=== PATIENT | male | born 1960 | race Caucasian/White ===

== ENCOUNTER 2024-06-15 08:58 | Outpatient (OUT) | payer OTHER, SELFPAY ==
[2024-06-15 09:22] LABS: Basophils Percent Auto 0.4 % (0.2-2.0); Eosinophils Absolute Auto 0.4 10^3/uL (0.0-0.7); Eosinophils Percent Auto 4.2 % (0.9-7.0); Hematocrit 45.2 % (42.0-54.0); Hemoglobin 15.3 g/dL (14.0-18.0); Immature Granulocytes Abs Auto 0.04 10^3/uL (0.00-0.03); Immature Granulocytes Pct Auto 0.4 % (0.0-0.5); Lymphocytes Absolute Auto 2.4 10^3/uL (1.2-3.8); Lymphocytes Percent Auto 24.7 % (20.5-60.0); Mean Corpuscular HGB Conc 33.8 g/dL (29.9-35.2); Mean Corpuscular Hemoglobin 30.1 pg (25.9-34.0); Mean Platelet Volume 8.6 fL (9.5-13.5); Monocytes Percent Auto 10.6 % (1.7-12.0); Neutrophils Absolute Auto 5.8 10^3/uL (1.4-6.5); Neutrophils Percent Auto 59.7 % (43.0-75.0); Platelet Count 251 10^3/uL (150-450); Red Blood Count 5.08 10^6/uL (4.70-6.10); White Blood Count 9.8 10^3/uL (4.0-11.0)
[2024-06-15 09:40] LABS: Creatinine Urine Random 113.52 mg/dL (20.00-300.00); Microalbum Creatinine Ratio Ur 22.9 mg/g (0.0-29.9); Microalbumin Urine Random 2.6 mg/dL (<=30.0)
[2024-06-15 09:43] LABS: Estimated Average Glucose 120 mg/dL; Glycohemoglobin A1C 5.8 % (4.5-6.2)
[2024-06-15 09:44] LABS: Alanine Aminotransferase 29 U/L (16-63); Albumin Level 3.8 g/dL (3.4-5.0); Alkaline Phosphatase 51 U/L (46-116); Anion Gap 12.5; Aspartate Amino Transferase 23 U/L (15-37); BUN Creatinine Ratio 18.6; Bilirubin Total 0.5 mg/dL (0.2-1.0); Carbon Dioxide 28.7 mmol/L (21.0-32.0); Chloride 105 mmol/L (98-107); Chol HDL Ratio 2.3; Cholesterol 119 mg/dL (<=200); Estimated GFR (African America >60 (>=60 mL/min/1.73m^2); Estimated GFR (Non-African Ame >60 (>=60 mL/min/1.73m^2); Globulin 3.9 g/dL; Glucose 113 mg/dL (74-106); HDL Cholesterol 52 mg/dL (40-60); LDL Cholesterol Calculated 55.2 mg/dL; Potassium 4.2 mmol/L (3.5-5.1); Sodium 142 mmol/L (136-145); Total Protein 7.7 g/dL (6.4-8.2); Triglycerides 59 mg/dL (<=150); VLDL CHOLESTEROL 11.8 mg/dL
== END 2024-06-15 08:59 | disposition home or self-care (01) ==
PROVIDERS: PCP Family Medicine; Visit Provider Family Medicine
DX: N40.1 Benign prostatic hyperplasia with lower urinary tract symptoms (principal); R73.03 Prediabetes; I48.91 Unspecified atrial fibrillation; N13.8 Other obstructive and reflux uropathy
CPT/HCPCS: 36415; 80053; 80061; 82043; 82570; 83036; 85025

== ENCOUNTER 2024-07-10 09:50 | Outpatient (OUT) | payer OTHER, SELFPAY ==
[2024-07-10 10:17] LABS: Basophils Absolute Auto 0.1 10^3/uL (0.0-0.1); Basophils Percent Auto 0.6 % (0.2-2.0); Eosinophils Absolute Auto 0.4 10^3/uL (0.0-0.7); Eosinophils Percent Auto 3.7 % (0.9-7.0); Hemoglobin 15.3 g/dL (14.0-18.0); Immature Granulocytes Abs Auto 0.03 10^3/uL (0.00-0.03); Immature Granulocytes Pct Auto 0.3 % (0.0-0.5); Lymphocytes Absolute Auto 2.1 10^3/uL (1.2-3.8); Lymphocytes Percent Auto 21.8 % (20.5-60.0); Mean Corpuscular Hemoglobin 30.5 pg (25.9-34.0); Mean Corpuscular Volume 89.8 fL (80.0-94.0); Mean Platelet Volume 8.6 fL (9.5-13.5); Monocytes Absolute Auto 0.9 10^3/uL (0.3-0.8); Monocytes Percent Auto 9.7 % (1.7-12.0); Neutrophils Absolute Auto 6.1 10^3/uL (1.4-6.5); Neutrophils Percent Auto 63.9 % (43.0-75.0); Platelet Count 266 10^3/uL (150-450); Red Blood Count 5.01 10^6/uL (4.70-6.10); Red Cell Distribution Width 12.8 % (11.0-15.0); White Blood Count 9.6 10^3/uL (4.0-11.0)
[2024-07-10 11:55] LABS: Alanine Aminotransferase 28 U/L (16-63); Albumin Level 3.7 g/dL (3.4-5.0); Alkaline Phosphatase 51 U/L (46-116); Anion Gap 12.8; Aspartate Amino Transferase 17 U/L (15-37); BUN Creatinine Ratio 17.8; Bilirubin Total 0.5 mg/dL (0.2-1.0); Carbon Dioxide 28.2 mmol/L (21.0-32.0); Chloride 104 mmol/L (98-107); Chol HDL Ratio 2.3; Cholesterol 111 mg/dL (<=200); Estimated GFR (African America >60 (>=60 mL/min/1.73m^2); Estimated GFR (Non-African Ame >60 (>=60 mL/min/1.73m^2); Globulin 3.7 g/dL; Glucose 103 mg/dL (74-106); HDL Cholesterol 49 mg/dL (40-60); LDL Cholesterol Calculated 52.2 mg/dL; Sodium 141 mmol/L (136-145); Total Protein 7.4 g/dL (6.4-8.2); Triglycerides 49 mg/dL (<=150); VLDL CHOLESTEROL 9.8 mg/dL
[2024-07-10 16:17] LABS: Estimated Average Glucose 120 mg/dL; Glycohemoglobin A1C 5.8 % (4.5-6.2)
[2024-07-10 16:55] LABS: Creatinine Urine Random 160.24 mg/dL (20.00-300.00); Microalbumin Urine Random <1.3 mg/dL (<=30.0)
== END 2024-07-10 09:51 | disposition home or self-care (01) ==
LOC: LAB 09:51
PROVIDERS: PCP Family Medicine; Visit Provider Family Medicine
DX: N40.1 Benign prostatic hyperplasia with lower urinary tract symptoms (principal); N13.8 Other obstructive and reflux uropathy; R73.03 Prediabetes; E78.2 Mixed hyperlipidemia
CPT/HCPCS: 36415; 80053; 80061; 82043; 82570; 83036; 85025

== ENCOUNTER 2024-11-18 08:36 | Outpatient (OUT) | payer OTHER, SELFPAY ==
--- OUTSIDE RECORDS SUMMARY | 2024-11-18 08:56 | XMS_ITS | CCD ---
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 Admitting Unavailable Lue, Marita M. Admitting Unavailable Lue, Marita M. Referring Unavailable Lue, Marita M. Attending Unavailable OJUKWU, Mbanefo Attending Unavailable OJUKWU, Mbanefo Admitting Unavailable [facility] Cardio, XXXX Consulting Unavailable Lue, Marita M. Referring Unavailable [facility] Cardio, XXXX Consulting Unavailable OJUKWU, Mbanefo Admitting Unavailable OJUKWU, Mbanefo Attending Unavailable MD Estuardo Bunch Consulting Unavailable Betancor, Estuardo Consulting Unavailable Betancor, Estuardo Consulting Unavailable Lue, Marita M. Admitting Unavailable Betancor, Estuardo Consulting Unavailable Sharla Mendosa DO Primary Care Provider Arben Quintanilla Unavailable Marita Klein Attending Unavailable Jose Laurent Attending Unavailable Betancor, Estuardo Admitting Unavailable NONE, XXXX Referring Unavailable Orzech, Janet X Attending Unavailable Orzech, Janet X Attending Unavailable Isacc, Janet X Attending Unavailable Marita Klein Attending Unavailable Marita Klein Referring Unavailable Marita Klein Admitting Unavailable Sharla Mendosa DO Unavailable SHARLA MENDOSA Attending Unavailable KABRANDI, SHARLA R Attending Unavailable SHARLA MENDOSA R Attending Unavailable SHARLA MENDOSA R Attending Unavailable SHARLA MENDOSA R Attending Unavailable Jose Laurent Attending Unavailable NONE, XXXX Referring Unavailable Jose Laurent Admitting Unavailable OJUKWU, Mbanefo Admitting Unavailable OJUKWU, Mbanefo Attending Unavailable OJUKWU, Mbanefo Referring Unavailable Marita Klein Attending Unavailable NONE, XXXX Referring Unavailable Jose Laurent Admitting Unavailable Jose Laurent Attending Unavailable Jose Laurent Attending Unavailable NONE, XXXX Referring Unavailable Jose Laurent Admitting Unavailable Allergies Allergy Classification Reported Allergen(s) Allergy Type Date of Onset Reaction(s) Facility (20 sources) Penicillins; Translations: [penicillins] Drug allergy 07-13-2017 Unknown (qualifier value), Unknown [facility] Mike Medications Current Medications Medication Drug Class(es) Dates Sig (Normalized) Sig (Original) 0.25 MG, 0.5 MG Dose 3 ML semaglutide 0.68 MG/ML Pen Injector [Ozempic] (6 sources) Start: 06-19-2024 Ozempic 2 mg/3 mL (0.25 mg or 0.5 mg dose) subcutaneous solution 3 mL, 0 Refill(s), INJECT 0.25 MG SUBCUTANEOUSLY WEEKLY, Refills(s) 0 Start Date: 06/19/24 Status: Ordered Repeat number: 1 Start: 06-19-2024 Ozempic 2 mg/3 mL (0.25 mg or 0.5 mg dose) subcutaneous solution 3 mL, 0 Refill(s), INJECT 0.25 MG SUBCUTANEOUSLY WEEKLY, Refills(s) 0 Start Date: 06/19/24 Status: Ordered acetaminophen 325 mg / HYDROcodone bitartrate 5 mg oral tablet (1 source) Opioid Agonist Start: 08-12-2022 End: 08-15-2022 Thurmond 325 mg-5 mg oral tablet 1 tab(s), Oral, q6hr for 3 day(s), 10 tab(s), Refill(s) 0, Take 1 tab by mouth every 6 hrs PRN moderate to severe pain. Don't drive or operate machinery while taking., [id number], 172.7, cm, 08/11/22 14:33:00 EST, Height/Length Dosing, 96,... Start Date: 08/12/22 Stop Date: 08/15/22 Status: Ordered amiodarone hydrochloride 200 mg oral tablet (15 sources) Antiarrhythmic Start: 06-07-2024 End: 09-17-2024 take 1 tablet by mouth in the morning amiodarone (Pacerone) 200 MG tablet Take 200 mg by mouth in the morning and 200 mg before bedtime. 06/07/2024 Active Start: 06-07-2024 take 1 tablet by john th twice daily amiodarone 200 mg Tab 200 mg = 1 tab(s), Oral, BID, # 60 tab(s), Refills(s) 0, Pharmacy: [facility]/pharmacy #[id number], 172, cm, 06/06/24 17:31:00 EST, Height/Length Dosing, 92.7, kg, 06/06/24 17:31:00 EST, Weight Dosing Start Date: 06/07/24 Status: Ordered apixaban 5 mg oral tablet (17 sources) Factor Xa Inhibitor Start: 06-07-2024 take 1 tablet by mouth in the morning apixaban (Eliquis) 5 MG tablet Take 5 mg by mouth in the morning and 5 mg before bedtime. 06/07/2024 Active aspirin 81 mg oral capsule (20 sources) Platelet Aggregation Inhibitor, Nonsteroidal Anti-inflammatory Drug Start: 08-06-2021 take 1 capsule by mouth once daily aspirin 81 mg oral capsule 81 mg = 1 cap(s), Oral, Daily, Prophylaxis Start Date: 08/06/21 Status: Ordered Repeat number: 1 Start: 07-13-2017 take 1 tablet by john th once daily Aspirin (Aspir-Low) 81 mg Tablet,Delayed Release (Dr/Ec) Active 81 MG PO Daily July 13, 2017 1:00am End: 10-23-2024 aspirin 81 MG chewable table t 1 (one) time each day at the same time. 10/23/2024 Discontinued (Therapy completed) betamethasone 0.5 mg/ml / clotrimazole 10 mg/ml topical cream (2 sources) Azole Antifungal, Corticosteroid Start: 10-23-2024 clotrimazole-betamethasone (Lotrisone) cream Indications: Ringworm Apply topically 2 (two) times a day 45 g 10/23/2024 Active Start: 10-23-2024 clotrimazole-b etamethasone (Lotrisone) cream Indications: Ringworm Apply topically 2 (two) times a day 45 g 10/23/2024 Active diazePAM 10 mg oral tablet (2 sources) Benzodiazepine Start: 08-12-2022 Valium 10 mg Tab 10 mg = 1 tab(s), Oral, Once, PRN for anxiety, Take 1 hour prior the procedure. Don't drive or operate machinery while taking., # 1 tab(s), Refills(s) 0, Pharmacy: [id number], 172.7, cm, 08/11/22 14:33:00 EST, Height/Length Dosing, 96, kg,... Start Date: 08/12/22 Status: Ordered diclofenac sodium 50 mg delayed release oral tablet (3 sources) Nonsteroidal Anti-inflammatory Drug Start: 08-31-2022 End: 09-14-2022 take 1 tablet by mouth every twelve hours at mealtime diclofenac sodium 50 mg Oral EC Tab 50 mg = 1 tab(s), Oral, q12hr, take with food, X 14 day(s), # 28 tab(s), Refills(s) 0, Pharmacy: [id number], 173, cm, 08/31/22 8:51:00 EST, Height/Length Dosing, 96, kg, 08/31/22 8:51:00 EST, Weight Dosing Start Date: 08/31/22 Stop Date: 09/14/22 Status: Ordered docosahexaenoic acid 120 mg / eicosapentaenoic acid 180 mg oral capsule (10 sources) omega-3 (Fish Oil) 1000 MG capsule 1 capsule 1 (one) time each day at the same time. Active Fish Oils (20 sources) Start: 08-06-2021 take 500 mg by mouth once daily Fish Oil 500 mg, Oral, Daily, Prophylaxis Start Date: 08/06/21 Status: Ordered Repeat number: 1 Start: 08-06-2021 take 500 mg by mouth once sylvia y Fish Oil 500 mg, Oral, Daily, Prophylaxis Start Date: 08/06/21 Status: Ordered Start: 08-06-2021 Fish Oil Oral Start Date: 08/06/21 Status: Ordered levoFLOXacin 500 mg oral tablet (5 sources) Quinolone Antimicrobial Start: 08-31-2022 End: 09-07-2022 take 1 tablet by mouth every twenty-four hours Levaquin 500 mg Tab 500 mg = 1 tab(s), Oral, q24hr, X 7 day(s), # 7 tab(s), Refills(s) 0, Pharmacy: [id number], 173, cm, 08/31/22 8:51:00 EST, Height/Length Dosing, 96, kg, 08/31/22 8:51:00 EST, Weight Dosing Start Date: 08/31/22 Stop Date: 09/07/22 Status: Ordered Start: 08-12-2022 take 1 tablet by john th every twenty-four hours Levaquin 500 mg Tab 500 mg = 1 tab(s), Oral, q24hr, Take 1 tab on the morning of the procedure before the procedure., # 1 tab(s), Refills(s) 0, Pharmacy: [id number], 172.7, cm, 08/11/22 14:33:00 EST, Height/Length Dosing, 96, kg, 07/19/22 8:46:00 EST, Weight Do... Start Date: 08/12/22 Status: Ordered 24 hr metFORMIN hydrochloride 500 mg extended release oral tablet (14 sources) Biguanide Start: 07-01-2024 End: 07-16-2024 take 1 tablet by mouth every twenty-four hours at mealtime metFORMIN XR (Glucophage-XR) 500 MG 24 hr tablet Indications: Prediabetes TAKE 1 TABLET BY MOUTH IN THE EVENING WITH MEALS *DO NOT CRUSH/CHEW/SPLIT* 30 tablet 3 07/01/2024 07/16/2024 Discontinued (Therapy completed) Start: 05-24-2024 take 1 tablet by john th once daily metformin 500 mg Tab 500 mg = 1 tab(s), Oral, Daily, Refills(s) 0, Blood glucose Start Date: 05/24/24 Status: Ordered Repeat number: 1 Start: 03-11-2024 take 1 tablet by john th every twenty-four hours at mealtime metFORMIN XR (Glucophage-XR) 500 MG 24 hr tablet Indications: Prediabetes Take 1 tablet (500 mg) by mouth in the evening. Take with meals Do not crush, chew, or split. 30 tablet 3 03/11/2024 Active Multi Vitamins oral tablet (20 sources) Start: 08-06-2021 take 1 tablet by mouth once daily Multi Vitamins oral tablet 1 tab(s), Oral, Daily, Prophylaxis Start Date: 08/06/21 Status: Ordered Repeat number: 1 Start: 08-06-2021 take 1 tablet by john th once daily Multi Vitamins oral tablet 1 tab(s), Oral, Daily, Prophylaxis Start Date: 08/06/21 Status: Ordered Start: 08-06-2021 Multi Vitamins oral tablet Oral, Daily Start Date: 08/06/21 Status: Ordered Multiple Vitamin (Multi Vitamin) tablet (10 sources) Multiple Vitamin (Multi Vitamin) tablet 1 (one) time each day at the same time. Active Multivitamin preparation (3 sources) Start: 07-13-2017 take 1 tablet by mouth once daily Multivitamin Active 1 TAB PO Daily July 13, 2017 1:00am niacin 500 mg oral tablet (20 sources) Nicotinic Acid Start: 08-06-2021 End: 06-13-2024 take 1 tablet by mouth once daily at bedtime niacin 500 mg ER Tab 500 mg = 1 tab(s), Oral, Once a day (at bedtime), # 30 tab(s), Refills(s) 0 Start Date: 06/06/24 Status: Ordered Quantity: 30.0 Unit: tab(s) Repeat number: 1 Start: 07-13-2017 take 500 mg by mouth once sylvia y Niacin Active 500 MG PO Daily July 13, 2017 1:00am House 9-Erm-Ibu-Fish Oil (Fish Oil) 1,000 mg (120 mg-180 mg) Capsule (3 sources) Start: 07-13-2017 take 1 capsule by mouth once daily House 9-Olu-Dlr-Fish Oil (Fish Oil) 1,000 mg (120 mg-180 mg) Capsule Active 1 CAP PO Daily July 13, 2017 1:00am omeprazole 20 mg delayed release oral capsule (20 sources) Proton Pump Inhibitor Start: 04-13-2023 take 20 mg by mouth once daily omeprazole 20 mg, Oral, Daily Start Date: 04/13/23 Status: Ordered Start: 07-01-2022 take 1 capsule by mo [facility] once daily omeprazole 20 mg Cap-DR 20 mg = 1 cap(s), Oral, Daily, Refills(s) 0, Indigestion Start Date: 05/24/24 Status: Ordered Repeat number: 1 24 hr oxybutynin chloride 10 mg extended release oral tablet (4 sources) Cholinergic Muscarinic Antagonist Start: 05-03-2022 take 1 tablet by mouth once daily oxybutynin 10 mg ER Tab 10 mg = 1 tab(s), Oral, Daily, # 30 tab(s), Refills(s) 1, Pharmacy: [id number], 173, cm, 05/03/22 8:52:00 EDT, Height/Length Dosing, 96, kg, 05/03/22 8:52:00 EDT, Weight Dosing Start Date: 05/03/22 Status: Ordered Start: 11-12-2021 take 1 tablet by [facility] once daily oxybutynin 5 mg ER Tab 5 mg = 1 tab(s), Oral, Daily, # 30 tab(s), Refills(s) 6, Pharmacy: [id number], 173, cm, 11/12/21 10:22:00 EDT, Height/Length Dosing, 96.4, kg, 11/12/21 10:22:00 EDT, Weight Dosing Start Date: 11/12/21 Status: Ordered pantoprazole 20 mg delayed release oral tablet (20 sources) Proton Pump Inhibitor Start: 09-03-2024 take 1 tablet by mouth once daily Pantoprazole [address] Tab 20 mg = 1 tab(s), Oral, Daily, Refills(s) 0 Start Date: 09/03/24 Status: Ordered Repeat number: 1 Start: 05-24-2024 End: 06-13-2024 take 1 tablet by mouth before mealtime pantoprazole (ProtoNix) 20 MG EC tablet Take 20 mg by mouth in the morning. Take before meals. 05/24/2024 06/13/2024 Discontinued Start: 08-06-2021 pantoprazole 4 0 mg, Daily Start Date: 08/06/21 Status: Ordered Start: 07-13-2017 take 40 mg by mouth once daily Pantoprazole Active 40 MG PO Daily July 13, 2017 1:00am 24 hr propranolol hydrochloride 60 mg extended release oral capsule (17 sources) beta-Adrenergic Triny Start: 03-07-2024 End: 03-07-2025 take 1 capsule by mouth once daily propranolol LA (Inderal LA) 60 MG 24 hr capsule Indications: Tremor Take 1 capsule (60 mg) by mouth Daily Do not crush, chew, or split. 30 capsule 03/07/2024 03/07/2025 Active rosuvastatin calcium 40 mg oral tablet (17 sources) HMG-CoA Reductase Inhibitor Start: 06-07-2024 take 1 tablet by mouth once daily rosuvastatin (Crestor) 40 MG tablet Take 40 mg by mouth Daily 06/07/2024 Active 0.25 mg, 0.5 mg dose 1.5 ml semaglutide 1.34 mg/ml pen injector (12 sources) Start: 07-10-2024 End: 10-23-2024 inject 0.5 mg by subcutaneous injection every week semaglutide (Ozempic, 0.25 or 0.5 MG/DOSE,) 2 MG/1.5ML solution pen-injector Indications: Prediabetes Inject 0.5 mg under the skin 1 (one) time per week 1 each 3 07/16/2024 10/23/2024 Discontinued (Ineffective) Start: 06-13-2024 inject 0.25 mg by lay bcutaneous injection every week semaglutide (Ozempic, 0.25 or 0.5 MG/DOSE,) 2 MG/1.5ML solution pen-injector Indications: Prediabetes Inject 0.25 mg under the skin 1 (one) time per week 1 each 06/13/2024 Active semaglutide (Ozempic, 1 MG/DOSE,) 4 MG/3ML solution pen-injector (2 sources) Start: 10-23-2024 inject 1 mg by subcutaneous injection every week semaglutide (Ozempic, 1 MG/DOSE,) 4 MG/3ML solution pen-injector Indications: Prediabetes Inject 1 mg under the skin 1 (one) time per week 1 each 11 10/23/2024 Active sulfamethoxazole 800 mg / trimethoprim 160 mg oral tablet (1 source) Dihydrofolate Reductase Inhibitor Antibacterial, Sulfonamide Antimicrobial Start: 09-02-2022 End: 09-09-2022 Bactrim D.S. 800 mg-160 mg Tab 1 tab(s), Oral, BID for 7 day(s), 14 tab(s), Refill(s) 0, [id number], 173, cm, 08/31/22 8:51:00 EST, Height/Length Dosing, 96, kg, 08/31/22 8:51:00 EST, Weight Dosing Start Date: 09/02/22 Stop Date: 09/09/22 Status: Ordered 24 hr trospium chloride 60 mg extended release oral capsule (20 sources) Cholinergic Muscarinic Antagonist Start: 10-10-2024 take 1 capsule by mouth once daily in the morning trospium 60 mg oral capsule, extended release 60 mg = 1 cap(s), Oral, qAM, # 30 cap(s), Refills(s) 11, [id number], 173, cm, 09/03/24 14:22:00 EST, Height/Length Dosing, 87, kg, 09/03/24 14:22:00 EST, Weight Dosing Start Date: 10/10/24 Status: Ordered Quantity: 30.0 Unit: cap(s) Repeat number: 12 Start: 10-12-2022 take 1 capsule by [facility] once daily in the morning trospium 60 mg oral capsule, extended release 60 mg = 1 cap(s), Oral, qAM, # 30 cap(s), Refills(s) 11, Pharmacy: [facility]/pharmacy #[id number], 173, cm, 04/13/23 9:46:00 EDT, Height/Length Dosing, 87.3, kg, 04/13/23 9:46:00 EDT, Weight Dosing Start Date: 11/07/23 Status: Ordered Start: 09-05-2022 take 1 capsule by [facility] once daily in the morning trospium 60 mg oral capsule, extended release 60 mg = 1 cap(s), Oral, qAM, # 30 cap(s), Refills(s) 1, Pharmacy: [id number], 173, cm, 08/31/22 8:51:00 EST, Height/Length Dosing, 96, kg, 08/31/22 8:51:00 EST, Weight Dosing Start Date: 09/05/22 Status: Ordered Start: 07-06-2022 take 1 capsule by mo [facility] once daily in the morning trospium 60 mg oral capsule, extended release 60 mg = 1 cap(s), Oral, qAM, # 30 cap(s), Refills(s) 1, Pharmacy: [facility] #[id number], 173, cm, 07/01/22 10:17:00 EST, Height/Length Dosing, 96, kg, 07/01/22 10:17:00 EST, Weight Dosing Start Date: 07/06/22 Status: Ordered take 1 capsule by [facility] every twenty-four hours in the morning trospium (Sanctura XR) 60 MG 24 hour capsule TAKE 1 CAPSULE BY MOUTH IN THE MORNING Active Completed/Discontinued Medications Medication Drug Class(es) Dates Sig (Normalized) Sig (Original) tadalafil 10 mg oral tablet (10 sources) Phosphodiesterase 5 Inhibitor Start: 11-14-2023 tadalafil 10 mg Tab 10 mg = 1 tab(s), Oral, As Directed, PRN for erectile dysfunction, take 1 tab prior to sexual activity. Do not exceen 2 tabs (20 mg) in 24 hr, # 30 tab(s), Refills(s) 5, Pharmacy: [facility] #[id number], 173, cm, 11/14/23 15:46:00 EDT, Height/Length Dosing, 88.5, kg, 11/14/23 15:46:00 EDT, Weight Dosing Start Date: 11/14/23 Status: Ordered Quantity: 30.0 Unit: tab(s) Repeat number: 6 tamsulosin hydrochloride 0.4 mg oral capsule (20 sources) alpha-Adrenergic Triny Start: 06-07-2024 End: 06-07-2024 tamsulosin 0.4 mg Cap 0.4 mg = 1 cap(s), Cap, Oral, Start date 06/07/24 9:00:00 AM EST, 06/06/24 21:08:00 EST Start Date: 06/07/24 Stop Date: 06/07/24 Status: Completed Start: 02-06-2024 End: 07-04-2025 take 1 capsule by mouth once daily tamsulosin (Flomax) 0.4 MG 24 hr capsule Take 0.4 mg by mouth Daily 05/03/2024 Active Start: 11-14-2023 take 1 capsule by mo uth once daily tamsulosin 0.4 mg Cap 0.4 mg = 1 cap(s), Oral, Daily, # 30 cap(s), Refills(s) 2, [id number], 173, cm, 11/14/23 15:46:00 EDT, Height/Length Dosing, 88.5, kg, 11/14/23 15:46:00 EDT, Weight Dosing Start Date: 11/14/23 Status: Ordered Start: 11-12-2021 take 1 capsule by [facility] once daily tamsulosin 0.4 mg Cap 0.4 mg = 1 cap(s), Oral, Daily, # 90 cap(s), Refills(s) 3, Pharmacy: [facility] #[id number], 173, cm, 05/03/22 8:52:00 EDT, Height/Length Dosing, 96, kg, 05/03/22 8:52:00 EDT, Weight Dosing Start Date: 05/03/22 Status: Ordered Problems Active Problems Problem Classification Problem Date Documented Date Episodic/Chronic Alcohol-related disorders (1 source) Alcohol dependence; Translations: [Alcohol dependence, uncomplicated] Onset: 06-06-2024 Chronic Anxiety disorders (10 sources) Anxiety; Translations: [Anxiety disorder, unspecified] Onset: 01-17-2023 01-17-2023 Chronic Cardiac dysrhythmias (20 sources) Unspecified atrial fibrillation; Translations: [Atrial fibrillation] Onset: 06-06-2024 Chronic Diabetes mellitus without complication (20 sources) Prediabetes; Translations: [Prediabetes] Onset: 02-28-2024 08-04-2021 Episodic Disorders of lipid metabolism (20 sources) Hyperlipidemia; Translations: [Hyperlipidemia, unspecified] Onset: 01-17-2023 08-04-2021 Chronic Esophageal disorders (20 sources) Gastroesophageal reflux disease; Translations: [Gastroesophageal reflux disease without esophagitis] Onset: 01-17-2023 08-04-2021 Chronic Genitourinary symptoms and ill-defined conditions (12 sources) Urge incontinence; Translations: [Urge incontinence of urine] Onset: 10-07-2022 Chronic Genitourinary symptoms and ill-defined conditions (20 sources) Microscopic hematuria; Translations: [Asymptomatic microscopic hematuria] Onset: 11-12-2021 Episodic Hyperplasia of prostate (20 sources) Benign prostatic hypertrophy without outflow obstruction; Translations: [Benign prostatic hyperplasia without lower urinary tract symptoms] Onset: 11-12-2021 Chronic Mycoses (2 sources) Dermatophytosis; Translations: [Dermatophytosis, unspecified] 10-23-2024 Episodic Other diseases of bladder and urethra (9 sources) Detrusor overactivity; Translations: [Overactive bladder] Onset: 11-12-2021 Chronic Other diseases of bladder and urethra (20 sources) Overactive bladder; Translations: [Overactive bladder] Onset: 02-28-2024 08-06-2021 Chronic Other diseases of kidney and ureters (5 sources) Urinary tract obstruction; Translations: [Other obstructive and reflux uropathy] Onset: 08-22-2022 Episodic Other male genital disorders (20 sources) Male erectile dysfunction, unspecified; Translations: [Erectile dysfunction] Onset: 12-24-2021 Chronic Other upper respiratory disease (10 sources) Rhinitis; Translations: [Chronic rhinitis] Onset: 01-17-2023 01-17-2023 Chronic Unclassified (20 sources) Asymptomatic microscopic hematuria 11-12-2021 Unclassified (10 sources) Patient encounter status 11-14-2023 Past or Other Problems Problem Classification Problem Date Documented Da te Episodic/Chronic Other lower respiratory disease (10 sources) Chronic cough; Translations: [Chronic cough] Onset: 01-17-2023 01-17-2023 Episodic Other nervous system disorders (10 sources) Tremor; Translations: [Tremor, unspecified] Onset: 03-07-2024 03-07-2024 Episodic Other screening for suspected conditions (not mental disorders or infectious disease) (20 sources) Patient encounter status; Translations: [Encounter for screening for malignant neoplasm of colon] Onset: 11-14-2023 07-13-2017 Episodic Results Test Name Value Interpretation Reference Range Facility [facility]/Cl inic Noteon 10-21-2024 [facility] and V[facility] Office/Clinic Note [facility]/Clinic Note Chief Complaint 6 week F/U History of Present Illness Patient is a 63-year-old male with history of BPH, hypertension, [id number] diabetes mellitus type 2/prediabetes, elevated PSA with abnormal MRI of the prostate. Patient comes in for 6-week follow-up today. At last visit, I saw patient at which time amiodarone was discontinued and he was continued on Eliquis and propranolol for atrial fibrillation. Patient has been doing well since last visit. He did wear a monitor for 2 weeks and it came back grossly normal. There were no evidence of A-fib during the monitoring period of time patient had very infrequent ectopic beats, but otherwise was grossly normal. Patient reports that he is still been feeling well since last visit and has been compliant with Eliquis 5 mg twice daily, and propranolol 60 mg ER daily. Patient reports that he was initially prescribed propranolol due to a tremor and it has been helpful to reduce or stop this tremor. Patient reports that he does not have any heart palpitations at all since last visit and has been feeling very good from a heart standpoint overall. Patient denies chest pain, shortness of breath, dizziness/lightheaded ness, and swelling in lower legs. REVIEWED PRIOR NOTE FROM 09/03/2024: Patient comes in for a 6 week follow-up today. At last visit, I saw patient at which time he was continued on propranolol, amiodarone and Eliquis. Patient has been doing well since last visit. He did wear a monitor for 2 weeks and it came back Good. There were no evidence of A-fib during the monitoring period of time patient had very infrequent ectopic beats, but otherwise was grossly normal. Patient reports that he is still been feeling well since last visit and has been compliant with Eliquis 5 mg twice daily, amiodarone 200 mg twice daily propranolol 60 mg ER daily. Patient reports that he was initially prescribed propranolol due to a tremor and it has been helpful to reduce or stop this tremor. Patient mentions that he did have 1 episode of heart palpitations, but he reports that he was upset at the time and thinks it was just related to his mood. As soon as he calm down, the palpitations resolved. Patient denies chest pain, shortness of breath, dizziness/lightheaded ness, and swelling in lower legs. Review of Systems PHQ Score Initial Depression Screen Score: 0 SCORE ROS - Provider Constitutional: no fever, no chills, no sweats, no weakness Respiratory: no shortness of breath, no cough Cardiovascular: no chest pain Neuro: no dizziness. no loss of consciousness Physical Exam Vitals & Measurements HR: 93(Peripheral) RR: 18 BP: 122/82 SpO2: 92% HT: 68 in HT: 173 cm WT: 188.715 lb WT: 85.6 kg BMI: 28.6 General: alert, no acute distress Cardiovascular: regular rate and rhythm, no murmur normal peripheral perfusion Respiratory: Lungs CTAB, respirations non labored Extremities: no edema left lower extremity. no edema right lower extremity Neurological: oriented x 4, LOC appropriate for age, speech normal Skin: Warm, dry, intact- no rash or concerning lesions Cardiac Diagnostics Event monitor from 07/13/2024: FINDINGS: Predominant underlying rhythm was sinus. Minimum heart rate was 64 beats per minute, average heart rate 84 beats per minute, maximum heart rate 110 beats per minute. There were 3 patient events with symptoms of not specified and one baseline. There were no secondary arrhythmias. Total burden of premature supraventricular ectopy was 0.01%. Total burden of premature ventricular ectopy was less than 0.01%. CONCLUSIONS: Underlying sinus rhythm, no evidence of atrial fibrillation, other events, as above. [1] (06/07/2024 08:52 EST Echo Transthoracic Complete) Interpretation Summary The left ventricle is normal in size. There is normal left ventricular wall thickness. The left ventricular ejection fraction is normal. Normal diastolic function. [1] Assessment/Plan 1. Atrial fibrillation (I48.91: Unspecified atrial fibrillation) Patient had new onset A-fib with RVR when he was in the hospital in 05/2024. Patient has been compliant with Eliquis 5 mg twice daily and propranolol 60 mg ER daily since being discharged. Patient did discontinue amiodarone since last visit has not noticed any difference symptoms at all. Patient does not believe he has been back in A-fib since last visit. Event monitor did not show any episodes of A-fib and only infrequent ectopic beats. Will have patient continue with Eliquis 5 mg twice daily and propranolol 60 mg ER daily and continue WITHOUT amiodarone at this time. Follow-up with me in 3 months Portions of this record may have been created with voice recognition artificial intelligence software, specifically [employer], [employer] and or [employer]. Substitutions may have occurred due to the inherent limitations of voice recognition and artificial intelligence software. Follow-up No qualifying data (more content not included)... [facility] Comment on above: Result Comment: Elec tronically Signed By: Jose Laurent PA-C\justin\Date and Time Signed: 10/21/24 10:09 EDT Reminderson 09-04-2024 Reminders Reminders From: Vi Soliman To: EU - Administrative; Sent: 03/28/2024 15:12:19 EDT Show up: 08/28/2024 14:11:00 EST Subject: Reminder Message Due Date/Time: 09/27/2024 14:12:00 EST Reminder Message Please Remember to:_schedule pt for 6 month follow up w/PSA F&T around August 2024. PATIENT RELATED REMINDER:_ ( ) Call Patient ( ) Ask Patient to ( ) Call Relative ( ) Schedule Patient ( ) Follow up on Results ( ) Other: PROVIDER RELATED REMINDER:_ ( ) Games Manager ( ) Call Pharmacy ( ) Call Lab ( ) Other: Special Instructions:_ Comments:_ pt has an appt on Monday @10:00am w/ JOHNL @ [facility] Heart and Vascular Office/Cl inic Noteon 09-03-2024 Heart and Vascular Office/Clinic Note Heart and Vascular Office/Clinic Note Chief Complaint 6 wk f/u History of Present Illness Patient is a 63-year-old male with history of BPH, hypertension, eaf-ruktmet-evecosbyl diabetes mellitus type 2/prediabetes, elevated PSA with abnormal MRI of the prostate. Patient comes in for a 6 week follow-up today. At last visit, I saw patient at which time he was continued on propranolol, amiodarone and Eliquis. Patient has been doing well since last visit. He did wear a monitor for 2 weeks and it came back Good. There were no evidence of A-fib during the monitoring period of time patient had very infrequent ectopic beats, but otherwise was grossly normal. Patient reports that he is still been feeling well since last visit and has been compliant with Eliquis 5 mg twice daily, amiodarone 200 mg twice daily propranolol 60 mg ER daily. Patient reports that he was initially prescribed propranolol due to a tremor and it has been helpful to reduce or stop this tremor. Patient mentions that he did have 1 episode of heart palpitations, but he reports that he was upset at the time and thinks it was just related to his mood. As soon as he calm down, the palpitations resolved. Patient denies chest pain, shortness of breath, dizziness/lightheaded ness, and swelling in lower legs. NOTE FROM 07/17/2024: Patient comes in for a 1 month follow-up today. At last visit, I saw patient at which time he was to orange picker machine operator an event monitor shortly after last appointment and was continued on amiodarone and Eliquis. Patient has been doing well since last visit. He did wear a monitor for 2 weeks and it came back Good. There were no evidence of A-fib during the monitoring period of time patient had very infrequent ectopic beats, but otherwise was grossly normal. Patient reports that he is still been feeling well since last visit and has been compliant with Eliquis 5 mg twice daily, amiodarone 200 mg twice daily propranolol 60 mg ER daily. Patient reports that he was initially prescribed propranolol due to a tremor and it has been helpful to reduce or stop this tremor. Patient denies chest pain, shortness of breath, heart palpitations, dizziness/lightheaded ness, and swelling in lower legs. Review of Systems ROS - Provider Constitutional: no fever, no chills, no sweats, no weakness Respiratory: no shortness of breath, no cough Cardiovascular: no chest pain Neuro: no dizziness. no loss of consciousness Physical Exam Vitals & Measurements HR: 80(Peripheral) RR: 16 BP: 134/90 SpO2: 95% HT: 68 in HT: 173 cm WT: 87.0 kg WT: 191.802 lb BMI: 29.07 General: alert, no acute distress Cardiovascular: regular rate and rhythm, no murmur normal peripheral perfusion Respiratory: Lungs CTAB, respirations non labored Extremities: no edema left lower extremity. no edema right lower extremity Neurological: oriented x 4, LOC appropriate for age, speech normal Skin: Warm, dry, intact- no rash or concerning lesions Cardiac Diagnostics Event monitor from 07/13/2024: FINDINGS: Predominant underlying rhythm was sinus. Minimum heart rate was 64 beats per minute, average heart rate 84 beats per minute, maximum heart rate 110 beats per minute. There were 3 patient events with symptoms of not specified and one baseline. There were no secondary arrhythmias. Total burden of premature supraventricular ectopy was 0.01%. Total burden of premature ventricular ectopy was less than 0.01%. CONCLUSIONS: Underlying sinus rhythm, no evidence of atrial fibrillation, other events, as above. [1] (06/07/2024 08:52 EST Echo Transthoracic Complete) Interpretation Summary The left ventricle is normal in size. There is normal left ventricular wall thickness. The left ventricular ejection fraction is normal. Normal diastolic function. [1] Assessment/Plan 1. Atrial fibrillation (I48.91: Unspecified atrial fibrillation) Patient had new onset A-fib with RVR when he was in the hospital in 05/2024. Patient has been compliant with amiodarone 200 mg twice daily, Eliquis 5 mg twice daily and propranolol 60 mg ER daily since being discharged. Patient does not believe he has been back in A-fib since last visit. Event monitor did not show any episodes of A-fib and only infrequent ectopic beats. Will discontinue amiodarone at this time. Will have patient continue with Eliquis 5 mg twice daily and propranolol 60 mg ER daily. Hoping that patient can stay in normal rhythm without the rhythm control medication. Will do close follow-up to check Ordered: rosuvastatin, 40 mg = 1 tab(s), Oral, Daily, # 90 tab(s), Refills(s) 3, Pharmacy: [facility]/pharmacy #[id number], 173, cm, 09/03/24 14:22:00 EST, Height/Length Dosing, 87, kg, 09/03/24 14:22:00 EST, Weight Dosing Follow-up with me in 6 weeks or sooner if needed portions of this record may have been created with voice recognition artificial intelligence software, specifically [employer], [employer] and or [employer]. Substitutions may have occurred due to the inh (more content not included)... Normal [facility] Comment on above: Result Comment: Elec tronically Signed By: Jose Laurent PA-C\.belen\Date and Time Signed: 09/03/24 14:35 EST Event Monitoron 07-19-2024 Event Monitor Event Monitor EVENT MONITOR ENROLLMENT PERIOD: 06/24/2024 through 07/08/2024 INDICATIONS: Atrial fibrillation. FINDINGS: Predominant underlying rhythm was sinus. Minimum heart rate was 64 beats per minute, average heart rate 84 beats per minute, maximum heart rate 110 beats per minute. There were 3 patient events with symptoms of not specified and one baseline. There were no secondary arrhythmias. Total burden of premature supraventricular ectopy was 0.01%. Total burden of premature ventricular ectopy was less than 0.01%. CONCLUSIONS: Underlying sinus rhythm, no evidence of atrial fibrillation, other events, as above. READ BY: Sushil Camejo MD ca Dictated: 07/13/2024 [id number] Transcribed: 07/18/2024 cc:Sharla Mendosa D.O. [facility] Comment on above: Result Comment: Elec tronically Signed By: Bashir RICE, Sushil Johnson\.br\Date and Time Signed: 07/19/24 12:59 EST Heart and Vascular Office/Cl inic Noteon 07-17-2024 Heart and Vascular Office/Clinic Note Heart and Vascular Office/Clinic Note Chief Complaint 1 month F/U History of Present Illness Patient is a 63-year-old male with history of BPH, hypertension, bvm-cyaqfpl-ehoucxdnk diabetes mellitus type 2/prediabetes, elevated PSA with abnormal MRI of the prostate. Patient comes in for a 1 month follow-up today. At last visit, I saw patient at which time he was to orange picker machine operator an event monitor shortly after last appointment and was continued on amiodarone and Eliquis. Patient has been doing well since last visit. He did wear a monitor for 2 weeks and it came back Good. There were no evidence of A-fib during the monitoring period of time patient had very infrequent ectopic beats, but otherwise was grossly normal. Patient reports that he is still been feeling well since last visit and has been compliant with Eliquis 5 mg twice daily, amiodarone 200 mg twice daily propranolol 60 mg ER daily. Patient reports that he was initially prescribed propranolol due to a tremor and it has been helpful to reduce or stop this tremor. Patient denies chest pain, shortness of breath, heart palpitations, dizziness/lightheaded ness, and swelling in lower legs. NOTE FROM 06/19/2024: Patient comes in for inpatient follow-up. Patient was found to be in A-fib with RVR during inpatient stay. Patient was seen by Dr. Bunch and was suggested to continue with propranolol 60 mg ER daily, amiodarone 200 mg twice daily, Eliquis 5 mL Elvin twice daily, rosuvastatin 40 mg daily.. Also suggested that patient get a 2-week event monitor. Patient did not chemically convert back to NSR while he is in the hospital when on IV amiodarone and Cardizem. Patient reports that he has been compliant with all medications since discharge including Eliquis 5 mg twice daily, amiodarone 200 mg twice daily propranolol 60 mg ER daily. Patient reports that he was initially prescribed propranolol due to a tremor and it has been helpful to reduce or stop this tremor. Patient reports that he does not believe that he is gone back into A-fib since last visit. EKG in the office shows normal sinus rhythm today with normal rate. Patient reports that he has his event monitor scheduled to orange picker machine operator on 06/24/2024. Patient has well-controlled blood pressure in the office today. He is not taking anything in addition to propranolol for blood pressure. Patient denies chest pain, shortness of breath, heart palpitations, dizziness/lightheaded ness, and swelling in lower legs. Review of Systems PHQ Score Initial Depression Screen Score: 0 SCORE ROS - Provider Constitutional: no fever, no chills, no sweats, no weakness Respiratory: no shortness of breath, no cough Cardiovascular: no chest pain Neuro: no dizziness. no loss of consciousness Physical Exam Vitals & Measurements HR: 88(Peripheral) RR: 18 BP: 112/78 SpO2: 94% HT: 68 in HT: 173 cm WT: 89.8 kg WT: 197.975 lb BMI: 30 General: alert, no acute distress Cardiovascular: regular rate and rhythm, no murmur normal peripheral perfusion Respiratory: Lungs CTAB, respirations non labored Extremities: no edema left lower extremity. no edema right lower extremity Neurological: oriented x 4, LOC appropriate for age, speech normal Skin: Warm, dry, intact- no rash or concerning lesions Cardiac Diagnostics (06/07/2024 08:52 EST Echo Transthoracic Complete) Interpretation Summary The left ventricle is normal in size. There is normal left ventricular wall thickness. The left ventricular ejection fraction is normal. Normal diastolic function. [1] Assessment/Plan 1. Atrial fibrillation (I48.91: Unspecified atrial fibrillation) Patient had new onset A-fib with RVR when he was in the hospital in 05/2024. Patient has been compliant with amiodarone 200 mg twice daily, Eliquis 5 mg twice daily and propranolol 60 mg ER daily since being discharged. Patient does not believe he has been back in A-fib since last visit. Event monitor did not show any episodes of A-fib and only infrequent ectopic beats. Patient is doing well on current medicine regimen and want to stop amiodarone in the [id number] future. Would like him to be on it for 3 months and then we will try to discontinue to see if patient states that NSR at that time. continue with current medications at this time Follow-up with me in 6-8 weeks Portions of this record may have been created with voice recognition artificial intelligence software, specifically [employer], [employer] and or [employer]. Substitutions may have occurred due to the inherent limitations of voice recognition and artificial intelligence software. Follow-up No qualifying data available Problem List/Past Medical History Ongoing BPH with obstruction/lower urinary tract symptoms BPH without urinary obstruction Dysuria ED (erectile dysfunction) Elevated PSA GERD (gastroesophageal reflux disease) Hematuria Hyperlipidemia Nocturia OAB (overactive bladder) Prediabetes Prostate cancer screenin (more content not included)... Normal [facility] Comment on above: Result Comment: Elec tronically Signed By: Mehran BRIGGS, Jose Welch\.br\Date and Time Signed: 07/17/24 15:06 EST ALL CBC WITH AUTO DIFFon BASOPHILS ABSOLUTE AUTO 0.1 [facility] Basophils/100 WBC (Bld) 0.6 % 0.2 - 2.0 % [facility] Eosinophils/100 WBC (Bld) 3.7 % 0.9 - 7.0 % [facility] Erythrocyte distribution width (RBC) [Ratio] 12.8 % 11.0 - 15.0 % [facility] Hematocrit (Bld) [Volume fraction] 45 % 42.0 - 54.0 % [facility] Hemoglobin (Bld) [Mass/Vol] 15.3 g/dL 14.0 - 18.0 g/dL [facility] IMMATURE GRANULOCYTES ABS AUTO 0.03 [facility] Immature granulocytes/100 WBC (Bld) 0.3 % 0.0 - 0.5 % [facility] Interpretation and review of laboratory results Abnormal [facility] LYMPHOCYTES ABSOLUTE AUTO 2.1 [facility] Lymphocytes/100 WBC (Bld) 21.8 % 20.5 - 60.0 % [facility] MCH (RBC) [Entitic mass] 30.5 pg 25.9 - 34.0 pg [facility] MCHC (RBC) [Mass/Vol] 34 g/dL 29.9 - 35.2 g/dL [facility] MCV (RBC) [Entitic vol] 89.8 fL 80.0 - 94.0 fL [facility] MONOCYTES ABSOLUTE AUTO 0.9 High [facility] Monocytes/100 WBC (Bld) 9.7 % 1.7 - 12.0 % [facility] NEUTROPHILS ABSOLUTE AUTO 6.1 [facility] Neutrophils/100 WBC (Bld) 63.9 % 43.0 - 75.0 % [facility] Platelet mean volume (Bld) [Entitic vol] 8.6 fL Low 9.5 - 13.5 fL [facility] TBH EO # 0.4 [facility] PLT 266 [facility] RBC 5.01 [facility] WBC 9.6 [facility] Heart and Vascular Office/Cl inic Noteon 06-19-2024 Heart and Vascular Office/Clinic Note Heart and Vascular Office/Clinic Note Chief Complaint Inpatient F/U New Onset of A-fib History of Present Illness Patient is a 63-year-old male with history of BPH, hypertension, oxg-ykhkmtx-mgvgumwjk diabetes mellitus type 2/prediabetes, elevated PSA with abnormal MRI of the prostate. Patient comes in for inpatient follow-up. Patient was found to be in A-fib with RVR during inpatient stay. Patient was seen by Dr. Bunch and was suggested to continue with propranolol 60 mg ER daily, amiodarone 200 mg twice daily, Eliquis 5 mL Elvin twice daily, rosuvastatin 40 mg daily.. Also suggested that patient get a 2-week event monitor. Patient did not chemically convert back to NSR while he is in the hospital when on IV amiodarone and Cardizem. Patient reports that he has been compliant with all medications since discharge including Eliquis 5 mg twice daily, amiodarone 200 mg twice daily propranolol 60 mg ER daily. Patient reports that he was initially prescribed propranolol due to a tremor and it has been helpful to reduce or stop this tremor. Patient reports that he does not believe that he is gone back into A-fib since last visit. EKG in the office shows normal sinus rhythm today with normal rate. Patient reports that he has his event monitor scheduled to orange picker machine operator on 06/24/2024. Patient has well-controlled blood pressure in the office today. He is not taking anything in addition to propranolol for blood pressure. Patient denies chest pain, shortness of breath, heart palpitations, dizziness/lightheaded ness, and swelling in lower legs. Review of Systems PHQ Score Initial Depression Screen Score: 0 SCORE ROS - Provider Constitutional: no fever, no chills, no sweats, no weakness Respiratory: no shortness of breath, no cough Cardiovascular: no chest pain Neuro: no dizziness. no loss of consciousness Physical Exam Vitals & Measurements HR: 82(Peripheral) RR: 18 BP: 112/80 SpO2: 94% HT: 68 in HT: 173 cm WT: 91.8 kg WT: 202.384 lb BMI: 30.67 General: alert, no acute distress Cardiovascular: regular rate and rhythm, no murmur normal peripheral perfusion Respiratory: Lungs CTAB, respirations non labored Extremities: no edema left lower extremity. no edema right lower extremity Neurological: oriented x 4, LOC appropriate for age, speech normal Skin: Warm, dry, intact- no rash or concerning lesions Cardiac Diagnostics (06/07/2024 08:52 EST Echo Transthoracic Complete) Interpretation Summary The left ventricle is normal in size. There is normal left ventricular wall thickness. The left ventricular ejection fraction is normal. Normal diastolic function. [1] Assessment/Plan 1. Atrial fibrillation (I48.91: Unspecified atrial fibrillation) Patient had new onset A-fib with RVR when he was in the hospital in 05/2024. Patient has been compliant with amiodarone 200 mg twice daily, Eliquis 5 mg twice daily and propranolol 60 mg ER daily since being discharged. EKG in the office shows normal sinus rhythm with a controlled heart rate of 78 bpm. Patient does not believe he has been back in A-fib since last visit. He has a 2-week event monitor scheduled to orange picker machine operator on 06/24/2024 and we will have him follow-up to go over those results. Continue with current medicines until that time, although we will decrease amiodarone to 200 mg daily from twice daily. Ordered: amiodarone, 200 mg = 1 tab(s), Oral, Daily, X 30 day(s), # 30 tab(s), Refills(s) 2, Pharmacy: [facility]/pharmacy #[id number], 173, cm, 06/19/24 14:33:00 EST, Height/Length Dosing, 91.8, kg, 06/19/24 14:33:00 EST, Weight Dosing apixaban, 5 mg = 1 tab(s), Oral, BID, # 60 tab(s), Refills(s) 2, [id number], 173, cm, 06/19/24 14:33:00 EST, Height/Length Dosing, 91.8, kg, 06/19/24 14:33:00 EST, Weight Dosing Orders: ECG 12 Lead Adult Follow-up with me in 1 month Portions of this record may have been created with voice recognition artificial intelligence software, specifically [employer], [employer] and or [employer]. Substitutions may have occurred due to the inherent limitations of voice recognition and artificial intelligence software. Follow-up No qualifying data available Problem List/Past Medical History Ongoing BPH with obstruction/lower urinary tract symptoms BPH without urinary obstruction Dysuria ED (erectile dysfunction) Elevated PSA GERD (gastroesophageal reflux disease) Hematuria Hyperlipidemia Nocturia OAB (overactive bladder) Prediabetes Prostate cancer screening Urinary retention 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 Historical No qualifying data Procedure/Surgical History Transurethral water vapor ablation of prostate (08/22/2022), Cystoscopy (07/19/2022), Colonoscopy, Tonsillectomy, Ultrasonography by transrectal approach. Medications amiodarone 200 mg Tab, 200 mg= 1 tab(s), Oral, Daily, 2 refills aspirin 81 mg oral capsule, 81 mg= 1 cap(s), Oral, Daily Crestor 40 mg Tab, 40 mg= 1 tab(s), Oral, Daily Eliquis 5 mg or (more content not included)... Normal [facility] Comment on above: Result Comment: Elec tronically Signed By: Mehran BRIGGS, Jose Welch\.belen\Date and Time Signed: 06/19/24 16:14 EST Urology Office/Clinic Noteon 06-19-2024 Urology Office/Clinic Note Urology Office/Clinic Note Chief Complaint Patient in office for PATH review HPI Staff 63yr old male pt here for 2wk f/u to TP prostate biopsy done on 06/06/24 and to review path. MRI prostate 05/08/24 showed PI-RADS 5 lesion, prostate volume 47. S/p Rezum 08/22/22 Previous Dx: elevated PSA, BPH with obstruction/lower urinary tract symptoms, OAB, ED *tamsulosin 0.4mg, Trospium 60mg, Cialis 20mg. Patient states he has been doing well since the biopsy. Denies seeing any blood/blood clots. UA today shows moderate blood present. Denies any urinary issues/concerns. History of Present Illness Tests reviewed: reviewed UA and Path Report. I have reviewed the previous health record information and history for this patient from . I have reviewed and verified the staff HPI to be accurate for this encounter. There have been no associated fever, chills, flank pain, or blood in the urine. Denies any urinary infections since last encounter. Review of Systems ROS - Provider Constitutional: denies weight loss, denies hot flashes. Eyes: denies eye problems. Gastrointestinal: denies nausea, denies vomiting. Cardiovascular: denies chest pain or angina. Integumentary: no dryness Musculoskeletal: denies musculoskeletal symptoms. ENMT: denies otolaryngeal symptoms. Respiratory: no shortness of breath. Heme/Lymph: denies easy bleeding tendency, denies easy bruising tendency. Psychiatric: no confusion, no anxiety. Genitourinary: See HPI. Physical Exam Vitals & Measurements HT: 68 in HT: 173 cm WT: 91 kg WT: 200.62 lb BMI: 30.41 General Appearance: alert, no distress, well nourished, well developed male. Assessment/Plan 63 yo male with hx of BPH with LUTS s/p Rezum 08/22/22 and rising PSA s/p MRI fusion TP bx here for path review. Here with 1. Elevated PSA (R97.20: Elevated prostate specific antigen [PSA]) No known family history of prostate CA PSA: 11/2017 - 2 03/31/21 - 2.55 01/17/23 - 1.7 & 29% 02/29/24 - 2.8 & 21%, PSAD 0.06 MRI prostate 05/08/24 showed a PI-RADS 5 lesion, prostate volume 47 MRI Fusion TP prostate biopsy 06/06/24 - Path showed benign tissue with focal chronic inflammation at IRVIN Patient states he has been doing well since the biopsy. Denies seeing any blood/blood clots. UA today shows moderate blood present, expected Discussed path results with pt, advised that we will continue to monitor the PSA q1-2 years. Discussed potential etiologies for lesion on MRI, inflammation/BPH per path. Follow up in 1 yr w/PSA. All questions/concerns were discussed. Pt to call the office if he encounters any issues prior. Pt acknowledges understanding. -Will order PSA at [facility]. 2. BPH with obstruction/lower urinary tract symptoms (N40.1: Benign prostatic hyperplasia with lower urinary tract symptoms) S/p Rezum 08/22/22. Prostate volume 49.8 ml IPSS 12(19), moderate symptoms of BPH. Currently taking tamsulosin 0.4 mg daily. Tolerating well without side effects. Declines changes at this time UA today shows moderate blood and no signs of infection. -Continue tamsulosin, call for refills. 3. OAB (overactive bladder) (N32.81: Overactive bladder) Was previously denied Myrbetriq 12/12/2022 Trospium 60 mg daily. He tolerates this well without side effects. He voids every 2 hours during the day, depending on his bladder irritant intake. We did discuss bladder irritants further, he enjoys coffee and alcohol in the evenings. We discussed how this may contribute to his urinary symptoms. [1] Declines issues at this time 4. ED (erectile dysfunction) (N52.9: Male erectile dysfunction, unspecified) FERNANDO 0 (4) Started Cialis 10 mg as needed at prior office visit. Patient states that this got him to about 50% erection. He does note that he had a mild headache for a few hours after use. He did try to increase dose to 20 mg, states tat it did not improve his erection, had engorgement. We did briefly discuss ICI, pellet therapy, penile implant. Discussed checking his Testosterone levels to see if this was low to possibly cause his erectile dysfunction, pt declined. Pt asked if he could take 3 tabs of the Cialis or try a different med. Advised pt that he has tried the highest dose of the Cialis, could try the Viagra however similar drug. Pt states that he doesn't want to try any new meds or have his T level checked. Patient states he cont with 20 mg prn, call if he needs refills, will call if he decides he wants to try ICI. -Call office if the pt changes mind regarding tx. Follow-up With When Contact Information Ernie RICE, Marita Albarran, URL, URO In 1 year Additional Instructions: w/PSA @ [facility] Patient Education Benign Prostatic Hyperplasia I, Kelly Quiroz, personally scribed for Dr. Klein on 06/19/2024 12:02:38. . Documentation recorded by the scribe, Kelly Quiroz, accurately reflects the services(s) I performed and decisions made by me. (more content not included)... Normal [facility] Comment on above: Result Comment: Elec tronically Signed By: Marita Klein MD\.br\Date and Time Signed: 06/19/24 12:43 EST\.br\Electronically Co-Signed By: Kelly Quiroz\.br\Date and Time Co-Signed: 06/19/24 12:02 EST HbA1c (Bld) [Mass fraction]O rdered By: Karissa Jacques on 06-17-2024 [facility] ALL CBC WITH AUTO DIFFon BASOPHILS ABSOLUTE AUTO 0 [facility] Basophils/100 WBC (Bld) 0.4 % 0.2 - 2.0 % [facility] Eosinophils/100 WBC (Bld) 4.2 % 0.9 - 7.0 % [facility] Erythrocyte distribution width (RBC) [Ratio] 13 % 11.0 - 15.0 % [facility] Hematocrit (Bld) [Volume fraction] 45.2 % 42.0 - 54.0 % [facility] Hemoglobin (Bld) [Mass/Vol] 15.3 g/dL 14.0 - 18.0 g/dL [facility] IMMATURE GRANULOCYTES ABS AUTO 0.04 High [facility] Immature granulocytes/100 WBC (Bld) 0.4 % 0.0 - 0.5 % [facility] Interpretation and review of laboratory results Abnormal [facility] LYMPHOCYTES ABSOLUTE AUTO 2.4 [facility] Lymphocytes/100 WBC (Bld) 24.7 % 20.5 - 60.0 % [facility] MCH (RBC) [Entitic mass] 30.1 pg 25.9 - 34.0 pg [facility] MCHC (RBC) [Mass/Vol] 33.8 g/dL 29.9 - 35.2 g/dL [facility] MCV (RBC) [Entitic vol] 89 fL 80.0 - 94.0 fL [facility] MONOCYTES ABSOLUTE AUTO 1 High [facility] Monocytes/100 WBC (Bld) 10.6 % 1.7 - 12.0 % [facility] NEUTROPHILS ABSOLUTE AUTO 5.8 [facility] Neutrophils/100 WBC (Bld) 59.7 % 43.0 - 75.0 % [facility] Platelet mean volume (Bld) [Entitic vol] 8.6 fL Low 9.5 - 13.5 fL [facility] TBH EO # 0.4 [facility] TB PLT 251 [facility] RBC 5.08 [facility] WBC 9.8 [facility] ALL LIPID PROFILE (FASTING)o n 06-15-2024 CHOL HDL RATIO 2.3 [facility] Comment on above: 3.3 - 4.4 LOW RISK 4.4 - 7.1 AVERAGE RISK 7.1 - 11.0 MODERATE RISK >11.0 HIGH RISK Cholesterol [Mass/Vol] 119 mg/dL NINF - 200 mg/dL [facility] Cholesterol in HDL [Mass/Vol] 52 mg/dL 40 - 60 mg/dL [facility] Comment on above: > or =60 mg/dl - LOW CARDIOVASCULAR RISK <40 mg/dl - HIGH CARDIOVASCULAR RISK Magnesium [Mass/Vol] 55.2 mg/dL [facility] Comment on above: <100 mg/dl OPTIMAL 100-129 mg/dl NEAR OR ABOVE OPTIMAL 130-159 mg/dl BORDERLINE HIGH 160-189 mg/dl HIGH >190 mg/dl VERY HIGH Magnesium [Mass/Vol] 11.8 mg/dL [facility] Triglyceride [Mass/Vol] 59 mg/dL NINF - 150 mg/dL [facility]CF CMP (CMP) (FOR REMOTE FH C USE)on 06-15-2024 Albumin [Mass/Vol] 3.8 g/dL 3.4 - 5.0 g/dL [facility] ALBUMIN GLOBULIN RATIO 1 NO [facility] ALP [Catalytic activity/Vol] 51 U/L 46 - 116 U/L [facility] ALT [Catalytic activity/Vol] 29 U/L 16 - 63 U/L [facility] Anion gap [Moles/Vol] 12.5 mmol/L [facility] AST [Catalytic activity/Vol] 23 U/L 15 - 37 U/L [facility] Bilirubin [Mass/Vol] 0.5 mg/dL 0.2 - 1 .0 mg/dL [facility] Calcium [Mass/Vol] 9 mg/dL 8.5 - 10. 1 mg/dL [facility] Chloride [Moles/Vol] 105 mmol/L 98 - 10 7 mmol/L [facility] CO2 [Moles/Vol] 28.7 mmol/L 21.0 - 32.0 mmol/L [facility] Creatinine [Mass/Vol] 0.97 mg/dL 0.70 - 1.30 mg/dL [facility] GFR/1.73 sq M.predicted CKD-EPI (S/P/Bld) [Vol rate/Area] >60 >=60 mL/min/1.73m 2 [facility] Globulin (S) [Mass/Vol] 3.9 g/dL [facility] Glucose [Mass/Vol] 113 mg/dL High 74 - 106 mg/dL [facility] Interpretation and review of laboratory results Abnormal [facility] Potassium [Moles/Vol] 4.2 mmol/L 3.5 - 5.1 mmol/L [facility] Protein [Mass/Vol] 7.7 g/dL 6.4 - 8.2 g/dL [facility] Sodium [Moles/Vol] 142 mmol/L 136 - 145 mmol/L [facility] TBH EGFR-NON AF SALVADOREAN >60 >=60 mL/min/1.73m 2 [facility] Urea nitrogen [Mass/Vol] 18 mg/dL 7.0 - 18.0 mg/dL [facility] Urea nitrogen/Creatinine [Mass ratio] 18.6 mg/mg [facility] MLR HEMOGLOBIN A1Con 024 Glucose [Mass/Vol] 120 mg/dL [facility] HbA1c (Bld) [Mass fraction] 5.8 % 4.5 - 6.2 % [facility] Comment on above: ADA RECOMMENDED LIMI T 4.0 - 6.0 ADA THERAPEUTIC TARGET < 7.0 ACTION SUGGESTED > 7.0 No Panel Informationon 06-15 [facility] MICROALB CREAT RATIO RAN Yelena 06-15-2024 CREATININE URINE RANDOM 113.52 mg/dL 20.00 - 300.00 mg/dL [facility] MICROALBUM CREATININE RATIO UR 22.9 mg/g 0.0 - 29.9 mg/g [facility] Comment on above: NO MICROALBUMINURIA 0-29 MG/G CLINICAL MICROALBUMINURIA 30-300 MG/G MACROALBUMINURIA >300 MG/G MICROALBUMIN URINE RANDOM 2.6 mg/dL NINF - 30.0 mg/dL [facility] Surgical Pathology Reporton 06-13-2024 Surgical Pathology Report [address] [place] [address]- Surgical Pathology Report Collected Date/Time: 06/06/2024 12:34 EST Pathologist: Ace RICE PhD, Sally Jett Date/Time: 06/06/2024 13:55 EST Ernie RICE, Marita Klein MD, Marita Viramontes Surgical Pathology Report - 06/13/2024 11:40 EST - Auth (Verified) Final Diagnosis A: ??PROSTATE, RIGHT POSTERIOR MEDIAL, NEEDLE BIOPSY: - BENIGN PROSTATIC TISSUE. B: ??PROSTATE, RIGHT POSTERIOR LATERAL, NEEDLE BIOPSY: - BENIGN PROSTATIC TISSUE. C: ??PROSTATE, RIGHT BASE, NEEDLE BIOPSY: - BENIGN PROSTATIC TISSUE. D: ?PROSTATE, RIGHT ANTERIOR MEDIAL, NEEDLE BIOPSY: - BENIGN PROSTATIC TISSUE. E: ?PROSTATE, RIGHT ANTERIOR LATERAL, NEEDLE BIOPSY: - BENIGN PROSTATIC TISSUE. F: ?PROSTATE, LEFT POSTERIOR MEDIAL, NEEDLE BIOPSY: - BENIGN PROSTATIC TISSUE. G: ?PROSTATE, LEFT POSTERIOR LATERAL, NEEDLE BIOPSY: - BENIGN PROSTATIC TISSUE. H: ?PROSTATE, LEFT BASE, NEEDLE BIOPSY: - BENIGN PROSTATIC TISSUE. I: ?PROSTATE, LEFT ANTERIOR MEDIAL, NEEDLE BIOPSY: - BENIGN PROSTATIC TISSUE (SEE COMMENT). J: ?PROSTATE, LEFT ANTERIOR LATERAL, NEEDLE BIOPSY: - BENIGN PROSTATIC TISSUE. K: ?PROSTATE, RIGHT PERIPHERAL ZONE, REGION OF INTEREST, BIOPSY: - BENIGN PROSTATIC TISSUE WITH FOCAL CHRONIC INFLAMMATION. (Electronic Signature) Sally Bello MD PhD 06/13/2024 11:40 Diagnosis Comment I : Immunostain HMW cytokeratins /p63/ P504S (PIN4 immunostain) reviewed, supporting the rendered diagnosis. Clinical Information Elevated PSA Pre-Op Diagnosis: Elevated PSA Procedure: Transperineal ultrasound prostate biopsy Post-Op Diagnosis: 1. Elevated PSA 2. Abnormal MRI Specimen(s) Received 1.#1 and #2 of right posterior medial prostate 2.#1 and #2 of right posterior lateral prostate Surgical Pathology Report Collected Date/Time: 06/06/2024 12:34 EST Pathologist: Ace RICE PhD, Sally Turner Received Date/Time: 06/06/2024 13:55 EST Ernie RICE, Marita Klein MD, Marita Albarran Specimen(s) Received 3.#1 and #2 of right base prostate 4.#1 and #2 of right anterior medial prostate 5.#1 and #2 of right anterior lateral prostate 6.#1 and #2 of left posterior medial prostate 7.#1 and #2 of left posterior lateral prostate 8.#1 and #2 of left base prostate 9.#1 and #2 of left anterior medial prostate 10.#1 and #2 of left anterior lateral prostate 11.#1 Region of interest right peripheral zone Gross Description A: The specimen is received in formalin, labeled with patient name, number and #1 and #2 of right posterior medial prostate and consists of two cylindrical segments of dupree soft tissue which measure 0.5 and 1.0 cm in length. The specimen is entirely submitted. B: ??The specimen is received in formalin, labeled with patient name, number, and #1 and #2 of right posterior lateral prostate and consists of two cylindrical segments of dupree soft tissue which measure 1.4 and 1.5 cm in length. The specimen is entirely submitted. C: ?The specimen is received in formalin, labeled with patient name, number, and #1 and #2 of right base prostate and consists of one fragmented core of dupree soft tissue which measures 0.8 cm in length. The specimen is entirely submitted. D: ?The specimen is received in formalin, labeled with patient name, number, and #1 and #2 of right anterior medial prostate x1 and consists of one cylindrical segment of dupree soft tissue which measures 0.8 cm in length. The specimen is entirely submitted. E: ?The specimen is received in formalin, labeled with patient name, number, and #1 and #2 of right anterior lateral prostate x1 and consists of one cylindrical segment of dupree soft tissue which measures 0.5 cm in length. The specimen is entirely submitted. F: ?? The specimen is received in formalin, labeled with patient name, number, and #1 and #2 of left posterior medial prostate and consists of two cylindrical segments of dupree soft tissue which measure 1.3 and 1.4 cm in length. The specimen is entirely submitted. G: ??The specimen is received in formalin, labeled with patient name, number, and #1 and #2 of left posterior lateral prostate and consists of two cylindrical segments of dupree soft tissue which measure 0.8 and 1.0 cm in length. The specimen is entirely submitted. H: ?The specimen is received in formalin, labeled with patient name, number, and #1 and #2 of left base prostate and consists of two cylindrical segments of dupree soft tissue which measure 0.8 and 0.9 cm in length. The specimen is entirely submitted. I: The specimen is received in formalin, labeled with patient name, number, and #1 and #2 of left anterior medial prostate x1 and consists of one cylindrical segment of dupree soft tissue which measures 0.8 cm in length. The specimen is entirely submitted. J: The specimen is received in formalin, labeled with patient name, number, and #1 and #2 of (more content not included)... Normal [facility] Comment on above: Performed By: #### [id number] #### [facility] [address] [place] [address] Main OR Intraoperative Recor don 06-10-2024 Main OR Intraoperative Record Main OR Intraoperative Record IntraOp Document Type FT Summary Primary Physician: Marita Klein MD Finalized Date/Time: 06/10/24 08:20:17 Pt. Name: THOMAS GONCALVES/Sex: 1960 Male Med Rec #: [id number] Physician: Facundo PEACE MD Financial #: [id number] Pt. Type: O Room/Bed: [place] [address] Admit/Disch: 06/06/24 09:30:30 - 06/07/24 13:20:00 Institution: Case Times FT Entry 1 Patient Times In Room 06/06/24 12:41:00 Out Room 06/06/24 13:14:00 Procedure Times Start 06/06/24 12:51:00 Stop 06/06/24 13:06:00 Anesthesia Times Start 06/06/24 12:41:00 Stop 06/06/24 13:14:00 Last Modified By: Curt Vargas RN 06/06/24 13:15:14 General Comments: 06/10/24 Chart opened to review and send charges LRoth CSFA Case Attendance FT Entry 1 Entry 2 Entry 3 Case Attendee Adelaida GREEN, Julio C Klein MD, Marita Vargas RN, Curt Turner Role Performed Anesthesiologist Surgeon - Primary Motors And Controls Tester - Primary Master Certified Rv Technician Time In 06/06/24 12:41:00 06/06/24 12:48:00 06/06/24 12:41:00 Time Out 06/06/24 13:14:00 06/06/24 13:08:00 06/06/24 13:14:00 Procedure PROSTATE TRANSPERINEAL PROSTATE TRANSPERINEAL PROSTATE TRANSPERINEAL BIOPSY WITH ULTRA(.) BIOPSY WITH ULTRA(.) BIOPSY WITH ULTRA(.) Comments , ANESTHESIA COMPLEX DIRECTOR Last Modified By: Alicia DELGADO, Curt Vargas RN, Curt Rojo RN 06/06/24 13:15:16 06/06/24 13:15:16 06/06/24 13:15:16 Entry 4 Entry 5 Case Attendee Ricardo HAN, Liz Gonzales Role Performed Staff - Other Scrub - Primary Time In 06/06/24 12:41:00 06/06/24 12:41:00 Time Out 06/06/24 12:51:00 06/06/24 13:14:00 Procedure PROSTATE TRANSPERINEAL PROSTATE TRANSPERINEAL BIOPSY WITH ULTRA(.) BIOPSY WITH ULTRA(.) Comments positioning help Last Modified By: Alicia DELGADO, Curt Rojo RN 06/06/24 13:15:16 06/06/24 13:15:16 General Comments: VALERIA KASPER-OBSERVING SURGICAL CASE. AZUL CLEMENT, [employer]., PRESENT IN OR FOR SURGICAL CASE. Perioperative Protocols FT Pre-Care Text: Implements protective measures prior to operative or invasive procedure, confirms identity before the operative or invasive procedure, verifies operative procedure, surgical site, and laterality Entry 1 Procedure(s) PROSTATE TRANSPERINEAL Patient Identity Birthday, ID Band BIOPSY WITH ULTRA(.) Verified (select at Check, Patient least 2): Participation Consents / H and P Anesthesia Consent, Operative Site N/A Verified H&P, Surgery/Procedure Marking Verified Consent Surgical Site Yes Laterality Verified n/a Verified Procedure Verified Yes Correct Patient Yes Position Verified Availability Equipment, Medication Prep Dry n/a Verified (If Applicable) PreOp Antibiotic Yes Time Out Adelaida GREEN, Julio C Given Participants Ernie Holland MD, Marita Albarran, Alicia DELGADO, Ricardo Kc CST, Noemi Mccrary Sydney A Time Out Complete 06/06/24 12:49:00 Outcomes Met? Yes Last Modified By: Curt Vargas RN 06/06/24 12:54:40 Post-Care Text: The patient is free from signs and symptoms of injury caused by extraneous objects Allergy Information FT Pre-Care Text: Verifies allergies Entry 1 Allergies Reviewed? Yes Allergies Reviewed Self/Patient With Outcomes Met? Yes Last Modified By: Curt Vargas RN 06/06/24 13:43:50 Post-Care Text: The patient received appropriate medication(s) safely administered during the perioperative period Surgical Procedures FT Entry 1 Procedure Description Procedure PROSTATE TRANSPERINEAL Modifiers . BIOPSY WITH ULTRASOUND Surgeon Description MRI FUSION TRANSPERINEAL PROSTATE BIOPSY Primary Procedure Yes Primary Surgeon Marita Klein MD Start 06/06/24 12:51:00 Stop 06/06/24 13:06:00 Anesthesia Type General Surgical Service Urology Wound Class 2 - Clean-Contaminated Last Modified By: Licha Briceño CST 06/10/24 08:18:26 General Case Data FT Pre-Care Text: Classifies surgical wound, implements aseptic technique, initiates traffic control Entry 1 Case Information OR OR 5 FT Case Level Level 2 Wound Class 2 - Clean-Contaminated Specialty Urology ASA Class 2 Preop Diagnosis ELEVATED PSA, BPH WITH Postop Same As Preop Yes OBSTRUCTION/LUTS Postop Diagnosis ELEVATED PSA, BPH WITH Outcomes Met? Yes OBSTRUCTION/LUTS Last Modified By: Curt Vargas RN 06/06/24 12:57:57 Post-Care Text: The patient is free from signs and symptoms of infection Skin Assessment (Pre Procedure) FT Pre-Care Text: Implements protective measures to prevent skin/ tissue injury due to thermal or mechanical sources Evaluates for signs and symptoms of physical injury to skin and tissue Entry 1 Skin Integrity Intact, [place], Warm, & Skin Abnormality No Dry Outcomes Met? Yes Last Modified By: Curt Vargas RN 06/06/24 12:57:48 Post-Care Text: The patient is free from signs and symptoms of injury caused by extraneous objects Patient Positioning FT Pre-Car (more content not included)... Normal [facility] CHEMISTRYOrdered By: Lab ROP User on 06-07-2024 Glucose [Mass/Vol] 114 mg/dL High 55 - 99 mg/dL [facility] POC Subsection Comment on above: Result Comment: Wilber COLEMAN POC Device SN [id number] 1 Invalid Interpretation Code [facility] POC Subsection POC User ID [id number] 1 Invalid Interpretation Code FT POC Subsection POC Username KERWIN HAYES Invalid Interpretation Code FT POC Subsection Glucose [Mass/Vol] 106 mg/dL High 55 - 99 mg/dL [facility] POC Subsection Comment on above: Result Comment: Wilber COLEMAN POC Device SN [id number] 1 Invalid Interpretation Code FT POC Subsection POC User ID [id number] 1 Invalid Interpretation Code FT POC Subsection POC Username KERWIN HAYES Invalid Interpretation Code [facility] POC Subsection Capillary Glucose POCon Glucose [Mass/Vol] 114 mg/dL High 55-[address] [facility] Comment on above: Result Comment: Wilber COLEMAN Performed By: #### 2 [id number] #### [facility] [address] [place] [address] Glucose [Mass/Vol] 106 mg/dL High 55-[address] [facility] Comment on above: Result Comment: Wilber COLEMAN Performed By: #### 2 [id number] #### [facility] [address] [place] [address] Inpatient Clinical Summaryon 06-07-2024 Inpatient Clinical Summary Inpatient Clinical Summary [address] [address] Clinical Summary Person Information: Name: THOMAS GONCALVES Age: 63 Years : 1960 Sex: Male PCP: Jose Elias MENDOSA DO Marital Status: Race: White Ethnicity: Non- or Language: Djiboutian Visit Id: Visit Reason: ELEVATED PSA, BPH WITH OBSTRUCTION/ LUTS Speciality: Acuity: Enc Type: Observation Med Service: Medical Arrival: 06/06/2024 09:30:30 Discharge: Dispo Type: Address: [address] [place] [address] [id number] Provider Notes: Diagnosis: 2:Prediabetes; 3:BPH with obstruction/lower urinary tract symptoms; 6:Alcohol dependence, continuous; Other obstructive and reflux uropathy Problems Active Elevated PSA Prostate cancer screening 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 Urinary retention BPH with obstruction/lower urinary tract symptoms Nocturia ED (erectile dysfunction) Hematuria BPH without urinary obstruction OAB (overactive bladder) GERD (gastroesophageal reflux disease) Hyperlipidemia Prediabetes Dysuria Smoking Status: Never Smoker Functional Status: Sensory Deficits: History of Falls: Mobility Assistance Prior to Admission: Independent ADLs: Independent Current Level of Assistance for Self-Care/Mobility: Cognitive Status: Allergies penicillins (Unknown) Measurements: Height: 172 cm Weight: 90.5 kg Blood Pressure: 117 mmHg / 80 mmHg BMI: 31.33 kg/m2 Procedures Ultrasonography by transrectal approach Immunizations No Immunizations Documented This Visit Final Med List: amiodarone (amiodarone 200 mg Tab) 1 Tablets By Mouth 2 times a day. Refills: 0. apixaban (Eliquis 5 mg oral tablet) 1 Tablets By Mouth 2 times a day. Refills: 0. aspirin (aspirin 81 mg oral capsule) 1 Capsules By Mouth every day. metformin (metformin 500 mg Tab) 1 Tablets By Mouth every day. multivitamin (Multi Vitamins oral tablet) 1 Tablets By Mouth every day. niacin 500 Milligram By Mouth. niacin (niacin 500 mg ER Tab) 1 Tablets By Mouth once a day (at bedtime). omega-3 polyunsaturated fatty acids (Fish Oil) 500 Milligram By Mouth every day. omeprazole (omeprazole 20 mg Cap-DR) 1 Capsules By Mouth every day. propranolol (propranolol 60 mg Cap-ER) 1 Capsules By Mouth every day. rosuvastatin (Crestor 40 mg Tab) 1 Tablets By Mouth every day. Refills: 0. tadalafil (tadalafil 10 mg Tab) 1 Tablets By Mouth As Directed as needed for erectile dysfunction. take 1 tab prior to sexual activity. Do not exceen 2 tabs (20 mg) in 24 hr. Refills: 5. tamsulosin (tamsulosin 0.4 mg Cap) 1 Capsules By Mouth every day for 90 Days. Refills: 3. trospium (trospium 60 mg oral capsule, extended release) 1 Capsules By Mouth once a day (in the morning). Refills: 11. Care Team Members: Attending Physician: LYNETTE RICE, Glo Consulting Physician: [facility] Cardio, XXXX; Estuardo Bunch MD Referring Physician: Ernie RICE, Marita Albarran Follow up: With: Address: When: Jose Elias MENDOSA [address] [place], [place] [id number] [employer] (1) 06/13/2024 2:20 PM With: Address: When: Ernie RICE, Marita Albarran, URL, URO [address] [place] [id number] 06/19/2024 11:00 AM With: Address: When: Sushil Camejo [address] [place], [place] [id number] [phone] [employer] (1) 06/18/2024 11:30 AM Comments: Call for followup appointment Type Location Start [facility] Cardiology Follow Up (FT) FT.Cardiology Clinic 06/18/2024 11:30 AM 06/18/2024 11:45 AM Confirmed URO Office Visit [facility] [place] 06/19/2024 11:00 AM 06/19/2024 11:15 AM Confirmed Patient Education Information: Post Op Patient Instructions - FT (CUSTOM); [place]- Post-Op Instructions for Prostate Biopsy(CUSTOM) Normal [facility] Inpatient Patient Summaryon 06-07-2024 Inpatient Patient Summary Inpatient Patient Summary [address] [address] Patient Discharge Instructions PERSON INFORMATION Name: THOMAS GONCALVES Date of : 1960 Current Date: 06/07/2024 11:37:59 PHYSICIANS Admitting Physician: Glo PEACE MD Primary Care Physician: Jose Elias MENDOSA DO PCP Comment: Discharge Diagnosis: 2:Prediabetes; 3:BPH with obstruction/lower urinary tract symptoms; 6:Alcohol dependence, continuous; Other obstructive and reflux uropathy Condition at Discharge: Improved THOMAS GONCALVES has been given the following list of follow-up instructions, prescriptions, and patient education materials: PATIENT FOLLOW-UP INFORMATION Diet: Calorie Controlled- 1800 Calorie Diet Discharge Activity: Ambulate as tolerated, Activity as tolerated Discharge Restrictions: Wound Care Instructions: Remove Your Dressing In Days Call Your Doctor For: IF UNABLE TO CONTACT YOUR PHYSICIAN AND YOU FEEL IT IS AN EMERGENCY, GO TO THE NEAREST EMERGENCY ROOM OR CALL 911 Home Treatment: Devices/Equipment: None Special Services: Additional Instructions: Primary Care Physician to provide the following pending test results: None Follow up: With: Address: When: Ernie RICE, KANDIS Maldonado, URO [address] [place] [phone] 06/19/2024 11:00 AM With: Address: When: Sushil Camejo [address] [place], [place] [id number] [phone] [facility] (1) 06/18/2024 11:30 AM Comments: Call for followup appointment With: Address: When: Jose Elias MENDOSA [address] [place], [place] [id number] [facility] (1) Within 5 to 7 days In the event that this physician does not participate in your insurance network, please consult with your insurance company to find a nearby participating provider. Type Location Start [facility]18[facility]24 11:30 AM 06/18/2024 11:45 AM Confirmed URO Office Visit [facility] 06/19/2024 11:00 AM 06/19/2024 11:15 AM Confirmed Comment: IVANNA Raymond RON L, have received the attached patient education materials/instruction s and have verbalized understanding: Patient Signature Date Clinican/Nurse Signature Date HERE ARE THE MEDICATION CHANGES THAT OCCURRED DURING YOUR HOSPITAL STAY New Medications [facility]/pharmacy #[id number], [address], [place] [id number], [phone] amiodarone (amiodarone 200 mg Tab) 1 Tablets By Mouth 2 times a day. Refills: 0. Last Dose: ____Next Dose: ____ apixaban (Eliquis 5 mg oral tablet) 1 Tablets By Mouth 2 times a day. Refills: 0. Last Dose: ____Next Dose: ____ rosuvastatin (Crestor 40 mg Tab) 1 Tablets By Mouth every day. Refills: 0. Last Dose: ____Next Dose: ____ Medications to Continue with No Changes Other Medications aspirin (aspirin 81 mg oral capsule) 1 Capsules By Mouth every day. Last Dose: ____Next Dose: ____ metformin (metformin 500 mg Tab) 1 Tablets By Mouth every day. Last Dose: ____Next Dose: ____ multivitamin (Multi Vitamins oral tablet) 1 Tablets By Mouth every day. Last Dose: ____Next Dose: ____ niacin 500 Milligram By Mouth. Last Dose: ____Next Dose: ____ niacin (niacin 500 mg ER Tab) 1 Tablets By Mouth once a day (at bedtime). Last Dose: ____Next Dose: ____ omega-3 polyunsaturated fatty acids (Fish Oil) 500 Milligram By Mouth every day. Last Dose: ____Next Dose: ____ omeprazole (omeprazole 20 mg Cap-DR) 1 Capsules By Mouth every day. Last Dose: ____Next Dose: ____ propranolol (propranolol 60 mg Cap-ER) 1 Capsules By Mouth every day. Last Dose: ____Next Dose: ____ tadalafil (tadalafil 10 mg Tab) 1 Tablets By Mouth As Directed as needed for erectile dysfunction. take 1 tab prior to sexual activity. Do not exceen 2 tabs (20 mg) in 24 hr. Refills: 5. Last Dose: ____Next Dose: ____ tamsulosin (tamsulosin 0.4 mg Cap) 1 Capsules By Mouth every day for 90 Days. Refills: 3. Last Dose: ____Next Dose: ____ trospium (trospium 60 mg oral capsule, extended release) 1 Capsules By Mouth once a day (in the morning). Refills: 11. Last Dose: ____Next Dose: ____ No Longer Take the Following Medications pantoprazole (Pantoprazole [address] Tab) 1 Tablets By Mouth every day. Comment: MEDICATION LIST PROVIDED FOR YOU IS A LIST OF YOUR CURRENT MEDICATIONS. PLEASE CARRY THIS WITH YOU AT ALL TIMES. amiodarone (amioda (more content not included)... Normal [facility] Inpatient Patient Summary Inpatient Patient Summary THOMAS GONCALVES :1960 Visit Date:06/06/2024 Inpatient Discharge Instructions Your Care Team Admitting Physician - LYNETTE RICE, Facundofo Consulting Physician - Estuardo Bunch MD [facility] Cardio, XXXX Referring Physician - Ernie RICE, Marita Albarran Reason for Your Visit a-fib Your Diagnosis Atrial fibrillation with RVR Prediabetes BPH with obstruction/lower urinary tract symptoms Abnormal MRI Elevated PSA Alcohol dependence, continuous Other obstructive and reflux uropathy Tests Performed Echo Transthoracic Complete This Is Your Medications List amiodarone (amiodarone 200 mg Tab) apixaban (Eliquis 5 mg oral tablet) aspirin (aspirin 81 mg oral capsule) metformin (metformin 500 mg Tab) multivitamin (Multi Vitamins oral tablet) niacin niacin (niacin 500 mg ER Tab) omega-3 polyunsaturated fatty acids (Fish Oil) omeprazole (omeprazole 20 mg Cap-DR) propranolol (propranolol 60 mg Cap-ER) rosuvastatin (Crestor 40 mg Tab) tadalafil (tadalafil 10 mg Tab) tamsulosin (tamsulosin 0.4 mg Cap) trospium (trospium 60 mg oral capsule, extended release) [Image Removed: STOP]Stop taking these medications pantoprazole (Pantoprazole [address] Tab) Procedure History Transurethral water vapor ablation of prostate (08/22/2022), Cystoscopy (07/19/2022), Colonoscopy, Tonsillectomy, Ultrasonography by transrectal approach. Discharge Vitals Temperature (Oral) 36.8 ???C Heart Rate (Monitored) 83 Respiratory Rate 16 Blood Pressure 109/69 Height 172 cm Weight 90.5 kg BMI 31.33 What to do next Instructions From Your Doctor Event Name Event Result Discharge Activity Ambulate as tolerated, Activity as tolerated Discharge Diet(s) Calorie Controlled- 1800 Calorie Diet Pending Diagnostic Test Results None New Follow Up Appointments after Discharge Follow Up with Sushil Camejo When: Within 1 to 2 weeks Comments: Call for followup appointment Where: [address] [place] [phone] Business (1) Follow Up with Jose Elias MENDOSA When: Within 5 to 7 days Where: [address] [facility], [address] [address]- Business (1) Follow Up with Ernie RICE, KANDIS Maldonado, URO When: Within 1 week Where: Medications What How Much When Why Instructions Next Dose New amiodarone (amiodarone 200 mg Tab) 1 Tablets By Mouth 2 times a day Atrial fibrillation with RVR Pickup at [facility]/pharmacy #[id number] 06/07 900pm New apixaban (Eliquis 5 mg oral tablet) 1 Tablets By Mouth 2 times a day Atrial fibrillation with RVR Pickup at [facility]/pharmacy #[id number] 06/07 900pm New rosuvastatin (Crestor 40 mg Tab) 1 Tablets By Mouth Every day Pickup at [facility]/pharmacy #[id number] 06/08 900am Unchanged aspirin (aspirin 81 mg oral capsule) 1 Capsules By Mouth Every day 06/08 900am Unchanged metformin (metformin 500 mg Tab) 1 Tablets By Mouth Every day 06/08 900am Unchanged multivitamin (Multi Vitamins oral tablet) 1 Tablets By Mouth Every day 06/08 900am Unchanged niacin 500 Milligram By Mouth Unchanged niacin (niacin 500 mg ER Tab) 1 Tablets By Mouth Once a day (at bedtime) 06/07 0900pm Unchanged omega-3 polyunsaturated fatty acids (Fish Oil) 500 Milligram By Mouth Every day 06/08 900am Unchanged omeprazole (omeprazole 20 mg Cap-DR) 1 Capsules By Mouth Every day 06/08 900am Unchanged propranolol (propranolol 60 mg Cap-ER) 1 Capsules By Mouth Every day 06/08 Unchanged tadalafil (tadalafil 10 mg Tab) 1 Tablets By Mouth As Directed as needed for for erectile dysfunction take 1 tab prior to sexual activity. Do not exceen 2 tabs (20 mg) in 24 hr As Directed as needed for erectile dysfunction Unchanged tamsulosin (tamsulosin 0.4 mg Cap) 1 Capsules By Mouth Every day Duration: 90 Days 06/08 Unchanged trospium (trospium 60 mg oral capsule, extended release) 1 Capsules By Mouth Once a day (in the morning) 06/08 Pharmacy Information [facility]/pharmacy #[id number]: [address], [place] [id number] [phone] What How Much When Comments Stop Taking pantoprazole (Pantoprazole [address] Tab) 1 Tablets By Mouth Every day Test Results BMP Glucose Lvl: 116 mg/dL (06/06/24 14:41:00) BUN: 15 mg/dL (06/06/24 14:41:00) Creatinine: 0.7 mg/dL (06/06/24 14:41:00) BUN/Creat Ratio: 21 High (06/06/24 14:41:00) Sodium Lvl: 136 mmol/L (06/06/24 14:41:00) Potassium Lvl: 4 mmol/L (06/06/24 14:41:00) Chloride: 106 mmol/L (06/06/24 14:41:00) CO2: 24 mmol/L (06/06/24 14:41:00) AGAP: 10 mEq/L (06/06/24 14:41:00) Calcium Lvl: 8.5 mg/dL Low (06/06/24 14:41:00) Allergies penicillins (Unknown) Problems Ongoing - Any problem that you are currently receiving treatment for. BPH with obstruction/lower urinary tract symptoms BPH without urinary obstruction Dysuria ED (erectile dysfunction) Elevated PSA GERD (gastroesophageal reflux disease) Hematuria Hyperlipidemia Nocturia OAB (overactive b (more content not included)... Normal [facility] Interdisciplinary Note - Mitchell e Manageron 06-07-2024 Interdisciplinary Note - Slotter Operator Helper Interdisciplinary Note - Slotter Operator Helper CRM spoke with patient in room. Patient is alert and oriented and participates in discharge planning. No family in room. Patient white board updated, and CRM contact information provided. Discussed CRM spoke with Dr Peace who saw patient earlier today and patient is discharging home today. Patient verified PCP, insurance and DME. patient is form home with his spouse Sue and he will transport at dc. Patient denies any needs any dc and denies need for any H/H services. [facility] Comment on above: Result Comment: Elec tronically Signed By: Collin RN, Joy\.br\Date and Time Signed: 06/07/24 12:17 EST BMPon 06-06-2024 Anion gap [Moles/Vol] 10 mmol/L Normal 6-16 [facility] Comment on above: Performed By: #### 2 [id number] #### [facility] [address] [place] [address] Calcium [Mass/Vol] 8.5 mg/dL Low 8.9-11.[address] [facility] Comment on above: Performed By: #### 2 [id number] #### [facility] [address] [place] [address] Chloride [Moles/Vol] 106 mmol/L Normal 101-111 [facility] Comment on above: Performed By: #### 2 [id number] #### [facility] [address] [place] [address] CO2 [Moles/Vol] 24 mmol/L Normal 21-31 [facility] Comment on above: Performed By: #### 2 [id number] #### [facility] [address] [address] Creatinine [Mass/Vol] 0.7 mg/dL Normal 0.5-1.3 [facility] Comment on above: Performed By: #### 2 [id number] #### [facility] [address] [place] [address] Glucose [Mass/Vol] 116 mg/dL Normal 55-[address] [facility] Comment on above: Performed By: #### 2 [id number] #### [facility] [address] [place] [address] Potassium [Moles/Vol] 4.0 mmol/L Normal 3.5-5.3 [facility] Comment on above: Performed By: #### 2 [id number] #### [facility] [address] [place] [address] Sodium [Moles/Vol] 136 mmol/L Normal 135-[address] [facility] Comment on above: Performed By: #### 2 [id number] #### [facility] [address] [place] [address] Urea nitrogen [Mass/Vol] 15 mg/dL Normal 5-[address] [facility] Comment on above: Performed By: #### 2 [id number] #### [facility] [address] [place] [address] Urea nitrogen/Creatinine [Mass ratio] 21 No Units High 10-[address] [facility] Comment on above: Performed By: #### 2 [id number] #### [facility] [address] [place] [address] CHEMISTRYOrdered By: Lab ROP User on 06-06-2024 Glucose [Mass/Vol] 158 mg/dL High 55 - 99 mg/dL [facility] POC Subsection Comment on above: Result Comment: Wilber lira RN/ POC Device SN [id number] 1 Invalid Interpretation Code [facility] POC Subsection POC User ID [id number] 1 Invalid Interpretation Code [facility] POC Subsection POC Username MAXIMILIANO HOWARD Invalid Interpretation Code [facility] POC Subsection CHEMISTRYOrdered By: SYSTEM SYSTEM on 06-06-2024 Anion gap [Moles/Vol] 10 mmol/L Normal 6 - 16 mEq/L R emisol Chem Calcium [Mass/Vol] 8.5 mg/dL Low 8.9 - 11. 1 mg/dL [facility] Chloride [Moles/Vol] 106 mmol/L Normal 101 - 1 11 mmol/L [facility] CO2 [Moles/Vol] 24 mmol/L Normal 21 - 31 mmol/L [facility] Creatinine [Mass/Vol] 0.7 mg/dL Normal 0.5 - 1.3 mg/dL [facility] eGFR 103 mL/min/1.73 m2 Normal >=59mL/mi n/1 .73 m2 [facility] Glucose [Mass/Vol] 116 mg/dL Normal 55 - 199 mg/dL [facility] Magnesium [Mass/Vol] 1.9 mg/dL Normal 1.3 - 2 .4 mg/dL [facility] Potassium [Moles/Vol] 4.0 mmol/L Normal 3.5 - 5.3 mmol/L [facility] Sodium [Moles/Vol] 136 mmol/L Normal 135 - 145 mmol/L [facility] Troponin HS 2.50 pg/mL Low 15.90 - 38.40 pg/mL [facility] Comment on above: Interpretive Data: T he 95% CI (Confidence Interval) PPV (Positive Predictive Value) for myocardial infarction in females is 38 pg/mL, in males 51 pg/mL. The results should be used in conjunction with clinical conditions of myocardial infarction. (Access High Sensitivity Troponin I Instructions For Use, Ghanshyam Mango, February 2018) TSH Qn 2.61 m[IU]/L Normal 0.34 - 5.60 mcIU/mL [facility] Urea nitrogen [Mass/Vol] 15 mg/dL Normal 5 - 21 mg/dL [facility] Urea nitrogen/Creatinine [Mass ratio] 21 mg/mg High 10 - 20 [facility] Capillary Glucose POCon - Glucose [Mass/Vol] 158 mg/dL High 55-[address] [facility] Comment on above: Result Comment: Wilber COLEMAN Performed By: #### 2 [id number] #### [facility] [address] [place] [address] Glucose [Mass/Vol] 136 mg/dL High 55-[address] [facility] Comment on above: Result Comment: Wilber COLEMAN Performed By: #### 2 [id number] #### [facility] [address] [place] [address] Glucose [Mass/Vol] 111 mg/dL High 55-[address] [facility] Comment on above: Result Comment: Wilber COLEMAN Performed By: #### 2 [id number] #### [facility] [address] [place] [address] Magnesiumon 06-06-2024 Magnesium [Mass/Vol] 1.9 mg/dL Normal 1.3-2.4 [facility] Comment on above: Performed By: #### 2 [id number] #### [facility] [address] [place] [address] Main OR Intraoperative Recor don 06-06-2024 Main OR Intraoperative Record Main OR Intraoperative Record IntraOp Document Type FT Summary Primary Physician: Marita Klein MD Finalized Date/Time: 06/06/24 13:52:01 Pt. Name: THOMAS GONCALVES Yue /Sex: 1960 Male Med Rec #: [id number] Physician: Marita Klein MD Financial #: [id number] Pt. Type: A Room/Bed: [place] [address] Admit/Disch: 06/06/24 09:30:30 - Institution: Case Times FT Entry 1 Patient Times In Room 06/06/24 12:41:00 Out Room 06/06/24 13:14:00 Procedure Times Start 06/06/24 12:51:00 Stop 06/06/24 13:06:00 Anesthesia Times Start 06/06/24 12:41:00 Stop 06/06/24 13:14:00 Last Modified By: Alicia DELGADO, Curt Turner 06/06/24 13:15:14 Case Attendance FT Entry 1 Entry 2 Entry 3 Case Attendee Julio C Craven MD, Marita Vargas RN, Curt Turner Role Performed Anesthesiologist Surgeon - Primary Motors And Controls Tester - Primary Master Certified Rv Technician Time In 06/06/24 12:41:00 06/06/24 12:48:00 06/06/24 12:41:00 Time Out 06/06/24 13:14:00 06/06/24 13:08:00 06/06/24 13:14:00 Procedure PROSTATE TRANSPERINEAL PROSTATE TRANSPERINEAL PROSTATE TRANSPERINEAL BIOPSY WITH ULTRA(.) BIOPSY WITH ULTRA(.) BIOPSY WITH ULTRA(.) Comments , ANESTHESIA COMPLEX DIRECTOR Last Modified By: Alicia DELGADO, Curt Vargas RN, Curt Vargas RN, Curt Turner 06/06/24 13:15:16 06/06/24 13:15:16 06/06/24 13:15:16 Entry 4 Entry 5 Case Attendee Ricardo HAN, Liz Gonzales Role Performed Staff - Other Scrub - Primary Time In 06/06/24 12:41:00 06/06/24 12:41:00 Time Out 06/06/24 12:51:00 06/06/24 13:14:00 Procedure PROSTATE TRANSPERINEAL PROSTATE TRANSPERINEAL BIOPSY WITH ULTRA(.) BIOPSY WITH ULTRA(.) Comments positioning help Last Modified By: Curt Vargas RN, RN, Andrea L 06/06/24 13:15:16 06/06/24 13:15:16 General Comments: VALERIA KASPER-OBSERVING SURGICAL CASE. AZUL CLEMENT, [facility] REP., PRESENT IN OR FOR SURGICAL CASE. Perioperative Protocols FT Pre-Care Text: Implements protective measures prior to operative or invasive procedure, confirms identity before the operative or invasive procedure, verifies operative procedure, surgical site, and laterality Entry 1 Procedure(s) PROSTATE TRANSPERINEAL Patient Identity Birthday, ID Band BIOPSY WITH ULTRA(.) Verified (select at Check, Patient least 2): Participation Consents / H and P Anesthesia Consent, Operative Site N/A Verified H&P, Surgery/Procedure Marking Verified Consent Surgical Site Yes Laterality Verified n/a Verified Procedure Verified Yes Correct Patient Yes Position Verified Availability Equipment, Medication Prep Dry n/a Verified (If Applicable) PreOp Antibiotic Yes Time Out Julio C Craven Given Participants Ernie Holland MD, Aliica Maldonado RN, Andrea L, McClain CST, Kimberly A, Dellinger, Sydney A Time Out Complete 06/06/24 12:49:00 Outcomes Met? Yes Last Modified By: Curt Vargas RN 06/06/24 12:54:40 Post-Care Text: The patient is free from signs and symptoms of injury caused by extraneous objects Allergy Information FT Pre-Care Text: Verifies allergies Entry 1 Allergies Reviewed? Yes Allergies Reviewed Self/Patient With Outcomes Met? Yes Last Modified By: Curt Vargas RN 06/06/24 13:43:50 Post-Care Text: The patient received appropriate medication(s) safely administered during the perioperative period Surgical Procedures FT Entry 1 Procedure Description Procedure PROSTATE TRANSPERINEAL Modifiers . BIOPSY WITH ULTRASOUND Surgeon Description MRI FUSION TRANSPERINEAL PROSTATE BIOPSY Primary Procedure Yes Primary Surgeon Marita Klein MD Start 06/06/24 12:51:00 Stop 06/06/24 13:06:00 Anesthesia Type MAC Surgical Service Urology Wound Class 2 - Clean-Contaminated Last Modified By: Curt Vargas RN 06/06/24 13:43:43 General Case Data FT Pre-Care Text: Classifies surgical wound, implements aseptic technique, initiates traffic control Entry 1 Case Information OR OR 5 FT Case Level Level 2 Wound Class 2 - Clean-Contaminated Specialty Urology ASA Class 2 Preop Diagnosis ELEVATED PSA, BPH WITH Postop Same As Preop Yes OBSTRUCTION/LUTS Postop Diagnosis ELEVATED PSA, BPH WITH Outcomes Met? Yes OBSTRUCTION/LUTS Last Modified By: Curt Vargas RN 06/06/24 12:57:57 Post-Care Text: The patient is free from signs and symptoms of infection Skin Assessment (Pre Procedure) FT Pre-Care Text: Implements protective measures to prevent skin/ tissue injury due to thermal or mechanical sources Evaluates for signs and symptoms of physical injury to skin and tissue Entry 1 Skin Integrity Intact, [place], Warm, & Skin Abnormality No Dry Outcomes Met? Yes Last Modified By: Curt Vargas RN 06/06/24 12:57:48 Post-Care Text: The patient is free from signs and symptoms of injury caused by extraneous objects Patient Positioning FT Pre-Care Text: Identifies physical alterations that require additional precautions for procedure-specific positi (more content not included)... [facility] Main OR PACU I Recordon Main OR PACU I Record Main OR PACU I Rec ord PACU Phase I Document Type FT Summary Primary Physician: Marita Klein MD Finalized Date/Time: 06/06/24 16:32:42 Pt. Name: THOMAS GONCALVES D.O.B./Sex: 1960 Male Med Rec #: [id number] Physician: Glo PEACE MD Financial #: [id number] Pt. Type: O Room/Bed: N317 Admit/Disch: 06/06/24 09:30:30 - Institution: Case Times PACU I FT Pre-Care Text: Identifies barriers to communication and implements measures to provide psychological support Develops individualized plan of care, and ensures continuity of care Maintains patient's dignity and privacy, and maintains patient confidentiality Identifies and reports philosophical, cultural, and spiritual beliefs and values Identifies individual values and wishes concerning care Implements aseptic technique, and administers prescribed antibiotic therapy and immunizing agents as ordered Evaluates postoperative tissue perfusion Implements thermoregulation measures, and monitors body temperature Evaluates postoperative respiratory status Evaluates postoperative cardiac status Evaluates postoperative neurological status Assesses pain control, collaborated in initiating patient-controlled analgesia and implements alternative methods of pain control Verifies allergies, administers prescribed medications and solutions, evaluates response to medications Entry 1 In PACU I 06/06/24 13:17:00 Discharge from PACU 06/06/24 16:17:00 I Outcomes Met? Yes Last Modified By: Julita Self RN 06/06/24 16:32:08 Post-Care Text: The patient demonstrates knowledge of the expected response to the operative or invasive procedure The patient's care is consistent with the individualized perioperative plan of care The patient's right to privacy is maintained The patient's value system, lifestyle, ethnicity, and culture are considered, respected, and incorporated into the perioperative plan of care The patient participates in decisions affecting his or her perioperative plan of care The patient is free from signs and symptoms of infection The patient has wound/tissue perfusion consistent with or improved from baseline levels established preoperatively The patient is at or returning to normothermia at the conclusion of the immediate postoperative period The patient's respiratory function is consistent with or improved from baseline levels established preoperatively The patient's cardiovascular status is consistent with or improved from baseline levels established preoperatively The patient's cardiovascular status is consistent with or improved from baseline levels established preoperatively The patient demonstrates and/or reports adequate pain control throughout the perioperative period The patient received appropriate medication(s), safely administered during the perioperative period Acuity Level PACU I FT Entry 1 Start Time 06/06/24 13:17:00 Stop Time 06/06/24 16:17:00 Acuity Level Acuity Level I Last Modified By: Julita Self RN 06/06/24 16:32:31 Finalized By: Julita Self RN Document Signatures Signed By: Julita Self RN 06/06/24 16:32 Julita Self RN 06/06/24 16:32 [facility] Main OR Preoperative Recordo n 06-06-2024 Main OR Preoperative Record Main OR Preoperative Record PreOp Document Type FT Summary Primary Physician: Marita Klein MD Finalized Date/Time: 06/06/24 12:41:49 Pt. Name: THOMAS GONCALVES /Sex: 1960 Male Med Rec #: [id number] Physician: Marita Klein MD Financial #: [id number] Pt. Type: A Room/Bed: [place] [address] Admit/Disch: 06/06/24 09:30:30 - Institution: Case Times PreOp FT Pre-Care Text: Verifies consent for planned procedure, identifies individual values and wishes concerning care, includes family members in perioperative teaching Entry 1 Patient Times. In Pre Surgery 06/06/24 09:40:00 Out Pre Surgery 06/06/24 12:39:00 Outcomes Met? Yes Last Modified By: Curt Vargas RN 06/06/24 12:41:48 Post-Care Text: The patient participates in decisions affecting his or her perioperative plan of care Finalized By: Curt Vargas RN Document Signatures Signed By: Curt Vargas RN 06/06/24 12:[address] [facility] Operative Reporton Operative Report Operative Report Patient: THOMAS GONCALVES Age: 63 years Sex: Male : 1960 Associated Diagnoses: None Author: Marita Klein MD Procedure Procedure Date: 06/06/2024. Confirmed: patient, procedure, site, safety procedures followed. Performed by: Marita Klein MD, anesthesiologist (Julio C Son [facility]). Type of procedure: Procedure: 1. Transrectal ultrasound of the prostate and seminal vesicles 2. Ultrasound for needle biopsy 3. Nerve Block of Prostate for intraop/postop pain 4. UroNav MRI fusion prostate biopsy, transperineal approach . Anesthesia: MAC, periprostatic nerve block 1% lidocaine without epinephrine Findings: Calcifications: none Cysts: right peripheral zone base/mid Hypoechogenic areas: none The seminal vesicles were visualized bilaterally and normal in size, shape and echotexture. SHANAE: benign, mild-mod enlarged, symmetric, no firm nodules Complications: None DESCRIPTION OF PROCEDURE: After informed consent was obtained, the patient was taken to the operating room. After successful induction of MAC anesthesia, a preoperative dose of IV antibiotics was given (2g ancef). The patient was placed in the dorsal lithotomy position on the operating table, taking care to pad all possible pressure points. An operative timeout was performed. A SHANAE was performed noting findings as above. The scrotum was elevated and held out of the way using tape/towel to expose the perineum. Excessive hair was shaved off the perineum. The perineum is prepped with Betadine solution. The [email or web address] UroNav fusion biopsy system was set up over the patient's pelvis for transperineal approach of prostate biopsy. Lidocaine gel was inserted per rectum. A well-lubricated ultrasound probe was inserted into the rectum and the prostate was aligned. The gland was visualized fully in axial and sagittal views to allow for the identification of anatomy and location of the urethra, as noted in findings. A sweep was done to render ultrasound images with preoperative MRI images. The Precision Point device was secured on the ultrasound probe. The local anesthetic was delivered to the skin followed by periprostatic region and levators for intra and postop pain control. After rendering of real-time images with the preoperative MRI prostate, the UroNav fusion biopsy system was used to target the region of interest. 3 core needle biopsies were obtained from the region of interest via transperineal approach.Thereafter, 1-2 biopsies were obtained from the posterior medial, posterior lateral, base, anterior lateral, and anterior medial of the left and right sides. The ultrasound probe was removed. The perineum was dressed with antibiotic ointment, fluffs and scrotal support. The patient was awaken from anesthesia and tolerated the procedure well without complications. SPECIMENS SUBMITTED: (2 cores, unless specified) 1. Right posterior medial 2. Right posterior lateral 3. Right base 4. Right anterior medial (1 core) 5. Right anterior lateral (1 core) 6. Left posterior medial 7. Left posterior lateral 8. Left base 9. Left anterior medial (1 core) 10. Left anterior lateral (1 core) 11. IRVIN right peripheral zone, mid CULTURES TAKEN: None. PATIENT CONDITION: Stable. PLAN: Void prior to dc home. The patient knows to call or go immediately to the emergency room should he develop fevers, chills, inability to urinate, bleeding or any other concerns. Follow-up in 1-2 weeks for pathology review. . Impression and Plan Diagnosis Elevated PSA ([id number] R97.20, Working, Medical). Abnormal MRI ([id number] R93.89, Working, Medical). Diagnosis Elevated PSA ([id number] R97.20, Working, Medical). Abnormal MRI ([id number] R93.89, Working, Medical). Normal [facility] Comment on above: Result Comment: Elec tronically Signed By: Ernie RICE, Marita Jimenez\Date and Time Signed: 06/06/24 13:26 EST TSH With T4fr Reflexon 06-06 TSH Qn 2.61 m[IU]/L Normal 0.34-5.[address] [facility] Comment on above: Performed By: #### 1 [id number] #### [facility] [address] [place] [address] Troponinon 06-06-2024 Troponin HS 2.50 pg/mL Low 15.90-38.[address] [facility] Comment on above: Result Comment: The 95% CI (Confidence Interval) PPV (Positive Predictive Value) for myocardial infarction in females is 38 pg/mL, in males 51 pg/mL. The results should be used in conjunction with clinical conditions of myocardial infarction. (Access High Sensitivity Troponin I Instructions For Use, [employer], February 2018) Performed By: #### 2 [id number] #### [facility] [address] [place] [address] eGFRon 06-06-2024 eGFR 103 mL/min/1.73 m2 Normal >=[address] [facility] Comment on above: Performed By: #### 1 [id number] #### [facility] [address] [place] [address] XR Chest 2 Viewson XR Chest 2 Views Exam Date/Time: 05/24/2024 13:47 EDT Reason for Exam: P.A.T. Report IMPRESSION: NO RADIOGRAPHIC EVIDENCE OF ACUTE INTRATHORACIC PROCESS. EXAMINATION: XR Chest 2 Views HISTORY: Preoperative evaluation TECHNIQUE: Frontal and lateral views of the chest. COMPARISON: None available FINDINGS: Cardiomediastinal silhouette is within normal limits. No pneumothorax, pleural effusion, or consolidation. No acute osseous abnormality. Ordering Provider: Weber Ahmad FINAL REPORT Dictated: 05/25/2024 3:00 pm Julio C Maher DO Signed (Electronic Signature): 05/25/2024 3:00 pm Signed by: Julio C Maher DO Transcribed by: GEETA Technologist: SUKHJINDER Technical Comments Radiation Dose: Ka,r in mGy = na DAP = na Normal [facility] BMPon 05-24-2024 Anion gap [Moles/Vol] 10 mmol/L Normal 6-16 [facility] Comment on above: Performed By: #### 2 [id number] #### [facility] [address] [place] [address] Calcium [Mass/Vol] 9.4 mg/dL Normal 8.9-11.[address] [facility] Comment on above: Performed By: #### 2 [id number] #### [facility] [address] [place] [address] Chloride [Moles/Vol] 104 mmol/L Normal 101-111 [facility] Comment on above: Performed By: #### 2 [id number] #### [facility] [address] [address] CO2 [Moles/Vol] 27 mmol/L Normal 21-31 [facility] Comment on above: Performed By: #### 2 [id number] #### [facility] [address] [address] Creatinine [Mass/Vol] 0.7 mg/dL Normal 0.5-1.3 [facility] Comment on above: Performed By: #### 2 [id number] #### [facility] [address] [place] [address] Glucose [Mass/Vol] 97 mg/dL Normal 55-[address] [facility] Comment on above: Performed By: #### 2 [id number] #### [facility] [address] [place] [address] Potassium [Moles/Vol] 4.0 mmol/L Normal 3.5-5.3 [facility] Comment on above: Performed By: #### 2 [id number] #### [facility] [address] [place] [address] Sodium [Moles/Vol] 137 mmol/L Normal 135-[address] [facility] Comment on above: Performed By: #### 2 [id number] #### [facility] [address] [place] [address] Urea nitrogen [Mass/Vol] 17 mg/dL Normal 5-[address] [facility] Comment on above: Performed By: #### 2 [id number] #### [facility] [address] [place] [address] Urea nitrogen/Creatinine [Mass ratio] 24 No Units High 10-[address] [facility] Comment on above: Performed By: #### 2 [id number] #### [facility] [address] [place] [address] CBC w/ Auto Diffon 05-24- 4 Basophils/100 WBC (Bld) 0.3 % Normal 0.0-2.[address] [facility] Comment on above: Performed By: #### 2 [id number] #### [facility] [address] [place] [address] Basophils/Leukocytes Auto (Bld) [Pure # fraction] 0.0 E9/L Normal 0.0-0.[address] [facility] Comment on above: Performed By: #### 2 [id number] #### [facility] [address] [place] [address] Eosinophils (Bld) [#/Vol] 0.2 E9/L Normal 0.0-0.[address] [facility] Comment on above: Performed By: #### 2 [id number] #### [facility] [address] [place] [address] Eosinophils/100 WBC (Bld) 3.1 % Normal 0.0-8.[address] [facility] Comment on above: Performed By: #### 2 [id number] #### [facility] [address] [place] [address] Erythrocyte distribution width (RBC) [Ratio] 13.7 % Normal 10.9-14.[address] [facility] Comment on above: Performed By: #### 2 [id number] #### [facility] [address] [place] [address] Hematocrit (Bld) [Volume fraction] 43.2 % Normal 37.7-49.[address] [facility] Comment on above: Performed By: #### 2 [id number] #### [facility] [address] [place] [address] Hemoglobin (Bld) [Mass/Vol] 14.8 g/dL Normal 13.5-17.[address] [facility] Comment on above: Performed By: #### 2 [id number] #### [facility] [address] [place] [address] Lymphocytes (Bld) [#/Vol] 1.8 E9/L Normal 1.0-4.[address] [facility] Comment on above: Performed By: #### 2 [id number] #### [facility] [address] [place] [address] Lymphocytes/100 WBC (Bld) 25.4 % Normal 14.0-50.[address] [facility] Comment on above: Performed By: #### 2 [id number] #### [facility] [address] [place] [address] MCH (RBC) [Entitic mass] 30.9 pg Normal 27.0-34.[address] [facility] Comment on above: Performed By: #### 2 [id number] #### [facility] [address] [place] [address] MCHC (RBC) [Mass/Vol] 34.3 g/dL Normal 31.4-36.0 [facility] Comment on above: Performed By: #### 2 [id number] #### [facility] [address] [place] [address] MCV (RBC) [Entitic vol] 90.1 fL Normal 80.0-100.[address] [facility] Comment on above: Performed By: #### 2 [id number] #### [facility] [address] [place] [address] Monocytes (Bld) [#/Vol] 0.6 E9/L Normal 0.2-1.[address] [facility] Comment on above: Performed By: #### 2 [id number] #### [facility] [address] [place] [address] Neutrophils (Bld) [#/Vol] 4.5 E9/L Normal 2.0-7.[address] [facility] Comment on above: Performed By: #### 2 [id number] #### [facility] [address] [place] [address] Neutrophils/100 WBC (Bld) 62.7 % Normal 36.0-75.[address] [facility] Comment on above: Performed By: #### 2 [id number] #### [facility] [address] [place] [address] Platelet mean volume (Bld) [Entitic vol] 7.0 fL Normal 6.4-10.[address] [facility] Comment on above: Performed By: #### 2 [id number] #### [facility] [address] [place] [address] Platelets (Bld) [#/Vol] 265.0 E9/L Normal 150.0-500.[address] [facility] Comment on above: Performed By: #### 2 [id number] #### [facility] [address] [place] [address] RBC (Bld) [#/Vol] 4.8 E12/L Normal 4.3-5.[address] [facility] Comment on above: Performed By: #### 2 [id number] #### [facility] [address] [place] [address] WBC corrected for nucl RBC Auto (Bld) [#/Vol] 7.1 E9/L Normal 4.0-11.0 [facility] Comment on above: Performed By: #### 2 [id number] #### [facility] [address] [place] [address] PT & PTTon 05-24-2024 aPTT Coag (PPP) [Time] 29.8 second(s) Normal 25.1-36.[address] [facility] Comment on above: Result Comment: Para meter 15 days - 4 weeks 1 - 5 months 6 - 11 months 1 - 5 years 6 - 10 years 11 - 17 years PTT Mean: 35.4 (27.6-45.6) Mean: 33.5 (24.8-40.7) Mean: 32.4 (25.1-40.7) Mean: 31.6 (24.0-39.2) Mean: 31.6 (26.9-38.7) Mean: 31.0 (24.6-38.4) Pediatric Reference ranges were obtained from a study by Mitch Mcclellan et al. prepared from 1437 samples obtained at 7 different centers using the same coagulation reagent and instrumentation as [facility]. Currently there are no coagulation studies available worldwide for children to 14 days, and no normal ranges. Heparin therapeutic range (represented by Anti-Factor Xa activity of 0.2 - 0.4 U/mL) corresponds to PTT of 56.6 - 109.0 sec. Performed By: #### 1 [id number] #### [facility] [address] [place] [address] INR Coag (PPP) [Relative time] 0.96 {INR} Invalid Interpretation Code [facility] Comment on above: Result Comment: INR results are specifically intended to assess patients stabilized on long-term Anticoagulation therapy suggested INR???s ???Less Intensive Anticoagulation??? 2.0 ??? 3.0 Conventional Range 3.0 ??? 4.5 Performed By: #### 1 [id number] #### [facility] [address] [place] [address] PT Coag (PPP) [Time] 10.7 second(s) Normal 9.4-12.[address] [facility] Comment on above: Result Comment: 15 d ays - 4 weeks 1 - 5 months 6 -11 months 1 ??? 5 years 6 ??? 10 years 11 -17 years Mean: 11.2 (9.5 ??? 12.6) Mean: 11.0 (9.7 ??? 12.8) Mean: 11.0 (9.8 ??? 13.0) Mean: 11.3 (9.9 ??? 13.4) Mean: 11.7 (10.0 ??? 14.6) Mean: 11.8 (10.0 - 14.1) Pediatric Reference ranges were obtained from a study by Mitch Mcclellan et al. prepared from 1437 samples obtained at 7 different centers using the same coagulation reagent and instrumentation as [facility]. Currently there are no coagulation studies available worldwide for children to 14 days, and no normal ranges. Performed By: #### 1 [id number] #### [facility] [address] [place] [address] UA with Cult Rflxon 05-24-20 24 Bilirubin Ql (U) Negative Normal Negative [facility] Comment on above: Performed By: #### 4 [id number] #### [facility] [address] [place] [address] Clarity (U) Clear Normal Clear [facility] Comment on above: Performed By: #### 4 [id number] #### [facility] [address] [place] [address] Color (U) Yellow Normal Yellow [facility] Comment on above: Result Comment: Micr oscopic readings are only performed on those samples that meet specific criteria set forth by [facility]. Performed By: #### 4 [id number] #### [facility] [address] [place] [address] Glucose Ql (U) Negative Normal Negative [facility] Comment on above: Performed By: #### 4 [id number] #### [facility] [address] [place] [address] Hemoglobin Auto test strip (U) [Mass/Vol] Negative Normal Negative [facility] Comment on above: Performed By: #### 4 [id number] #### [facility] [address] [place] [address] Ketones Auto test strip Ql (U) Negative Normal Negative [facility] Comment on above: Performed By: #### 4 [id number] #### [facility] [address] [place] [address] Leukocyte esterase Auto test strip Ql (U) Negative Normal Negative [facility] Comment on above: Performed By: #### 4 [id number] #### [facility] [address] [place] [address] Nitrite Auto test strip Ql (U) Negative Normal Negative [facility] Comment on above: Performed By: #### 4 [id number] #### [facility] [address] [place] [address] pH (U) 5.5 [pH] Invalid Interpretation Code 5.0-9.[address] [facility] Comment on above: Performed By: #### 4 [id number] #### [facility] [address] [place] [address] Protein Ql (U) Negative Normal Negative [facility] Comment on above: Performed By: #### 4 [id number] #### [facility] [address] [place] [address] Specific gravity (U) [Rel density] 1.021 Invalid Interpretation Code 1.005-1.[address] [facility] Comment on above: Performed By: #### 4 [id number] #### [facility] [address] [place] [address] Urobilinogen (U) [Mass/Vol] Negative Normal Negative [facility] Comment on above: Performed By: #### 4 [id number] #### [facility] [address] [place] [address] Type of Urine collection method Clean Catch Normal [facility] Comment on above: Performed By: #### 4 [id number] #### [facility] [address] [place] [address] eGFRon 05-24-2024 eGFR 103 mL/min/1.73 m2 Normal >=[address] [facility] Comment on above: Performed By: #### 1 [id number] #### [facility] [address] [place] [address] Ambulatory Visit Summaryon Ambulatory Visit Summary Ambulatory Visit Summary THOMAS GONCALVES :1960 Visit Date:05/14/2024 Ambulatory Visit Instructions Your Diagnosis Elevated PSA BPH with obstruction/lower urinary tract symptoms OAB (overactive bladder) ED (erectile dysfunction) Other obstructive and reflux uropathy Your Care Team Attending Physician - ORLY Dexter APRN, [place] [facility] Primary Care Physician - Jose Elias MENDOSA DO This Is Your Medications List aspirin (aspirin 81 mg oral capsule) multivitamin (Multi Vitamins oral tablet) niacin omega-3 polyunsaturated fatty acids (Fish Oil) pantoprazole tadalafil (tadalafil 10 mg Tab) tamsulosin (tamsulosin 0.4 mg Cap) trospium (trospium 60 mg oral capsule, extended release) Procedures Performed Transurethral water vapor ablation of prostate (08/22/2022), Cystoscopy (07/19/2022), Colonoscopy, Tonsillectomy. Discharge Vitals Heart Rate (Peripheral) 88 Blood Pressure 122/84 Height 173 cm Height 68 in Weight 91 kg Weight 200.2 lb BMI 30.41 What to do next You Need to Schedule the Following Appointments Follow Up with Ernie RICE, Marita Albarran, KANDIS, URO When: Comments: fusion biopsy Where: Medications What How Much When Instructions Unchanged aspirin (aspirin 81 mg oral capsule) 1 Capsules By Mouth Unchanged multivitamin (Multi Vitamins oral tablet) By Mouth Every day Unchanged niacin 500 Milligram By Mouth Unchanged omega-3 polyunsaturated fatty acids (Fish Oil) By Mouth Unchanged pantoprazole 40 Milligram Every day Unchanged tadalafil (tadalafil 10 mg Tab) 1 Tablets By Mouth As Directed as needed for for erectile dysfunction take 1 tab prior to sexual activity. Do not exceen 2 tabs (20 mg) in 24 hr Unchanged tamsulosin (tamsulosin 0.4 mg Cap) 1 Capsules By Mouth Every day Duration: 90 Days Unchanged trospium (trospium 60 mg oral capsule, extended release) 1 Capsules By Mouth Once a day (in the morning) Allergies penicillins (Unknown) Problems Ongoing - Any problem that you are currently receiving treatment for. BPH with obstruction/lower urinary tract symptoms BPH without urinary obstruction Dysuria ED (erectile dysfunction) Elevated PSA GERD (gastroesophageal reflux disease) Hematuria Hyperlipidemia Nocturia OAB (overactive bladder) Prediabetes Prostate cancer screening Urinary retention 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 Patient Survey You may receive a survey via text or e-mail asking about your office visit. Please share your experience with us by completing your survey. We appreciate your feedback and thank you for choosing us for your care. Education Materials Prostate Cancer Screening Prostate cancer screening is testing that is done to check for the presence of prostate cancer in men. The prostate gland is a walnut-sized gland that is located below the bladder and in front of the rectum in males. The function of the prostate is to add fluid to semen during ejaculation. Prostate cancer is one of the most common types of cancer in men. Who should have prostate cancer screening? Screening recommendations vary based on age and other risk factors, as well as between the professional organizations who make the recommendations. In general, screening is recommended if: ? You are age 50 to 70 and have an average risk for prostate cancer. You should talk with your health care provider about your need for screening and how often screening should be done. Because most prostate cancers are slow growing and will not cause , screening in this age group is generally reserved for men who have a 10- to 15-year life expectancy. ? You are younger than age 50, and you have these risk factors: ? Having a father, brother, or uncle who has been diagnosed with prostate cancer. The risk is higher if your family member's cancer occurred at an early age or if you have multiple family members with prostate cancer at an early age. ? Being a male who is Black or is of [place] or sub-Saharan descent. In general, screening is not recommended if: ? You are younger than age 40. ? You are between the ages of 40 and 49 and you have no risk factors. ? You are 70 years of age or older. At this age, the risks that screening can cause are greater than the benefits that it may provide. If you are at high risk for prostate cancer, your health care provider may recommend that you have screenings more often or that you start screening at a younger age. How is screening for prostate cancer done? The recommended prostate cancer screening test is a blood test called the prostate-specific antigen (PSA) test. PSA is a protein that is made in the prostate. As you age, your prostate naturally produces more PSA. Abnormally high PSA levels may be caused by: ? Prostate cancer. ? An enlarged prostate that is not caused by cancer (benign prostatic hyperplasia, or BPH). This condition is very common in older (more content not included)... Normal [facility] Urology Office/Clinic Noteon 05-14-2024 Urology Office/Clinic Note Urology Office/Clinic Note Chief Complaint f/u MRI HPI Staff 63 yr old here today to discuss MRI results Dysuria: no Incomplete bladder emptying: not every time Hematuria: no Frequency: q1hr in am, by lunch time it is q2-3 hrs. Urgency: at times Nocturia: 2x Stream: weak at times Leaking: no Post void dripping: no Wearing pads/ Depends: no Urge incontinence: no Stress incontinence: no Incontinence without Sensory Awareness: no Abdominal pain: no Flank pain: mid, both sides Sexual complaints: History of Present Illness I have reviewed and verified the staff HPI to be accurate for this encounter. Portions of this record may have been created with voice recognition artificial intelligence software, specifically [employer], [employer] and or [employer]. Substitutions may have occurred due to the inherent limitations of voice recognition and artificial intelligence software. Review of Systems PHQ Score Initial Depression Screen Score: 0 SCORE Physical Exam Vitals & Measurements HR: 88(Peripheral) BP: 122/84 HT: 68 in HT: 173 cm WT: 91 kg WT: 200.2 lb BMI: 30.41 General: Well developed, well nourished, in no acute distress. Here w/ his significant other today. Assessment/Plan KML pt 1. Elevated PSA (R97.20: Elevated prostate specific antigen [PSA]) No known family history of prostate CA PSA: 11/2017 ? 2 03/31/21 ? 2.55 01/17/23 - 1.7 & 29% 02/29/24 - 2.8 & 21%, PSAD 0.06 Unclear PSA trend. Most recent level up over an entire point from previous level just over 1 year ago. However, patient was 2.53 years ago. He does have a relatively high percent free. At the time of the PSA result, discussed with patient continuing to monitor PSA versus MRI to rule out suspicious lesion. Patient had chose to move forward with MRI. MRI prostate 05/08/2024 showed a PI-RADS 5 lesion, prostate volume 47 Discussed PSA trend and MRI results with patient and his significant other in office today. We discussed process of biopsy. We discussed risks of MRI fusion prostate biopsy approaches including transrectal and transperineal. Risks of the procedure were discussed to include but not be limited to bleeding, pain, infection (higher, including sepsis with transrectal approach), difficulties with urination, injury to the urethra, prostate or bladder or surrounding tissues, injury from positioning on the table, swelling and bruising of the skin, and need for further procedures. Pt does wish to continue. He prefers TP approach under MAC. -Schedule TP fusion biopsy under MAC. 2. BPH with obstruction/lower urinary tract symptoms (N40.1: Benign prostatic hyperplasia with lower urinary tract symptoms) S/p Rezum 08/22/22. Prostate volume 49.8 ml IPSS 19, moderate symptoms of BPH. Currently taking tamsulosin 0.4 mg daily. Tolerating well without side effects. UA today without signs of blood or infection. -Continue tamsulosin 3. OAB (overactive bladder) (N32.81: Overactive bladder) Was previously denied Myrbetriq 12/12/2022 Trospium 60 mg daily. He tolerates this well without side effects. He voids every 2 hours during the day, depending on his bladder irritant intake. We did discuss bladder irritants further, he enjoys coffee and alcohol in the evenings. We discussed how this may contribute to his urinary symptoms. [1] Not addressed at today's visit 4. ED (erectile dysfunction) (N52.9: Male erectile dysfunction, unspecified) FERNANDO 4 (2) Started Cialis 10 mg as needed at prior office visit. Patient states that this got him to about 50% erection. He does note that he had a mild headache for a few hours after use. He did not try to increase dose to 20 mg. We did discuss trial of increasing dose to 20 mg in 48-hour period. I did advise patient that he may have worsening headache or other side effects with increased dose. He would like to trial, knows to stop medication if side effects become more severe. We did also discuss use of LEONILA and erection ring with or without use of Cialis. We did briefly discuss ICI, pellet therapy, penile implant. Patient states he will try increased dose, call if he needs refills, will call if he decides he wants to try ICI. [2] Not addressed at today's visit Other obstructive and reflux uropathy (N13.8: Other obstructive and reflux uropathy) Follow-up With When Contact Information Ernie RICE, Marita Albarran, URL, URO Additional Instructions: fusion biopsy Patient Education Prostate Cancer Screening Prostate Cancer Problem List/Past Medical History Ongoing BPH with obstruction/lower urinary tract symptoms BPH without urinary obstruction Dysuria ED (erectile dysfunction) Elevated PSA GERD (gastroesophageal reflux disease) Hematuria Hyperlipidemia Nocturia OAB (overactive bladder) Prediabetes Prostate cancer screening Urinary retention 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 Historical No qualifying data Procedure/Surgical History Transurethral water (more content not included)... Normal [facility] Comment on above: Result Comment: Elec tronically Signed By: ORLY Dexter APRN, Janet Elizondo\.br\Date and Time Signed: 05/14/24 13:22 EDT MR prostate wo/w conon 05-09 MR prostate wo/w con [facility] [place] [address] MRI Report Signed Patient: Mralo Goncalves MR#: [id number] : 1960 Acct:[id number] Age/Sex: 63 / M ADM Date: 05/08/24 Loc: MR Room: Type: [facility] Attending Dr: Janet KELLY Copies to: ROBIN Lainez Ordering Provider: ROBIN Lainez Date of Service: 05/08/24 MR/MR prostate wo/w con: R97.20 EXAMINATION: MR prostate wo/w con HISTORY: Elevated PSA COMPARISON: NONE TECHNIQUE: Multiparametric imaging of the prostate gland was performed with IV contrast. FINDINGS: Prostate Dimensions: 5.2 x 3.6 x 4.8 cm Prostate Volume: 47 mL Peripheral Zone: Heterogenous inT2 signal suggestive of prior prostatitis. Focal area of T2 hypointensity is seen involving the posterior aspect of the right peripheral zone near the mid gland measuring 17 x 8 mm. There is associated restricted diffusion and low ADC value. No gross a capsular extension is seen. Please see series 4 image 20, series 650 image 18 and series 600 image 18. Central/Transitional Zone: BPH changes. Seminal Vesicles: Unremarkable Neurovascular bundles: Unremarkable. Lymphadenopathy: No evidence of lymphadenopathy. Bladder: No focal lesion. Bowel: The visualized bowel is without acute abnormality. Peritoneal Cavity: No free fluid. Bones: No suspicious bony lesion. MR/MR prostate wo/w con IMPRESSION: Focal area of T2 hypointensity is seen involving the posterior aspect of the right peripheral zone near the mid gland measuring 17 x 8 mm. There is associated restricted diffusion and low ADC value. No gross a capsular extension is seen. Please see series 4 image 20, series 650 image 18 and series 600 image 18. PI-RADS 5. Targeting of surgery on biopsy is recommended. Impression dictated by: Bentley Dias Jr., D.O.05/09/2024 9:10 AM Dictation Location: [place] [address] Transcribed By: [facility] 05/09/24909 Dictated By: Bentley Dias Jr, DO 05/09/24900 Signed By: 05/09/24909 Normal [facility] ISTAT XRay CREon 05-08-2024 ISTAT GFR > 60.0 Normal [facility] Comment on above: Result Comment: PERF ORMED BY: [place] [address] PATHOLOGIST TOBACCO SIZER TITI ZEPEDA M.D. Performed By: #### I SCRE #### [address] No Panel InformationOrdered By: Janet Dexter on 05-08-2024 Bedside Estimated GFR (eGFR) > 60.0 [facility] Whole blood creatinine measu rementOrdered By: Janet Dexter on 05-08-2024 Creatinine [Mass/Vol] 0.8 mg/dL Normal 0.6-1.3 [facility] Comment on above: ER/ESD physician is notified/shown all ISTAT results.Critical values may be confirmed by laboratory testing ifdeemed necessary by ER attending doctor. Result Comment: ER/E [place] physician is notified/shown all ISTAT results. Critical values may be confirmed by laboratory testing if deemed necessary by ER attending doctor. Performed By: #### I SCRE #### [facility] [address] [place] [address] Reminderson 02-06-2024 Reminders Reminders From: Effie Tamayo To: EU - Administrative; Sent: 02/06/2024 09:23:02 EDT Show up: 11/06/2024 09:22:00 EDT Subject: Appointment Call Back Due Date/Time: 02/05/2025 09:22:00 EDT Reminder/Recall 1 year follow up with PSA. Patient would prefer morning appointment. Normal [facility] Urology Office/Clinic Noteon 02-06-2024 Urology Office/Clinic Note Urology Office/Clinic Note Chief Complaint 2m to starting Flomax HPI Staff KML pt 8wks to re-starting Tamsulosin 0.4mg qd therapy. DX: BPH, OAB, Spraying stream & ED *Also started on Cialis 10mg PRN (can go up to 20mg) at time of last encounter. Also has been taking Trospium 60mg qd therapy. Last PSA 03/31/21 2.55 *Nothing more recent on Clinisync Was getting up 5x/night. Now getting up 2-3x/night. Attributes to alcohol intake prior to bed. Denies straining. Steady stream most of the time. Feels empty. Denies leaking.e to ejaculate. Voids q2hrs during day. Depending on coffee intake. Did try Cialis. Did not think it worked. States only half erection. Unable to ejaculate. History of Present Illness I have reviewed and verified the staff HPI to be accurate for this encounter. Portions of this record may have been created with voice recognition artificial intelligence software, specifically [employer], [employer] and or [employer]. Substitutions may have occurred due to the inherent limitations of voice recognition and artificial intelligence software. Review of Systems PHQ Score Initial Depression Screen Score: 0 SCORE Physical Exam Vitals & Measurements HR: 90(Peripheral) RR: 16 BP: 132/88 HT: 68 in HT: 173 cm WT: 91 kg WT: 200.2 lb BMI: 30.41 General: Well developed, well nourished, in no acute distress. Genitourinary: Flank Pain: none. Bladder: nonpalpable. Assessment/Plan KML pt 1. BPH with obstruction/lower urinary tract symptoms (N40.1: Benign prostatic hyperplasia with lower urinary tract symptoms) S/p Rezum 08/22/22. Prostate volume 49.8 ml [1] IPSS 7-8 (22), mild symptoms of BPH. Patient is mostly satisfied with his urination at this time. Restarted on tamsulosin 0.4 mg daily at prior office visit, as patient felt that he urinated better on this. Patient is tolerating this well without side effects. States that this is overall improved his urinary pattern. Continue current dose, 90-day refill sent to pharmacy. UA today with trace intact blood, no signs of infection. Patient denies any recent urinary infection or episode of gross hematuria. -Continue tamsulosin -Follow-up 1 year, sooner if needed Ordered: Urnls Dip Stick Auto w/o Microscopy POC 61546 2. Prostate cancer screening (Z12.5: Encounter for screening for malignant neoplasm of prostate) PSA (followed by PCP): 03/31/21 ? 2.55 11/2017 ? 2 [2] He denies any family history of prostate cancer. Patient has not yet had his annual physical with his PCP. While it does not look like his PSA has been monitored in recent years, I have sent patient with order for PSA today. -PSA today, call with results. -Follow-up 1 year with PSA Ordered: PSA Screen, Total 3. ED (erectile dysfunction) (N52.9: Male erectile dysfunction, unspecified) FERNANDO 4 (2) Started Cialis 10 mg as needed at prior office visit. Patient states that this got him to about 50% erection. He does note that he had a mild headache for a few hours after use. He did not try to increase dose to 20 mg. We did discuss trial of increasing dose to 20 mg in 48-hour period. I did advise patient that he may have worsening headache or other side effects with increased dose. He would like to trial, knows to stop medication if side effects become more severe. We did also discuss use of LEONILA and erection ring with or without use of Cialis. We did briefly discuss ICI, pellet therapy, penile implant. Patient states he will try increased dose, call if he needs refills, will call if he decides he wants to try ICI. 4. OAB (overactive bladder) (N32.81: Overactive bladder) Was previously denied Myrbetriq 12/12/2022 Trospium 60 mg daily. He tolerates this well without side effects. He voids every 2 hours during the day, depending on his bladder irritant intake. We did discuss bladder irritants further, he enjoys coffee and alcohol in the evenings. We discussed how this may contribute to his urinary symptoms. 5. 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 (R39.198: Other difficulties with micturition) Rarely happening at this point for the patient, he canceled his appointment for cystoscopy/urethral dilation April 2023. Does not feel that this is bothersome to him at this time. Orders: tamsulosin, 0.4 mg = 1 cap(s), Oral, Daily, # 30 cap(s), Refills(s) 2, Pharmacy: [facility]/pharmacy #[id number], 173, cm, 11/14/23 15:46:00 EDT, Height/Length Dosing, 88.5, kg, 11/14/23 15:46:00 EDT, Weight Dosing tamsulosin, 0.4 mg = 1 cap(s), Oral, Daily, X 90 day(s), # 90 cap(s), Refills(s) 3, Pharmacy: [facility]/pharmacy #[id number], 173, cm, 02/06/24 9:01:00 EDT, Height/Length Dosing, 91, kg, 02/06/24 9:01:00 EDT, Weight Dosing Follow-up With When Contact Information ORLY Dexter APRN, [facility], FAM, URL Additional Instructions: 1 year with PSA Patient Education Overactive Bladder, Adult Erectile Dysfunction Cancer Screening for Men Benign Prostatic Hyperplasia Problem List/Past Medical History (more content not included)... Normal [facility] Comment on above: Result Comment: Elec tronically Signed By: ORLY Dexter APRN, [facility]\.br\Date and Time Signed: 02/06/24 09:35 EDT [place] 11-20-2023 Screens [id number]# 1.00TIFF [facility] Screens [id number] .00TIFF [facility] Patient Educationon 11-14-19 Patient Education Obstetrics and Gynecology Overactive Bladder, Adult Overactive bladder is a condition in which a person has a sudden and frequent need to urinate. A person might also leak urine if he or she cannot get to the bathroom fast enough (urinary incontinence). Sometimes, symptoms can interfere with work or social activities. What are the causes? Overactive bladder is associated with poor nerve signals between your bladder and your brain. Your bladder may get the signal to empty before it is full. You may also have very sensitive muscles that make your bladder squeeze too soon. This condition may also be caused by other factors, such as: ? Medical conditions: ? Urinary tract infection. ? Infection of nearby tissues. ? Prostate enlargement. ? Bladder stones, inflammation, or tumors. ? Diabetes. ? Muscle or nerve weakness, especially from these conditions: ? A spinal cord injury. ? Stroke. ? Multiple sclerosis. ? Parkinson's disease. ? Other causes: ? Surgery on the uterus or urethra. ? Drinking too much caffeine or alcohol. ? Certain medicines, especially those that eliminate extra fluid in the body (diuretics). ? Constipation. What increases the risk? You may be at greater risk for overactive bladder if you: ? Are an older adult. ? Smoke. ? Are going through menopause. ? Have prostate problems. ? Have a neurological disease, such as stroke, dementia, Parkinson's disease, or multiple sclerosis (MS). ? Eat or drink alcohol, spicy food, caffeine, and other things that irritate the bladder. ? Are overweight or obese. What are the signs or symptoms? Symptoms of this condition include a sudden, strong urge to urinate. Other symptoms include: ? Leaking urine. ? Urinating 8 or more times a day. ? Waking up to urinate 2 or more times overnight. How is this diagnosed? This condition may be diagnosed based on: ? Your symptoms and medical history. ? A physical exam. ? Blood or urine tests to check for possible causes, such as infection. You may also need to see a health care provider who specializes in urinary tract problems. This is called a urologist. How is this treated? Treatment for overactive bladder depends on the cause of your condition and whether it is mild or severe. Treatment may include: ? Bladder training, such as: ? Learning to control the urge to urinate by following a schedule to urinate at regular intervals. ? Doing Kegel exercises to strengthen the pelvic floor muscles that support your bladder. ? Special devices, such as: ? Biofeedback. This uses sensors to help you become aware of your body's signals. ? Electrical stimulation. This uses electrodes placed inside the body (implanted) or outside the body. These electrodes send gentle pulses of electricity to strengthen the nerves or muscles that control the bladder. ? Women may use a plastic device, called a pessary, that fits into the vagina and supports the bladder. ? Medicines, such as: ? Antibiotics to treat bladder infection. ? Antispasmodics to stop the bladder from releasing urine at the wrong time. ? Tricyclic antidepressants to relax bladder muscles. ? Injections of botulinum toxin type A directly into the bladder tissue to relax bladder muscles. ? Surgery, such as: ? A device may be implanted to help manage the nerve signals that control urination. ? An electrode may be implanted to stimulate electrical signals in the bladder. ? A procedure may be done to change the shape of the bladder. This is done only in very severe cases. Follow these instructions at home: Eating and drinking ? Make diet or lifestyle changes recommended by your health care provider. These may include: ? Drinking fluids throughout the day and not only with meals. ? Cutting down on caffeine or alcohol. ? Eating a healthy and balanced diet to prevent constipation. This may include: ? Choosing foods that are high in fiber, such as beans, whole grains, and fresh fruits and vegetables. ? Limiting foods that are high in fat and processed sugars, such as fried and sweet foods. Lifestyle ? Lose weight if needed. ? Do not use any products that contain nicotine or tobacco. These include cigarettes, chewing tobacco, and vaping devices, such as e-cigarettes. If you need help quitting, ask your health care provider. General instructions ? Take [id number] and prescription medicines only as told by your health care provider. ? If you were prescribed an antibiotic medicine, take it as told by your health care provider. Do not stop taking the antibiotic even if you start to feel better. ? Use any implants or pessary as told by your health care provider. ? If needed, wear pads to absorb urine leakage. ? Keep a log to track how much and when you drink, and when you need to urinate. This will help your health care provider monitor yo (more content not included)... Normal [facility] Urology Office/Clinic Noteon 11-14-2023 Urology Office/Clinic Note Chief Complaint 7 mo f/u HPI Staff KML patient 7 mo f/u patient was scheduled to have Cysto/possible UD done on 05/01 w/ KML, patient cancelled procedure, did not reschedule Dx: BPH w/ obstructive/lower urinary tract sx's, urinary stream spraying, OAB Tamsulosin 0.4mg QD Dysuria: denies Incomplete bladder emptying: sometimes at night Hematuria: denies Frequency: yes Urgency: yes Nocturia: 3x a night Stream: steady Leaking: denies Post void dripping: denies Wearing pads/ Depends: denies Urge incontinence: denies Stress incontinence: denies Incontinence without Sensory Awareness: denies Abdominal pain: denies Flank pain: denies Sexual complaints: _ History of Present Illness I have reviewed and verified the staff HPI to be accurate for this encounter. Portions of this record may have been created with voice recognition artificial intelligence software, specifically [employer], [employer] and or [employer]. Substitutions may have occurred due to the inherent limitations of voice recognition and artificial intelligence software. Review of Systems PHQ Score Initial Depression Screen Score: 0 SCORE Physical Exam Vitals & Measurements T: 36.6 ?C(Temporal Artery) HR: 89(Peripheral) RR: 16 BP: 128/83 HT: 68 in HT: 173 cm WT: 88.5 kg WT: 194.7 lb BMI: 29.57 Assessment/Plan 1. BPH with obstruction/lower urinary tract symptoms (N40.1: Benign prostatic hyperplasia with lower urinary tract symptoms) S/p Rezum 08/22/22. Prostate volume 49.8 ml [1] UA today without signs of infection or blood. PVR today 0 IPSS 22, severe symptoms of BPH. Patient was previously on tamsulosin, but was stopped after Rezum procedure. Patient notes that he does feel that he emptied better on tamsulosin and would like to restart therapy. Discussed with patient that it is difficult to tell if his symptoms are overactivity in nature or prostate in nature. I do not think it is unreasonable to trial him back on tamsulosin 0.4 mg daily again. We discussed possible side effects, report anything intolerable to office. Rx sent to [facility], per patient preference. - Follow-up in 8 weeks for reevaluation. Ordered: Urnls Dip Stick Auto w/o Microscopy POC 00572 2. OAB (overactive bladder) (N32.81: Overactive bladder) Patient complains of frequency, urgency more than half the time. Prescribed Myrbetriq previously, but was denied 03/14/2023. He is currently taking trospium 60 mg daily. He has never tried to wean off of medication. He is tolerating it well without side effects. At this time, he wishes to continue current dose. Again, discussed that it is difficult to tell if his urinary symptoms are primarily overactivity in nature or if the prostate is contributing. If patient fails to have less bothersome urinary symptoms with trial of tamsulosin, may consider adjusting OAB treatment. Did briefly discuss Botox in the future. However, patient states that he is uninterested in this. Ordered: Urnls Dip Stick Auto w/o Microscopy POC 25348 3. 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 (R39.198: Other difficulties with micturition) Patient notes that this is only rarely happening for him. He was scheduled for cystoscopy/as directed in April 2023, but canceled appointment. He states that he decided not to move forward with procedure, as this is something that happens infrequently to him. Ordered: Urnls Dip Stick Auto w/o Microscopy POC 80990 4. Prostate cancer screening (Z12.5: Encounter for screening for malignant neoplasm of prostate) Patient believes that his PSA beats being monitored by his PCP. Unable to find results on clinic thanks today, but unable to get into [facility] where he gets his labs. He states that he does have appointment coming up in January, typically has lab work around the same time. States he will ask his PCP about PSA. If patient does not have PSA and follow-up, will order. PSA (followed by PCP): 03/31/21 ? 2.55 11/2017 ? 2 5. Erectile dysfunction (N52.9: Male erectile dysfunction, unspecified) FERNANDO 2 Patient has symptoms of severe ED, difficulty getting erection. Patient states he has never taken anything in the past for erectile dysfunction, as he was under the impression that medications would be very expensive to him due to insurance not covering these. Advised patient use of good Rx card to make medication more affordable, he is interested in trial of medication. Discussed most common side effects, report anything intolerable and stop medication. Advised to let all medical providers know that he is on this medication, especially in the event of chest pain. Start Cialis 10 mg as needed, Rx sent to [facility]. May titrate dose to 20 mg if needed. Do not exceed 20 mg in 24 hours. Orders: tadalafil, 10 mg = 1 tab(s), Oral, As Directed, PRN for erectile dysfunction, take 1 tab prior to sexual activity. Do not exceen 2 tabs (20 mg) in 24 hr, # 30 tab(s), Refills(s (more content not included)... Normal [facility] Comment on above: Result Comment: Elec tronically Signed By: ORLY Dexter APRN, Janet Elizondo\.br\Date and Time Signed: 11/14/23 16:42 EDT Complete Blood Count with Au to Diffon 08-06-2021 Basophils (Bld) [#/Vol] 0.04 10*3/uL Normal 0.00-0.20 [facility] Specialist Comment on above: Performed By: #### C BCAD, CMP #### [facility] [address] [place], [place] [id number] Basophils/100 WBC (Bld) 0.3 % Normal [facility] Comment on above: Performed By: #### C BCAAlex, CMP #### [facility] [address] [place], [place] [id number] Eosinophils (Bld) [#/Vol] 0.22 10*3/uL Normal 0.02-0.50 [facility] Comment on above: Performed By: #### C BCAD, CMP #### [facility] [address] [place], [place] [id number] Eosinophils/100 WBC (Bld) 1.9 % Normal [facility] Comment on above: Performed By: #### C BCAD, CMP #### [facility] [address] [place], [place] [id number] Erythrocyte distribution width (RBC) [Ratio] 13.5 % Normal 11.0-15.0 [facility] Comment on above: Performed By: #### C BCAD, CMP #### [facility] [address] [place], [place] [id number] Hematocrit (Bld) [Volume fraction] 47.6 % Normal 38.5-50.0 [facility] Comment on above: Performed By: #### C BCAD, CMP #### [facility] [address] [place], [place] [id number] Hemoglobin (Bld) [Mass/Vol] 15.6 g/dL Normal 13.0-17.1 [facility] Comment on above: Performed By: #### C JAXSON, CMP #### [facility] [address] [place], [place] [id number] Lymphocytes (Bld) [#/Vol] 3.0 10*3/uL Normal 0.9-3.9 [facility] Comment on above: Performed By: #### C BCAAlex, CMP #### [facility] [address] [place], [place] [id number] Lymphocytes/100 WBC (Bld) 25.3 % Normal [facility] Comment on above: Performed By: #### C JAXSON, CMP #### [facility] [address] [place], [place] [id number] MCH (RBC) [Entitic mass] 29.7 pg Normal 27.0-33.0 [facility] Comment on above: Performed By: #### C JAXSON, CMP #### [facility] [address] [place], [place] [id number] MCHC (RBC) [Mass/Vol] 32.8 g/dL Normal 32.0-36.0 [facility] Comment on above: Performed By: #### C BCAD, CMP #### [facility] [address] [place], [place] [id number] MCV (RBC) [Entitic vol] 91 fL Normal 80-100 [facility] Comment on above: Performed By: #### C BCAD, CMP #### [facility] [address] [place], [place] [id number] Monocytes (Bld) [#/Vol] 1.1 10*3/uL High 0.2-0.9 [facility] Comment on above: Performed By: #### C BCAD, CMP #### [facility] [address] [place], [place] [id number] Monocytes/100 WBC (Bld) 9.6 % Normal [facility] Comment on above: Performed By: #### Tere PURI, CMP #### [facility] [address] [place], [place] [id number] Neutrophils (Bld) [#/Vol] 7.4 10*3/uL Normal 1.5-7.8 [facility] Comment on above: Performed By: #### Tere PURI, CMP #### [facility] [address] [place], [place] [id number] Neutrophils/100 WBC (Bld) 62.6 % Normal [facility] Comment on above: Performed By: #### Tere PURI, CMP #### [facility] [address] [place], [place] [id number] Platelet mean volume (Bld) [Entitic vol] 9.40 fL Normal 7.50-12.50 [facility] Comment on above: Performed By: #### Tere PURI, CMP #### [facility] [address] [place], [place] [id number] Platelets (Bld) [#/Vol] 271 10*3/uL Normal 140-400 [facility] Comment on above: Performed By: #### Tere PURI, CMP #### [facility] [address] [place], [place] [id number] RBC (Bld) [#/Vol] 5.26 10*6/uL Normal 4.20-5.80 [facility] Comment on above: Performed By: #### Tere PURI, CMP #### [facility] [address] [place], [place] [id number] RDW-SD 45.4 fL Normal 37.0-50.0 [facility] Comment on above: Performed By: #### C JAXSON, CMP #### [facility] [address] [place], [place] [id number] WBC (Bld) [#/Vol] 11.8 10*3/uL High 3.8-11.0 [facility] Comment on above: Performed By: #### Tere PURI, CMP #### [facility] [address] [place], [place] [id number] Comprehensive Metabolic Pane kushal 08-06-2021 Albumin [Mass/Vol] 4.6 g/dL Normal 3.6-5.1 [facility] Comment on above: Performed By: #### C BCAD, CMP #### [facility] [address] [place], [place] [id number] Albumin/Globulin [Mass ratio] 1.8 {ratio} Normal 1.0-2.5 [facility] Comment on above: Performed By: #### C BCAD, CMP #### [facility] [address] [place], [place] [id number] ALP [Catalytic activity/Vol] 61 U/L Normal 40-129 [facility] Comment on above: Performed By: #### C BCAD, CMP #### [facility] [address] [place], [place] [id number] ALT [Catalytic activity/Vol] 25 U/L Normal 9-46 [facility] Comment on above: Result Comment: 06/30 Female reference range changed. Performed By: #### C BCAD, CMP #### [facility] [address] [place], [place] [id number] Anion gap [Moles/Vol] 20 mmol/L Normal 12-20 [facility] Comment on above: Result Comment: Effe ctive 08/05/2019 reference range changed. Performed By: #### C BCAD, CMP #### [facility] [address] [place], [place] [id number] AST [Catalytic activity/Vol] 24 U/L Normal 10-40 [facility] Comment on above: Performed By: #### C BCAD, CMP #### [facility] [address] [place], [place] [id number] Bilirubin [Mass/Vol] 0.45 mg/dL Normal 0.30-1.20 [facility] Comment on above: Performed By: #### C BCAD, CMP #### [facility] [address] [place], [place] [id number] BUN/CREA 30 Ratio High 6-22 [facility] Comment on above: Performed By: #### C BCAD, CMP #### [facility] [address] [place], [place] [id number] Calcium [Mass/Vol] 9.2 mg/dL Normal 8.6-10.2 [facility] [employer] [facility] Comment on above: Performed By: #### C BCAD, CMP #### [facility] [address] [place], [place] [id number] Chloride [Moles/Vol] 104 mmol/L Normal 98-107 [facility] Comment on above: Performed By: #### C BCAD, CMP #### [facility] [address] [place], [place] [id number] CO2 [Moles/Vol] 22 mmol/L Normal 20-31 [facility] Comment on above: Performed By: #### C JAXSON, CMP #### [facility] [address] [place], [place] [id number] Creatinine [Mass/Vol] 0.7 mg/dL Normal 0.7-1.4 [facility] Comment on above: Performed By: #### C BCAD, CMP #### [facility] [address], [place] [id number] eGFRAA 149 mL/min/1.73m2 Normal >60 [facility] Specialist Comment on above: Performed By: #### C BCAAlex, CMP #### [facility] [address] [place], [place] [id number] eGFRNAA 123 mL/min/1.73m2 Normal >60 [facility] Comment on above: Performed By: #### C BCAAlex, CMP #### [facility] [address] [place], [place] [id number] Globulin (S) [Mass/Vol] 2.5 g/dL Normal 1.9-3.7 [facility] Comment on above: Performed By: #### C BCAD, CMP #### [facility] [address] [place], [place] [id number] Glucose [Mass/Vol] 96 mg/dL Normal 65-99 [facility] [employer] Trol[employer] Dispatcher Comment on above: Result Comment: For FASTING Glucose --- ADA reference ranges: Normal 65-99 mg/dl Prediabetes 100-125 Diabetes >/= 126 Performed By: #### C BCAAlex, CMP #### [facility] [address], [place] [id number] Potassium [Moles/Vol] 3.8 mmol/L Normal 3.5-5.5 [facility] Comment on above: Result Comment: Spec imen is hemolyzed. Results may be affected. Performed By: #### C BCAD, CMP #### [facility] [address] [facility] [place] [place] [id number] Protein [Mass/Vol] 7.1 g/dL Normal 6.1-8.1 [facility] [employer] Dispatcher Comment on above: Performed By: #### C BCAD, CMP #### [facility] [address] [facility] [place], [place] [id number] Sodium [Moles/Vol] 142 mmol/L Normal 135-146 [facility] [employer] Dispatcher Comment on above: Performed By: #### C BCAD, CMP #### [facility] [address], [place] [id number] Urea nitrogen [Mass/Vol] 20 mg/dL Normal 7-25 [facility] Specialist Comment on above: Performed By: #### C BCAD, CMP #### [facility] [address], [place] [id number] Hemoglobin A1Con 08-06-2021 EAG 128.37 Normal [facility] Comment on above: Performed By: #### A 1C #### [facility] [address], [place] [id number] HbA1c (Bld) [Mass fraction] 6.1 % High 4.0-6.0 [facility] Specialist Comment on above: Performed By: #### A 1C #### [facility] [address], [place] [id number] Vital Signs Date Time Vital Sign Value Performing Clinician Facility 10-23-2024 11:[id number] Body height 172.7 cm Sharla Mendosa DO Work Phone: [facility] 10-23-2024 11:06-0400 Body mass index (BMI) [Ratio] 28.68 kg/m2 Sharla Mendosa DO Work Phone: [facility] 10-23-2024 11:06-0400 Body temperature 97.11 [degF] Sharla Mendosa DO Work Phone: [facility] 10-23-2024 11:06-0400 Body weight 85.55 kg Sharla Mendosa DO Work Phone: [facility] 10-23-2024 11:06-0400 Diastolic blood pressure 80 mm[Hg] Sharla Mendosa DO Work Phone: [facility] 10-23-2024 11:06-0400 Heart rate 76 /min Sharla Mendosa DO Work Phone: [facility] 10-23-2024 11:06-0400 SaO2% (BldA) [Mass fraction] 96 % Sharla Mendosa DO Work Phone: [facility] 10-23-2024 11:06-0400 Systolic blood pressure 124 mm[Hg] Sharla Mendosa DO Work Phone: [facility] 10-21-2024 09:00-0400 Blood Pressure Location Jose Laurent [facility] 10-21-2024 09:00-0400 Diastolic blood pressure 82 mm[Hg] Jose Laurent [facility] 10-21-2024 09:00-0400 Heart rate 93 /min Jose Laurent [facility] 10-21-2024 09:00-0400 Respiratory rate 18 /min Jose Laurent [facility] 10-21-2024 09:00-0400 SaO2% (BldA) [Mass fraction] 92 % Jose Laurent [facility] 10-21-2024 09:00-0400 Systolic blood pressure 122 mm[Hg] Jose Laurent [facility] 09-03-2024 14:17-0500 Blood Pressure Location Joes Laurent [facility] 09-03-2024 14:17-0500 Diastolic blood pressure 90 mm[Hg] Jose Laurent [facility] 09-03-2024 14:17-0500 Heart rate 80 /min Jose Laurent [facility] 09-03-2024 14:17-0500 Respiratory rate 16 /min Jose Laurent [facility] 09-03-2024 14:17-0500 SaO2% (BldA) [Mass fraction] 95 % Jose Laurent [facility] 09-03-2024 14:17-0500 Systolic blood pressure 134 mm[Hg] Jose Laurent [facility] 07-17-2024 14:32-0500 Blood Pressure Location Jose Laurent [facility] 07-17-2024 14:32-0500 Diastolic blood pressure 78 mm[Hg] Joes Laurent [facility] 07-17-2024 14:32-0500 Heart rate 88 /min Jose Laurent [facility] 07-17-2024 14:32-0500 Respiratory rate 18 /min Jose Laurent [facility] 07-17-2024 14:32-0500 SaO2% (BldA) [Mass fraction] 94 % Jose Laurent [facility] 07-17-2024 14:32-0500 Systolic blood pressure 112 mm[Hg] Jose Laurent [facility] 07-16-2024 12:44-0500 Body height 172.7 cm Sharla Mendosa DO Work Phone: [facility] [employer] 07-16-2024 12:44-0500 Body mass index (BMI) [Ratio] 29.86 kg/m2 Sharla Mendosa DO Work Phone: [facility] 07-16-2024 12:44-0500 Body temperature 97.3 [degF] Sharla Navya HENRY Work Phone: [facility] 07-16-2024 12:44-0500 Body weight 89.09 kg Sharla Mendosa DO Work Phone: [facility] 07-16-2024 12:44-0500 Diastolic blood pressure 78 mm[Hg] Sharla Mendosa DO Work Phone: [facility] 07-16-2024 12:44-0500 Heart rate 90 /min Sharla Mendosa DO Work Phone: [facility] 07-16-2024 12:44-0500 SaO2% (BldA) [Mass fraction] 96 % Sharla Mendosa DO Work Phone: [facility] 07-16-2024 12:44-0500 Systolic blood pressure 122 mm[Hg] Sharla Mendosa DO Work Phone: [facility] 06-19-2024 14:29-0500 Blood Pressure Location Estuardo Betancor [facility] 06-19-2024 14:29-0500 Diastolic blood pressure 80 mm[Hg] Estuardo Betancor [facility] 06-19-2024 14:29-0500 Heart rate 82 /min Estuardo Betancor [facility] 06-19-2024 14:29-0500 Respiratory rate 18 /min Estuardo Betancor [facility] 06-19-2024 14:29-0500 SaO2% (BldA) [Mass fraction] 94 % Estuadro Betancor [facility] 06-19-2024 14:29-0500 Systolic blood pressure 112 mm[Hg] Estuardo Betancor [facility] 06-13-2024 13:59-0500 Body height 172.7 cm Sharla Mendosa DO Work Phone: [facility] 06-13-2024 13:59-0500 Body mass index (BMI) [Ratio] 30.26 kg/m2 Sharla Mendosa DO Work Phone: [facility] 06-13-2024 13:59-0500 Body temperature 97.3 [degF] Sharla Mendosa DO Work Phone: [facility] 06-13-2024 13:59-0500 Body weight 90.27 kg Sharla Mendosa DO Work Phone: [facility] 06-13-2024 13:59-0500 Diastolic blood pressure 80 mm[Hg] Sharla Mendosa DO Work Phone: [facility] 06-13-2024 13:59-0500 Heart rate 113 /min Sharla Mendosa DO Work Phone: [facility] 06-13-2024 13:59-0500 SaO2% (BldA) [Mass fraction] 97 % Sharla Mendosa DO Work Phone: [facility] 06-13-2024 13:59-0500 Systolic blood pressure 122 mm[Hg] Sharla Mendosa DO Work Phone: [facility] 06-07-2024 12:05-0500 Hourly Rounding Mbanefo OJUKWU [facility] 06-07-2024 12:05-0500 Promise to Return Mbanefo OJUKWU [facility] 06-07-2024 11:17-0500 Blood Pressure Location Mbanefo OJUKWU [facility] 06-07-2024 11:17-0500 Body temperature 98.06 [degF] Mbanefo OJUKWU [facility] 06-07-2024 11:17-0500 Diastolic blood pressure 80 mm[Hg] Mbanefo OJUKWU [facility] 06-07-2024 11:17-0500 Heart rate 83 /min Mbanefo OJUKWU [facility] 06-07-2024 11:17-0500 Hourly Rounding Mbanefo OJUKWU [facility] 06-07-2024 11:17-0500 Mean blood pressure 92 mm[Hg] Mbanefo OJUKWU [facility] 06-07-2024 11:17-0500 Respiratory rate 17 /min Mbanefo OJUKWU [facility] 06-07-2024 11:17-0500 SaO2% (BldA) [Mass fraction] 99 % Mbanefo OJUKWU [facility] 06-07-2024 11:17-0500 Systolic blood pressure 117 mm[Hg] Mbanefo OJUKWU [facility] 06-07-2024 11:00-0500 Promise to Return Mbanefo OJUKWU [facility] 06-07-2024 10:00-0500 Hourly Rounding Mbanefo OJUKWU [facility] 06-07-2024 10:00-0500 Promise to Return Mbanefo OJUKWU [facility] 06-07-2024 09:00-0500 Body temperature 98.24 [degF] Mbanefo OJUKWU [facility] 06-07-2024 09:00-0500 Diastolic blood pressure 69 mm[Hg] Mbanefo OJUKWU [facility] 06-07-2024 09:00-0500 Respiratory rate 16 /min Mbanefo OJUKWU [facility] 06-07-2024 09:00-0500 SaO2% (BldA) [Mass fraction] 94 % Mbanefo OJUKWU [facility] 06-07-2024 09:00-0500 Systolic blood pressure 109 mm[Hg] Mbanefo OJUKWU [facility] 06-07-2024 08:02-0500 Diastolic blood pressure 78 mm[Hg] Mbanefo OJUKWU [facility] 06-07-2024 08:02-0500 Systolic blood pressure 113 mm[Hg] Mbanefo OJUKWU [facility] 06-07-2024 07:40-0500 SaO2% (BldA) [Mass fraction] 97 % Mbanefo OJUKWU [facility] 06-07-2024 07:31-0500 Heart rate 89 /min Mbanefo OJUKWU [facility] 06-07-2024 07:27-0500 Body temperature 97.7 [degF] Mbanefo OJUKWU [facility] 06-07-2024 07:27-0500 Blood Pressure Location Mbanefo OJUKWU [facility] 06-07-2024 07:27-0500 Mean blood pressure 90 mm[Hg] Mbanefo OJUKWU [facility] 06-07-2024 06:00-0500 Body temperature 98.42 [degF] Mbanefo OJUKWU [facility] 06-07-2024 06:00-0500 Mean blood pressure 78 mm[Hg] Mbanefo OJUKWU [facility] 06-07-2024 04:00-0500 Mean blood pressure 79 mm[Hg] Mbanefo OJUKWU [facility] 06-07-2024 00:00-0500 Body temperature 98.42 [degF] Mbanefo OJUKWU [facility] 06-06-2024 20:35-0500 Respiratory rate 16 /min Mbanefo OJUKWU [facility] 06-06-2024 20:34-0500 Mean blood pressure 79 mm[Hg] Mbanefo OJUKWU [facility] 06-06-2024 20:34-0500 Body temperature 97.7 [degF] Mbanefo OJUKWU [facility] 06-06-2024 17:27-0500 Body temperature 97.52 [degF] Mbanefo OJUKWU [facility] 06-06-2024 17:27-0500 Heart rate 103 /min Mbanefo OJUKWU [facility] 06-06-2024 17:27-0500 Respiratory rate 18 /min Mbanefo OJUKWU [facility] 06-06-2024 16:20-0500 Mean blood pressure 86 mm[Hg] Mbanefo OJUKWU [facility] 06-06-2024 13:10-0500 Respiratory rate 12 /min Mbanefo OJUKWU [facility] 05-14-2024 12:18-0400 Blood Pressure Location Janet Orzech [facility] 05-14-2024 12:18-0400 Diastolic blood pressure 84 mm[Hg] Janet Orzech [facility] 05-14-2024 12:18-0400 Heart rate 88 /min Janet Orzech [facility] 05-14-2024 12:18-0400 Systolic blood pressure 122 mm[Hg] Janet Orzech [facility] 02-06-2024 08:58-0400 Blood Pressure Location Janet Orzech [facility] 02-06-2024 08:58-0400 Diastolic blood pressure 88 mm[Hg] Janet Orzech [facility] 02-06-2024 08:58-0400 Heart rate 90 /min Janet Orzech [facility] 02-06-2024 08:58-0400 Respiratory rate 16 /min Janet Orzech [facility] 02-06-2024 08:58-0400 Systolic blood pressure 132 mm[Hg] Janet Orzech [facility] 11-14-2023 15:42-0400 Blood Pressure Location Janet Orzech [facility] 11-14-2023 15:42-0400 Body temperature 97.88 [degF] Janet Orzech [facility] 11-14-2023 15:42-0400 Diastolic blood pressure 83 mm[Hg] Janet Orzech [facility] 11-14-2023 15:42-0400 Heart rate 89 /min Janet Orzech [facility] 11-14-2023 15:42-0400 Respiratory rate 16 /min Janet Orzech [facility] 11-14-2023 15:42-0400 Systolic blood pressure 128 mm[Hg] Janet Orzech [facility] 04-13-2023 09:42-0400 Blood Pressure Location Marita Lue [facility] 04-13-2023 09:42-0400 Body temperature 98.42 [degF] Marita Lue [facility] 04-13-2023 09:42-0400 Diastolic blood pressure 78 mm[Hg] Marita Lue [facility] 04-13-2023 09:42-0400 Heart rate 88 /min Marita Lue [facility] 04-13-2023 09:42-0400 Systolic blood pressure 116 mm[Hg] Marita Lue [facility] 10-12-2022 10:23-0400 Diastolic blood pressure 62 mm[Hg] DO Luiza Mendosa Work Phone: [facility] 10-12-2022 10:23-0400 Heart rate 92 /min DO Luiza Mendosa Work Phone: [facility] 10-12-2022 10:23-0400 Respiratory rate 16 /min DO Luiza Mendosa Work Phone: [facility] 10-12-2022 10:23-0400 SaO2% (BldA) [Mass fraction] 96 % DO Luiza Mendosa Work Phone: [facility] 10-12-2022 10:23-0400 Systolic blood pressure 127 mm[Hg] DO Luiza Mendosa Work Phone: [facility] 10-12-2022 08:47-0400 Body height 172.72 cm DO Luiza Mendosa Work Phone: [facility] 10-12-2022 08:47-0400 Body temperature 98.1 [degF] DO Luiza Mendosa Work Phone: [facility] 10-12-2022 08:47-0400 Body weight 90.71 kg DO Luiza Mendosa Work Phone: [facility] 07-19-2022 08:43-0500 Blood Pressure Location Marita Lue [facility] 07-19-2022 08:43-0500 Diastolic blood pressure 101 mm[Hg] Marita Lue [facility] 07-19-2022 08:43-0500 Heart rate 99 /min Marita Lue [facility] 07-19-2022 08:43-0500 Systolic blood pressure 143 mm[Hg] Marita Lue [facility] 05-03-2022 08:49-0400 Blood Pressure Location HADLEY OXANA [facility] 05-03-2022 08:49-0400 Diastolic blood pressure 90 mm[Hg] HADLEY OXANA [facility] 05-03-2022 08:49-0400 Heart rate 95 /min HADLEY OXANA [facility] 10-04-2022 08:49-0400 Systolic blood pressure 127 mm[Hg] HADLEY DAIGLE [facility] 12-24-2021 10:05-0400 Blood Pressure Location Marita Lue [facility] 12-24-2021 10:05-0400 Diastolic blood pressure 91 mm[Hg] Marita Lue [facility] 12-24-2021 10:05-0400 Heart rate 86 /min Marita Lue [facility] 12-24-2021 10:05-0400 Systolic blood pressure 132 mm[Hg] Marita Lue [facility] Encounters Encounter Date Encounter Type Care Provider Facility Start: 10-23-2024 End: 10-23-2024 Bamboo flowsheet Sharla Mendosa DO Work Phone: [facility] [address] Start: 10-23-2024 End: 10-23-2024 Bamboo flowsheet Sharla Mendosa DO Work Phone: [facility] Start: 10-23-2024 End: 10-23-2024 Office outpatient visit 15 minutes Sharla Mendosa DO Work Phone: [facility] Comment on above: Prediabetes (Primary Dx); Unspecified atrial fibrillation (CMS/HCC); Ringworm Start: 10-23-2024 End: 10-23-2024 ambulatory SHARLA MENDOSA Not Available Start: 10-21-2024 End: 10-22-2024 ambulatory XXXX NONE Facility:[facility] Start: 10-21-2024 End: 10-22-2024 Patient encounter procedure Jose Laurent [facility] Start: 09-03-2024 End: 09-03-2024 ambulatory Jose Laurent Facility:[facility] Start: 09-03-2024 End: 09-03-2024 Patient encounter procedure Jose Laurent [facility] Start: 07-17-2024 End: 07-17-2024 ambulatory Jose Laurent Facility:[facility] Start: 07-17-2024 End: 07-17-2024 Patient encounter procedure Jose Laurent [facility] Start: 07-16-2024 End: 07-16-2024 Bamboo flowsheet Sharla Mendosa DO Work Phone: [facility] Start: 07-16-2024 End: 07-16-2024 Bamboo flowsheet Sharla Mendosa DO Work Phone: [facility] Start: 07-16-2024 End: 07-16-2024 Office outpatient visit 15 minutes Sharla Mendosa DO Work Phone: [facility] Comment on above: Prediabetes (Primary Dx); BPH with obstruction/lower urinary tract symptoms; Mixed hyperlipidemia ([facility]/HCC) Start: 07-16-2024 End: 07-16-2024 ambulatory SHARLA MENDOSA Not Available Start: 07-10-2024 End: 07-10-2024 Clinisync Result Encounter Sharla Mendosa DO Work Phone: [facility] External Department Unsolicited Start: 07-10-2024 End: 07-10-2024 Clinisync Result Encounter Sharla Mendosa DO Work Phone: [facility] External Department Unsolicited Start: 06-24-2024 End: 06-24-2024 ambulatory Glo MAUROWU Facility:[facility] Start: 06-24-2024 End: 06-24-2024 Patient encounter procedure Glo PEACE [facility] Start: 06-19-2024 End: 06-19-2024 ambulatory Jose Laurent Facility:[facility] Start: 06-19-2024 End: 06-19-2024 Patient encounter procedure Marita Klein [facility] Start: 06-15-2024 End: 06-15-2024 Clinisync Result Encounter Sharla Mendosa DO Work Phone: [facility] External Department Unsolicited Start: 06-15-2024 End: 06-15-2024 Clinisync Result Encounter Sharla Mendosa DO Work Phone: [facility] External Department Unsolicited Start: 06-13-2024 End: 06-13-2024 Transitional care manage srvc 7 day discharge Sharla Mendosa DO Work Phone: [facility] Comment on above: Atrial fibrillation, unspecified type (CMS/HCC) (Primary Dx); Prediabetes; BPH with obstruction/lower urinary tract symptoms Start: 06-13-2024 End: 06-13-2024 ambulatory SHARLA MENDOSA Not Available Start: 06-06-2024 End: 06-07-2024 ambulatory Marita Klein Facility:[facility] Start: 06-06-2024 End: 06-07-2024 Observation Glo ROBERTKWU [facility] Start: 05-24-2024 End: 05-24-2024 ambulatory Marita Klein Facility:[facility] Start: 05-14-2024 End: 05-14-2024 ambulatory Janet X Orzech Facility:[facility] Start: 05-14-2024 End: 05-14-2024 Patient encounter procedure Janet X Orzech [facility] Start: 05-08-2024 End: 05-08-2024 Patient encounter procedure DO Luiza Mendosa Work Phone: [facility] [place] Work Phone: Start: 05-08-2024 End: 05-08-2024 ambulatory DO Luiza Mendosa Work Phone: [facility] Work Phone: Start: 03-07-2024 End: 03-07-2024 ambulatory SHARLA MENDOSA Not Available Start: 02-29-2024 End: 02-29-2024 ambulatory SHARLA BRITTONAN Not Available Start: 02-06-2024 End: 02-06-2024 ambulatory Janet X Orzech Facility:[facility] Start: 02-06-2024 End: 02-06-2024 Patient encounter procedure [facility] X Orzech [facility] Start: 11-14-2023 End: 11-14-2023 ambulatory Janet X Orzech Facility:[facility] [place] Start: 11-14-2023 End: 11-14-2023 Patient encounter procedure Janet X Orzech [facility] Start: 04-13-2023 End: 05-02-2023 Pre-admission assessment Marita Klein [facility] Start: 04-13-2023 End: 04-13-2023 Patient encounter procedure Marita Klein [facility] Start: 10-12-2022 End: 10-12-2022 Admission to same day surgery center DO Luiza Mendosa Work Phone: [facility] Work Phone: Start: 10-12-2022 End: 10-12-2022 ambulatory DO Luiza Mendosa Work Phone: [facility] Work Phone: Start: 10-07-2022 End: 10-07-2022 Patient encounter procedure Marita RupinderCammie Klein [facility] Start: 09-05-2022 End: 09-05-2022 Patient encounter procedure Marita Klein [facility] Start: 08-31-2022 End: 08-31-2022 Lab Drop off Marita Klein [facility] Start: 08-31-2022 End: 08-31-2022 Patient encounter procedure Marita Klein [facility] Start: 08-22-2022 End: 08-22-2022 Patient encounter procedure Marita RupinderCammie Klein [facility] Start: 08-12-2022 End: 08-12-2022 Patient encounter procedure [facility]ita Klein [facility] Start: 07-19-2022 End: 07-19-2022 Patient encounter procedure Marita RupinderCammie Klein [facility] Start: 05-26-2022 End: 05-26-2022 Lab Drop off Skyler Rosenberg [facility] Start: 05-13-2022 End: 05-13-2022 ambulatory DO Luiza Mendosa Work Phone: [facility] Work Phone: Start: 05-13-2022 End: 05-13-2022 Patient encounter procedure DO Luiza Mendosa Work Phone: [facility] [address] Start: 05-03-2022 End: 05-03-2022 Patient encounter procedure HADLEY DAIGLE [facility] Start: 12-24-2021 End: 12-24-2021 Patient encounter procedure Marita Klein [facility] Start: 11-12-2021 End: 11-12-2021 Patient encounter procedure Marita Klein [facility] Procedures Date Procedure Procedure Detail Performing Clinician Start: 07-10-2024 ALL CBC WITH AUTO DIFF Sharla Wan Markbrandi DO Work Phone: Start: 06-17-2024 Hemoglobin glycosylated a1c Sharla Wan Markbrandi DO Work Phone: Start: 06-15-2024 ALL CBC WITH AUTO DIFF Sharla Wan Markbrandi DO Work Phone: Start: 06-15-2024 ALL LIPID PROFILE (FASTING) Sharla Wan Markbrandi DO Work Phone: Start: 06-15-2024 [facility] CMP (CMP) (FOR R [facility] USE) Sharla Wan Markbrandi DO Work Phone: Start: 06-15-2024 MLR HEMOGLOBIN A1C Kory Wan Mrakbrandi DO Work Phone: Start: 06-15-2024 [facility] MICROALB CREAT R ATIO RANDOM Sharla Mendosa DO Work Phone: Start: 10-12-2022 End: 10-12-2022 Colonoscopy DO Luiza Mendosa Work Phone: Start: 08-22-2022 Transurethral water vapor ablation of prostate Marita Lukwame Start: 07-19-2022 Cystoscopy Marita Lue Start: 05-13-2022 Plain chest X-ray DO Luiza Mendosa Work Phone: Colonoscopy Marita Lue Tonsillectomy Marita Lue Ultrasonography by transrectal approach Carlosvanitaeliecer SchwartzCASSI Plan of Treatment Date Care Activity Detail Author Start: 10-12-2032 Screening for malign ant neoplasm of colon [facility] Start: 06-25-2025 ambulatory Ambulatory Facility:[facility] Start: 03-04-2025 End: 03-04-2025 Patient encounter procedure 03/04/2025 11:20 AM EDT Office Visit [facility] [address] [place] [address] Sharla Mendosa DO [address] [place] [address] [facility] Start: 11-14-2024 End: 07-16-2025 CBC W Auto Differential panel - Blood CBC and differential Lab Routine Prediabetes BPH with obstruction/lower urinary tract symptoms Mixed hyperlipidemia (CMS/HCC) Expected: 11/14/2024 (Approximate), Expires: 07/16/2025 [facility] Comment on above: Expected: 11/14/2024 (Approximate), Expires: 07/16/2025 Start: 11-14-2024 End: 07-16-2025 Comprehensive metabolic 2000 panel - Serum or Plasma Comprehensive metabolic panel Lab Routine Prediabetes BPH with obstruction/lower urinary tract symptoms Mixed hyperlipidemia (CMS/HCC) Expected: 11/14/2024 (Approximate), Expires: 07/16/2025 [facility] Work Phone: Comment on above: Expected: 11/14/2024 (Approximate), Expires: 07/16/2025 Start: 11-14-2024 End: 07-16-2025 Hemoglobin A1c/Hemoglobin.total in Blood Hemoglobin A1c Lab Routine Prediabetes Expected: 11/14/2024 (Approximate), Expires: 07/16/2025 [facility] Comment on above: Expected: 11/14/2024 (Approximate), Expires: 07/16/2025 Start: 10-23-2024 End: 10-23-2024 Patient encounter procedure 10/23/2024 11:20 AM EDT Office Visit [facility] [address] [place] [id number] Sharla Mendosa DO [address] [place] [address] Unspecified atrial fibrillation (CMS/HCC) [facility] Comment on above: Unspecified atrial f ibrillation (CMS/HCC) Start: 07-16-2024 End: 07-16-2024 Patient [facility] 230 Comment on above: Arrived Start: 06-13-2024 End: 06-13-2025 CBC W Auto Differential panel - Blood CBC and differential Lab Routine Prediabetes Atrial fibrillation, unspecified type (CMS/HCC) BPH with obstruction/lower urinary tract symptoms Expected: 06/13/2024 (Approximate), Expires: 06/13/2025 [facility] Comment on above: Expected: 06/13/2024 (Approximate), Expires: 06/13/2025 Start: 06-13-2024 End: 06-13-2025 Comprehensive metabolic 2000 panel - Serum or Plasma Comprehensive metabolic panel Lab Routine Prediabetes Atrial fibrillation, unspecified type (CMS/HCC) BPH with obstruction/lower urinary tract symptoms Expected: 06/13/2024 (Approximate), Expires: 06/13/2025 [facility] Comment on above: Expected: 06/13/2024 (Approximate), Expires: 06/13/2025 Start: 06-13-2024 End: 06-13-2025 Lipid 1996 panel - Serum or Plasma Lipid panel Lab Routine Prediabetes Atrial fibrillation, unspecified type (CMS/HCC) BPH with obstruction/lower urinary tract symptoms Expected: 06/13/2024 (Approximate), Expires: 06/13/2025 [facility] Comment on above: Expected: 06/13/2024 (Approximate), Expires: 06/13/2025 Start: 06-13-2024 End: 06-13-2025 Microalbumin/Creatinine panel in random Urine Microalbumin / creatinine urine ratio Lab Routine Prediabetes Expected: 06/13/2024 (Approximate), Expires: 06/13/2025 [facility] Work Phone: Comment on above: Expected: 06/13/2024 (Approximate), Expires: 06/13/2025 Start: 05-08-2024 MR Prostate WO and W contrast IV [facility] Start: 05-08-2024 MR prostate wo/w con MR prostate wo/ w con [facility] Start: 10-12-2022 [facility] Start: 1960 Screening for malign ant neoplasm of colon [facility] Patient Education Colon Polypectomy (DC) [facility] Work Phone: Immunizations Immunization Date Immunization Notes Care Provider Sanna mendez 05-13-2024 influenza virus vaccine, unspecified formulation Estuardo Bunch [facility] 05-26-2023 influenza virus vaccine, unspecified formulation Janet Dexter [facility] 05-17-2022 influenza virus vaccine, unspecified formulation Marita Klein [facility] 05-17-2022 Influenza, injectabl e, Madin [place] Canine Kidney, quadrivalent with preservative Sharla Mendosa DO Work Phone: [facility] 05-06-2022 SARS-CoV-2 (COVID-19 ) [id number] Marita Klein [facility] 11-16-2021 SARS-CoV-2 (COVID-19 ) mRNA-1273 vaccine HADLEY OXANA [facility] 05-26-2021 influenza virus vaccine, unspecified formulation HADLEY OXANA [facility] 05-26-2021 influenza, injectabl e, quadrivalent, preservative free Sharla Kaftan DO Work Phone: [facility] 04-21-2021 influenza virus vaccine, unspecified formulation Martia Lue [facility] 03-16-2021 SARS-CoV-2 (COVID-19 ) mRNA BNT-162b2 vax HADLEY DAIGLE [facility] Comment on above: Result Comment: 2021: [id number] 09-02-2020 SARS-CoV-2 (COVID-19 ) mRNA-1273 vaccine Marita Lue [facility] 08-05-2020 SARS-CoV-2 (COVID-19 ) mRNA-1273 vaccine Marita Lue [facility] 07-13-2019 zoster vaccine recombinant HADLEY OXANA [facility] 04-26-2019 Influenza, injectabl e, Madin [place] Canine Kidney, quadrivalent with preservative Sharla Kaftan DO Work Phone: [facility] 04-26-2019 zoster vaccine recombinant HADLEY OXANA [facility] 05-11-2018 influenza virus vaccine, unspecified formulation HADLEY OXANA [facility] 05-11-2018 Influenza, injectabl e, Madin [place]ryst[place] Canine Kidney, preservative free, quadrivalent Sharla Mendosa DO Work Phone: [facility] 07-16-2009 novel [id number], preservative-free, injectable Sharla Mendosa DO Work Phone: [facility] Payers Date Payer Category Payer Unknown [id number] 2024 Self-pay [id number] 2023 Private Health Insurance [employer] [id number] 2022 Unknown [id number] 1960 Unknown [id number] .1.280959.3.579.2 1960 Unknown [id number] .1.502218.3.579.2 1960 Unknown [id number] ..1.454346.3.579.2 1960 Unknown [id number] ..1.485091.3.579.2 1960 Unknown [id number] 2.16.840.1.599236.3.579.2. 1960 Unknown [id number] 2.16.840.1.417958.3.579.2. 1960 Unknown [id number] 2.16.840.1.243402.3.579.2. 1960 Unknown [id number] 2.16.840.1.195832.3.579.2. 1960 Unknown [id number] 2.16.840.1.538936.3.579.2. 1960 Unknown [id number] 2.16.840.1.101414.3.579.2. 1960 Unknown [id number] 2.16.840.1.047204.3.579.2. 1960 Unknown [id number] 2.16.840.1.585244.3.579.2. 1960 Unknown [id number] 2.16.840.1.068198.3.579.2. 1960 Unknown [id number] 2.16.840.1.637758.3.579.2. 1258 1960 Unknown [id number] 2.16.840.1.977430.3.579.2. 1258 1960 Unknown [id number] 2.16.840.1.276626.3.579.2. 1258 1960 Unknown [id number] 2.16.840.1.054372.3.579.2. 1258 1960 Unknown [id number] 2.16.840.1.334426.3.579.2. 1258 1960 Unknown [id number] 2.16.840.1.667734.3.579.2. 1960 Unknown [id number] 2.16.840.1.109489.3.579.2. 727 1960 Unknown [id number] 2.16.840.1.541809.3.579.2. 727 1960 Unknown [id number] 2.16.840.1.574249.3.579.2. 727 1960 Unknown [id number] 2.16.840.1.054960.3.579.2. 727 Unknown [id number] 2.16.840.1.185037.3.579.2. 531 Social History Date Type Detail Facility Start: 08-06-2021 End: 01-14-2023 Tobacco smoking status Never smoked tobacco (finding) [facility] [employer] Start: 01-12-2023 End: 03-02-2024 Sex Assigned At Male [facility] Start: 07-19-2022 Tobacco smoking status Never [facility] Start: 1960 Sex Assigned At Male [facility] Start: 01-14-2023 Tobacco use and exposure Smokeless tobacco non-user [facility] Start: 06-13-2024 End: 10-23-2024 Alcoholic beverage intake Current drinker of alcohol (finding) [facility] Start: 03-02-2024 End: 06-13-2024 Alcoholic beverage intake [facility] Within the last year , have you been afraid of your partner or ex-partner? No [facility] Do you belong to any clubs or organizations such as samaritan groups, unions, fraternal or athletic groups, or school groups? Yes [facility] Are you now , , , , never or living with a partner? [facility] How often to you hav e a drink containing alcohol? 2-3 time sa week [facility] How many standard dr inks containing alcohol do you have on a typical day? 1 or 2 [facility] How often do you hav e 6 or more drinks on 1 occasion? Never [facility] Do you feel stress - tense, restless, nervous, or anxious, or unable to sleep at night because your mind is troubled all the time - these days [OSQ] Only a little [facility] (I/We) worried wheth er (my/our) food would run out before (I/we) got money to buy more. Never true [facility] Start: 01-14-2023 Alcohol Comment caffeine intake : 1-2 cups per day ; coffee [facility] Start: 01-12-2023 Gender identity Identifies as male gender (finding) [facility] Start: 01-12-2023 Sexual orientation Homosexual (finding) [facility] Sexual Orientation [facility] Start: 11-11-2009 Sex Male (finding) [facility] Medical Equipment Procedure Code Equipment Code Equipment Origin al Text Equipment Identifier Dates 1 Units by In Vi tro route in the morning and 1 Units before bedtime. [id number] Start: 06-13-2024 1 Units in the morning and 1 Units before bedtime. [id number] Start: 06-13-2024 Goals Date Patient Goal Desired Activity /State Functional Status Date Assessment Result Facility 10-21-2024 Functional Status N/A [facility] 09-03-2024 Functional Status N/A [facility] 07-17-2024 Functional Status N/A [facility] 06-19-2024 Functional Status N/A [facility] 06-19-2024 Functional Status N/A [facility] 06-06-2024 Functional Status N/A [facility] 05-14-2024 Functional Status N/A [facility] 02-06-2024 Functional Status N/A [facility] 11-14-2023 Functional Status N/A [facility] 04-13-2023 Functional Status N/A [facility] 10-07-2022 Functional Status N/A [facility] 08-11-2022 Functional Status N/A [facility] 07-19-2022 Functional Status N/A [facility] 05-03-2022 Functional Status N/A [facility] Clinical Notes 11-12-2021 to 10-23-2024 Sharla Mendosa, DO - 10/23/2024 11:20 AM Marcella Mendosa, DO - 07/16/2024 1:00 PM Horacio Soco Mendosa, DO - 06/13/2024 2:20 PM EST Note Date & Type Note Facility 10-23-2024 History of Present illness Narrative Images from the original note were not included. SUBJECTIVE: Thomas Goncalves is a 63 y.o. male presents with chief complaint of Rash. Subjective Thomas Goncalves is a 63 y.o. male who presents for evaluation of a sores on feet involving the right foot. Rash started 1 month ago. Lesions are red, ring like and raised in texture. Rash has not changed over time. Rash causes itchiness. No current tx used. Denies any use of new products. Here to discuss. Prediabetes: Currently on Ozempic 0.5 mg weekly for prediabetes and weight loss. Blood sugars have been averagin-108. Pt states his sugars are well controlled but has not been able to lose any additional weight. Would like to discuss increasing Ozempic. Review of Systems: Review of Systems Problem List: Patient Active Problem List Diagnosis Anxiety Chronic cough Gastro-esophageal reflux disease without esophagitis Hyperlipidemia (CMS/HCC) Laryngopharyngeal reflux Rhinitis BPH with obstruction/lower urinary tract symptoms ED (erectile dysfunction) OAB (overactive bladder) Prediabetes Urge incontinence Tremor Elevated PSA A-fib ([facility]/HCC) Past Medical History: Past Medical History: Diagnosis Date A-fib ([facility]/HCC) Allergies GERD (gastroesophageal reflux disease) Family History: Family History Problem Relation Name Age of Onset Colon cancer Mother Diabetes Mother Hyperlipidemia Mother Diabetes Father Stroke Maternal Grandmother Heart disease Maternal Grandfather Cancer Mother's Sister Allergies: Allergies Allergen Reactions Penicillins Unknown Surgical History: Past Surgical History: Procedure Laterality Date COLONOSCOPY 1999 OTHER SURGICAL HISTORY 05/26/2022 E/O RIF STM + DAP TONSILLECTOMY Social History: Social Drivers of Health Tobacco Use: Low Risk (07/16/2024) Patient History Smoking Tobacco Use: Never Smokeless Tobacco Use: Never Passive Exposure: Not on file Alcohol Use: Not At Risk (03/02/2024) AUDIT-C Frequency of Alcohol Consumption: 2-3 times a week Average Number of Drinks: 1 or 2 Frequency of Binge Drinking: Never Financial Resource Strain: Low Risk (03/02/2024) Overall Financial Resource Strain (CARDIA) Difficulty of Paying Living Expenses: Not hard at all Food Insecurity: No Food Insecurity (03/02/2024) Hunger Vital Sign Worried About Running Out of Food in the Last Year: Never true Ran Out of Food in the Last Year: Never true Transportation Needs: No Transportation Needs (03/02/2024) PRAPARE - Transportation Lack of Transportation (Medical): No Lack of Transportation (Non-Medical): No Physical Activity: Inactive (03/02/2024) Exercise Vital Sign Days of Exercise per Week: 0 days Minutes of Exercise per Session: 0 min Stress: No Stress Concern Present (03/02/2024) [place] [employer] - Occupational Stress Questionnaire Feeling of Stress : Only a little Social Connections: Moderately Integrated (03/02/2024) Social Connection and Isolation Panel [NHANES] Frequency of Communication with Friends and Family: More than three times a week Frequency of Social Gatherings with Friends and Family: More than three times a week Attends Congregation Services: Never Active Member of Clubs or Organizations: Yes Attends Club or Organization Meetings: Never Marital Status: Intimate Partner Violence: Not At Risk (01/12/2023) Humiliation, Afraid, Rape, and Kick questionnaire Fear of Current or Ex-Partner: No Emotionally Abused: No Physically Abused: No Sexually Abused: No Depression: Not at risk (07/16/2024) PHQ-2 PHQ-2 Score: 0 Housing Stability: Low Risk (03/02/2024) Housing Stability Vital Sign Unable to Pay for Housing in the Last Year: No Number of Times Moved in the Last Year: 0 Homeless in the Last Year: No Health Literacy: Inadequate Health Literacy (03/02/2024) B1300 Health Literacy Frequency of need for help with medical instructions: Sometimes OBJECTIVE: Visit Vitals Smoking Status Never Physical Exam Constitutional: Appearance: Normal appearance. HENT: Head: Normocephalic and atraumatic. Eyes: Extraocular Movements: Extraocular movements intact. Pupils: Pupils are equal, round, and reactive to light. Cardiovascular: Rate and Rhythm: Normal rate and regular rhythm. Heart sounds: No murmur heard. Pulmonary: Effort: Pulmonary effort is normal. Breath sounds: Normal breath sounds. No wheezing, rhonchi or rales. Abdominal: General: Bowel sounds are normal. Palpations: Abdomen is soft. Tenderness: There is no abdominal tenderness. Musculoskeletal: General: Normal range of motion. Skin: General: Skin is warm. Comments: Right foot and ankle raised bordered scaly erythematous round patches Neurological: General: No focal deficit present. Mental Status: He is alert and oriented to person, place, and time. Psychiatric: Mood and Affect: Mood normal. Behavior: Behavior normal. No results found for this or any previous visit (from the past 4 weeks). ASSESSMENT AND PLAN: Assessment/Plan Diagnoses and all orders for this visit: Prediabetes Labs ordered today, will follow up when results available - semaglutide (Ozempic, 1 MG/DOSE,) 4 MG/3ML solution pen-injector; Inject 1 mg under the skin 1 (one) time per week Unspecified atrial fibrillation (CMS/HCC) Problem is stable, will continue with current treatment plan. Call or return to clinic if any changes occur Ringworm Patient advised to return if symptoms worsen and/or persist despite treatment. - clotrimazole-betamethasone (Lotrisone) cream; Apply topically 2 (two) times a day Updated Medications: I have reviewed and reconciled the history and medication list with the patient today. Current Outpatient Medications: amiodarone (Pacerone) 200 MG tablet, Take 200 mg by mouth in the morning and 200 mg before bedtime., Disp: , Rfl: apixaban (Eliquis) 5 MG tablet, Take 5 mg by mouth in the morning and 5 mg before bedtime., Disp: , Rfl: aspirin 81 MG chewable tablet, 1 (one) time each day at the same time., Disp: , Rfl: Glucose Blood (Blood Glucose Test Strips 333) strip, 1 Units by In Vitro route in the morning and 1 Units before bedtime., Disp: 100 strip, Rfl: 11 Lancets misc, 1 Units in the morning and 1 Units before bedtime., Disp: 100 each, Rfl: 11 Multiple Vitamin (Multi Vitamin) tablet, 1 (one) time each day at the same time., Disp: , Rfl: niacin 500 MG tablet, Take 500 mg by mouth in the morning. Take with meals., Disp: , Rfl: omega-3 (Fish Oil) 1000 MG capsule, 1 capsule 1 (one) time each day at the same time., Disp: , Rfl: omeprazole (PriLOSEC) [address] capsule, Take 20 mg by mouth in the morning. Take before meals. Do not crush or chew.., Disp: , Rfl: propranolol LA (Inderal LA) 60 MG 24 hr capsule, Take 1 capsule (60 mg) by mouth Daily Do not crush, chew, or split., Disp: 30 capsule, Rfl: 11 rosuvastatin (Crestor) 40 MG tablet, Take 40 mg by mouth Daily, Disp: , Rfl: semaglutide (Ozempic, 0.25 or 0.5 MG/DOSE,) 2 MG/1.5ML solution pen-injector, Inject 0.5 mg under the skin 1 (one) time per week, Disp: 1 each, Rfl: 3 tamsulosin (Flomax) 0.4 MG 24 hr capsule, Take 0.4 mg by mouth Daily, Disp: , Rfl: trospium (Sanctura XR) 60 MG 24 hour capsule, TAKE 1 CAPSULE BY MOUTH IN THE MORNING, Disp: , Rfl: documented in this encounter [facility] 07-16-2024 History of Present illness Narrative Images from the original note were not included. SUBJECTIVE: Thomas Goncalves is a 63 y.o. male presents with chief complaint of Prediabetes, Weight Check, Results. Pt presents to the office for follow up on starting Ozempic and review blood work results. Pt has lost 3 lbs since last OV. Pt states he has noticed some constipation since starting rx. Pt states portions are smaller since starting rx. Denies any exercise. Pt has been taking miralax with relief. Does check blood sugars daily. Blood sugars has been in 90-100's. Review of Systems: Review of Systems Problem List: Patient Active Problem List Diagnosis Anxiety Chronic cough Gastro-esophageal reflux disease without esophagitis Hyperlipidemia (CMS/HCC) Laryngopharyngeal reflux Rhinitis BPH with obstruction/lower urinary tract symptoms ED (erectile dysfunction) OAB (overactive bladder) Prediabetes Urge incontinence Tremor Elevated PSA A-fib (CMS/HCC) Past Medical History: Past Medical History: Diagnosis Date A-fib (CMS/HCC) Allergies GERD (gastroesophageal reflux disease) Family History: Family History Problem Relation Name Age of Onset Colon cancer Mother Diabetes Mother Hyperlipidemia Mother Diabetes Father Stroke Maternal Grandmother Heart disease Maternal Grandfather Cancer Mother's Sister Allergies: Allergies Allergen Reactions Penicillins Unknown Surgical History: Past Surgical History: Procedure Laterality Date COLONOSCOPY 1999 OTHER SURGICAL HISTORY 05/26/2022 E/O RIF STM + DAP TONSILLECTOMY Social History: Social Drivers of Health Tobacco Use: Low Risk (06/13/2024) Patient History Smoking Tobacco Use: Never Smokeless Tobacco Use: Never Passive Exposure: Not on file Alcohol Use: Not At Risk (03/02/2024) AUDIT-C Frequency of Alcohol Consumption: 2-3 times a week Average Number of Drinks: 1 or 2 Frequency of Binge Drinking: Never Financial Resource Strain: Low Risk (03/02/2024) Overall Financial Resource Strain (CARDIA) Difficulty of Paying Living Expenses: Not hard at all Food Insecurity: No Food Insecurity (03/02/2024) Hunger Vital Sign Worried About Running Out of Food in the Last Year: Never true Ran Out of Food in the Last Year: Never true Transportation Needs: No Transportation Needs (03/02/2024) PRAPARE - Transportation Lack of Transportation (Medical): No Lack of Transportation (Non-Medical): No Physical Activity: Inactive (03/02/2024) Exercise Vital Sign Days of Exercise per Week: 0 days Minutes of Exercise per Session: 0 min Stress: No Stress Concern Present (03/02/2024) [place] [employer] - Occupational Stress Questionnaire Feeling of Stress : Only a little Social Connections: Moderately Integrated (03/02/2024) Social Connection and Isolation Panel [NHANES] Frequency of Communication with Friends and Family: More than three times a week Frequency of Social Gatherings with Friends and Family: More than three times a week Attends Congregation Services: Never Active Member of Clubs or Organizations: Yes Attends Club or Organization Meetings: Never Marital Status: Intimate Partner Violence: Not At Risk (01/12/2023) Humiliation, Afraid, Rape, and Kick questionnaire Fear of Current or Ex-Partner: No Emotionally Abused: No Physically Abused: No Sexually Abused: No Depression: Not at risk (02/29/2024) PHQ-2 PHQ-2 Score: 0 Housing Stability: Low Risk (03/02/2024) Housing Stability Vital Sign Unable to Pay for Housing in the Last Year: No Number of Times Moved in the Last Year: 0 Homeless in the Last Year: No Health Literacy: Inadequate Health Literacy (03/02/2024) B1300 Health Literacy Frequency of need for help with medical instructions: Sometimes OBJECTIVE: Visit Vitals Smoking Status Never Physical Exam Constitutional: Appearance: Normal appearance. HENT: Head: Normocephalic and atraumatic. Eyes: Extraocular Movements: Extraocular movements intact. Pupils: Pupils are equal, round, and reactive to light. Cardiovascular: Rate and Rhythm: Normal rate and regular rhythm. Heart sounds: No murmur heard. Pulmonary: Effort: Pulmonary effort is normal. Breath sounds: Normal breath sounds. No wheezing, rhonchi or rales. Abdominal: General: Bowel sounds are normal. Palpations: Abdomen is soft. Tenderness: There is no abdominal tenderness. Musculoskeletal: General: Normal range of motion. Skin: General: Skin is warm. Neurological: General: No focal deficit present. Mental Status: He is alert and oriented to person, place, and time. Psychiatric: Mood and Affect: Mood normal. Behavior: Behavior normal. Recent Results (from the past 4 weeks) [facility] MICROALB CREAT RATIO RANDOM Collection Time: 07/10/24 9:53 AM Result Value Ref Range MICROALBUMIN URINE RANDOM <1.3 <=30.0 mg/dL CREATININE URINE RANDOM 160.24 20.00 - 300.00 mg/dL ALL CBC WITH AUTO DIFF Collection Time: 07/10/24 9:58 AM Result Value Ref Range TBH WBC 9.6 4.0 - 11.0 10 3/uL TB[facility] RBC 5.01 4.70 - 6.10 10 6/uL [facility] HGB 15.3 14.0 - 18.0 g/dL TBH HCT 45.0 42.0 - 54.0 % TBH MCV 89.8 80.0 - 94.0 fL TBH MCH 30.5 25.9 - 34.0 pg TBH MCHC 34.0 29.9 - 35.2 g/dL TBH RDW 12.8 11.0 - 15.0 % TBH PLT 266 150 - 450 10 3/uL TBH MPV 8.6 (L) 9.5 - 13.5 fL NEUTROPHILS PERCENT AUTO 63.9 43.0 - 75.0 % LYMPHOCYTES PERCENT AUTO 21.8 20.5 - 60.0 % MONOCYTES PERCENT AUTO 9.7 1.7 - 12.0 % TBH EO % 3.7 0.9 - 7.0 % BASOPHILS PERCENT AUTO 0.6 0.2 - 2.0 % IMMATURE GRANULOCYTES PCT AUTO 0.3 0.0 - 0.5 % NEUTROPHILS ABSOLUTE AUTO 6.1 1.4 - 6.5 10 3/uL LYMPHOCYTES ABSOLUTE AUTO 2.1 1.2 - 3.8 10 3/uL MONOCYTES ABSOLUTE AUTO 0.9 (H) 0.3 - 0.8 10 3/uL TBH EO # 0.4 0.0 - 0.7 10 3/uL BASOPHILS ABSOLUTE AUTO 0.1 0.0 - 0.1 10 3/uL IMMATURE GRANULOCYTES ABS AUTO 0.03 0.00 - 0.03 10 3/uL [facility] CMP (CMP) (FOR REMOTE FORMERLY [facility] USE) Collection Time: 07/10/24 9:58 AM Result Value Ref Range SODIUM 141 136 - 145 mmol/L POTASSIUM 4.0 3.5 - 5.1 mmol/L CHLORIDE 104 98 - 107 mmol/L CARBON DIOXIDE 28.2 21.0 - 32.0 mmol/L ANION GAP 12.8 GLUCOSE 103 74 - 106 mg/dL BLOOD UREA NITROGEN 16.0 7.0 - 18.0 mg/dL CREATININE 0.90 0.70 - 1.30 mg/dL TB EGFR-AF [place] >60 >=60 mL/min/1.73m 2 TBH EGFR-NON AF [place] >60 >=60 mL/min/1.73m 2 BUN CREATININE RATIO 17.8 CALCIUM 9.0 8.5 - 10.1 mg/dL BILIRUBIN TOTAL 0.5 0.2 - 1.0 mg/dL ASPARTATE AMINO TRANSFERASE 17 15 - 37 U/L ALANINE AMINOTRANSFERASE 28 16 - 63 U/L ALKALINE PHOSPHATASE 51 46 - 116 U/L TOTAL PROTEIN 7.4 6.4 - 8.2 g/dL ALBUMIN LEVEL 3.7 3.4 - 5.0 g/dL GLOBULIN 3.7 g/dL ALBUMIN GLOBULIN RATIO 1.0 ALL LIPID PROFILE (FASTING) Collection Time: 07/10/24 9:58 AM Result Value Ref Range TRIGLYCERIDES 49 <=150 mg/dL CHOLESTEROL 111 <=200 mg/dL HDL CHOLESTEROL 49 40 - 60 mg/dL LDL CHOLESTEROL CALCULATED 52.2 mg/dL VLDL CHOLESTEROL 9.8 mg/dL CHOL HDL RATIO 2.3 MLR HEMOGLOBIN A1C Collection Time: 07/10/24 9:58 AM Result Value Ref Range GLYCOHEMOGLOBIN A1C 5.8 4.5 - 6.2 % ESTIMATED AVERAGE GLUCOSE 120 mg/dL ASSESSMENT AND PLAN: Assessment/Plan Diagnoses and all orders for this visit: Prediabetes Reviewed labs and/or imaging at today. Will continue current treatment regimen and follow up at next scheduled visit unless problems arise. improved significantly, continue current treatment - semaglutide (Ozempic, 0.25 or 0.5 MG/DOSE,) 2 MG/1.5ML solution pen-injector; Inject 0.5 mg under the skin 1 (one) time per week - Comprehensive metabolic panel; Future - CBC and differential; Future - Hemoglobin A1c; Future BPH with obstruction/lower urinary tract symptoms - Comprehensive metabolic panel; Future - CBC and differential; Future Mixed hyperlipidemia (CMS/HCC) - Comprehensive metabolic panel; Future - CBC and differential; Future Updated Medications: I have reviewed and reconciled the history and medication list with the patient today. Current Outpatient Medications: amiodarone (Pacerone) 200 MG tablet, Take 200 mg by mouth in the morning and 200 mg before bedtime., Disp: , Rfl: apixaban (Eliquis) 5 MG tablet, Take 5 mg by mouth in the morning and 5 mg before bedtime., Disp: , Rfl: aspirin 81 MG chewable tablet, 1 (one) time each day at the same time., Disp: , Rfl: Glucose Blood (Blood Glucose Test Strips 333) strip, 1 Units by In Vitro route in the morning and 1 Units before bedtime., Disp: 100 strip, Rfl: 11 Lancets misc, 1 Units in the morning and 1 Units before bedtime., Disp: 100 each, Rfl: 11 metFORMIN XR (Glucophage-XR) 500 MG 24 hr tablet, TAKE 1 TABLET BY MOUTH IN THE EVENING WITH MEALS *DO NOT CRUSH/CHEW/SPLIT*, Disp: 30 tablet, Rfl: 3 Multiple Vitamin (Multi Vitamin) tablet, 1 (one) time each day at the same time., Disp: , Rfl: niacin 500 MG tablet, Take 500 mg by mouth in the morning. Take with meals., Disp: , Rfl: omega-3 (Fish Oil) 1000 MG capsule, 1 capsule 1 (one) time each day at the same time., Disp: , Rfl: omeprazole (PriLOSEC) [address] capsule, Take 20 mg by mouth in the morning. Take before meals. Do not crush or chew.., Disp: , Rfl: propranolol LA (Inderal LA) 60 MG 24 hr capsule, Take 1 capsule (60 mg) by mouth Daily Do not crush, chew, or split., Disp: 30 capsule, Rfl: 11 rosuvastatin (Crestor) 40 MG tablet, Take 40 mg by mouth Daily, Disp: , Rfl: semaglutide (Ozempic, 0.25 or 0.5 MG/DOSE,) 2 MG/1.5ML solution pen-injector, Inject 0.5 mg under the skin 1 (one) time per week, Disp: 1 each, Rfl: 1 tamsulosin (Flomax) 0.4 MG 24 hr capsule, Take 0.4 mg by mouth Daily, Disp: , Rfl: trospium (Sanctura XR) 60 MG 24 hour capsule, TAKE 1 CAPSULE BY MOUTH IN THE MORNING, Disp: , Rfl: documented in this encounter [facility] 07-05-2024 Note History and Physical History of Present Illness 63-year-old male with history of BPH, hypertension, tcp-hfflags-paibksrpf diabetes mellitus type 2, elevated PSA with abnormal MRI of the prostate who underwent transrectal prostate biopsy today and went into atrial fibrillation. According to the patient he was in his usual state of health until today when he had transrectal prostate biopsy. He was found to be in atrial fibrillation. He denies any chest pain, palpitations, dizziness, shortness of breath. He was treated with IV Lopressor and continued to have rapid ventricular response and was started on IV Cardizem and he was referred for admission. He denies previous history of coronary artery disease, atrial fibrillation, congestive heart failure. He denies cigarette smoking but drinks alcohol daily. He denies any withdrawals from alcohol. He is being admitted with atrial fibrillation with rapid ventricular response. Review of Systems Constitutional: no fever, no chills, no sweats, no weakness Skin: no Jaundice, no rash, no lesions, nopetechiae ENMT: no ear pain, no sore throat, no congestion, no hoarseness Respiratory: no shortness of breath, no cough, no orthopnea, no wheezing Cardiovascular: no chest pain, no palpitations, no edema Gastrointestinal: no nausea, no vomiting, no diarrhea, no GI bleeding Genitourinary: no dysuria, no hematuria, no discharge, no pain Musculoskeletal: no back pain, no trauma Neurologic: no headache, no dizziness, no numbness, no weakness Psychiatric: no sleeping problems, no irritability, no mood swings/depression. Heme/Lymph: no bleeding tendency, no bruising tendency, no petechiae, no swollen nodes Allergy/Immunologic: no seasonal allergies, no food allergies, no recurrent infections, no impaired immunity Additional ROS info: Except as noted in the above Review of Systems and in the History of Present Illness all other systems have been reviewed and are negative or noncontributory. Scoring Physical Exam Vitals & Measurements T: 36.6 ???C(Oral) HR: 96(Monitored) RR: 10 BP: 104/77 SpO2: 96% General: alert, no acute distress Skin: warm, dry Head: no trauma, normocephalic Neck: Trachea midline, no adenopathy, no tenderness Eye: normal conjunctiva, sclera clear ENMT: TM's clear, oral mucosa moist, no pharyngeal erythema or exudate Cardiovascular: irregularly-irregular rate and rhythm, normal peripheral perfusion Respiratory: Lungs CTA, respirations non labored Chest wall: no deformity. Gastrointestinal: soft, non distended, no tenderness, no guarding. Back: No tenderness, Normal ROM, Normal alignment. Extremities: no deformity, no trauma Neurological: oriented x 4, LOC appropriate for age, CN II-XII intact, motor strength equal & normal bilaterally, sensation equal & normal bilaterally, speech normal Psychiatric: cooperative, affect appropriate for age, normal judgement, normal psychiatric thoughts. Lab Results Glucose Lvl: 116 mg/dL (06/06/24 14:41:00) BUN: 15 mg/dL (06/06/24 14:41:00) Creatinine: 0.7 mg/dL (06/06/24 14:41:00) eGFR: 103 mL/min/1.73 m2 (06/06/24 14:41:00) BUN/Creat Ratio: 21 High (06/06/24 14:41:00) Sodium Lvl: 136 mmol/L (06/06/24 14:41:00) Potassium Lvl: 4 mmol/L (06/06/24 14:41:00) Chloride: 106 mmol/L (06/06/24 14:41:00) CO2: 24 mmol/L (06/06/24 14:41:00) AGAP: 10 mEq/L (06/06/24 14:41:00) Calcium Lvl: 8.5 mg/dL Low (06/06/24 14:41:00) Magnesium: 1.9 mg/dL (06/06/24 14:41:00) Glucose Cap: 111 mg/dL High (06/06/24 09:58:00) POC Device SN: [id number] (06/06/24 09:58:00) POC User ID: [id number] (06/06/24 09:58:00) POC Username: [email or web address] GRISSOM (06/06/24 09:58:00) Diagnostic Results (05/24/2024 13:47 EDT XR Chest 2 Views) * Final Report * Reason For Exam P.A.T. POWERSCRIBE REPORT IMPRESSION: NO RADIOGRAPHIC EVIDENCE OF ACUTE INTRATHORACIC PROCESS. EXAMINATION: XR Chest 2 Views [1] EKG analyzed by me: Atrial fibrillation with rapid ventricular response. Rate of 112 bpm. Assessment/Plan 63-year-old male with history of BPH, hypertension, fiy-rrzvgod-vpesmyraj diabetes mellitus type 2, elevated PSA with abnormal MRI of the prostate who underwent transrectal prostate biopsy today and went into atrial fibrillation and is being admitted with atrial fibrillation with rapid ventricular response. 1. Atrial fibrillation with RVR (I48.91: Unspecified atrial fibrillation) Acute paroxysmal atrial fibrillation with rapid ventricular response???present on admission. Admit to regular medical floor. Check electrolytes, TSH, magnesium. Echocardiogram. Cardiology consulted. Check cardiac enzymes. Continue patient on IV Cardizem drip. No anticoagulation for now and especially with current prostate biopsy. Ordered: Consult to Cardiology Echo Transthoracic Complete Initial Hospital Care/Day Moderate 55 Minutes [id number] 2. Prediabetes (R73.03: Prediabetes) Continue on metformin. Ordered: Initial Hospital Care/Day M (more content not included)... [facility] Comment on above: Result Comment: Elec tronically Signed By: LYNETTE RICE, Mbanefo\.br\Date and Time Signed: 07/05/24 10:43 EST 06-19-2024 Hospital Discharge instructions Patient Education 06/19/2024 12:02:12 Benign Prostatic Hyperplasia Benign Prostatic Hyperplasia Benign prostatic hyperplasia (BPH) is an enlarged prostate gland that is caused by the normal aging process. The prostate may get bigger as a man gets older. The condition is not caused by cancer. The prostate is a walnut-sized gland that is involved in the production of semen. It is located in front of the rectum and below the bladder. The bladder stores urine. The urethra carries stored urine out of the body. An enlarged prostate can press on the urethra. This can make it harder to pass urine. The buildup of urine in the bladder can cause infection. Back pressure and infection may progress to bladder damage and kidney (renal) failure. What are the causes? This condition is part of the normal aging process. However, not all men develop problems from this condition. If the prostate enlarges away from the urethra, urine flow will not be blocked. If it enlarges toward the urethra and compresses it, there will be problems passing urine. What increases the risk? This condition is more likely to develop in men older than 50 years. What are the signs or symptoms? Symptoms of this condition include: Getting up often during the night to urinate. Needing to urinate frequently during the day. Difficulty starting urine flow. Decrease in size and strength of your urine stream. Leaking (dribbling) after urinating. Inability to pass urine. This needs immediate treatment. Inability to completely empty your bladder. Pain when you pass urine. This is more common if there is also an infection. Urinary tract infection (UTI). How is this diagnosed? This condition is diagnosed based on your medical history, a physical exam, and your symptoms. Tests will also be done, such as: A post-void bladder scan. This measures any amount of urine that may remain in your bladder after you finish urinating. A digital rectal exam. In a rectal exam, your health care provider checks your prostate by putting a lubricated, gloved finger into your rectum to feel the back of your prostate gland. This exam detects the size of your gland and any abnormal lumps or growths. An exam of your urine (urinalysis). A prostate specific antigen (PSA) screening. This is a blood test used to screen for prostate cancer. An ultrasound. This test uses sound waves to electronically produce a picture of your prostate gland. Your health care provider may refer you to a specialist in kidney and prostate diseases (urologist). How is this treated? Once symptoms begin, your health care provider will monitor your condition (active surveillance or watchful waiting). Treatment for this condition will depend on the severity of your condition. Treatment may include: Observation and yearly exams. This may be the only treatment needed if your condition and symptoms are mild. Medicines to relieve your symptoms, including: ?Medicines to shrink the prostate. ?Medicines to relax the muscle of the prostate. Surgery in severe cases. Surgery may include: ?Prostatectomy. In this procedure, the prostate tissue is removed completely through an open incision or with a laparoscope or robotics. ?Transurethral resection of the prostate (TURP). In this procedure, a tool is inserted through the opening at the tip of the penis (urethra). It is used to cut away tissue of the inner core of the prostate. The pieces are removed through the same opening of the penis. This removes the blockage. ?Transurethral incision (TUIP). In this procedure, small cuts are made in the prostate. This lessens the prostate's pressure on the urethra. ?Transurethral microwave thermotherapy (TUMT). This procedure uses microwaves to create heat. The heat destroys and removes a small amount of prostate tissue. ?Transurethral needle ablation (TUNA). This procedure uses radio frequencies to destroy and remove a small amount of prostate tissue. ?Interstitial laser coagulation (ILC). This procedure uses a laser to destroy and remove a small amount of prostate tissue. ?Transurethral electrovaporization (TUVP). This procedure uses electrodes to destroy and remove a small amount of prostate tissue. ?Prostatic urethral lift. This procedure inserts an implant to push the lobes of the prostate away from the urethra. Follow these instructions at home: Take ltes-bok-wwnkvgs and prescription medicines only as told by your health care provider. Monitor your symptoms for any changes. Contact your health care provider with any changes. Avoid drinking large amounts of liquid before going to bed or out in public. Avoid or reduce how much caffeine or alcohol you drink. Give yourself time when you urinate. Keep all follow-up visits. This is important. Contact a health care provider if: You have unexplained back pain. Your symptoms do not get better with treatment. You develop side effects from the medicine you are taking. Your urine becomes very dark or has a bad smell. Your lower abdomen becomes distended and you have trouble passing urine. Get help right away if: You have a fever or chills. You suddenly cannot urinate. You feel light-headed or very dizzy, or you faint. There are large amounts of blood or clots in your urine. Your urinary problems become hard to manage. You develop moderate to severe low back or flank pain. The flank is the side of your body between the ribs and the hip. These symptoms may be an emergency. Get help right away. Call 911. Do not wait to see if the symptoms will go away. Do not drive yourself to the hospital. Summary Benign prostatic hyperplasia (BPH) is an enlarged prostate that is caused by the normal aging process. It is not caused by cancer. An enlarged prostate can press on the urethra. This can make it hard to pass urine. This condition is more likely to develop in men older than 50 years. Get help right away if you suddenly cannot urinate. This information is not intended to replace advice given to you by your health care provider. Make sure you discuss any questions you have with your health care provider. Document Revised: 02/02/2022 Document Reviewed: 02/02/2022 [employer] Patient Education 2023 [employer]. Follow Up Care 06/07/2024 11:36:05 With:Ernie RICE, Marita Albarran, KANDIS, URO Address: When:Within 1 Year(s) Comments:w/PSA @ [facility] 06-19-2024 Note Patient Education Urology Benign Prostatic Hyperplasia Benign prostatic hyperplasia (BPH) is an enlarged prostate gland that is caused by the normal aging process. The prostate may get bigger as a man gets older. The condition is not caused by cancer. The prostate is a walnut-sized gland that is involved in the production of semen. It is located in front of the rectum and below the bladder. The bladder stores urine. The urethra carries stored urine out of the body. An enlarged prostate can press on the urethra. This can make it harder to pass urine. The buildup of urine in the bladder can cause infection. Back pressure and infection may progress to bladder damage and kidney (renal) failure. What are the causes? This condition is part of the normal aging process. However, not all men develop problems from this condition. If the prostate enlarges away from the urethra, urine flow will not be blocked. If it enlarges toward the urethra and compresses it, there will be problems passing urine. What increases the risk? This condition is more likely to develop in men older than 50 years. What are the signs or symptoms? Symptoms of this condition include: ??? Getting up often during the night to urinate. ??? Needing to urinate frequently during the day. ??? Difficulty starting urine flow. ??? Decrease in size and strength of your urine stream. ??? Leaking (dribbling) after urinating. ??? Inability to pass urine. This needs immediate treatment. ??? Inability to completely empty your bladder. ??? Pain when you pass urine. This is more common if there is also an infection. ??? Urinary tract infection (UTI). How is this diagnosed? This condition is diagnosed based on your medical history, a physical exam, and your symptoms. Tests will also be done, such as: ??? A post-void bladder scan. This measures any amount of urine that may remain in your bladder after you finish urinating. ??? A digital rectal exam. In a rectal exam, your health care provider checks your prostate by putting a lubricated, gloved finger into your rectum to feel the back of your prostate gland. This exam detects the size of your gland and any abnormal lumps or growths. ??? An exam of your urine (urinalysis). ??? A prostate specific antigen (PSA) screening. This is a blood test used to screen for prostate cancer. ??? An ultrasound. This test uses sound waves to electronically produce a picture of your prostate gland. Your health care provider may refer you to a specialist in kidney and prostate diseases (urologist). How is this treated? Once symptoms begin, your health care provider will monitor your condition (active surveillance or watchful waiting). Treatment for this condition will depend on the severity of your condition. Treatment may include: ??? Observation and yearly exams. This may be the only treatment needed if your condition and symptoms are mild. ??? Medicines to relieve your symptoms, including: ? Medicines to shrink the prostate. ? Medicines to relax the muscle of the prostate. ??? Surgery in severe cases. Surgery may include: ? Prostatectomy. In this procedure, the prostate tissue is removed completely through an open incision or with a laparoscope or robotics. ? Transurethral resection of the prostate (TURP). In this procedure, a tool is inserted through the opening at the tip of the penis (urethra). It is used to cut away tissue of the inner core of the prostate. The pieces are removed through the same opening of the penis. This removes the blockage. ? Transurethral incision (TUIP). In this procedure, small cuts are made in the prostate. This lessens the prostate's pressure on the urethra. ? Transurethral microwave thermotherapy (TUMT). This procedure uses microwaves to create heat. The heat destroys and removes a small amount of prostate tissue. ? Transurethral needle ablation (TUNA). This procedure uses radio frequencies to destroy and remove a small amount of prostate tissue. ? Interstitial laser coagulation (ILC). This procedure uses a laser to destroy and remove a small amount of prostate tissue. ? Transurethral electrovaporization (TUVP). This procedure uses electrodes to destroy and remove a small amount of prostate tissue. ? Prostatic urethral lift. This procedure inserts an implant to push the lobes of the prostate away from the urethra. Follow these instructions at home: ??? Take eyyc-ofy-fudpxje and prescription medicines only as told by your health care provider. ??? Monitor your symptoms for any changes. Contact your health care provider with any changes. ??? Avoid drinking large amounts of liquid before going to bed or out in public. ??? Avoid or reduce how much caffeine or alcohol you drink. ??? Give yourself time when you urinate. ??? Keep all follow-up visits. This is important. Contact a health care provider if: ??? You have unexplained back pain. ??? Your symptoms do not get (more content not included)... [facility] 06-13-2024 History of Present illness Narrative Images from the original note were not included. SUBJECTIVE: Thomas Goncalves is a 63 y.o. male presents with chief complaint of UTI and Hospital Follow-up Pt presents to the office for HFU. Hospitalized from 06/06/24- 06/07/24. Pt underwent procedure bx and went into afib. Discharge dx: Other obstructive and reflux uropathy, Prediabetes,BPH with obstruction/lower urinary tract symptoms, transrectal prostate biopsy today and went into atrial fibrillation and is being admitted with atrial fibrillation with rapid ventricular response. Appt on Cardiology on 06/24. Will have holter monitor placed for 2 weeks. Pt states overall feels well. Denies any concerns. Diabetes: Would like a Glucometer and supplies to [facility] Would like to start Ozempic. Has been checking sugars 104-124. In the hospital was in 158. Flowsheet Row Office Visit from 06/13/2024 in [id number] with Sharla Mendosa, DO Hospital Information ED, Hospital or [facility] Facility Discharge? Hospital Patient has been contacted within two business days of discharge Yes Diagnosis obstructive and reflux uropathy, Prediabetes,BPH with obstruction/lower urinary tract symptoms, transrectal prostate biopsy Discharge Date 06/07/24 Discharged To: Home Setting Discharge Hospital [facility] Engagement Call Start Time 1400 Admission Date 06/06/24 Medications Discharge medications reviewed and reconciled from hospital? Yes Is the patient having any side effects they believe may be caused by any medication additions or changes? No Does the patient have all medications ordered at discharge? Yes Is the patient taking all medications as directed (includes completed medication regime)? Yes Appointments Does the patient have a primary care provider? Yes Nursing Interventions Verified appointment date/time/provider Has the patient kept scheduled appointments due by today? Yes Self Management Patient Teaching Does the patient have access to their discharge instructions? Yes What is the patient's perception of their health status since discharge? Improving Wrap Up Call End Time 1412 Review of Systems: Review of Systems All other systems reviewed and are negative. Problem List: Patient Active Problem List Diagnosis Anxiety Chronic cough Gastro-esophageal reflux disease without esophagitis Hyperlipidemia ([facility]/HCC) Laryngopharyngeal reflux Rhinitis BPH with obstruction/lower urinary tract symptoms ED (erectile dysfunction) OAB (overactive bladder) Prediabetes Urge incontinence Tremor Elevated PSA Past Medical History: Past Medical History: Diagnosis Date A-fib (CMS/HCC) Allergies GERD (gastroesophageal reflux disease) Family History: Family History Problem Relation Name Age of Onset Colon cancer Mother Diabetes Mother Hyperlipidemia Mother Diabetes Father Stroke Maternal Grandmother Heart disease Maternal Grandfather Cancer Mother's Sister Allergies: Allergies Allergen Reactions Penicillins Unknown Surgical History: Past Surgical History: Procedure Laterality Date COLONOSCOPY 1999 OTHER SURGICAL HISTORY 05/26/2022 E/O RIF STM + DAP TONSILLECTOMY Social History: Social Drivers of Health Tobacco Use: Low Risk (06/13/2024) Patient History Smoking Tobacco Use: Never Smokeless Tobacco Use: Never Passive Exposure: Not on file Alcohol Use: Not At Risk (03/02/2024) AUDIT-C Frequency of Alcohol Consumption: 2-3 times a week Average Number of Drinks: 1 or 2 Frequency of Binge Drinking: Never Financial Resource Strain: Low Risk (03/02/2024) Overall Financial Resource Strain (CARDIA) Difficulty of Paying Living Expenses: Not hard at all Food Insecurity: No Food Insecurity (03/02/2024) Hunger Vital Sign Worried About Running Out of Food in the Last Year: Never true Ran Out of Food in the Last Year: Never true Transportation Needs: No Transportation Needs (03/02/2024) PRAPARE - Transportation Lack of Transportation (Medical): No Lack of Transportation (Non-Medical): No Physical Activity: Inactive (03/02/2024) Exercise Vital Sign Days of Exercise per Week: 0 days Minutes of Exercise per Session: 0 min Stress: No Stress Concern Present (03/02/2024) [place] [employer] - Occupational Stress Questionnaire Feeling of Stress : Only a little Social Connections: Moderately Integrated (03/02/2024) Social Connection and Isolation Panel [NHANES] Frequency of Communication with Friends and Family: More than three times a week Frequency of Social Gatherings with Friends and Family: More than three times a week Attends Congregation Services: Never Active Member of Clubs or Organizations: Yes Attends Club or Organization Meetings: Never Marital Status: Intimate Partner Violence: Not At Risk (01/12/2023) Humiliation, Afraid, Rape, and Kick questionnaire Fear of Current or Ex-Partner: No Emotionally Abused: No Physically Abused: No Sexually Abused: No Depression: Not at risk (02/29/2024) PHQ-2 PHQ-2 Score: 0 Housing Stability: Low Risk (03/02/2024) Housing Stability Vital Sign Unable to Pay for Housing in the Last Year: No Number of Times Moved in the Last Year: 0 Homeless in the Last Year: No Health Literacy: Inadequate Health Literacy (03/02/2024) B1300 Health Literacy Frequency of need for help with medical instructions: Sometimes OBJECTIVE: Visit Vitals BP 122/80 Pulse (!) 113 Temp 97.3 F Ht 5' 8 Wt 199 lb SpO2 97% BMI 30.26 kg/m Smoking Status Never BSA 2.08 m Physical Exam Constitutional: Appearance: Normal appearance. HENT: Head: Normocephalic and atraumatic. Eyes: Extraocular Movements: Extraocular movements intact. Pupils: Pupils are equal, round, and reactive to light. Cardiovascular: Rate and Rhythm: Normal rate and regular rhythm. Heart sounds: No murmur heard. Pulmonary: Effort: Pulmonary effort is normal. Breath sounds: Normal breath sounds. No wheezing, rhonchi or rales. Abdominal: General: Bowel sounds are normal. Palpations: Abdomen is soft. Tenderness: There is no abdominal tenderness. Musculoskeletal: General: Normal range of motion. Skin: General: Skin is warm. Neurological: General: No focal deficit present. Mental Status: He is alert and oriented to person, place, and time. Psychiatric: Mood and Affect: Mood normal. Behavior: Behavior normal. No results found for this or any previous visit (from the past 4 weeks). ASSESSMENT AND PLAN: Assessment/Plan Diagnoses and all orders for this visit: Prediabetes Labs ordered today, will follow up when results available - Home blood glucose meter - Glucose Blood (Blood Glucose Test Strips 333) strip; 1 Units by In Vitro route in the morning and 1 Units before bedtime. - Lancets misc; 1 Units in the morning and 1 Units before bedtime. - Microalbumin / creatinine urine ratio; Future - Lipid panel; Future - Comprehensive metabolic panel; Future - CBC and differential; Future - Hemoglobin A1c; Future - semaglutide (Ozempic, 0.25 or 0.5 MG/DOSE,) 2 MG/1.5ML solution pen-injector; Inject 0.25 mg under the skin 1 (one) time per week Atrial fibrillation, unspecified type ([facility]) Reviewed hospital records including labs, imaging, procedure and consult notes. Overall pt is feeling better and is encouraged to keep f/u appointments with specialists as scheduled - Lipid panel; Future - Comprehensive metabolic panel; Future - CBC and differential; Future BPH with obstruction/lower urinary tract symptoms - Lipid panel; Future - Comprehensive metabolic panel; Future - CBC and differential; Future Updated Medications: I have reviewed and reconciled the history and medication list with the patient today. Current Outpatient Medications: amiodarone (Pacerone) 200 MG tablet, Take 200 mg by mouth in the morning and 200 mg before bedtime., Disp: , Rfl: apixaban (Eliquis) 5 MG tablet, Take 5 mg by mouth in the morning and 5 mg before bedtime., Disp: , Rfl: aspirin 81 MG chewable tablet, 1 (one) time each day at the same time., Disp: , Rfl: metFORMIN XR (Glucophage-XR) 500 MG 24 hr tablet, Take 1 tablet (500 mg) by mouth in the evening. Take with meals Do not crush, chew, or split., Disp: 30 tablet, Rfl: 3 Multiple Vitamin (Multi Vitamin) tablet, 1 (one) time each day at the same time., Disp: , Rfl: niacin 500 MG tablet, Take 500 mg by mouth in the morning. Take with meals., Disp: , Rfl: omega-3 (Fish Oil) 1000 MG capsule, 1 capsule 1 (one) time each day at the same time., Disp: , Rfl: omeprazole (PriLOSEC) [address] capsule, Take 20 mg by mouth in the morning. Take before meals. Do not crush or chew.., Disp: , Rfl: propranolol LA (Inderal LA) 60 MG 24 hr capsule, Take 1 capsule (60 mg) by mouth Daily Do not crush, chew, or split., Disp: 30 capsule, Rfl: 11 rosuvastatin (Crestor) 40 MG tablet, Take 40 mg by mouth Daily, Disp: , Rfl: tamsulosin (Flomax) 0.4 MG 24 hr capsule, Take 0.4 mg by mouth Daily, Disp: , Rfl: trospium (Sanctura XR) 60 MG 24 hour capsule, TAKE 1 CAPSULE BY MOUTH IN THE MORNING, Disp: , Rfl: documented in this encounter [facility] 06-07-2024 Evaluation + Plan note Extrac chris from: Title:Discharge Note Author:LYNETTE RICE, Mbanefo D ate:06/07/24 Stable Discharged to - Home with family group home Discharge Diet(s): Calorie Controlled- 1800 Calorie Diet (06/07/24 10:55:00) Prescriptions amiodarone 200 mg Tab, 200 mg= 1 tab(s), Oral, BID Crestor 40 mg Tab, 40 mg= 1 tab(s), Oral, Daily Eliquis 5 mg oral tablet, 5 mg= 1 tab(s), Oral, BID tadalafil 10 mg Tab, 10 mg= 1 tab(s), Oral, As Directed, PRN, 5 refills, Not taking tamsulosin 0.4 mg Cap, 0.4 mg= 1 cap(s), Oral, Daily, 3 refills trospium 60 mg oral capsule, extended release, 60 mg= 1 cap(s), Oral, qAM, 11 refills Home aspirin 81 mg oral capsule, 81 mg= 1 cap(s), Oral, Daily Fish Oil, 500 mg, Oral, Daily metformin 500 mg Tab, 500 mg= 1 tab(s), Oral, Daily Multi Vitamins oral tablet, 1 tab(s), Oral, Daily niacin, 500 mg, Oral niacin 500 mg ER Tab, 500 mg= 1 tab(s), Oral, Once a day (at bedtime) omeprazole 20 mg Cap-DR, 20 mg= 1 cap(s), Oral, Daily propranolol 60 mg Cap-ER, 60 mg= 1 cap(s), Oral, Daily With When Contact Information Sushil Camejo Within 1 to [address] [place] [phone] Business (1) Additional Instructions: Call for followup appointment Jose Elias MENDOSA Within 5 to [address] [place] [address], [address] [phone]- Business (1) Additional Instructions: Ernie RICE, Marita Albarran, URL, URO Within 1 week Additional Instructions: Post Op Patient Instructions - FT (CUSTOM) Cook- Post-Op Instructions for Prostate Biopsy(CUSTOM) Extracted from: Title:Consult Note Author:Estuardo Bunch MD Moises e:06/07/24 63-year-old man admitted with persistent atrial fibrillation status post conversion to normal sinus rhythm with amiodarone drip Paroxysmal atrial fibrillation status post conversion to normal sinus rhythm with amiodarone drip Normal biventricular size and systolic function No significant valvular abnormalities Remains hemodynamically stable No acute heart failure symptoms No ischemic symptoms Chronic antiplatelet therapy with aspirin 81 mg daily Diabetes, treated with metformin Hyperlipidemia but not on chronic statin therapy Hypertriglyceridemia normal renal function Plan: Stable for discharge home from cardiac standpoint Continue systemic anticoagulation and follow-up as outpatient within 1 to 2 weeks of discharge Will need event monitor for 2 weeks Continue home dose of propranolol Continue amiodarone 200 mg twice daily Continue aspirin 81 mg daily Start high intensity statin therapy with atorvastatin 80 mg daily or Crestor 40 mg daily Optimize hypertension control and other CAD risk factors 1. Atrial fibrillation with RVR (I48.91: Unspecified atrial fibrillation) 2. Prediabetes (R73.03: Prediabetes) 3. BPH with obstruction/lower urinary tract symptoms (N40.1: Benign prostatic hyperplasia with lower urinary tract symptoms) 4. Abnormal MRI (R93.89: Abnormal findings on diagnostic imaging of other specified body structures) 5. Elevated PSA (R97.20: Elevated prostate specific antigen [PSA]) 6. Alcohol dependence, continuous (F10.20: Alcohol dependence, uncomplicated) Other obstructive and reflux uropathy (N13.8: Other obstructive and reflux uropathy) Extracted from: Title:Admission H & P Author:LYNETTE RICE, Mbanefo Date:06/06/24 63-year-old male with histor y of BPH, hypertension, uww-xsszfqy-ybcgjwbbb diabetes mellitus type 2, elevated PSA with abnormal MRI of the prostate who underwent transrectal prostate biopsy today and went into atrial fibrillation and is being admitted with atrial fibrillation with rapid ventricular response. 1. Atrial fibrillation with RVR (I48.91: Unspecified atrial fibrillation) Acute paroxysmal atrial fibrillation with rapid ventricular response present on admission. Admit to regular medical floor. Check electrolytes, TSH, magnesium. Echocardiogram. Cardiology consulted. Check cardiac enzymes. Continue patient on IV Cardizem drip. No anticoagulation for now and especially with current prostate biopsy. Ordered: Consult to Cardiology Echo Transthoracic Complete Initial Hospital Care/Day Moderate 55 Minutes 18004 2. Prediabetes (R73.03: Prediabetes) Continue on metformin. Ordered: Initial Hospital Care/Day Moderate 55 Minutes [id number] 3. BPH with obstruction/lower urinary tract symptoms (N40.1: Benign prostatic hyperplasia with lower urinary tract symptoms) Continue on tamsulosin. Ordered: Initial Hospital Care/Day Moderate 55 Minutes [id number] 4. Abnormal MRI (R93.89: Abnormal findings on diagnostic imaging of other specified body structures) Enlarged prostate status post transrectal prostate biopsy. 5. Elevated PSA (R97.20: Elevated prostate specific antigen [PSA]) Status post transrectal prostate biopsy. 6. Alcohol dependence, continuous (F10.20: Alcohol dependence, uncomplicated) Started patient on multivitamin, thiamine, folic acid. Started patient on Ativan as needed for CIWA protocol. Disposition: The patient will be admitted under observation status with anticipation of staying less than 2 midnights in the hospital for the treatment of above atrial fibrillation with rapid ventricular response. I discussed the diagnosis and plan of care with the patient at the bedside. Moderate level of MDM based on addressing above issues. This documentation was transcribed using voice recognition software. Several attempts were made to ensure accuracy. However inadvertent computerized dance therapist errors may be present. Glo Peace. Hospitalist. Orders: acetaminophen, 650 mg = 2 tab(s), Tab, Oral, q6hr PRN Pain, Routine, Start date 06/06/24 15:08:00 EST, 06/06/24 15:08:00 EST Al hydroxide/Mg hydroxide/simethicone, 30 mL, Susp-Oral, Oral, q6hr PRN Indigestion, Routine, Start date 06/06/24 15:08:00 EST diltiazem 100 mg [10 mg/hr] + Sodium Chloride 0.9% intravenous solution 100 mL, 100 mL, IV, 10 mL/hr, Routine, Start date 06/06/24 15:09:00 EST, 10 hour(s), Total volume (mL): 100, 5-15 mg/hr, Titrate per protocol, 91.6 kg, 2.1, m2 diphenhydrAMINE, 25 mg = 1 cap(s), Cap, Oral, q6hr PRN Itching, Routine, Start date 06/06/24 15:08:00 EST, 06/06/24 15:08:00 EST hydrALAZINE, 10 mg = 0.5 mL, Injection, IV Push, q6hr PRN Other (see comment), Routine, Start date 06/06/24 15:08:00 EST, 06/06/24 15:08:00 EST magnesium hydroxide, 30 mL, Susp-Oral, Oral, q6hr PRN Constipation, Routine, Start date 06/06/24 15:08:00 EST morphine, 2 mg = 1 mL, Injection, IV Push, q4hr PRN Pain for 5 day(s), Stop date 06/11/24 15:07:00 EST, Routine, Start date 06/06/24 15:08:00 EST, 06/06/24 15:08:00 EST ondansetron, 4 mg = 2 mL, Injection, IV Push, q6hr PRN Nausea, Routine, Start date 06/06/24 15:08:00 EST, 06/06/24 15:08:00 EST zolpidem, 5 mg = 1 tab(s), Tab, Oral, Bedtime PRN Sleep, Routine, Start date 06/06/24 15:08:00 EST, 06/06/24 15:08:00 EST Activity As Tolerated Add on Test Add on Test Basic Metabolic Panel Below the Knee Intermittent Pneumatic Compression Device Cardiac Monitoring Diabetic/Calorie Control Diet eGFR Magnesium Level Oxygen Protocol Pulse Oximetry Resuscitation Status - Full Vital Signs Weight Addendum by LYNETTE RICE, Mbane on June 06, 2024 16:18:32 EST I spoke with leather fitter advised to start patient on IV amiodarone drip with the hopes of converting in AM. If patient does not convert chemically then patient will undergo DC conversion in a.m. and be started on oral anticoagulation. Extracted from: Title:ANES Post-operative Note---General Author: Christian Watts MD Date:06/06/24 Plan Transfer/Discharge: Transfer/Discharge Discharge when meets criteria ( From PACU to floor ). Extracted from: Title:EU - MRI fusion TP prostate bx Author:Marita Klein MD Date:06/06/24 Impression and Plan Diagnosis Elevated PSA (DQP98-DP R97.20, Working, Medical). Abnormal MRI (SAB59-HU R93.89, Working, Medical). Diagnosis Elevated PSA (SCS58-NQ R97.20, Working, Medical). Abnormal MRI (UPU85-YK R93.89, Working, Medical). Extracted from: Title:ANES Pre-operative Note 2022 Author:Christian Zheng Date:06/06/24 Plan [employer] Anesthesiologists (ASA) physical status classification: Class II. Anesthetic Preoperative Plan: Anesthesia General. Future Appointments Appointment Date:06/18/2024 11:30:00 AM Scheduled Provider:Estuardo Bunch MD [facility] Type:Cardiology Follow Up (FT) Appointment Date:06/19/2024 11:00:00 AM Scheduled Provider:Marita Klein MD Location:[facility] Appointment Type:URO Office Visit [facility] [id number] NoteGetWell Learning Participants Patient GetWell Understands Education Yes GetWell Education Video What Is Atrial Fibrillation?[facility]11-08-2024 NoteGetWell Learning Participants Patient GetWell Understands Education Yes GetWell Education Video Atrial Fibrillation: Managing [facility]oms[facility]2024 NoteGetWell Education Video Atrial Fibrillation: Feeling More in Control GetWell Learning Participants Patient GetWell Understands Education [facility]11-08-2024 NoteGetWell Learning Participants Patient GetWell Understands Education Yes GetWell Education Video [facility] Note Discharge Summary Admission and Discharge Information Admitting Physician - LYNETTE RICE, Glo Consulting Physician - Estuardo Bunch MD [facility] Cardio, XXXX Referring Physician - Marita Klein MD Admitting Diagnoses: 1. Atrial fibrillation with RVR, 06/06/2024 Discharge Order Date Discharge Patient - Ordered -- 06/07/24 10:57:00 EST, Home Discharge Diagnoses 1. Atrial fibrillation with RVR, 06/06/2024 2. Prediabetes, 06/06/2024 3. BPH with obstruction/lower urinary tract symptoms, 06/06/2024 4. Abnormal MRI, 06/06/2024 5. Elevated PSA, 06/06/2024 6. Alcohol dependence, continuous, 06/06/2024 Procedure History Transurethral water vapor ablation of prostate (08/22/2022), Cystoscopy (07/19/2022), Colonoscopy, Tonsillectomy, Ultrasonography by transrectal approach. Hospital Course 63-year-old male with history of BPH, hypertension, [id number]-ltzdfcdcj diabetes mellitus type 2/prediabetes, elevated PSA with abnormal MRI of the prostate who underwent transrectal prostate biopsy the day of admission was found to be in atrial fibrillation after the procedure. He was subsequently admitted to [facility] with atrial fibrillation with rapid ventricular response???new onset. He was treated with IV Lopressor, IV Cardizem drip, IV amiodarone drip. He was seen in consultation by the leather fitter who recommended IV amiodarone drip and echocardiogram. Patient chemically cardioverted overnight. Echocardiogram was performed and was essentially normal with normal EF. Commercial Marketing Specialist recommended that patient could be discharged home with plans to follow-up with him as outpatient, outpatient event monitor for 2 weeks. Patient was subsequently discharged to home on amiodarone 200 mg twice daily, Eliquis 5 mg twice daily, Crestor 40 mg daily, 14-day event monitor. Valeria more is to continue on his home dose of propranolol and aspirin. Discharge time: 32 minutes. I spent 32 minutes in seeing, evaluating, educating patient on his conditions, coordinating care plan, medication reconciliation, speaking with consultants, nursing staff and case management. New medications: Amiodarone 200 mg twice daily Eliquis 5 mg twice daily, Crestor 40 mg daily Procedures and Treatment Provided (06/07/2024 08:52 EST Echo Transthoracic Complete) * Final Report * Reason For Exam Atrial fibrillation with RVR;Other (please specify) Report [facility] [address] [place] [address] Adult Echocardiogram Report Name: THOMAS GONCALVES Study Date: 06/07/2024 08:19 AM BP: 100/69 mmHg Patient [facility]: [facility]17 01 [facility] Bed(s) [facility] HR: 85 : 1960 Gender: Male Height: 67.5 in Age: 63 yrs Ethnicity: [facility] Weight: 203 lb Reason For Study: Atrial fibrillation BSA: 2.0 m2 History: High Cholesterol,HTN,Diabetes,Alcohol abuse Ordering Physician: LYNETTE^Mbanefo Referring Physician: Marita Klein Performed By: Delaney Clinton, [facility] Interpretation Summary The left ventricle is normal in size. There is normal left ventricular wall thickness. The left ventricular ejection fraction is normal. Normal diastolic function. [1] Services Consulted Consult to Cardiology - Ordered -- 06/06/24 14:55:00 EST, Atrial fibrillation with RVR, Consult and Co-manage, FT Heart and Vascular Physical Exam Vitals & Measurements T: 36.8 ???C(Oral) TMIN: 36.4 ???C(Oral) TMAX: 36.9 ???C(Temporal Artery) HR: 83(Monitored) RR: 16 BP: 109/69 SpO2: 94% HT: 172 cm WT: 90.5 kg General: alert, no acute distress Skin: warm, dry Head: no trauma, normocephalic Neck: Trachea midline, no adenopathy, no tenderness Eye: normal conjunctiva, sclera clear ENMT: TM's clear, oral mucosa moist, no pharyngeal erythema or exudate Cardiovascular: regular rate and rhythm, normal peripheral perfusion Respiratory: Lungs CTA, respirations non labored Chest wall: no deformity. Gastrointestinal: soft, non distended, no tenderness, no guarding. Bowel sounds intact. Back: No tenderness, Normal ROM, Normal alignment. Extremities: no deformity, no trauma Neurological: oriented x 4, LOC appropriate for age, CN II-XII intact, motor strength equal & normal bilaterally, sensation equal & normal bilaterally, speech normal Psychiatric: cooperative, affect appropriate for age, normal judgement, normal psychiatric thoughts. Tests Performed Echo Transthoracic Complete Discharge Plan Patient Discharge Condition Stable Discharge Disposition Discharged to - Home with family group home Discharge Diet Discharge Diet(s): Calorie Controlled- 1800 Calorie Diet (06/07/24 10:55:00) Discharge Medication List Prescriptions amiodarone 200 mg Tab, 200 mg= 1 tab(s), Oral, BID Crestor 40 mg Tab, 40 mg= 1 tab(s), Oral, Daily Eliquis 5 mg oral tablet, 5 mg= 1 tab(s), Oral, BID tadalafil 10 mg Tab, 10 mg= 1 tab(s), Oral, As Directed, PRN, 5 refills, Not taking tamsulosin 0.4 mg Cap, 0.4 mg= 1 cap(s), Oral, Daily, 3 refills trospi (more content not included)...[facility]:Result Comment: Electronically Signed By: LYNETTE RICE, Glo\.br\Date and Time Signed: 06/07/24 11:11 [id number] NotePatient Education - [facility] [place], [place] Post-Operative Instructions for Prostate Biopsy *Even though there are no visible incisions, multiple prostate biopsies have been taken through therectum and you need to follow some instructions to minimize the risks of bleeding *You may see some blood in your urine and stool for up to 1 week (and blood in the semen for several months) DIET *You may resume your normal diet, but you may want to avoid alcohol, carbonated drinks, caffeine, and spicy foods, which may increase the irritation from the surgery and the catheter. *Drink plenty of water to keep the urine clear. ACTIVITY *You should limit any physical activity for about 48 hours *No heavy lifting or straining (10 pound limit) *No driving a car and limit long car rides for 2 days *No strenuous exercise *No sexual intercourse until this is discussed with your doctor BOWELS Try to keep your bowel movements soft to minimize straining to have a bowel movement. You may use astool softener or over the counter laxative if needed. Difficult bowel movements may lead to straining and bleeding from the prostate. MEDICATIONS *You may resume your home medications unless instructed otherwise *Hold aspirin, ibuprofen, Coumadin (warfarin) and other blood thinners for about two days or until there is no active bleeding unless otherwise instructed *Finish the antibiotic which you have already started Things to watch for which would require an Emergency Room visit or call 911: (this is not a complete list) *Persistent or heavy bleeding or blood clots from the rectum or in the urine *Inability to urinate *Fever over 101.5 degrees Fahrenheit, with or without chills *Severe drug reactions with itching, hives, or rash *Tenderness or swelling of the calves, chest pain, or shortness of breath Please call the office to arrange for your post-operative appointment in 1-2 weeks ([phone] or [phone])[facility]11-08-2024 Note Consultation Note Chief Complaint a-fib Reason for Consultation AF RVR History of Present Illness 63-year-old man admitted with persistent atrial fibrillation status post conversion to normal sinusrhythm with amiodarone drip. Normal biventricular size and systolic function. No significant valvular abnormalities. Remains hemodynamically stable. No acute heart failure symptoms. No ischemic symptoms. Chronic antiplatelet therapy with aspirin 81 mg daily. Diabetes, treated with metformin. Hyperlipidemia but not on chronic statin therapy. Hypertriglyceridemia normal renal function Review of Systems Constitutional: no fever, no chills, no sweats, no weakness Respiratory: no shortness of breath, no cough, no orthopnea, no wheezing Cardiovascular: no chest pain, no palpitations, no edema Additional ROS info: Except as noted in the above Review of Systems and in the History of Present Illness all other systems have been reviewed and are negative or noncontributory. Physical Exam Vitals & Measurements T: 36.8 ???C(Oral) TMIN: 36.4 ???C(Oral) TMAX: 36.9 ???C(Temporal Artery) HR: 83(Monitored) RR: 16 BP: 109/69 SpO2: 94% HT: 172 cm WT: 90.5 kg General: alert, no acute distress ENMT: TM's clear, oral mucosa moist, no pharyngeal erythema or exudate Cardiovascular: regular rate and rhythm, normal peripheral perfusion Respiratory: Lungs CTA, respirations non labored Extremities: no deformity, no trauma Neurological: oriented x 4, LOC appropriate for age, CN II-XII intact, motor strength equal & normal bilaterally, sensation equal & normal bilaterally, speech normal Assessment/Plan 63-year-old man admitted with persistent atrial fibrillation status post conversion to normal sinusrhythm with amiodarone drip Paroxysmal atrial fibrillation status post conversion to normal sinus rhythm with amiodarone drip Normal biventricular size and systolic function No significant valvular abnormalities Remains hemodynamically stable No acute heart failure symptoms No ischemic symptoms Chronic antiplatelet therapy with aspirin 81 mg daily Diabetes, treated with metformin Hyperlipidemia but not on chronic statin therapy Hypertriglyceridemia normal renal function Plan: Stable for discharge home from cardiac standpoint Continue systemic anticoagulation and follow-up as outpatient within 1 to 2 weeks of discharge Will need event monitor for 2 weeks Continue home dose of propranolol Continue amiodarone 200 mg twice daily Continue aspirin 81 mg daily Start high intensity statin therapy with atorvastatin 80 mg daily or Crestor 40 mg daily Optimize hypertension control and other CAD risk factors 1. Atrial fibrillation with RVR (I48.91: Unspecified atrial fibrillation) 2. Prediabetes (R73.03: Prediabetes) 3. BPH with obstruction/lower urinary tract symptoms (N40.1: Benign prostatic hyperplasia with lower urinary tract symptoms) 4. Abnormal MRI (R93.89: Abnormal findings on diagnostic imaging of other specified body structures) 5. Elevated PSA (R97.20: Elevated prostate specific antigen [PSA]) 6. Alcohol dependence, continuous (F10.20: Alcohol dependence, uncomplicated) Other obstructive and reflux uropathy (N13.8: Other obstructive and reflux uropathy) Problem List/Past Medical History Ongoing BPH with obstruction/lower urinary tract symptoms BPH without urinary obstruction Dysuria ED (erectile dysfunction) Elevated PSA GERD (gastroesophageal reflux disease) Hematuria Hyperlipidemia Nocturia OAB (overactive bladder) Prediabetes Prostate cancer screening Urinary retention 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 Historical No qualifying data Procedure/Surgical History Transurethral water vapor ablation of prostate (08/22/2022), Cystoscopy (07/19/2022), Colonoscopy, Tonsillectomy, Ultrasonography by transrectal approach. Medications Inpatient acetaminophen 325 mg Tab, 650 mg= 2 tab(s), Oral, q6hr, PRN Al hydroxide/Mg hydroxide/simethicone 200 mg-200 mg-20 mg/5 mL oral suspension, 30 mL, Oral, q6hr, PRN Ambien 5 mg Tab, 5 mg= 1 tab(s), Oral, Bedtime, PRN amiodarone IV additive 360 mg [0.5 mg/min] + Premix Dextrose 5% Diluent 200 mL Benadryl 25 mg Cap, 25 mg= 1 cap(s), Oral, q6hr, PRN Dextrose 50% Soln-IV, 50 mL, IV Push, Once, PRN diltiazem additive 100 mg [10 mg/hr] + Sodium Chloride 0.9% intravenous solution 100 mL hydrALAZINE 20 mg/mL Inj, 10 mg= 0.5 mL, IV Push, q6hr, PRN Insulin Lispro Sliding Scale, 0-10 Unit(s), SubCutaneous, QIDACHS metformin, 500 mg= 1 tab(s), Oral, Daily Milk of Magnesia 8% Susp-Oral, 30 mL, Oral, q6hr, PRN morphine 2 mg/mL Inj, 2 mg= 1 mL, IV Push, q4hr, PRN Multi Vitamins oral tablet, 1 tab(s), Oral, Daily niacin 250 mg oral tablet, extended release, 500 mg= 2 tab(s), Oral, Once a day (at bedtime) Pantoprazole [address] Tab, 40 mg= 1 tab(s), Oral, Daily tamsulosin 0.4 mg Cap, 0.4 mg= 1 cap(s), Oral, Daily Zofran 4 mg/2 mL Injection, 4 mg= 2 mL, IV Push, q6hr, PRN Home (more content not included)...[facility]: Result Comment: Electronically Signed By: Alivia RICE, Estuardo\.br\Date and Time Signed: 06/07/24 10:01 [id number] NoteEchocardiology Procedure Exam Date/Time Accession # Ordering Echo Transthoracic 06/07/2024 08:52 EST [id number] Glo PEACE MD Complete CPT code 52995 Reason for Exam (Echo Transthoracic Complete) Atrial fibrillation with RVR;Other (please specify) Report [facility] [address] [place] [address] Adult Echocardiogram Report Name: THOMAS GONCALVES Study Date: 06/07/2024 08:19 AM BP: 100/69 mmHg Patient Location: [address] [place] [address] Bed(s) [facility] HR: 85 : 1960 Gender: Male Height: 67.5 in Age: 63 yrs Ethnicity: [facility] Weight: 203 lb Reason For Study: Atrial fibrillation BSA: 2.0 m2 History: High Cholesterol,HTN,Diabetes,Alcohol abuse Ordering Physician: Ketty Referring Physician: Marita Klein Performed By: Delaney Clinton, [facility] Interpretation Summary The left ventricle is normal in size. There is normal left ventricular wall thickness. The left ventricular ejection fraction is normal. Normal diastolic function. Procedure A complete two-dimensional transthoracic echocardiogram was performed (2D, M- mode, spectral and color flow Doppler). Study quality is good. Left Ventricle The left ventricle is normal in size. There is normal left ventricular wall thickness. The left ventricular ejection fraction is normal. Ejection Fraction = 60-65%. Normal diastolic function. Left Atrium The left atrium is grossly normal. Right Atrium The right atrium is grossly normal. Echocardiology Report Right Ventricle The right ventricular systolic function is normal. Aortic Valve The trileaflet aortic valve opening is normal. Mitral Valve Mitral valve structure is normal. There is Trace mitral regurgitation. Tricuspid Valve Structurally normal tricuspid valve. There is trace tricuspid regurgitation. Pulmonic Valve The pulmonic valve is normal. Arteries The aortic root is normal in size. Venous The inferior vena cava is normal in size, and collapses normally with respiration. Effusion There is no pericardial effusion. There is no pleural effusion noted on this exam. MMode/2D Measurements & Calculations RVDd: 2.8 cm LVIDd: 4.4 cm FS: 27.5 % Ao root diam: 3.5 cm IVSd: 0.93 cm LVIDs: 3.2 cm EDV(Teich): 88.6 ml Ao root area: 9.7 cm2 LVPWd: 0.69 cm ESV(Teich): 41.0 ml LA dimension: 3.9 cm EF(Teich): 53.7 % asc Aorta Diam: 3.7 cm LVOT diam: 2.0 cm LVLd ap4: 9.2 cm EDV(MOD-sp2): 104.0 ml LVOT area: 3.2 cm2 EDV(MOD-sp4): 84.4 ml ESV(MOD-sp2): 37.9 ml LVLs ap4: 7.3 cm EF(MOD-sp2): 63.6 % ESV(MOD-sp4): 29.9 ml EF(MOD-sp4): 64.6 % SV(MOD-sp4): 54.5 ml TAPSE: 2.6 cm RVIDd/LVIDd: 0.63 EF (MOD-bp): 63.4 % LA Vol Index: 18.9 ml/m2 Doppler Measurements & Calculations MV E max arlene: 79.3 cm/sec MV dec time: 0.23 sec Ao V2 max: 133.7 cm/sec LV V1 max P.6 mmHg MV A max arlene: 75.0 cm/sec Ao max P.2 mmHg LV V1 max: 138.2 cm/sec MV E/A: 1.1 Lat Peak E' Arlene: 11.7 cm/sec CECILIA(V,D): 3.3 cm2 E/E' Lat: 6.7 Med Peak E' Arlene: 7.9 cm/sec E/E' Med: 10.0 Echocardiology Report TR max arlene: 237.7 cm/sec RAP systole: 3.0 mmHg AV VR: 1.0 TR max P.6 mmHg RVSP(TR): 25.6 mmHg Measurements from QLAB ED Mass (HM): 146.0 grams LAEF (HM): 58.0 % BSA (HM): 2.0 m2 CI (HM): 2.9 l/min/m2 KEILY (HM): 36.0 ml/m2 LAVmax (HM): 73.0 ml LAVmin (HM): 30.0 ml Pat Height (HM): 172.0 cm Pat Weight (HM): 92.0 kg FINAL REPORT Dictated: 06/07/2024 8:19 am Kvng Chappell MD Signed (Electronic Signature): 06/07/2024 9:44 am Signed by: Kvng Chappell MD Transcribed by: MN Technologist: [facility]11-07-2024 Note Progress Note-Nurse 1317 Pt received via cart from [facility]. Pt arrived with oral airway in and simple mask at 10L. Dr. Watts here in PACU. Orders received. 1321 Cardizem Gtt started on pump at 10mg/HR. Pt alert. Skin pink warm and dry. 1325 E[facility] completed at [facility] per Merlyn RN Dr. Watts aware of preliminary copy. Hospitalist notified per Dr. Watts. 1422 Hospitalist here at [facility]. Pt alert and coherent. Denies needs at this time. VSS. 1511 Blood draw completed. Pt alert and coherent. VSS. Waiting for Observation room assignment. [employer]ten [employer] Pourer aware of need. Pt attempted to void no results. Pt slightly restless and c/o perineal discomfort. Order received for Toradol 30mg IV and medication received. 1535 Pt requested crackers because he states feeling nauseated. Patient encouraged to smell alcohol pad a few time. Nausea resolved. No emesis at this time. 1545 Patient states feeling better. No emesis. Dr. Watts here. VSS. 1550 Aware of room assignment. Patient and S.O. in formed. 1552 Report called to floor. 1620 Pt placed in room 317, Experienced nausea and vomit soon after arriving to room. Emesis 250ml light watery vomit. Pt stated felt better after. Nurse Maggy not available for update. Charge Nurse received update of patient N/V 250ml. Telemetry placement. andvital signs in progress [facility]. [facility] NoteHistory and Physical History of Present Illness 63-year-old male with history of BPH, hypertension, [id number] diabetes mellitus type 2,elevated PSA with abnormal MRI of the prostate who underwent transrectal prostate biopsy today and went into atrial fibrillation. According to the patient he was in his usual state of health until today when he had transrectal prostate biopsy. He was found to be in atrial fibrillation. He denies any chest pain, palpitations, dizziness, shortness of breath. He was treated with IV Lopressor and continued to have rapid ventricular response and was started on IV Cardizem and he was referred for admission. He denies previous history of coronary artery disease, atrial fibrillation, congestive heart failure. He denies cigarette smoking but drinks alcohol daily. He denies any withdrawals from alcohol. He is being admitted with atrial fibrillation with rapid ventricular response. Review of Systems Constitutional: no fever, no chills, no sweats, no weakness Skin: no Jaundice, no rash, no lesions, nopetechiae ENMT: no ear pain, no sore throat, no congestion, no hoarseness Respiratory: no shortness of breath, no cough, no orthopnea, no wheezing Cardiovascular: no chest pain, no palpitations, no edema Gastrointestinal: no nausea, no vomiting, no diarrhea, no GI bleeding Genitourinary: no dysuria, no hematuria, no discharge, no pain Musculoskeletal: no back pain, no trauma Neurologic: no headache, no dizziness, no numbness, no weakness Psychiatric: no sleeping problems, no irritability, no mood swings/depression. Heme/Lymph: no bleeding tendency, no bruising tendency, no petechiae, no swollen nodes Allergy/Immunologic: no seasonal allergies, no food allergies, no recurrent infections, no impairedimmunity Additional ROS info: Except as noted in the above Review of Systems and in the History of Present Illness all other systems have been reviewed and are negative or noncontributory. Scoring Physical Exam Vitals & Measurements T: 36.6 ???C(Oral) HR: 96(Monitored) RR: 10 BP: 104/77 SpO2: 96% General: alert, no acute distress Skin: warm, dry Head: no trauma, normocephalic Neck: Trachea midline, no adenopathy, no tenderness Eye: normal conjunctiva, sclera clear ENMT: TM's clear, oral mucosa moist, no pharyngeal erythema or exudate Cardiovascular: irregularly-irregular rate and rhythm, normal peripheral perfusion Respiratory: Lungs CTA, respirations non labored Chest wall: no deformity. Gastrointestinal: soft, non distended, no tenderness, no guarding. Back: No tenderness, Normal ROM, Normal alignment. Extremities: no deformity, no trauma Neurological: oriented x 4, LOC appropriate for age, CN II-XII intact, motor strength equal & normal bilaterally, sensation equal & normal bilaterally, speech normal Psychiatric: cooperative, affect appropriate for age, normal judgement, normal psychiatric thoughts. Lab Results Glucose Lvl: 116 mg/dL (06/06/24 14:41:00) BUN: 15 mg/dL (06/06/24 14:41:00) Creatinine: 0.7 mg/dL (06/06/24 14:41:00) eGFR: 103 mL/min/1.73 m2 (06/06/24 14:41:00) BUN/Creat Ratio: 21 High (06/06/24 14:41:00) Sodium Lvl: 136 mmol/L (06/06/24 14:41:00) Potassium Lvl: 4 mmol/L (06/06/24 14:41:00) Chloride: 106 mmol/L (06/06/24 14:41:00) CO2: 24 mmol/L (06/06/24 14:41:00) AGAP: 10 mEq/L (06/06/24 14:41:00) Calcium Lvl: 8.5 mg/dL Low (06/06/24 14:41:00) Magnesium: 1.9 mg/dL (06/06/24 14:41:00) Glucose Cap: 111 mg/dL High (06/06/24 09:58:00) POC Device SN: [id number] (06/06/24 09:58:00) POC User ID: [id number] (06/06/24 09:58:00) POC Username: CHIQUITA GRISSOM (06/06/24 09:58:00) Diagnostic Results (05/24/2024 13:47 EDT XR Chest 2 Views) * Final Report * Reason For Exam P.A.T. POWERSCRIBE REPORT IMPRESSION: NO RADIOGRAPHIC EVIDENCE OF ACUTE INTRATHORACIC PROCESS. EXAMINATION: XR Chest 2 Views [1] EKG analyzed by me: Atrial fibrillation with rapid ventricular response. Rate of 112 bpm. Assessment/Plan 63-year-old male with history of BPH, hypertension, [id number] diabetes mellitus type 2,elevated PSA with abnormal MRI of the prostate who underwent transrectal prostate biopsy today and went into atrial fibrillation and is being admitted with atrial fibrillation with rapid ventricular response. 1. Atrial fibrillation with RVR (I48.91: Unspecified atrial fibrillation) Acute paroxysmal atrial fibrillation with rapid ventricular response???present on admission. Admit to regular medical floor. Check electrolytes, TSH, magnesium. Echocardiogram. Cardiology consulted. Check cardiac enzymes. Continue patient on IV Cardizem drip. No anticoagulation for now and especially with current prostate biopsy. Ordered: Consult to Cardiology Echo Transthoracic Complete Initial Hospital Care/Day Moderate 55 Minutes [id number] 2. Prediabetes (R73.03: Prediabetes) Continue on metformin. Ordered: Initial Hospital Care/Day M (more content not included)...[facility]:Result Comment: Electronically Signed By: LYNETTE RIEC, Glo\.br\Date and Time Signed: 06/06/24 16:19 [id number] Hospital Discharge instructions Patient Education 06/06/2024 13:46:18 Post Op Patient Instructions - FT (CUSTOM) 06/06/2024 13:46:14 Cook- Post-Op Instructions for Prostate Biopsy(CUSTOM) [facility] [place], [place] Post-Operative Instructions for Prostate Biopsy *Even though there are no visible incisions, multiple prostate biopsies have been taken through therectum and you need to follow some instructions to minimize the risks of bleeding *You may see some blood in your urine and stool for up to 1 week (and blood in the semen for several months) DIET *You may resume your normal diet, but you may want to avoid alcohol, carbonated drinks, caffeine, and spicy foods, which may increase the irritation from the surgery and the catheter. *Drink plenty of water to keep the urine clear. ACTIVITY *You should limit any physical activity for about 48 hours *No heavy lifting or straining (10 pound limit) *No driving a car and limit long car rides for 2 days *No strenuous exercise *No sexual intercourse until this is discussed with your doctor BOWELS Try to keep your bowel movements soft to minimize straining to have a bowel movement. You may use astool softener or over the counter laxative if needed. Difficult bowel movements may lead to straining and bleeding from the prostate. MEDICATIONS *You may resume your home medications unless instructed otherwise *Hold aspirin, ibuprofen, Coumadin (warfarin) and other blood thinners for about two days or until there is no active bleeding unless otherwise instructed *Finish the antibiotic which you have already started Things to watch for which would require an Emergency Room visit or call 911: (this is not a complete list) *Persistent or heavy bleeding or blood clots from the rectum or in the urine *Inability to urinate *Fever over 101.5 degrees Fahrenheit, with or without chills *Severe drug reactions with itching, hives, or rash *Tenderness or swelling of the calves, chest pain, or shortness of breath Please call the office to arrange for your post-operative appointment in 1-2 weeks ([phone] or [phone]) Follow Up Care 05/14/2024 14:40:58 With:Jose Elias MENDOSA Address: [address] [facility], [address] [address]- Business (1) When:06/13/2024 14:20:00 With:Ernie RICE, KANDIS Maldonado, URO Address: [address] [place] [address]- When:06/19/2024 11:00:00 With:Sushil Camejo Address: [address] [place] [phone] Business (1) When:06/18/2024 11:30:00 Comments:Call for followup appointment [facility] 11-07-2024 NoteHistory and Physical History of Present Illness 63-year-old male with history of BPH, hypertension, [id number]-lfhjatkuy diabetes mellitus type 2,elevated PSA with abnormal MRI of the prostate who underwent transrectal prostate biopsy today and went into atrial fibrillation. According to the patient he was in his usual state of health until today when he had transrectal prostate biopsy. He was found to be in atrial fibrillation. He denies any chest pain, palpitations, dizziness, shortness of breath. He was treated with IV Lopressor and continued to have rapid ventricular response and was started on IV Cardizem and he was referred for admission. He denies previous history of coronary artery disease, atrial fibrillation, congestive heart failure. He denies cigarette smoking but drinks alcohol daily. He denies any withdrawals from alcohol. He is being admitted with atrial fibrillation with rapid ventricular response. Review of Systems Constitutional: no fever, no chills, no sweats, no weakness Skin: no Jaundice, no rash, no lesions, nopetechiae ENMT: no ear pain, no sore throat, no congestion, no hoarseness Respiratory: no shortness of breath, no cough, no orthopnea, no wheezing Cardiovascular: no chest pain, no palpitations, no edema Gastrointestinal: no nausea, no vomiting, no diarrhea, no GI bleeding Genitourinary: no dysuria, no hematuria, no discharge, no pain Musculoskeletal: no back pain, no trauma Neurologic: no headache, no dizziness, no numbness, no weakness Psychiatric: no sleeping problems, no irritability, no mood swings/depression. Heme/Lymph: no bleeding tendency, no bruising tendency, no petechiae, no swollen nodes Allergy/Immunologic: no seasonal allergies, no food allergies, no recurrent infections, no impairedimmunity Additional ROS info: Except as noted in the above Review of Systems and in the History of Present Illness all other systems have been reviewed and are negative or noncontributory. Scoring Physical Exam Vitals & Measurements T: 36.6 ???C(Oral) HR: 96(Monitored) RR: 10 BP: 104/77 SpO2: 96% General: alert, no acute distress Skin: warm, dry Head: no trauma, normocephalic Neck: Trachea midline, no adenopathy, no tenderness Eye: normal conjunctiva, sclera clear ENMT: TM's clear, oral mucosa moist, no pharyngeal erythema or exudate Cardiovascular: irregularly-irregular rate and rhythm, normal peripheral perfusion Respiratory: Lungs CTA, respirations non labored Chest wall: no deformity. Gastrointestinal: soft, non distended, no tenderness, no guarding. Back: No tenderness, Normal ROM, Normal alignment. Extremities: no deformity, no trauma Neurological: oriented x 4, LOC appropriate for age, CN II-XII intact, motor strength equal & normal bilaterally, sensation equal & normal bilaterally, speech normal Psychiatric: cooperative, affect appropriate for age, normal judgement, normal psychiatric thoughts. Lab Results Glucose Lvl: 116 mg/dL (06/06/24 14:41:00) BUN: 15 mg/dL (06/06/24 14:41:00) Creatinine: 0.7 mg/dL (06/06/24 14:41:00) eGFR: 103 mL/min/1.73 m2 (06/06/24 14:41:00) BUN/Creat Ratio: 21 High (06/06/24 14:41:00) Sodium Lvl: 136 mmol/L (06/06/24 14:41:00) Potassium Lvl: 4 mmol/L (06/06/24 14:41:00) Chloride: 106 mmol/L (06/06/24 14:41:00) CO2: 24 mmol/L (06/06/24 14:41:00) AGAP: 10 mEq/L (06/06/24 14:41:00) Calcium Lvl: 8.5 mg/dL Low (06/06/24 14:41:00) Magnesium: 1.9 mg/dL (06/06/24 14:41:00) Glucose Cap: 111 mg/dL High (06/06/24 09:58:00) POC Device SN: [id number] (06/06/24 09:58:00) POC User ID: [id number] (06/06/24 09:58:00) POC Username: [email or web address] [email or web address] (06/06/24 09:58:00) Diagnostic Results (05/24/2024 13:47 EDT XR Chest 2 Views) * Final Report * Reason For Exam P.A.T. POWERSCRIBE REPORT IMPRESSION: NO RADIOGRAPHIC EVIDENCE OF ACUTE INTRATHORACIC PROCESS. EXAMINATION: XR Chest 2 Views [1] EKG analyzed by me: Atrial fibrillation with rapid ventricular response. Rate of 112 bpm. Assessment/Plan 63-year-old male with history of BPH, hypertension, [id number]-[id number] diabetes mellitus type 2,elevated PSA with abnormal MRI of the prostate who underwent transrectal prostate biopsy today and went into atrial fibrillation and is being admitted with atrial fibrillation with rapid ventricular response. 1. Atrial fibrillation with RVR (I48.91: Unspecified atrial fibrillation) Acute paroxysmal atrial fibrillation with rapid ventricular response???present on admission. Admit to regular medical floor. Check electrolytes, TSH, magnesium. Echocardiogram. Cardiology consulted. Check cardiac enzymes. Continue patient on IV Cardizem drip. No anticoagulation for now and especially with current prostate biopsy. Ordered: Consult to Cardiology Echo Transthoracic Complete Initial Hospital Care/Day Moderate 55 Minutes [id number] 2. Prediabetes (R73.03: Prediabetes) Continue on metformin. Ordered: Initial Hospital Care/Day M (more content not included)...[facility]:Result Comment: Electronically Signed By: LYNETTE RICE, Glo\.br\Date and Time Signed: 06/06/24 15:12 [id number] NoteProgress Note-Physician Patient: THOMAS GONCALVES Age: 63 years Sex: Male : 1960 Associated Diagnoses: None Author: Christian Watts MD Postoperative Information Postoperative disposition: Postoperative disposition: To PACU. Optimetrix number: Optimetrix number [id number]. Anesthetic utilized: Monitored anesthesia care. Health Status Allergies: Allergic Reactions (Selected) Severity Not Documented Penicillins- Unknown. Physical Examination Vital Signs 06/06/2024 14:25 EST Heart Rate Monitored 100 bpm Respiratory Rate Monitored 16 br/min Systolic Blood Pressure 97 mmHg Diastolic Blood Pressure 79 mmHg Mean Arterial Pressure, Cuff 85 mmHg SpO2 97 % Pain Assessment: Controlled. General: Awake, Appropriate. Respiratory: Adequate air exchange. Cardiovascular: Stable, HR controlled on cardizem drip. Neurological Assessment Anesthetic outcome Adequate pain relief. Afib RVR during case managed with lopressor and cardizem. stable, asymptomatic, plan admit to telemetry for observation, rate control, and cardiology consult. discussed with hospitalist.. Review / Management Condition: Stable. Plan Transfer/Discharge: Transfer/Discharge Discharge when meets criteria ( From PACU to floor ).[facility] on [facility]:Result Comment: Electronically Signed By: Christian Watts MD\.br\Date and Time Signed: 06/06/24 14:37 [id number] NotePatient Education - Text [facility] [place], [place] Post-Operative Instructions for Prostate Biopsy *Even though there are no visible incisions, multiple prostate biopsies have been taken through therectum and you need to follow some instructions to minimize the risks of bleeding *You may see some blood in your urine and stool for up to 1 week (and blood in the semen for several months) DIET *You may resume your normal diet, but you may want to avoid alcohol, carbonated drinks, caffeine, and spicy foods, which may increase the irritation from the surgery and the catheter. *Drink plenty of water to keep the urine clear. ACTIVITY *You should limit any physical activity for about 48 hours *No heavy lifting or straining (10 pound limit) *No driving a car and limit long car rides for 2 days *No strenuous exercise *No sexual intercourse until this is discussed with your doctor BOWELS Try to keep your bowel movements soft to minimize straining to have a bowel movement. You may use astool softener or over the counter laxative if needed. Difficult bowel movements may lead to straining and bleeding from the prostate. MEDICATIONS *You may resume your home medications unless instructed otherwise *Hold aspirin, ibuprofen, Coumadin (warfarin) and other blood thinners for about two days or until there is no active bleeding unless otherwise instructed *Finish the antibiotic which you have already started Things to watch for which would require an Emergency Room visit or call 911: (this is not a complete list) *Persistent or heavy bleeding or blood clots from the rectum or in the urine *Inability to urinate *Fever over 101.5 degrees Fahrenheit, with or without chills *Severe drug reactions with itching, hives, or rash *Tenderness or swelling of the calves, chest pain, or shortness of breath Please call the office to arrange for your post-operative appointment in 1-2 weeks ([phone] or [phone])[facility]11-07-2024 NoteProgress Note-Physician Patient: THOMAS GONCALVES Age: 63 years Sex: Male : 1960 Associated Diagnoses: None Author: Mac RICE, Christian Wing Preoperative Information Anesthesia Preop Info: Time patient last ate or drank 06/06/2024 00:00:00. Anesthesia history: Patient history: None. Family history+: None. Informed consent: Signed by patient. Re-evaluation prior to induction: Initial evaluation reviewed: No significant change. Review of Systems Eye Ear/Nose/Mouth/Throat Respiratory: No shortness of breath, No cough. Cardiovascular: Negative, No chest pain. Gastrointestinal: No heartburn. Musculoskeletal Neurologic Health Status Allergies: Allergic Reactions (Selected) Severity Not Documented Penicillins- Unknown., Allergies (1) Active Severity Reaction penicillins Unknown Current medications: (Selected) Inpatient Medications Ordered HYDROmorphone 1 mg/mL injectable solution: 0.2 mg = 0.2 mL, Injection, IV Push, q2min PRN Pain for 10 dose(s), Stop date Limited # of times, Routine, Start date 06/06/24 11:34:00 EST, 06/06/24 11:34:00 EST Lactated Ringers IV Sandhya 1000 mL 1,000 mL: 1,000 mL, IV, 100 mL/hr, Routine, Start date 06/06/24 11:34:00 EST, 10 hour(s), Total volume (mL): 1,000, 91.6 kg, 2.1, m2 Sodium Chloride 0.9% IV Sandhya 1000 mL 1,000 mL: 1,000 mL, IV, 150 mL/hr, Routine, Start date 06/06/2410:00:00 EST, 6.7 hour(s), Total volume (mL): 1,000, 91.6 kg, 2.1, m2 cefazolin additive + Sodium Chloride 0.9% intravenous solution 50 mL: 2 gram = 1 EA, Powder-Inj, IVPiggyback, Once, Stop date 06/06/24 10:00:00 EST, Routine, Start date 06/06/24 10:00:00 EST, 100 mL/hr, Infuse over 30 minute(s), HOLD if patient has history of anaphylactic allergic reaction to Penicillin promethazine additive 12.5 mg + Sodium Chloride 0.9% IV Sandhya 50 mL (INT) 50 mL: IV Piggyback, Once PRN Nausea/Vomiting, Routine, Start date 06/06/24 11:34:00 EST, 151.5 mL/hr, Infuse over 20 minute(s), 06/06/24 11:34:00 EST Prescriptions Prescribed tadalafil 10 mg Tab: 10 mg = 1 tab(s), Oral, As Directed, PRN for erectile dysfunction, take 1 tab prior to sexual activity. Do not exceen 2 tabs (20 mg) in 24 hr, # 30 tab(s), Refills(s) 5, Pharmacy: [facility] #[id number], 173, cm, 11/14/23 15:46:00 EDT, Height/Chelsea... tamsulosin 0.4 mg Cap: 0.4 mg = 1 cap(s), Oral, Daily, X 90 day(s), # 90 cap(s), Refills(s) 3, Pharmacy: [facility]/pharmacy #[id number], 173, cm, 02/06/24 9:01:00 EDT, Height/Length Dosing, 91, kg, 02/06/24 9:01:00 EDT, Weight Dosing trospium 60 mg oral capsule, extended release: 60 mg = 1 cap(s), Oral, qAM, # 30 cap(s), Refills(s)11, Pharmacy: [facility]/pharmacy #[id number], 173, cm, 04/13/23 9:46:00 EDT, Height/Length Dosing, 87.3, kg, 04/13/23 9:46:00 EDT, Weight Dosing Documented Medications Documented Fish Oil: 500 mg, Oral, Daily, Prophylaxis Multi Vitamins oral tablet: 1 tab(s), Oral, Daily, Prophylaxis aspirin 81 mg oral capsule: 81 mg = 1 cap(s), Oral, Daily, Prophylaxis metformin 500 mg Tab: 500 mg = 1 tab(s), Oral, Daily, Refills(s) 0, Blood glucose niacin: 500 mg, Oral, Prophylaxis omeprazole 20 mg Cap-DR: 20 mg = 1 cap(s), Oral, Daily, Refills(s) 0, Indigestion propranolol 60 mg Cap-ER: 60 mg = 1 cap(s), Oral, Daily, Refills(s) 0, Unable to State, Home Medications (10) Active aspirin 81 mg oral capsule 81 mg = 1 cap(s), Oral, Daily Fish Oil 500 mg, Oral, Daily metformin 500 mg Tab 500 mg = 1 tab(s), Oral, Daily Multi Vitamins oral tablet 1 tab(s), Oral, Daily niacin 500 mg, Oral omeprazole 20 mg Cap-DR 20 mg = 1 cap(s), Oral, Daily propranolol 60 mg Cap-ER 60 mg = 1 cap(s), Oral, Daily tadalafil 10 mg Tab 10 mg = 1 tab(s), PRN, Oral, As Directed tamsulosin 0.4 mg Cap 0.4 mg = 1 cap(s), Oral, Daily trospium 60 mg oral capsule, extended release 60 mg = 1 cap(s), Oral, qAM , Medications (5) Active Scheduled: (1) ceFAZolin + Sodium Chloride 0.9% Minibag 50 mL 2 gram 1 EA, IV Piggyback, Once Continuous: (2) Lactated Ringers 1,000 mL 1,000 mL, IV, 100 mL/hr Sodium Chloride 0.9% 1,000 mL 1,000 mL, IV, 150 mL/hr PRN: (2) HYDROmorphone 1 mg/mL SOLN [F] 0.2 mg 0.2 mL, IV Push, q2min promethazine 12.5 mg + Sodium Chloride 0.9% 50 mL 12.5 mg 0.5 mL, IV Piggyback, Once Problem list: All Problems BPH with obstruction/lower urinary tract symptoms / SNOMED CT 8050314231 / Confirmed BPH without urinary obstruction / SNOMED CT 7629410152 / Confirmed Dysuria / SNOMED CT 63140921 / Confirmed ED (erectile dysfunction) / SNOMED CT 7003098634 / Confirmed Elevated PSA / SNOMED CT 0615391612 / Confirmed GERD (gastroesophageal reflux disease) / SNOMED CT 057396320 / Confirmed Hematuria / SNOMED CT 5144091943 / Confirmed Hyperlipidemia / SNOMED CT 65409349 / Confirmed Nocturia / SNOMED CT 720825523 / Confirmed OAB (overactive bladder) / SNOMED CT 9760194602 / Confirmed Prediabetes / SNOMED CT 3865394750 / Confirmed Prostate cancer screening / SNOMED CT 247191557 / Confirme (more content not included)...[facility]:Result Comment: Electronically Signed By: Mac RICE, Christian Wing\.br\Date and Time Signed: 06/06/24 11:37 [id number] Hospital Discharge instructions Patient Education 05/14/2024 13:21:45 Prostate Cancer Screening Prostate Cancer Screening Prostate cancer screening is testing that is done to check for the presence of prostate cancer in men. The prostate gland is a walnut-sized gland that is located below the bladder and in front of therectum in males. The function of the prostate is to add fluid to semen during ejaculation. Prostatecancer is one of the most common types of cancer in men. Who should have prostate cancer screening? Screening recommendations vary based on age and other risk factors, as well as between the professional organizations who make the recommendations. In general, screening is recommended if: You are age 50 to 70 and have an average risk for prostate cancer. You should talk with your healthcare provider about your need for screening and how often screening should be done. Because most prostate cancers are slow growing and will not cause , screening in this age group is generally reserved for men who have a 10- to 15-year life expectancy. You are younger than age 50, and you have these risk factors: ?Having a father, brother, or uncle who has been diagnosed with prostate cancer. The risk is higherif your family member's cancer occurred at an early age or if you have multiple family members withprostate cancer at an early age. ?Being a male who is Black or is of [place] or sub-Saharan descent. In general, screening is not recommended if: You are younger than age 40. You are between the ages of 40 and 49 and you have no risk factors. You are 70 years of age or older. At this age, the risks that screening can cause are greater than the benefits that it may provide. If you are at high risk for prostate cancer, your health care provider may recommend that you have screenings more often or that you start screening at a younger age. How is screening for prostate cancer done? The recommended prostate cancer screening test is a blood test called the prostate-specific antigen(PSA) test. PSA is a protein that is made in the prostate. As you age, your prostate naturally produces more PSA. Abnormally high PSA levels may be caused by: Prostate cancer. An enlarged prostate that is not caused by cancer (benign prostatic hyperplasia, or BPH). This condition is very common in older men. A prostate gland infection (prostatitis) or urinary tract infection. Certain medicines such as male hormones (like testosterone) or other medicines that raise testosterone levels. A rectal exam may be done as part of prostate cancer screening to help provide information about the size of your prostate gland. When a rectal exam is performed, it should be done after the PSA level is drawn to avoid any effect on the results. Depending on the PSA results, you may need more tests, such as: A physical exam to check the size of your prostate gland, if not done as part of screening. Blood and imaging tests. A procedure to remove tissue samples from your prostate gland for testing (biopsy). This is the only way to know for certain if you have prostate cancer. What are the benefits of prostate cancer screening? Screening can help to identify cancer at an early stage, before symptoms start and when the cancer can be treated more easily. There is a small chance that screening may lower your risk of dying from prostate cancer. The chance is small because prostate cancer is a slow-growing cancer, and most men with prostate cancer from a different cause. What are the risks of prostate cancer screening? The main risk of prostate cancer screening is diagnosing and treating prostate cancer that would never have caused any symptoms or problems. This is called overdiagnosisand overtreatment. PSA screening cannot tell you if your PSA is high due to cancer or a different cause. A prostate biopsy is the only procedure to diagnose prostate cancer. Even the results of a biopsy may not tell you if your cancer needs to be treated. Slow-growing prostate cancer may not need any treatment other than monitoring, so diagnosing and treating it may cause unnecessary stress or other side effects. Questions to ask your health care provider When should I start prostate cancer screening? What is my risk for prostate cancer? How often do I need screening? What type of screening tests do I need? How do I get my test results? What do my results mean? Do I need treatment? Where to find more information The [employer]: www.cancer.org [employer]: www.auanet.org Contact a health care provider if: You have difficulty urinating. You have pain when you urinate or ejaculate. You have blood in your urine or semen. You have pain in your back or in the area of your prostate. Summary Prostate cancer is a common type of cancer in men. The prostate gland is located below the bladder and in front of the rectum. This gland adds fluid to semen during ejaculation. Prostate cancer screening may identify cancer at an early stage, when the cancer can be treated more easily and is less likely to have spread to other areas of the body. The prostate-specific antigen (PSA) test is the recommended screening test for prostate cancer, butit has associated risks. Discuss the risks and benefits of prostate cancer screening with your health care provider. If you are age 70 or older, the risks that screening can cause are greater than the benefits that it may provide. This information is not intended to replace advice given to you by your health care provider. Make sure you discuss any questions you have with your health care provider. Document Revised: 01/10/2022 Document Reviewed: 01/10/2022 [employer] Patient Education 2023 [employer] 05/14/2024 13:21:43 Prostate Cancer Prostate Cancer The prostate is a small gland that produces fluid that makes up semen (seminal fluid). It is located below the bladder in men, in front of the rectum. Prostate cancer is the abnormal growth of cells in the prostate gland. What are the causes? The exact cause of this condition is not known. What increases the risk? You are more likely to develop this condition if: You are 65 years of age or older. You have a family history of prostate cancer. You have a family history of breast and ovarian cancer. You have genes that are passed from parent to child (inherited), such as BRCA1 and BRCA2. You have Tate syndrome. men and men of descent are diagnosed with prostate cancer at higher rates than other men. The reasons for this are not well understood and are likely due to a combination of genetic and environmental factors. What are the signs or symptoms? Symptoms of this condition include: Problems with urination. This may include: ?A weak or interrupted flow of urine. ?Trouble starting or stopping urination. ?Trouble emptying the bladder all the way. ?The need to urinate more often, especially at night. Blood in urine or semen. Persistent pain or discomfort in the lower back, lower abdomen, or hips. Trouble getting an erection. Weakness or numbness in the legs or feet. How is this diagnosed? This condition can be diagnosed with: A digital rectal exam. For this exam, a health care provider inserts a gloved finger into the rectum to feel the prostate gland. A blood test called a prostate-specific antigen (PSA) test. A procedure in which a sample of tissue is taken from the prostate and checked under a microscope (prostate biopsy). An imaging test called transrectal ultrasonography. Once the condition is diagnosed, tests will be done to determine how far the cancer has spread. This is called staging the cancer. Staging may involve imaging tests, such as a bone scan, CT scan, PETscan, or MRI. Stages of prostate cancer The stages of prostate cancer are as follows: Stage 1 (I). At this stage, the cancer is found in the prostate only. The cancer is not visible on imaging tests, and it is usually found by accident, such as during prostate surgery. Stage 2 (II). At this stage, the cancer is more advanced than it is in stage 1, but the cancer has not spread outside the prostate. Stage 3 (III). At this stage, the cancer has spread beyond the outer layer of the prostate to nearby tissues. The cancer may be found in the seminal vesicles, which are near the bladder and the prostate. Stage 4 (IV). At this stage, the cancer has spread to other parts of the body, such as the lymph nodes, bones, bladder, rectum, liver, or lungs. Prostate cancer grading Prostate cancer is also graded according to how the cancer cells look under a microscope. This is called the Charlotte score and the total score can range from 6 10, indicating how likely it is that the cancer will spread (metastasize) to other parts of the body. The higher the score, the greater thelikelihood that the cancer will spread. Renée 6 or lower: This indicates that the cancer cells look similar to normal prostate cells (well differentiated). Renée 7: This indicates that the cancer cells look somewhat similar to normal prostate cells (moderately differentiated). Charlotte 8, 9, or 10: This indicates that the cancer cells look very different than normal prostate cells (poorly differentiated). How is this treated? Treatment for this condition depends on several factors, including the stage of the cancer, your age, personal preferences, and your overall health. Talk with your health care provider about treatment options that are recommended for you. Common treatments include: Observation for early stage prostate cancer (active surveillance). This involves having exams, blood tests, and in some cases, more biopsies. For some men, this is the only treatment needed. Surgery. Types of surgeries include: ?Open surgery (radical prostatectomy). In this surgery, a larger incision is made to remove the prostate. ?A laparoscopic radical prostatectomy. This is a surgery to remove the prostate and lymph nodes through several small incisions. It is often referred to as a minimally invasive surgery. ?A robotic radical prostatectomy. This is laparoscopic surgery to remove the prostate and lymph nodes with the help of robotic arms that are controlled by the surgeon. ?Cryoablation. This is surgery to freeze and destroy cancer cells. Radiation treatment. Types of radiation treatment include: ?External beam radiation. This type aims beams of radiation from outside the body at the prostate to destroy cancerous cells. ?Brachytherapy. This type uses radioactive needles, seeds, wires, or tubes that are implanted into the prostate gland. Like external beam radiation, brachytherapy destroys cancerous cells. An advantage is that this type of radiation limits the damage to surrounding tissue and has fewer side effects. Chemotherapy. This treatment kills cancer cells or stops them from multiplying. It kills both cancer cells and normal cells. Targeted therapy. This treatment uses medicines to kill cancer cells without damaging normal cells. Hormone treatment. This treatment involves taking medicines that act on testosterone, one of the male hormones, by: ?Stopping your body from producing testosterone. ?Blocking testosterone from reaching cancer cells. Follow these instructions at home: Lifestyle Do not use any products that contain nicotine or tobacco. These products include cigarettes, chewing tobacco, and vaping devices, such as e-cigarettes. If you need help quitting, ask your health careprovider. Eat a healthy diet. To do this: ?Eat foods that are high in fiber. These include beans, whole grains, and fresh fruits and vegetables. ?Limit foods that are high in fat and sugar. These include fried or sweet foods. Treatment for prostate cancer may affect sexual function. If you have a partner, continue to have intimate moments. This may include touching, holding, hugging, and caressing your partner. Get plenty of sleep. Consider joining a support group for men who have prostate cancer. Meeting with a support group mayhelp you learn to manage the stress of having cancer. General instructions Take hpls-kmx-diplyps and prescription medicines only as told by your health care provider. If you have to go to the hospital, notify your cancer specialist (oncologist). Keep all follow-up visits. This is important. Where to find more information [employer] Society: www.cancer.org [employer] Society of Clinical Oncology: www.cancer.net National Cancer [place]: www.cancer.gov Contact a health care provider if: You have new or increasing trouble urinating. You have new or increasing blood in your urine. You have new or increasing pain in your hips, back, or chest. Get help right away if: You have weakness or numbness in your legs. You cannot control urination or your bowel movements (incontinence). You have chills or a fever. Summary The prostate is a small gland that is involved in the production of semen. It is located below a man's bladder, in front of the rectum. Prostate cancer is the abnormal growth of cells in the prostate gland. Treatment for this condition depends on the stage of the cancer, your age, personal preferences, and your overall health. Talk with your health care provider about treatment options that are recommended for you. Consider joining a support group for men who have prostate cancer. Meeting with a support group mayhelp you learn to manage the stress of having cancer. This information is not intended to replace advice given to you by your health care provider. Make sure you discuss any questions you have with your health care provider. Document Revised: 10/13/2021 Document Reviewed: 10/13/2021 [employer] Patient Education 2023 [employer]. Follow Up Care 05/10/2024 10:44:38 With:Ernie RICE, KANDIS Maldonado, URO Address: When: Unknown Comments:fusion biopsy [facility] 10-15-2024 NotePatient Education Oncology Prostate Cancer The prostate is a small gland that produces fluid that makes up semen (seminal fluid). It is located below the bladder in men, in front of the rectum. Prostate cancer is the abnormal growth of cells in the prostate gland. What are the causes? The exact cause of this condition is not known. What increases the risk? You are more likely to develop this condition if: ? You are 65 years of age or older. ? You have a family history of prostate cancer. ? You have a family history of breast and ovarian cancer. ? You have genes that are passed from parent to child (inherited), such as BRCA1 and BRCA2. ? You have Tate syndrome. men and men of descent are diagnosed with prostate cancer at higher rates than other men. The reasons for this are not well understood and are likely due to a combination of genetic and environmental factors. What are the signs or symptoms? Symptoms of this condition include: ? Problems with urination. This may include: ? A weak or interrupted flow of urine. ? Trouble starting or stopping urination. ? Trouble emptying the bladder all the way. ? The need to urinate more often, especially at night. ? Blood in urine or semen. ? Persistent pain or discomfort in the lower back, lower abdomen, or hips. ? Trouble getting an erection. ? Weakness or numbness in the legs or feet. How is this diagnosed? This condition can be diagnosed with: ? A digital rectal exam. For this exam, a health care provider inserts a gloved finger into the rectum to feel the prostate gland. ? A blood test called a prostate-specific antigen (PSA) test. ? A procedure in which a sample of tissue is taken from the prostate and checked under a microscope(prostate biopsy). ? An imaging test called transrectal ultrasonography. Once the condition is diagnosed, tests will be done to determine how far the cancer has spread. This is called staging the cancer. Staging may involve imaging tests, such as a bone scan, CT scan, PETscan, or MRI. Stages of prostate cancer The stages of prostate cancer are as follows: ? Stage 1 (I). At this stage, the cancer is found in the prostate only. The cancer is not visible on imaging tests, and it is usually found by accident, such as during prostate surgery. ? Stage 2 (II). At this stage, the cancer is more advanced than it is in stage 1, but the cancer has not spread outside the prostate. ? Stage 3 (III). At this stage, the cancer has spread beyond the outer layer of the prostate to nearby tissues. The cancer may be found in the seminal vesicles, which are near the bladder and the prostate. ? Stage 4 (IV). At this stage, the cancer has spread to other parts of the body, such as the lymph nodes, bones, bladder, rectum, liver, or lungs. Prostate cancer grading Prostate cancer is also graded according to how the cancer cells look under a microscope. This is called the Charlotte score and the total score can range from 6?10, indicating how likely it is that the cancer will spread (metastasize) to other parts of the body. The higher the score, the greater thelikelihood that the cancer will spread. ? Charlotte 6 or lower: This indicates that the cancer cells look similar to normal prostate cells (well differentiated). ? Charlotte 7: This indicates that the cancer cells look somewhat similar to normal prostate cells (moderately differentiated). ? Charlotte 8, 9, or 10: This indicates that the cancer cells look very different than normal prostate cells (poorly differentiated). How is this treated? Treatment for this condition depends on several factors, including the stage of the cancer, your age, personal preferences, and your overall health. Talk with your health care provider about treatment options that are recommended for you. Common treatments include: ? Observation for early stage prostate cancer (active surveillance). This involves having exams, blood tests, and in some cases, more biopsies. For some men, this is the only treatment needed. ? Surgery. Types of surgeries include: ? Open surgery (radical prostatectomy). In this surgery, a larger incision is made to remove the prostate. ? A laparoscopic radical prostatectomy. This is a surgery to remove the prostate and lymph nodes through several small incisions. It is often referred to as a minimally invasive surgery. ? A robotic radical prostatectomy. This is laparoscopic surgery to remove the prostate and lymph nodes with the help of robotic arms that are controlled by the surgeon. ? Cryoablation. This is surgery to freeze and destroy cancer cells. ? Radiation treatment. Types of radiation treatment include: ? External beam radiation. This type aims beams of radiation from outside the body at the prostate to destroy cancerous cells. ? Brachytherapy. This type uses radioactive needles, seeds, wires, or tubes that are implanted intothe prostate gla (more content not included)...[facility] Evaluation + Plan note Diagnostic Tests Pending * PSA Screen, Total 02/06/24 [facility] 07-09-2024 Hospital Discharge instructions Patient Education 02/06/2024 09:33:25 Overactive Bladder, Adult Overactive Bladder, Adult Overactive bladder is a condition in which a person has a sudden and frequent need to urinate. A person might also leak urine if he or she cannot get to the bathroom fast enough (urinary incontinence). Sometimes, symptoms can interfere with work or social activities. What are the causes? Overactive bladder is associated with poor nerve signals between your bladder and your brain. Your bladder may get the signal to empty before it is full. You may also have very sensitive muscles thatmake your bladder squeeze too soon. This condition may also be caused by other factors, such as: Medical conditions: ?Urinary tract infection. ?Infection of nearby tissues. ?Prostate enlargement. ?Bladder stones, inflammation, or tumors. ?Diabetes. ?Muscle or nerve weakness, especially from these conditions: ?A spinal cord injury. ?Stroke. ?Multiple sclerosis. ?Parkinson's disease. Other causes: ?Surgery on the uterus or urethra. ?Drinking too much caffeine or alcohol. ?Certain medicines, especially those that eliminate extra fluid in the body (diuretics). ?Constipation. What increases the risk? You may be at greater risk for overactive bladder if you: Are an older adult. Smoke. Are going through menopause. Have prostate problems. Have a neurological disease, such as stroke, dementia, Parkinson's disease, or multiple sclerosis (MS). Eat or drink alcohol, spicy food, caffeine, and other things that irritate the bladder. Are overweight or obese. What are the signs or symptoms? Symptoms of this condition include a sudden, strong urge to urinate. Other symptoms include: Leaking urine. Urinating 8 or more times a day. Waking up to urinate 2 or more times overnight. How is this diagnosed? This condition may be diagnosed based on: Your symptoms and medical history. A physical exam. Blood or urine tests to check for possible causes, such as infection. You may also need to see a health care provider who specializes in urinary tract problems. This is called a urologist. How is this treated? Treatment for overactive bladder depends on the cause of your condition and whether it is mild or severe. Treatment may include: Bladder training, such as: ?Learning to control the urge to urinate by following a schedule to urinate at regular intervals. ?Doing Kegel exercises to strengthen the pelvic floor muscles that support your bladder. Special devices, such as: ?Biofeedback. This uses sensors to help you become aware of your body's signals. ?Electrical stimulation. This uses electrodes placed inside the body (implanted) or outside the body. These electrodes send gentle pulses of electricity to strengthen the nerves or muscles that control the bladder. ?Women may use a plastic device, called a pessary, that fits into the vagina and supports the bladder. Medicines, such as: ?Antibiotics to treat bladder infection. ?Antispasmodics to stop the bladder from releasing urine at the wrong time. ?Tricyclic antidepressants to relax bladder muscles. ?Injections of botulinum toxin type A directly into the bladder tissue to relax bladder muscles. Surgery, such as: ?A device may be implanted to help manage the nerve signals that control urination. ?An electrode may be implanted to stimulate electrical signals in the bladder. ?A procedure may be done to change the shape of the bladder. This is done only in very severe cases. Follow these instructions at home: Eating and drinking Make diet or lifestyle changes recommended by your health care provider. These may include: ?Drinking fluids throughout the day and not only with meals. ?Cutting down on caffeine or alcohol. ?Eating a healthy and balanced diet to prevent constipation. This may include: ?Choosing foods that are high in fiber, such as beans, whole grains, and fresh fruits and vegetables. ?Limiting foods that are high in fat and processed sugars, such as fried and sweet foods. Lifestyle Lose weight if needed. Do not use any products that contain nicotine or tobacco. These include cigarettes, chewing tobacco, and vaping devices, such as e-cigarettes. If you need help quitting, ask your health care provider. General instructions Take allz-htv-emqxhwa and prescription medicines only as told by your health care provider. If you were prescribed an antibiotic medicine, take it as told by your health care provider. Do notstop taking the antibiotic even if you start to feel better. Use any implants or pessary as told by your health care provider. If needed, wear pads to absorb urine leakage. Keep a log to track how much and when you drink, and when you need to urinate. This will help your health care provider monitor your condition. Keep all follow-up visits. This is important. Contact a health care provider if: You have a fever or chills. Your symptoms do not get better with treatment. Your pain and discomfort get worse. You have more frequent urges to urinate. Get help right away if: You are not able to control your bladder. Summary Overactive bladder refers to a condition in which a person has a sudden and frequent need to urinate. Several conditions may lead to an overactive bladder. Treatment for overactive bladder depends on the cause and severity of your condition. Making lifestyle changes, doing Kegel exercises, keeping a log, and taking medicines can help with this condition. This information is not intended to replace advice given to you by your health care provider. Make sure you discuss any questions you have with your health care provider. Document Revised: 04/05/2021 Document Reviewed: 04/05/2021 [employer] Patient Education 2022 [employer]. 02/06/2024 09:33:22 Erectile Dysfunction Erectile Dysfunction Erectile dysfunction (ED) is the inability to get or keep an erection in order to have sexual intercourse. ED is considered a symptom of an underlying disorder and is not considered a disease. ED mayinclude: Inability to get an erection. Lack of enough hardness of the erection to allow penetration. Loss of erection before sex is finished. What are the causes? This condition may be caused by: Physical causes, such as: ?Artery problems. This may include heart disease, high blood pressure, atherosclerosis, and diabetes. ?Hormonal problems, such as low testosterone. ?Obesity. ?Nerve problems. This may include back or pelvic injuries, multiple sclerosis, Parkinson's disease,spinal cord injury, and stroke. Certain medicines, such as: ?Pain relievers. ?Antidepressants. ?Blood pressure medicines and water pills (diuretics). ?Cancer medicines. ?Antihistamines. ?Muscle relaxants. Lifestyle factors, such as: ?Use of drugs such as marijuana, cocaine, or opioids. ?Excessive use of alcohol. ?Smoking. ?Lack of physical activity or exercise. Psychological causes, such as: ?Anxiety or stress. ?Sadness or depression. ?Exhaustion. ?Fear about sexual performance. ?Guilt. What are the signs or symptoms? Symptoms of this condition include: Inability to get an erection. Lack of enough hardness of the erection to allow penetration. Loss of the erection before sex is finished. Sometimes having normal erections, but with frequent unsatisfactory episodes. Low sexual satisfaction in either partner due to erection problems. A curved penis occurring with erection. The curve may cause pain, or the penis may be too curved toallow for intercourse. Never having nighttime or morning erections. How is this diagnosed? This condition is often diagnosed by: Performing a physical exam to find other diseases or specific problems with the penis. Asking you detailed questions about the problem. Doing tests, such as: ?Blood tests to check for diabetes mellitus or high cholesterol, or to measure hormone levels. ?Other tests to check for underlying health conditions. ?An ultrasound exam to check for scarring. ?A test to check blood flow to the penis. Doing a sleep study at home to measure nighttime erections. How is this treated? This condition may be treated by: Medicines, such as: ?Medicine taken by mouth to help you achieve an erection (oral medicine). ?Hormone replacement therapy to replace low testosterone levels. ?Medicine that is injected into the penis. Your health care provider may instruct you how to give yourself these injections at home. ?Medicine that is delivered with a short applicator tube. The tube is inserted into the opening at the tip of the penis, which is the opening of the urethra. A tiny pellet of medicine is put in the urethra. The pellet dissolves and enhances erectile function. This is also called MUSE (medicated urethral system for erections) therapy. Vacuum pump. This is a pump with a ring on it. The pump and ring are placed on the penis and used to create pressure that helps the penis become erect. Penile implant surgery. In this procedure, you may receive: ?An inflatable implant. This consists of cylinders, a pump, and a reservoir. The cylinders can be inflated with a fluid that helps to create an erection, and they can be deflated after intercourse. ?A semi-rigid implant. This consists of two silicone rubber rods. The rods provide some rigidity. They are also flexible, so the penis can both curve downward in its normal position and become straight for sexual intercourse. Blood vessel surgery to improve blood flow to the penis. During this procedure, a blood vessel froma different part of the body is placed into the penis to allow blood to flow around (bypass) damaged or blocked blood vessels. Lifestyle changes, such as exercising more, losing weight, and quitting smoking. Follow these instructions at home: Medicines Take gmzn-htc-wzepuzx and prescription medicines only as told by your health care provider. Do not increase the dosage without first discussing it with your health care provider. If you are using self-injections, do injections as directed by your health care provider. Make sureyou avoid any veins that are on the surface of the penis. After giving an injection, apply pressureto the injection site for 5 minutes. Talk to your health care provider about how to prevent headaches while taking ED medicines. These medicines may cause a sudden headache due to the increase in blood flow in your body. General instructions Exercise regularly, as directed by your health care provider. Work with your health care provider to lose weight, if needed. Do not use any products that contain nicotine or tobacco. These products include cigarettes, chewing tobacco, and vaping devices, such as e-cigarettes. If you need help quitting, ask your health careprovider. Before using a vacuum pump, read the instructions that come with the pump and discuss any questionswith your health care provider. Keep all follow-up visits. This is important. Contact a health care provider if: You feel nauseous. You are vomiting. You get sudden headaches while taking ED medicines. You have any concerns about your sexual health. Get help right away if: You are taking oral or injectable medicines and you have an erection that lasts longer than 4 hours. If your health care provider is unavailable, go to the nearest emergency room for evaluation. An erection that lasts much longer than 4 hours can result in permanent damage to your penis. You have severe pain in your groin or abdomen. You develop redness or severe swelling of your penis. You have redness spreading at your groin or lower abdomen. You are unable to urinate. You experience chest pain or a rapid heartbeat (palpitations) after taking oral medicines. These symptoms may represent a serious problem that is an emergency. Do not wait to see if the symptoms will go away. Get medical help right away. Call your local emergency services (911 in the [place] Do not drive yourself to the hospital. Summary Erectile dysfunction (ED) is the inability to get or keep an erection during sexual intercourse. This condition is diagnosed based on a physical exam, your symptoms, and tests to determine the cause. Treatment varies depending on the cause and may include medicines, hormone therapy, surgery, or a vacuum pump. You may need follow-up visits to make sure that you are using your medicines or devices correctly. Get help right away if you are taking or injecting medicines and you have an erection that lasts longer than 4 hours. This information is not intended to replace advice given to you by your health care provider. Make sure you discuss any questions you have with your health care provider. Document Revised: 10/13/2021 Document Reviewed: 10/13/2021 [employer] Patient Education 2022 [employer]. 02/06/2024 09:33:20 Cancer Screening for Men Cancer Screening for Men A cancer screening is a test or exam that checks for cancer. Your health care provider will recommend specific cancer screenings based on your age, medical history (including risk factors), and family history of cancer. Work with your health care provider to create a cancer screening schedule that protects your health. Who should have screening? All men should be considered for screening of certain cancers, including colorectal cancer, prostate cancer, lung cancer, and skin cancer. Your health care provider may recommend screenings for othertypes of cancer if: You had cancer before. You have a family member with cancer. You have abnormal genes that could increase the risk of cancer. You have risk factors for certain cancers, such as current or past use of tobacco products, or being overweight. When you should be screened for cancer depends on: Your age. Your medical history and your family's medical history. Certain lifestyle factors, such as smoking or other use of tobacco products. Environmental exposure, such as to asbestos. How is screening done? Colorectal cancer All adults should have screenings starting at age 45 and continuing until age 75. Your health care provider may recommend screening before age 45. You will have tests every 1 10 years, depending on your results and the type of screening test. People at increased risk should start screening at an earlier age. Talk with your health care provider about which screening test is right for you and how often you should be screened. Colorectal cancer screening looks for cancer or for growths called polyps that often form before cancer starts. Tests to look for cancer or polyps include: Colonoscopy or flexible sigmoidoscopy. For these procedures, a flexible tube with a small camera isinserted into the rectum. CT colonography. This test uses X-rays and a contrast dye to check the colon for polyps. If a polypis found, you may need to have a colonoscopy so the polyp can be located and removed. Tests to look for cancer in the stool (feces) include: Guaiac-based fecal occult blood test (FOBT). This test can find blood in stool. It can be done at home with a kit. Fecal immunochemical test (FIT). This test can find blood in stool. For this test, you will need tocollect stool samples at home. Stool DNA test. This test looks for blood in stool and any changes in DNA that can lead to colon cancer. For this test, you will need to collect a stool sample at home and send it to a lab. Prostate cancer Prostate cancer screening for men with average risk may start at age 50. Men with risk factors may need to be screened earlier, at ages 40 45. Talk with your health care provider about whether screening is right for you and, if so, how often you should be screened. Prostate cancer screening is done with blood tests and a digital rectal exam. During this exam, a health care provider uses a gloved finger to check prostate size. You may need to be screened for prostate cancer if: You have risk factors for prostate cancer, such as being or having a close family member with prostate cancer. You have had gene changes or a genetic condition that was passed on to you from a parent (inherited). These gene changes or genetic conditions include BRCA1 or BRCA2 gene mutations or Tate syndrome. You have symptoms of prostate cancer, such as problems urinating or problems getting or keeping an erection (erectile dysfunction). When you have been screened for prostate cancer, future screening may be recommended based on the results of your blood tests. Lung cancer Lung cancer screening is done with a CT scan that looks for abnormal changes in the lungs. Discuss lung cancer screening with your health care provider if you are 50 80 years old and if any of the following apply to you: You currently smoke. You used to smoke heavily. You have a smoking history of 1 pack of cigarettes a day for 20 years or 2 packs a day for 10 years. You have quit smoking within the past 15 years. You may need to be screened every year if you smoke heavily or if you used to smoke. Skin cancer Skin cancer screening is done by checking the skin for unusual moles or spots and any changes in existing moles. Your health care provider should check your skin for signs of skin cancer at every physical exam. You should check your skin every month and tell your health care provider right away if anything looks unusual. Men with a ubrifc-hdnq-cevvam risk for skin cancer may want to see a skin peeling machine operator (snipper) for an annual body check. What are the benefits of screening? Cancer screening is done to look for cancer in the very early stages, before it spreads and becomesharder to treat and before you would start to notice symptoms. Finding cancer early improves the chances of successful treatment. It may save your life. Where to find more information [employer]: www.cancer.org Centers for Disease Control and Prevention: www.cdc.gov National Cancer [place]: www.cancer.gov Contact a health care provider if: You have concerns about any signs or symptoms of cancer. These may include: Skin problems. You may have: ?Moles of an unusual shape or color. ?Changes in existing moles. ?A sore on your skin that does not heal. Tiredness (fatigue) that does not go away. Losing weight without trying. Blood in your urine or stool. Problems with urination. You may have: ?Changes in urination habits. ?Painful urination. Painful ejaculation. Problems with coughing or breathing. These may include: ?Coughing or trouble breathing that does not go away. ?Coughing up blood. Frequent pain or cramping in your abdomen. Summary Your health care provider will recommend specific cancer screenings based on your age, medical history, and family history of cancer. Work with your health care provider to create a cancer screening schedule that protects your health. Finding cancer early improves the chances of successful treatment. It may save your life. Contact a health care provider if you have concerns about any signs or symptoms of cancer. This information is not intended to replace advice given to you by your health care provider. Make sure you discuss any questions you have with your health care provider. Document Revised: 12/13/2021 Document Reviewed: 06/12/2020 [employer] Patient Education 2022 [employer]. 02/06/2024 09:33:19 Benign Prostatic Hyperplasia Benign Prostatic Hyperplasia Benign prostatic hyperplasia (BPH) is an enlarged prostate gland that is caused by the normal agingprocess. The prostate may get bigger as a man gets older. The condition is not caused by cancer. The prostate is a walnut-sized gland that is involved in the production of semen. It is located in front of the rectum and below the bladder. The bladder stores urine. The urethra carries stored urine ou t of the body. An enlarged prostate can press on the urethra. This can make it harder to pass urine. The buildup of urine in the bladder can cause infection. Back pressure and infection may progress to bladder damage and kidney (renal) failure. What are the causes? This condition is part of the normal aging process. However, not all men develop problems from thiscondition. If the prostate enlarges away from the urethra, urine flow will not be blocked. If it enlarges toward the urethra and compresses it, there will be problems passing urine. What increases the risk? This condition is more likely to develop in men older than 50 years. What are the signs or symptoms? Symptoms of this condition include: Getting up often during the night to urinate. Needing to urinate frequently during the day. Difficulty starting urine flow. Decrease in size and strength of your urine stream. Leaking (dribbling) after urinating. Inability to pass urine. This needs immediate treatment. Inability to completely empty your bladder. Pain when you pass urine. This is more common if there is also an infection. Urinary tract infection (UTI). How is this diagnosed? This condition is diagnosed based on your medical history, a physical exam, and your symptoms. Tests will also be done, such as: A post-void bladder scan. This measures any amount of urine that may remain in your bladder after you finish urinating. A digital rectal exam. In a rectal exam, your health care provider checks your prostate by putting a lubricated, gloved finger into your rectum to feel the back of your prostate gland. This exam detects the size of your gland and any abnormal lumps or growths. An exam of your urine (urinalysis). A prostate specific antigen (PSA) screening. This is a blood test used to screen for prostate cancer. An ultrasound. This test uses sound waves to electronically produce a picture of your prostate gland. Your health care provider may refer you to a specialist in kidney and prostate diseases (urologist). How is this treated? Once symptoms begin, your health care provider will monitor your condition (active surveillance or watchful waiting). Treatment for this condition will depend on the severity of your condition. Treatment may include: Observation and yearly exams. This may be the only treatment needed if your condition and symptoms are mild. Medicines to relieve your symptoms, including: ?Medicines to shrink the prostate. ?Medicines to relax the muscle of the prostate. Surgery in severe cases. Surgery may include: ?Prostatectomy. In this procedure, the prostate tissue is removed completely through an open incision or with a laparoscope or robotics. ?Transurethral resection of the prostate (TURP). In this procedure, a tool is inserted through the opening at the tip of the penis (urethra). It is used to cut away tissue of the inner core of the prostate. The pieces are removed through the same opening of the penis. This removes the blockage. ?Transurethral incision (TUIP). In this procedure, small cuts are made in the prostate. This lessens the prostate's pressure on the urethra. ?Transurethral microwave thermotherapy (TUMT). This procedure uses microwaves to create heat. The heat destroys and removes a small amount of prostate tissue. ?Transurethral needle ablation (TUNA). This procedure uses radio frequencies to destroy and remove a small amount of prostate tissue. ?Interstitial laser coagulation (ILC). This procedure uses a laser to destroy and remove a small amount of prostate tissue. ?Transurethral electrovaporization (TUVP). This procedure uses electrodes to destroy and remove a small amount of prostate tissue. ?Prostatic urethral lift. This procedure inserts an implant to push the lobes of the prostate away from the urethra. Follow these instructions at home: Take dyfx-xih-qwheqjw and prescription medicines only as told by your health care provider. Monitor your symptoms for any changes. Contact your health care provider with any changes. Avoid drinking large amounts of liquid before going to bed or out in public. Avoid or reduce how much caffeine or alcohol you drink. Give yourself time when you urinate. Keep all follow-up visits. This is important. Contact a health care provider if: You have unexplained back pain. Your symptoms do not get better with treatment. You develop side effects from the medicine you are taking. Your urine becomes very dark or has a bad smell. Your lower abdomen becomes distended and you have trouble passing urine. Get help right away if: You have a fever or chills. You suddenly cannot urinate. You feel light-headed or very dizzy, or you faint. There are large amounts of blood or clots in your urine. Your urinary problems become hard to manage. You develop moderate to severe low back or flank pain. The flank is the side of your body between the ribs and the hip. These symptoms may be an emergency. Get help right away. Call 911. Do not wait to see if the symptoms will go away. Do not drive yourself to the hospital. Summary Benign prostatic hyperplasia (BPH) is an enlarged prostate that is caused by the normal aging process. It is not caused by cancer. An enlarged prostate can press on the urethra. This can make it hard to pass urine. This condition is more likely to develop in men older than 50 years. Get help right away if you suddenly cannot urinate. This information is not intended to replace advice given to you by your health care provider. Make sure you discuss any questions you have with your health care provider. Document Revised: 02/02/2022 Document Reviewed: 02/02/2022 [employer] Patient Education 2022 [employer]. Follow Up Care 11/21/2023 09:38:16 With:ORLY Dexter APRN, Janet Elizondo, HERBERTH, URL Address: When: Unknown Comments:1 year with PSA [facility] 07-09-2024 NotePatient Education Obstetrics and Gynecology Overactive Bladder, Adult Overactive bladder is a condition in which a person has a sudden and frequent need to urinate. A person might also leak urine if he or she cannot get to the bathroom fast enough (urinary incontinence). Sometimes, symptoms can interfere with work or social activities. What are the causes? Overactive bladder is associated with poor nerve signals between your bladder and your brain. Your bladder may get the signal to empty before it is full. You may also have very sensitive muscles thatmake your bladder squeeze too soon. This condition may also be caused by other factors, such as: ? Medical conditions: ? Urinary tract infection. ? Infection of nearby tissues. ? Prostate enlargement. ? Bladder stones, inflammation, or tumors. ? Diabetes. ? Muscle or nerve weakness, especially from these conditions: ? A spinal cord injury. ? Stroke. ? Multiple sclerosis. ? Parkinson's disease. ? Other causes: ? Surgery on the uterus or urethra. ? Drinking too much caffeine or alcohol. ? Certain medicines, especially those that eliminate extra fluid in the body (diuretics). ? Constipation. What increases the risk? You may be at greater risk for overactive bladder if you: ? Are an older adult. ? Smoke. ? Are going through menopause. ? Have prostate problems. ? Have a neurological disease, such as stroke, dementia, Parkinson's disease, or multiple sclerosis(MS). ? Eat or drink alcohol, spicy food, caffeine, and other things that irritate the bladder. ? Are overweight or obese. What are the signs or symptoms? Symptoms of this condition include a sudden, strong urge to urinate. Other symptoms include: ? Leaking urine. ? Urinating 8 or more times a day. ? Waking up to urinate 2 or more times overnight. How is this diagnosed? This condition may be diagnosed based on: ? Your symptoms and medical history. ? A physical exam. ? Blood or urine tests to check for possible causes, such as infection. You may also need to see a health care provider who specializes in urinary tract problems. This is called a urologist. How is this treated? Treatment for overactive bladder depends on the cause of your condition and whether it is mild or severe. Treatment may include: ? Bladder training, such as: ? Learning to control the urge to urinate by following a schedule to urinate at regular intervals. ? Doing Kegel exercises to strengthen the pelvic floor muscles that support your bladder. ? Special devices, such as: ? Biofeedback. This uses sensors to help you become aware of your body's signals. ? Electrical stimulation. This uses electrodes placed inside the body (implanted) or outside the body. These electrodes send gentle pulses of electricity to strengthen the nerves or muscles that control the bladder. ? Women may use a plastic device, called a pessary, that fits into the vagina and supports the bladder. ? Medicines, such as: ? Antibiotics to treat bladder infection. ? Antispasmodics to stop the bladder from releasing urine at the wrong time. ? Tricyclic antidepressants to relax bladder muscles. ? Injections of botulinum toxin type A directly into the bladder tissue to relax bladder muscles. ? Surgery, such as: ? A device may be implanted to help manage the nerve signals that control urination. ? An electrode may be implanted to stimulate electrical signals in the bladder. ? A procedure may be done to change the shape of the bladder. This is done only in very severe cases. Follow these instructions at home: Eating and drinking ? Make diet or lifestyle changes recommended by your health care provider. These may include: ? Drinking fluids throughout the day and not only with meals. ? Cutting down on caffeine or alcohol. ? Eating a healthy and balanced diet to prevent constipation. This may include: ? Choosing foods that are high in fiber, such as beans, whole grains, and fresh fruits and vegetables. ? Limiting foods that are high in fat and processed sugars, such as fried and sweet foods. Lifestyle ? Lose weight if needed. ? Do not use any products that contain nicotine or tobacco. These include cigarettes, chewing tobacco, and vaping devices, such as e-cigarettes. If you need help quitting, ask your health care provider. General instructions ? Take pzdo-cnb-xujsrem and prescription medicines only as told by your health care provider. ? If you were prescribed an antibiotic medicine, take it as told by your health care provider. Do not stop taking the antibiotic even if you start to feel better. ? Use any implants or pessary as told by your health care provider. ? If needed, wear pads to absorb urine leakage. ? Keep a log to track how much and when you drink, and when you need to urinate. This will help your health care (more content not included)...[facility]04-16-2024 Hospital Discharge instructions Patient Education 11/14/2023 16:42:30 Benign Prostatic Hyperplasia Benign Prostatic Hyperplasia Benign prostatic hyperplasia (BPH) is an enlarged prostate gland that is caused by the normal agingprocess. The prostate may get bigger as a man gets older. The condition is not caused by cancer. The prostate is a walnut-sized gland that is involved in the production of semen. It is located in front of the rectum and below the bladder. The bladder stores urine. The urethra carries stored urine ou t of the body. An enlarged prostate can press on the urethra. This can make it harder to pass urine. The buildup of urine in the bladder can cause infection. Back pressure and infection may progress to bladder damage and kidney (renal) failure. What are the causes? This condition is part of the normal aging process. However, not all men develop problems from thiscondition. If the prostate enlarges away from the urethra, urine flow will not be blocked. If it enlarges toward the urethra and compresses it, there will be problems passing urine. What increases the risk? This condition is more likely to develop in men older than 50 years. What are the signs or symptoms? Symptoms of this condition include: Getting up often during the night to urinate. Needing to urinate frequently during the day. Difficulty starting urine flow. Decrease in size and strength of your urine stream. Leaking (dribbling) after urinating. Inability to pass urine. This needs immediate treatment. Inability to completely empty your bladder. Pain when you pass urine. This is more common if there is also an infection. Urinary tract infection (UTI). How is this diagnosed? This condition is diagnosed based on your medical history, a physical exam, and your symptoms. Tests will also be done, such as: A post-void bladder scan. This measures any amount of urine that may remain in your bladder after you finish urinating. A digital rectal exam. In a rectal exam, your health care provider checks your prostate by putting a lubricated, gloved finger into your rectum to feel the back of your prostate gland. This exam detects the size of your gland and any abnormal lumps or growths. An exam of your urine (urinalysis). A prostate specific antigen (PSA) screening. This is a blood test used to screen for prostate cancer. An ultrasound. This test uses sound waves to electronically produce a picture of your prostate gland. Your health care provider may refer you to a specialist in kidney and prostate diseases (urologist). How is this treated? Once symptoms begin, your health care provider will monitor your condition (active surveillance or watchful waiting). Treatment for this condition will depend on the severity of your condition. Treatment may include: Observation and yearly exams. This may be the only treatment needed if your condition and symptoms are mild. Medicines to relieve your symptoms, including: ?Medicines to shrink the prostate. ?Medicines to relax the muscle of the prostate. Surgery in severe cases. Surgery may include: ?Prostatectomy. In this procedure, the prostate tissue is removed completely through an open incision or with a laparoscope or robotics. ?Transurethral resection of the prostate (TURP). In this procedure, a tool is inserted through the opening at the tip of the penis (urethra). It is used to cut away tissue of the inner core of the prostate. The pieces are removed through the same opening of the penis. This removes the blockage. ?Transurethral incision (TUIP). In this procedure, small cuts are made in the prostate. This lessens the prostate's pressure on the urethra. ?Transurethral microwave thermotherapy (TUMT). This procedure uses microwaves to create heat. The heat destroys and removes a small amount of prostate tissue. ?Transurethral needle ablation (TUNA). This procedure uses radio frequencies to destroy and remove a small amount of prostate tissue. ?Interstitial laser coagulation (ILC). This procedure uses a laser to destroy and remove a small amount of prostate tissue. ?Transurethral electrovaporization (TUVP). This procedure uses electrodes to destroy and remove a small amount of prostate tissue. ?Prostatic urethral lift. This procedure inserts an implant to push the lobes of the prostate away from the urethra. Follow these instructions at home: Take yyoa-toh-aingdxu and prescription medicines only as told by your health care provider. Monitor your symptoms for any changes. Contact your health care provider with any changes. Avoid drinking large amounts of liquid before going to bed or out in public. Avoid or reduce how much caffeine or alcohol you drink. Give yourself time when you urinate. Keep all follow-up visits. This is important. Contact a health care provider if: You have unexplained back pain. Your symptoms do not get better with treatment. You develop side effects from the medicine you are taking. Your urine becomes very dark or has a bad smell. Your lower abdomen becomes distended and you have trouble passing urine. Get help right away if: You have a fever or chills. You suddenly cannot urinate. You feel light-headed or very dizzy, or you faint. There are large amounts of blood or clots in your urine. Your urinary problems become hard to manage. You develop moderate to severe low back or flank pain. The flank is the side of your body between the ribs and the hip. These symptoms may be an emergency. Get help right away. Call 911. Do not wait to see if the symptoms will go away. Do not drive yourself to the hospital. Summary Benign prostatic hyperplasia (BPH) is an enlarged prostate that is caused by the normal aging process. It is not caused by cancer. An enlarged prostate can press on the urethra. This can make it hard to pass urine. This condition is more likely to develop in men older than 50 years. Get help right away if you suddenly cannot urinate. This information is not intended to replace advice given to you by your health care provider. Make sure you discuss any questions you have with your health care provider. Document Revised: 02/02/2022 Document Reviewed: 02/02/2022 [employer] Patient Education 2022 [employer]. 11/14/2023 16:42:28 Overactive Bladder, Adult Overactive Bladder, Adult Overactive bladder is a condition in which a person has a sudden and frequent need to urinate. A person might also leak urine if he or she cannot get to the bathroom fast enough (urinary incontinence). Sometimes, symptoms can interfere with work or social activities. What are the causes? Overactive bladder is associated with poor nerve signals between your bladder and your brain. Your bladder may get the signal to empty before it is full. You may also have very sensitive muscles thatmake your bladder squeeze too soon. This condition may also be caused by other factors, such as: Medical conditions: ?Urinary tract infection. ?Infection of nearby tissues. ?Prostate enlargement. ?Bladder stones, inflammation, or tumors. ?Diabetes. ?Muscle or nerve weakness, especially from these conditions: ?A spinal cord injury. ?Stroke. ?Multiple sclerosis. ?Parkinson's disease. Other causes: ?Surgery on the uterus or urethra. ?Drinking too much caffeine or alcohol. ?Certain medicines, especially those that eliminate extra fluid in the body (diuretics). ?Constipation. What increases the risk? You may be at greater risk for overactive bladder if you: Are an older adult. Smoke. Are going through menopause. Have prostate problems. Have a neurological disease, such as stroke, dementia, Parkinson's disease, or multiple sclerosis (MS). Eat or drink alcohol, spicy food, caffeine, and other things that irritate the bladder. Are overweight or obese. What are the signs or symptoms? Symptoms of this condition include a sudden, strong urge to urinate. Other symptoms include: Leaking urine. Urinating 8 or more times a day. Waking up to urinate 2 or more times overnight. How is this diagnosed? This condition may be diagnosed based on: Your symptoms and medical history. A physical exam. Blood or urine tests to check for possible causes, such as infection. You may also need to see a health care provider who specializes in urinary tract problems. This is called a urologist. How is this treated? Treatment for overactive bladder depends on the cause of your condition and whether it is mild or severe. Treatment may include: Bladder training, such as: ?Learning to control the urge to urinate by following a schedule to urinate at regular intervals. ?Doing Kegel exercises to strengthen the pelvic floor muscles that support your bladder. Special devices, such as: ?Biofeedback. This uses sensors to help you become aware of your body's signals. ?Electrical stimulation. This uses electrodes placed inside the body (implanted) or outside the body. These electrodes send gentle pulses of electricity to strengthen the nerves or muscles that control the bladder. ?Women may use a plastic device, called a pessary, that fits into the vagina and supports the bladder. Medicines, such as: ?Antibiotics to treat bladder infection. ?Antispasmodics to stop the bladder from releasing urine at the wrong time. ?Tricyclic antidepressants to relax bladder muscles. ?Injections of botulinum toxin type A directly into the bladder tissue to relax bladder muscles. Surgery, such as: ?A device may be implanted to help manage the nerve signals that control urination. ?An electrode may be implanted to stimulate electrical signals in the bladder. ?A procedure may be done to change the shape of the bladder. This is done only in very severe cases. Follow these instructions at home: Eating and drinking Make diet or lifestyle changes recommended by your health care provider. These may include: ?Drinking fluids throughout the day and not only with meals. ?Cutting down on caffeine or alcohol. ?Eating a healthy and balanced diet to prevent constipation. This may include: ?Choosing foods that are high in fiber, such as beans, whole grains, and fresh fruits and vegetables. ?Limiting foods that are high in fat and processed sugars, such as fried and sweet foods. Lifestyle Lose weight if needed. Do not use any products that contain nicotine or tobacco. These include cigarettes, chewing tobacco, and vaping devices, such as e-cigarettes. If you need help quitting, ask your health care provider. General instructions Take blzv-nis-votuusg and prescription medicines only as told by your health care provider. If you were prescribed an antibiotic medicine, take it as told by your health care provider. Do notstop taking the antibiotic even if you start to feel better. Use any implants or pessary as told by your health care provider. If needed, wear pads to absorb urine leakage. Keep a log to track how much and when you drink, and when you need to urinate. This will help your health care provider monitor your condition. Keep all follow-up visits. This is important. Contact a health care provider if: You have a fever or chills. Your symptoms do not get better with treatment. Your pain and discomfort get worse. You have more frequent urges to urinate. Get help right away if: You are not able to control your bladder. Summary Overactive bladder refers to a condition in which a person has a sudden and frequent need to urinate. Several conditions may lead to an overactive bladder. Treatment for overactive bladder depends on the cause and severity of your condition. Making lifestyle changes, doing Kegel exercises, keeping a log, and taking medicines can help with this condition. This information is not intended to replace advice given to you by your health care provider. Make sure you discuss any questions you have with your health care provider. Document Revised: 04/05/2021 Document Reviewed: 04/05/2021 [employer] Patient Education 2022 [employer]. 11/14/2023 16:42:27 Erectile Dysfunction Erectile Dysfunction Erectile dysfunction (ED) is the inability to get or keep an erection in order to have sexual intercourse. ED is considered a symptom of an underlying disorder and is not considered a disease. ED mayinclude: Inability to get an erection. Lack of enough hardness of the erection to allow penetration. Loss of erection before sex is finished. What are the causes? This condition may be caused by: Physical causes, such as: ?Artery problems. This may include heart disease, high blood pressure, atherosclerosis, and diabetes. ?Hormonal problems, such as low testosterone. ?Obesity. ?Nerve problems. This may include back or pelvic injuries, multiple sclerosis, Parkinson's disease,spinal cord injury, and stroke. Certain medicines, such as: ?Pain relievers. ?Antidepressants. ?Blood pressure medicines and water pills (diuretics). ?Cancer medicines. ?Antihistamines. ?Muscle relaxants. Lifestyle factors, such as: ?Use of drugs such as marijuana, cocaine, or opioids. ?Excessive use of alcohol. ?Smoking. ?Lack of physical activity or exercise. Psychological causes, such as: ?Anxiety or stress. ?Sadness or depression. ?Exhaustion. ?Fear about sexual performance. ?Guilt. What are the signs or symptoms? Symptoms of this condition include: Inability to get an erection. Lack of enough hardness of the erection to allow penetration. Loss of the erection before sex is finished. Sometimes having normal erections, but with frequent unsatisfactory episodes. Low sexual satisfaction in either partner due to erection problems. A curved penis occurring with erection. The curve may cause pain, or the penis may be too curved toallow for intercourse. Never having nighttime or morning erections. How is this diagnosed? This condition is often diagnosed by: Performing a physical exam to find other diseases or specific problems with the penis. Asking you detailed questions about the problem. Doing tests, such as: ?Blood tests to check for diabetes mellitus or high cholesterol, or to measure hormone levels. ?Other tests to check for underlying health conditions. ?An ultrasound exam to check for scarring. ?A test to check blood flow to the penis. Doing a sleep study at home to measure nighttime erections. How is this treated? This condition may be treated by: Medicines, such as: ?Medicine taken by mouth to help you achieve an erection (oral medicine). ?Hormone replacement therapy to replace low testosterone levels. ?Medicine that is injected into the penis. Your health care provider may instruct you how to give yourself these injections at home. ?Medicine that is delivered with a short applicator tube. The tube is inserted into the opening at the tip of the penis, which is the opening of the urethra. A tiny pellet of medicine is put in the urethra. The pellet dissolves and enhances erectile function. This is also called MUSE (medicated urethral system for erections) therapy. Vacuum pump. This is a pump with a ring on it. The pump and ring are placed on the penis and used to create pressure that helps the penis become erect. Penile implant surgery. In this procedure, you may receive: ?An inflatable implant. This consists of cylinders, a pump, and a reservoir. The cylinders can be inflated with a fluid that helps to create an erection, and they can be deflated after intercourse. ?A semi-rigid implant. This consists of two silicone rubber rods. The rods provide some rigidity. They are also flexible, so the penis can both curve downward in its normal position and become straight for sexual intercourse. Blood vessel surgery to improve blood flow to the penis. During this procedure, a blood vessel froma different part of the body is placed into the penis to allow blood to flow around (bypass) damaged or blocked blood vessels. Lifestyle changes, such as exercising more, losing weight, and quitting smoking. Follow these instructions at home: Medicines Take dmth-flu-jhcbywe and prescription medicines only as told by your health care provider. Do not increase the dosage without first discussing it with your health care provider. If you are using self-injections, do injections as directed by your health care provider. Make sureyou avoid any veins that are on the surface of the penis. After giving an injection, apply pressureto the injection site for 5 minutes. Talk to your health care provider about how to prevent headaches while taking ED medicines. These medicines may cause a sudden headache due to the increase in blood flow in your body. General instructions Exercise regularly, as directed by your health care provider. Work with your health care provider to lose weight, if needed. Do not use any products that contain nicotine or tobacco. These products include cigarettes, chewing tobacco, and vaping devices, such as e-cigarettes. If you need help quitting, ask your health careprovider. Before using a vacuum pump, read the instructions that come with the pump and discuss any questionswith your health care provider. Keep all follow-up visits. This is important. Contact a health care provider if: You feel nauseous. You are vomiting. You get sudden headaches while taking ED medicines. You have any concerns about your sexual health. Get help right away if: You are taking oral or injectable medicines and you have an erection that lasts longer than 4 hours. If your health care provider is unavailable, go to the nearest emergency room for evaluation. An erection that lasts much longer than 4 hours can result in permanent damage to your penis. You have severe pain in your groin or abdomen. You develop redness or severe swelling of your penis. You have redness spreading at your groin or lower abdomen. You are unable to urinate. You experience chest pain or a rapid heartbeat (palpitations) after taking oral medicines. These symptoms may represent a serious problem that is an emergency. Do not wait to see if the symptoms will go away. Get medical help right away. Call your local emergency services (911 in the [place] Do not drive yourself to the hospital. Summary Erectile dysfunction (ED) is the inability to get or keep an erection during sexual intercourse. This condition is diagnosed based on a physical exam, your symptoms, and tests to determine the cause. Treatment varies depending on the cause and may include medicines, hormone therapy, surgery, or a vacuum pump. You may need follow-up visits to make sure that you are using your medicines or devices correctly. Get help right away if you are taking or injecting medicines and you have an erection that lasts longer than 4 hours. This information is not intended to replace advice given to you by your health care provider. Make sure you discuss any questions you have with your health care provider. Document Revised: 10/13/2021 Document Reviewed: 10/13/2021 [employer] Patient Education 2022 [employer]. Follow Up Care 11/07/2023 10:06:32 With:ORLY Dexter APRN, HERBERTH Barbour, URL Address: When: Unknown Comments:8Weeks [facility] 09-14-2023 Hospital Discharge instructions Patient Education 04/13/2023 10:17:31 Botulinum Toxin Bladder Injection Botulinum Toxin Bladder Injection A botulinum toxin bladder injection is a procedure to treat an overactive bladder. During the procedure, a drug called botulinum toxin is injected into the bladder through a long, thin needle. This drug relaxes the bladder muscles and reduces overactivity. You may need this procedure if your medicines are not working or you cannot take them. The procedure may be repeated as needed. The treatment is done once and it usually lasts for 6 months. Your health care provider will monitor you to see how well you respond. Tell a health care provider about: Any allergies you have. All medicines you are taking, including vitamins, herbs, eye drops, creams, and fvgf-eab-xxqcclg medicines. Any problems you or family members have had with anesthetic medicines. Any bleeding problems you have. Any surgeries you have had. Any medical conditions you have. Any previous reactions to a botulinum toxin injection. Any symptoms of urinary tract infection. These include chills, fever, a burning feeling when passing urine, and needing to pass urine often. Whether you are or may be . What are the risks? Generally this is a safe procedure. However, problems may occur, including: Not being able to pass urine. If this happens, you may need to have your bladder emptied with a thin tube (urinary catheter). Bleeding. Urinary tract infection. Allergic reaction to the botulinum toxin. Pain or burning when passing urine. Damage to nearby structures or organs. What happens before the procedure? When to stop eating and drinking Follow instructions from your health care provider about what you may eat and drink before your procedure. These may include: 8 hours before the procedure ?Stop eating most foods. Do not eat meat, fried foods, or fatty foods. ?Eat only light foods, such as toast or crackers. ?All liquids are okay except energy drinks and alcohol. 6 hours before the procedure ?Stop eating. ?Drink only clear liquids, such as water, clear fruit juice, black coffee, plain tea, and sports drinks. ?Do not drink energy drinks or alcohol. 2 hours before the procedure ?Stop drinking all liquids. ?You may be allowed to take medicines with small sips of water. If you do not follow your health care provider's instructions, your procedure may be delayed or canceled. Medicines Ask your health care provider about: Changing or stopping your regular medicines. This is especially important if you are taking diabetes medicines or blood thinners. Taking medicines such as aspirin and ibuprofen. These medicines can thin your blood. Do not take these medicines unless your health care provider tells you to take them. Taking mvzd-qvv-qhqazjc medicines, vitamins, herbs, and supplements. General instructions Ask your health care provider what steps will be taken to help prevent infection. These steps may include: ?Removing hair at the procedure site. ?Washing skin with a germ-killing soap. ?Taking antibiotic medicine. If you will be going home right after the procedure, plan to have a responsible adult: ?Take you home from the hospital or clinic. You will not be allowed to drive. ?Care for you for the time you are told. What happens during the procedure? You will be asked to empty your bladder. An IV will be inserted into one of your veins. You will be given one or more of the following: ?A medicine to help you relax (sedative). ?A medicine to numb the area (local anesthetic). ?A medicine to make you fall asleep (general anesthetic). A long, thin scope called a cystoscope will be passed into your bladder through the part of the body that carries urine from your bladder (urethra). The cystoscope will be used to fill your bladder with water. A long needle will be passed through the cystoscope and into the bladder. The botulinum toxin will be injected into your bladder. It may be injected into multiple areas of your bladder. The cystoscope will be removed and your bladder will be emptied with a urinary catheter. The procedure may vary among health care providers and hospitals. What can I expect after the procedure? After your procedure, it is common to have: Blood-tinged urine. Burning or soreness when you pass urine. Follow these instructions at home: Medicines Take tiwn-pzg-xedjems and prescription medicines only as told by your health care provider. If you were prescribed an antibiotic medicine, take it as told by your health care provider. Do notstop using the antibiotic even if you start to feel better. General instructions If you were given a sedative during the procedure, it can affect you for several hours. Do not drive or operate machinery until your health care provider says that it is safe. Drink enough fluid to keep your urine pale yellow. Return to your normal activities as told by your health care provider. Ask your health care provider what activities are safe for you. Keep all follow-up visits. Contact a health care provider if you have: A fever or chills. Blood-tinged urine for more than one day after your procedure. Worsening pain or burning when you pass urine. Pain or burning when passing urine for more than two days after your procedure. Trouble emptying your bladder. Get help right away if you: Have bright red blood in your urine. Are unable to pass urine. Summary A botulinum toxin bladder injection is a procedure to treat an overactive bladder. This is generally a safe procedure. However, problems may occur, including not being able to pass urine, bleeding, infection, pain, and an allergic reaction to the botulinum toxin. You will be told when to stop eating and drinking, and what medicines to change or stop. Follow instructions carefully. After the procedure, it is common to have blood in your urine and to have soreness or burning when passing urine. Contact a health care provider if you have a fever, blood in your urine for more than a few days, or trouble passing urine. Get help right away if you have bright red blood in your urine, or if you are unable to pass urine. This information is not intended to replace advice given to you by your health care provider. Make sure you discuss any questions you have with your health care provider. Document Revised: 01/21/2022 Document Reviewed: 01/21/2022 [employer] Patient Education 2022 [employer]. Follow Up Care 10/07/2022 08:46:15 With:Ernie RICE, KANDIS Maldonado, URO Address:Unknown When: Unknown [facility] Discharge instructions Patient Education 10/07/2022 08:44:37 Benign Prostatic Hyperplasia Benign Prostatic Hyperplasia Benign prostatic hyperplasia (BPH) is an enlarged prostate gland that is caused by the normal agingprocess and not by cancer. The prostate is a walnut-sized gland that is involved in the production of semen. It is located in front of the rectum and below the bladder. The bladder stores urine and the urethra is the tube that carries the urine out of the body. The prostate may get bigger as a man gets older. An enlarged prostate can press on the urethra. This can make it harder to pass urine. The build-up of urine in the bladder can cause infection. Back pressure and infection may progress to bladder damage and kidney (renal) failure. What are the causes? This condition is part of a normal aging process. However, not all men develop problems from this condition. If the prostate enlarges away from the urethra, urine flow will not be blocked. If it enlarges toward the urethra and compresses it, there will be problems passing urine. What increases the risk? This condition is more likely to develop in men over the age of 50 years. What are the signs or symptoms? Symptoms of this condition include: Getting up often during the night to urinate. Needing to urinate frequently during the day. Difficulty starting urine flow. Decrease in size and strength of your urine stream. Leaking (dribbling) after urinating. Inability to pass urine. This needs immediate treatment. Inability to completely empty your bladder. Pain when you pass urine. This is more common if there is also an infection. Urinary tract infection (UTI). How is this diagnosed? This condition is diagnosed based on your medical history, a physical exam, and your symptoms. Tests will also be done, such as: A post-void bladder scan. This measures any amount of urine that may remain in your bladder after you finish urinating. A digital rectal exam. In a rectal exam, your health care provider checks your prostate by putting a lubricated, gloved finger into your rectum to feel the back of your prostate gland. This exam detects the size of your gland and any abnormal lumps or growths. An exam of your urine (urinalysis). A prostate specific antigen (PSA) screening. This is a blood test used to screen for prostate cancer. An ultrasound. This test uses sound waves to electronically produce a picture of your prostate gland. Your health care provider may refer you to a specialist in kidney and prostate diseases (urologist). How is this treated? Once symptoms begin, your health care provider will monitor your condition (active surveillance or watchful waiting). Treatment for this condition will depend on the severity of your condition. Treatment may include: Observation and yearly exams. This may be the only treatment needed if your condition and symptoms are mild. Medicines to relieve your symptoms, including: ?Medicines to shrink the prostate. ?Medicines to relax the muscle of the prostate. Surgery in severe cases. Surgery may include: ?Prostatectomy. In this procedure, the prostate tissue is removed completely through an open incision or with a laparoscope or robotics. ?Transurethral resection of the prostate (TURP). In this procedure, a tool is inserted through the opening at the tip of the penis (urethra). It is used to cut away tissue of the inner core of the prostate. The pieces are removed through the same opening of the penis. This removes the blockage. ?Transurethral incision (TUIP). In this procedure, small cuts are made in the prostate. This lessens the prostate's pressure on the urethra. ?Transurethral microwave thermotherapy (TUMT). This procedure uses microwaves to create heat. The heat destroys and removes a small amount of prostate tissue. ?Transurethral needle ablation (TUNA). This procedure uses radio frequencies to destroy and remove a small amount of prostate tissue. ?Interstitial laser coagulation (ILC). This procedure uses a laser to destroy and remove a small amount of prostate tissue. ?Transurethral electrovaporization (TUVP). This procedure uses electrodes to destroy and remove a small amount of prostate tissue. ?Prostatic urethral lift. This procedure inserts an implant to push the lobes of the prostate away from the urethra. Follow these instructions at home: Take gzyz-nzo-dbyymux and prescription medicines only as told by your health care provider. Monitor your symptoms for any changes. Contact your health care provider with any changes. Avoid drinking large amounts of liquid before going to bed or out in public. Avoid or reduce how much caffeine or alcohol you drink. Give yourself time when you urinate. Keep all follow-up visits as told by your health care provider. This is important. Contact a health care provider if: You have unexplained back pain. Your symptoms do not get better with treatment. You develop side effects from the medicine you are taking. Your urine becomes very dark or has a bad smell. Your lower abdomen becomes distended and you have trouble passing your urine. Get help right away if: You have a fever or chills. You suddenly cannot urinate. You feel lightheaded, or very dizzy, or you faint. There are large amounts of blood or clots in the urine. Your urinary problems become hard to manage. You develop moderate to severe low back or flank pain. The flank is the side of your body between the ribs and the hip. These symptoms may represent a serious problem that is an emergency. Do not wait to see if the symptoms will go away. Get medical help right away. Call your local emergency services (911 in the [place] Do not drive yourself to the hospital. Summary Benign prostatic hyperplasia (BPH) is an enlarged prostate that is caused by the normal aging process and not by cancer. An enlarged prostate can press on the urethra. This can make it hard to pass urine. This condition is part of a normal aging process and is more likely to develop in men over the age of 50 years. Get help right away if you suddenly cannot urinate. This information is not intended to replace advice given to you by your health care provider. Make sure you discuss any questions you have with your health care provider. Document Released: 07/17/2006 Document Revised: 06/11/2019 Document Reviewed: 08/21/2017 GoingOn Patient Education 2019 [employer]. Follow Up Care 08/25/2022 15:18:01 With:Ernie RICE, KANDIS Maldonado, URO Address: When: Unknown [facility] 01-23-2023 Hospital Discharge instructions Patient Education 08/22/2022 09:04:36 [facility] - [facility] Discharge Instructions (Custom) Re[facility] Post-Procedure Instructions General Recommendations 1. Drink some extra fluids (water preferred) for the first few days following the procedure. Avoid alcohol and caffeine until your irritative symptoms have resolved. 2. Take the medication as prescribed by your doctor. Usually this will include an antibiotic, pain medication or antispasmodic if needed. -Tylenol 650-1000 mg every 6 hours as needed for pain. Thurmond for severe uncontrolled pain (This con096 mg of tylenol, do not exceed 4000mg/24 hours). Continue home trospium for bladder spasms. AZO over the counter can be bought for buring with urination. This will make your urine orange. 3. Avoid lifting heavy objects (>10 lbs) or excessive straining as this may cause bleeding in the first week after surgery. 4. Catheter instructions: You will go home with a Ontiveros catheter attached to a catheter bag. Follow your doctor s instructions. Office will call in 2 days and make appt for nursing visit ontiveros removal in 3 days if urine is clear. 5 days if still pink/bloody. 5. You may resume your normal diet. Common Treatment Related Symptoms The following are common treatment related signs and symptoms that you may experience after the procedure. They may also occur following removal of the catheter. After the procedure, your general urinary symptoms may temporarily worsen and then gradually improve. 1. Blood in the Urine. It is common to see some blood in the urine for 1 to 2 weeks. Limit any physical activities and drink some extra water to flush the bladder but you do not need to drink excessively or be alarmed. If you think the bleeding is excessive or you are having trouble urinating, callthe number below. 2. Painful Urination. It is common to have some pain or burning with urination for 1 to 2 weeks. Itshould gradually improve. If it persists or starts to worsen, call the number below. 3. Slow Urinary Stream. After the procedure, swelling of the prostate occurs which may or may not make the urinary stream weaker. This should gradually improve. If you are having a lot of difficulty trying to urinate or cannot urinate, call your doctor. 4. Urinary Urgency, Frequency or Leakage. You may experience frequency and/or a strong urge to urinate while the prostate heals. Sometimes, you may find the urge is so strong that it is difficult to hold your urine and leakage can occur. 6. Blood in the Semen. This may occur up to several weeks following the procedure. The semen may have red or a maria g color. This condition will almost always resolve without any treatment. You shouldnot be alarmed. Frequently Asked Questions Your Treating Doctor may override these recommendations. You should follow his/her instructions. 1. When can I resume normal physical activities? You may resume your daily activities immediately. You should limit vigorous workouts such as bike riding, running, treadmills, and heavy weight lifting for the first week. If you experience any bleeding, limit your activities and increase your water intake. 2. When can I resume sexual activity? In general, once you do not see any blood in the urine you may resume sexual activity. You may experience blood in the semen as described in the Common Treatment Related Symptoms section. 3. When can I resume my medications including blood thinners? In general, you should continue with any of your regular medications but check with your doctor. Typically, you can resume any blood thinners immediately post procedure but check with your doctor. 4. When can I go back to work? In general, you can return to work the following day. If you are taking pain medication (narcotics)or have a physical job (lifting, construction work, etc.), check with your doctor. 5. When can I have an alcoholic beverage? You should avoid any alcohol until your irritative symptoms have resolved, typically 1-2 weeks. Alcohol is a bladder irritant and can worsen your symptoms. You should also follow the instructions regarding alcohol intake on the labels of your prescription medication. Contact your Doctor Immediately If you experience: 1. Fever (oral temperature = 101 F), chills may be signs of an infection. 2. Inability to urinate. 3. Foul smelling or cloudy urine. 4. While there may be some pain related to the procedure, it is usually not severe. If you are experiencing severe pain or any condition you think may be serious, call your doctor. 5. If unable to contact your physician and you feel it is an emergency, go to the nearest emergencyroom or call 911. Ontiveros Catheter Care, Male A Ontiveros catheter is a soft, flexible tube that is placed into the bladder to drain urine. The catheter has a balloon to hold it inside the bladder. A Ontiveros catheter may be inserted if: You leak urine or are not able to control when you urinate (urinary incontinence). You are not able to urinate when you need to (urinary retention). You had prostate surgery or surgery on the genitals. You have certain medical conditions, such as multiple sclerosis, dementia, or a spinal cord injury. To Prevent Infection: 1. Wash your hands with soap and water before and after handling your catheter. 2. Using mild soap and warm water on a clean washcloth; twice a day. Clean the area on your body closest to the catheter insertion site using a circular motion, moving away from the catheter. Never wipe toward the catheter because this could sweep bacteria up into theurethra and cause infection. Remove all traces of soap. Pat the area dry with a clean towel and reposition the foreskin. No tub baths. No lotions, powders, or sprays unless directed by your physician. 3. Keep the tube secure. Do not let the tube pull or catch when you are moving around. Attach the catheter to your leg so there is no tension on the catheter. Use adhesive tape or a leg strap. If you are using adhesive tape, remove any sticky residue left behind by the previous tape you used. 4. Replace wet leg straps with dry ones. 5. Wear cotton underwear to absorb moisture and keep skin peeling machine operator. 6. Keep the drainage bag below the level of the bladder, but keep it off the floor. 7. Check throughout the day to be sure the catheter is working and urine is draining freely. Make sure the tubing does not become kinked or looped. 8. Do not pull on the catheter or try to remove it. Pulling could damage internal tissues. TAKING CARE OF THE DRAINAGE BAGS Emptying the Drainage Bag You must empty your drainage bag when it is ? full. 1. Wash your hands with soap and water before and after handling your catheter. 2. Keep the drainage bag below your hips, below the level of your bladder. This stops urine from going back into the tubing and into your bladder. 3. Hold the dirty bag over the toilet or a clean container. 4. Open the pour spout at the bottom of the bag and empty the urine into the toilet or container. Do not let the pour spout touch the toilet, container, or any other surface. Doing so can place bacteria on the bag, which can cause an infection. 5. Clean the pour spout with a gauze pad or cotton ball that has rubbing alcohol on it. 6. Close the pour spout. 7. Attach the bag to your leg with adhesive tape or a leg strap. Changing the Drainage Bag 1. Wash your hands with soap and water before and after handling your catheter. 2. Pinch off the rubber catheter so that urine does not spill out. 3. Disconnect the catheter tube from the drainage tube at the connection valve. Do not let the tubes touch any surface. 4. Clean the end of the catheter tube with an alcohol wipe. Use a different alcohol wipe to clean the end of the drainage tube. 5. Connect the catheter tube to the drainage tube of the clean drainage bag. 6. Attach the new bag to the leg with adhesive tape or a leg strap. Avoid attaching the new bag tootightly. 7. Place a cap on the drainage bag not in use and store in a clean towel. SEEK MEDICAL CARE IF: Your urine is cloudy or smells. Your catheter starts to leak. Your catheter falls out or is pulled out. You have pain, swelling, redness, or pus where the catheter enters the body. You have pain in the abdomen, legs, lower back, or bladder. You have a fever of 100.4 F (38 C) or higher You see pink, red, dark, coffee colored, or pus-like urine. You have nausea, vomiting, or chills. You are not feeling better in 2 to 3 days or you are feeling worse. You are not draining urine into the bag or your bladder feels full. MAKE SURE YOU: Understand the reason you have the catheter. Understand and follow these instructions to care for the catheter. Will watch your condition. Drink 6-8 glasses of water or liquids per day to keep your urine clear. Avoid Caffeinated drinks. They can irritate the bladder and cause bladder spasms. Keep your follow up appointments and call with any concerns. 08/22/2022 08:29:23 Ontiveros Catheter Care, Male-[facility] (Custom) Ontiveros Catheter Care, Male A Ontiveros catheter is a soft, flexible tube that is placed into the bladder to drain urine. The catheter has a balloon to hold it inside the bladder. A Ontiveros catheter may be inserted if: You leak urine or are not able to control when you urinate (urinary incontinence). You are not able to urinate when you need to (urinary retention). You had prostate surgery or surgery on the genitals. You have certain medical conditions, such as multiple sclerosis, dementia, or a spinal cord injury. To Prevent Infection: 1. Wash your hands with soap and water before and after handling your catheter. 2. Using mild soap and warm water on a clean washcloth; twice a day. Clean the area on your body closest to the catheter insertion site using a circular motion, moving away from the catheter. Never wipe toward the catheter because this could sweep bacteria up into theurethra and cause infection. Remove all traces of soap. Pat the area dry with a clean towel and reposition the foreskin. No tub baths. No lotions, powders, or sprays unless directed by your physician. 3. Keep the tube secure. Do not let the tube pull or catch when you are moving around. Attach the catheter to your leg so there is no tension on the catheter. Use adhesive tape or a leg strap. If you are using adhesive tape, remove any sticky residue left behind by the previous tape you used. 4. Replace wet leg straps with dry ones. 5. Wear cotton underwear to absorb moisture and keep skin peeling machine operator. 6. Keep the drainage bag below the level of the bladder, but keep it off the floor. 7. Check throughout the day to be sure the catheter is working and urine is draining freely. Make sure the tubing does not become kinked or looped. 8. Do not pull on the catheter or try to remove it. Pulling could damage internal tissues. TAKING CARE OF THE DRAINAGE BAGS You will be given two drainage bags to take home. One is a large overnight drainage bag, and the other is a smaller leg bag that fits underneath clothing. You may wear the overnight bag at any time, but you should never wear the smaller leg bag at night, unless directed by your physician. Follow the instructions below for how to empty and change your drainage bags. Emptying the Drainage Bag You must empty your drainage bag when it is ? full. 1. Wash your hands with soap and water before and after handling your catheter. 2. Keep the drainage bag below your hips, below the level of your bladder. This stops urine from going back into the tubing and into your bladder. 3. Hold the dirty bag over the toilet or a clean container. 4. Open the pour spout at the bottom of the bag and empty the urine into the toilet or container. Do not let the pour spout touch the toilet, container, or any other surface. Doing so can place bacteria on the bag, which can cause an infection. 5. Clean the pour spout with a gauze pad or cotton ball that has rubbing alcohol on it. 6. Close the pour spout. 7. Attach the bag to your leg with adhesive tape or a leg strap. Changing the Drainage Bag 1. Wash your hands with soap and water before and after handling your catheter. 2. Pinch off the rubber catheter so that urine does not spill out. 3. Disconnect the catheter tube from the drainage tube at the connection valve. Do not let the tubes touch any surface. 4. Clean the end of the catheter tube with an alcohol wipe. Use a different alcohol wipe to clean the end of the drainage tube. 5. Connect the catheter tube to the drainage tube of the clean drainage bag. 6. Attach the new bag to the leg with adhesive tape or a leg strap. Avoid attaching the new bag tootightly. 7. Place a cap on the drainage bag not in use and store in a clean towel. SEEK MEDICAL CARE IF: Your urine is cloudy or smells. Your catheter starts to leak. Your catheter falls out or is pulled out. You have pain, swelling, redness, or pus where the catheter enters the body. You have pain in the abdomen, legs, lower back, or bladder. You have a fever of 100.4 F (38 C) or higher You see pink, red, dark, coffee colored, or pus-like urine. You have nausea, vomiting, or chills. You are not feeling better in 2 to 3 days or you are feeling worse. You are not draining urine into the bag or your bladder feels full. MAKE SURE YOU: Understand the reason you have the catheter. Understand and follow these instructions to care for the catheter. Will watch your condition. Drink 6-8 glasses of water or liquids per day to keep your urine clear. Avoid Caffeinated drinks. They can irritate the bladder and cause bladder spasms. Keep your follow up appointments and call with any concerns. Follow Up Care 07/19/2022 10:11:47 With:Marita Klein Address: [address] [place] [address] [phone] Business (1) [address]ustin [address] [address]- [phone] Business (1) When: Unknown Comments:Office to schedule follow up in 1 month with [facility]. Ontiveros removal in 3-5 days once urine is clear [facility]12-20-2022 Hospital Discharge instructions Patient Education 07/19/2022 08:02:45 Benign Prostatic Hyperplasia Benign Prostatic Hyperplasia Benign prostatic hyperplasia (BPH) is an enlarged prostate gland that is caused by the normal agingprocess and not by cancer. The prostate is a walnut-sized gland that is involved in the production of semen. It is located in front of the rectum and below the bladder. The bladder stores urine and the urethra is the tube that carries the urine out of the body. The prostate may get bigger as a man gets older. An enlarged prostate can press on the urethra. This can make it harder to pass urine. The build-up of urine in the bladder can cause infection. Back pressure and infection may progress to bladder damage and kidney (renal) failure. What are the causes? This condition is part of a normal aging process. However, not all men develop problems from this condition. If the prostate enlarges away from the urethra, urine flow will not be blocked. If it enlarges toward the urethra and compresses it, there will be problems passing urine. What increases the risk? This condition is more likely to develop in men over the age of 50 years. What are the signs or symptoms? Symptoms of this condition include: Getting up often during the night to urinate. Needing to urinate frequently during the day. Difficulty starting urine flow. Decrease in size and strength of your urine stream. Leaking (dribbling) after urinating. Inability to pass urine. This needs immediate treatment. Inability to completely empty your bladder. Pain when you pass urine. This is more common if there is also an infection. Urinary tract infection (UTI). How is this diagnosed? This condition is diagnosed based on your medical history, a physical exam, and your symptoms. Tests will also be done, such as: A post-void bladder scan. This measures any amount of urine that may remain in your bladder after you finish urinating. A digital rectal exam. In a rectal exam, your health care provider checks your prostate by putting a lubricated, gloved finger into your rectum to feel the back of your prostate gland. This exam detects the size of your gland and any abnormal lumps or growths. An exam of your urine (urinalysis). A prostate specific antigen (PSA) screening. This is a blood test used to screen for prostate cancer. An ultrasound. This test uses sound waves to electronically produce a picture of your prostate gland. Your health care provider may refer you to a specialist in kidney and prostate diseases (urologist). How is this treated? Once symptoms begin, your health care provider will monitor your condition (active surveillance or watchful waiting). Treatment for this condition will depend on the severity of your condition. Treatment may include: Observation and yearly exams. This may be the only treatment needed if your condition and symptoms are mild. Medicines to relieve your symptoms, including: ?Medicines to shrink the prostate. ?Medicines to relax the muscle of the prostate. Surgery in severe cases. Surgery may include: ?Prostatectomy. In this procedure, the prostate tissue is removed completely through an open incision or with a laparoscope or robotics. ?Transurethral resection of the prostate (TURP). In this procedure, a tool is inserted through the opening at the tip of the penis (urethra). It is used to cut away tissue of the inner core of the prostate. The pieces are removed through the same opening of the penis. This removes the blockage. ?Transurethral incision (TUIP). In this procedure, small cuts are made in the prostate. This lessens the prostate's pressure on the urethra. ?Transurethral microwave thermotherapy (TUMT). This procedure uses microwaves to create heat. The heat destroys and removes a small amount of prostate tissue. ?Transurethral needle ablation (TUNA). This procedure uses radio frequencies to destroy and remove a small amount of prostate tissue. ?Interstitial laser coagulation (ILC). This procedure uses a laser to destroy and remove a small amount of prostate tissue. ?Transurethral electrovaporization (TUVP). This procedure uses electrodes to destroy and remove a small amount of prostate tissue. ?Prostatic urethral lift. This procedure inserts an implant to push the lobes of the prostate away from the urethra. Follow these instructions at home: Take yrkx-lmz-wlvnare and prescription medicines only as told by your health care provider. Monitor your symptoms for any changes. Contact your health care provider with any changes. Avoid drinking large amounts of liquid before going to bed or out in public. Avoid or reduce how much caffeine or alcohol you drink. Give yourself time when you urinate. Keep all follow-up visits as told by your health care provider. This is important. Contact a health care provider if: You have unexplained back pain. Your symptoms do not get better with treatment. You develop side effects from the medicine you are taking. Your urine becomes very dark or has a bad smell. Your lower abdomen becomes distended and you have trouble passing your urine. Get help right away if: You have a fever or chills. You suddenly cannot urinate. You feel lightheaded, or very dizzy, or you faint. There are large amounts of blood or clots in the urine. Your urinary problems become hard to manage. You develop moderate to severe low back or flank pain. The flank is the side of your body between the ribs and the hip. These symptoms may represent a serious problem that is an emergency. Do not wait to see if the symptoms will go away. Get medical help right away. Call your local emergency services (911 in the [place] Do not drive yourself to the hospital. Summary Benign prostatic hyperplasia (BPH) is an enlarged prostate that is caused by the normal aging process and not by cancer. An enlarged prostate can press on the urethra. This can make it hard to pass urine. This condition is part of a normal aging process and is more likely to develop in men over the age of 50 years. Get help right away if you suddenly cannot urinate. This information is not intended to replace advice given to you by your health care provider. Make sure you discuss any questions you have with your health care provider. Document Released: 07/17/2006 Document Revised: 06/11/2019 Document Reviewed: 08/21/2017 [employer] Patient Education 2019 [employer]. Follow Up Care 07/01/2022 11:16:31 With:Ernie RICE, KANDIS Maldonado, URO Address: When: Unknown [facility] 10-04-2022 Hospital Discharge instructions Patient Education 05/03/2022 09:24:59 Overactive Bladder, Adult Overactive Bladder, Adult Overactive bladder refers to a condition in which a person has a sudden need to pass urine. The person may leak urine if he or she cannot get to the bathroom fast enough (urinary incontinence). A person with this condition may also wake up several times in the night to go to the bathroom. Overactive bladder is associated with poor nerve signals between your bladder and your brain. Your bladder may get the signal to empty before it is full. You may also have very sensitive muscles thatmake your bladder squeeze too soon. These symptoms might interfere with daily work or social activities. What are the causes? This condition may be associated with or caused by: Urinary tract infection. Infection of nearby tissues, such as the prostate. Prostate enlargement. Surgery on the uterus or urethra. Bladder stones, inflammation, or tumors. Drinking too much caffeine or alcohol. Certain medicines, especially medicines that get rid of extra fluid in the body (diuretics). Muscle or nerve weakness, especially from: ?A spinal cord injury. ?Stroke. ?Multiple sclerosis. ?Parkinson's disease. Diabetes. Constipation. What increases the risk? You may be at greater risk for overactive bladder if you: Are an older adult. Smoke. Are going through menopause. Have prostate problems. Have a neurological disease, such as stroke, dementia, Parkinson's disease, or multiple sclerosis (MS). Eat or drink things that irritate the bladder. These include alcohol, spicy food, and caffeine. Are overweight or obese. What are the signs or symptoms? Symptoms of this condition include: Sudden, strong urge to urinate. Leaking urine. Urinating 8 or more times a day. Waking up to urinate 2 or more times a night. How is this diagnosed? Your health care provider may suspect overactive bladder based on your symptoms. He or she will diagnose this condition by: A physical exam and medical history. Blood or urine tests. You might need bladder or urine tests to help determine what is causing your overactive bladder. You might also need to see a health care provider who specializes in urinary tract problems (urologist). How is this treated? Treatment for overactive bladder depends on the cause of your condition and whether it is mild or severe. You can also make lifestyle changes at home. Options include: Bladder training. This may include: ?Learning to control the urge to urinate by following a schedule that directs you to urinate at regular intervals (timed voiding). ?Doing Kegel exercises to strengthen your pelvic floor muscles, which support your bladder. Toning these muscles can help you control urination, even if your bladder muscles are overactive. Special devices. This may include: ?Biofeedback, which uses sensors to help you become aware of your body's signals. ?Electrical stimulation, which uses electrodes placed inside the body (implanted) or outside the body. These electrodes send gentle pulses of electricity to strengthen the nerves or muscles that control the bladder. ?Women may use a plastic device that fits into the vagina and supports the bladder (pessary). Medicines. ?Antibiotics to treat bladder infection. ?Antispasmodics to stop the bladder from releasing urine at the wrong time. ?Tricyclic antidepressants to relax bladder muscles. ?Injections of botulinum toxin type A directly into the bladder tissue to relax bladder muscles. Lifestyle changes. This may include: ?Weight loss. Talk to your health care provider about weight loss methods that would work best for you. ?Diet changes. This may include reducing how much alcohol and caffeine you consume, or drinking fluids at different times of the day. ?Not smoking. Do not use any products that contain nicotine or tobacco, such as cigarettes and e-cigarettes. If you need help quitting, ask your health care provider. Surgery. ?A device may be implanted to help manage the nerve signals that control urination. ?An electrode may be implanted to stimulate electrical signals in the bladder. ?A procedure may be done to change the shape of the bladder. This is done only in very severe cases. Follow these instructions at home: Lifestyle Make any diet or lifestyle changes that are recommended by your health care provider. These may include: ?Drinking less fluid or drinking fluids at different times of the day. ?Cutting down on caffeine or alcohol. ?Doing Kegel exercises. ?Losing weight if needed. ?Eating a healthy and balanced diet to prevent constipation. This may include: ?Eating foods that are high in fiber, such as fresh fruits and vegetables, whole grains, and beans. ?Limiting foods that are high in fat and processed sugars, such as fried and sweet foods. General instructions Take vfmi-skd-kpcorfl and prescription medicines only as told by your health care provider. If you were prescribed an antibiotic medicine, take it as told by your health care provider. Do notstop taking the antibiotic even if you start to feel better. Use any implants or pessary as told by your health care provider. If needed, wear pads to absorb urine leakage. Keep a journal or log to track how much and when you drink and when you feel the need to urinate. This will help your health care provider monitor your condition. Keep all follow-up visits as told by your health care provider. This is important. Contact a health care provider if: You have a fever. Your symptoms do not get better with treatment. Your pain and discomfort get worse. You have more frequent urges to urinate. Get help right away if: You are not able to control your bladder. Summary Overactive bladder refers to a condition in which a person has a sudden need to pass urine. Several conditions may lead to an overactive bladder. Treatment for overactive bladder depends on the cause and severity of your condition. Follow your health care provider's instructions about lifestyle changes, doing Kegel exercises, keeping a journal, and taking medicines. This information is not intended to replace advice given to you by your health care provider. Make sure you discuss any questions you have with your health care provider. Document Released: 05/13/2010 Document Revised: 11/07/2019 Document Reviewed: 08/02/2018 Elsevier Patient Education 2019 [employer] [facility] 05-27-2022 Hospital Discharge instructions Patient Education 12/24/2021 10:21:59 Overactive Bladder, Adult Overactive Bladder, Adult Overactive bladder refers to a condition in which a person has a sudden need to pass urine. The person may leak urine if he or she cannot get to the bathroom fast enough (urinary incontinence). A person with this condition may also wake up several times in the night to go to the bathroom. Overactive bladder is associated with poor nerve signals between your bladder and your brain. Your bladder may get the signal to empty before it is full. You may also have very sensitive muscles thatmake your bladder squeeze too soon. These symptoms might interfere with daily work or social activities. What are the causes? This condition may be associated with or caused by: Urinary tract infection. Infection of nearby tissues, such as the prostate. Prostate enlargement. Surgery on the uterus or urethra. Bladder stones, inflammation, or tumors. Drinking too much caffeine or alcohol. Certain medicines, especially medicines that get rid of extra fluid in the body (diuretics). Muscle or nerve weakness, especially from: ?A spinal cord injury. ?Stroke. ?Multiple sclerosis. ?Parkinson's disease. Diabetes. Constipation. What increases the risk? You may be at greater risk for overactive bladder if you: Are an older adult. Smoke. Are going through menopause. Have prostate problems. Have a neurological disease, such as stroke, dementia, Parkinson's disease, or multiple sclerosis (MS). Eat or drink things that irritate the bladder. These include alcohol, spicy food, and caffeine. Are overweight or obese. What are the signs or symptoms? Symptoms of this condition include: Sudden, strong urge to urinate. Leaking urine. Urinating 8 or more times a day. Waking up to urinate 2 or more times a night. How is this diagnosed? Your health care provider may suspect overactive bladder based on your symptoms. He or she will diagnose this condition by: A physical exam and medical history. Blood or urine tests. You might need bladder or urine tests to help determine what is causing your overactive bladder. You might also need to see a health care provider who specializes in urinary tract problems (urologist). How is this treated? Treatment for overactive bladder depends on the cause of your condition and whether it is mild or severe. You can also make lifestyle changes at home. Options include: Bladder training. This may include: ?Learning to control the urge to urinate by following a schedule that directs you to urinate at regular intervals (timed voiding). ?Doing Kegel exercises to strengthen your pelvic floor muscles, which support your bladder. Toning these muscles can help you control urination, even if your bladder muscles are overactive. Special devices. This may include: ?Biofeedback, which uses sensors to help you become aware of your body's signals. ?Electrical stimulation, which uses electrodes placed inside the body (implanted) or outside the body. These electrodes send gentle pulses of electricity to strengthen the nerves or muscles that control the bladder. ?Women may use a plastic device that fits into the vagina and supports the bladder (pessary). Medicines. ?Antibiotics to treat bladder infection. ?Antispasmodics to stop the bladder from releasing urine at the wrong time. ?Tricyclic antidepressants to relax bladder muscles. ?Injections of botulinum toxin type A directly into the bladder tissue to relax bladder muscles. Lifestyle changes. This may include: ?Weight loss. Talk to your health care provider about weight loss methods that would work best for you. ?Diet changes. This may include reducing how much alcohol and caffeine you consume, or drinking fluids at different times of the day. ?Not smoking. Do not use any products that contain nicotine or tobacco, such as cigarettes and e-cigarettes. If you need help quitting, ask your health care provider. Surgery. ?A device may be implanted to help manage the nerve signals that control urination. ?An electrode may be implanted to stimulate electrical signals in the bladder. ?A procedure may be done to change the shape of the bladder. This is done only in very severe cases. Follow these instructions at home: Lifestyle Make any diet or lifestyle changes that are recommended by your health care provider. These may include: ?Drinking less fluid or drinking fluids at different times of the day. ?Cutting down on caffeine or alcohol. ?Doing Kegel exercises. ?Losing weight if needed. ?Eating a healthy and balanced diet to prevent constipation. This may include: ?Eating foods that are high in fiber, such as fresh fruits and vegetables, whole grains, and beans. ?Limiting foods that are high in fat and processed sugars, such as fried and sweet foods. General instructions Take iurb-rcs-bnaoucs and prescription medicines only as told by your health care provider. If you were prescribed an antibiotic medicine, take it as told by your health care provider. Do notstop taking the antibiotic even if you start to feel better. Use any implants or pessary as told by your health care provider. If needed, wear pads to absorb urine leakage. Keep a journal or log to track how much and when you drink and when you feel the need to urinate. This will help your health care provider monitor your condition. Keep all follow-up visits as told by your health care provider. This is important. Contact a health care provider if: You have a fever. Your symptoms do not get better with treatment. Your pain and discomfort get worse. You have more frequent urges to urinate. Get help right away if: You are not able to control your bladder. Summary Overactive bladder refers to a condition in which a person has a sudden need to pass urine. Several conditions may lead to an overactive bladder. Treatment for overactive bladder depends on the cause and severity of your condition. Follow your health care provider's instructions about lifestyle changes, doing Kegel exercises, keeping a journal, and taking medicines. This information is not intended to replace advice given to you by your health care provider. Make sure you discuss any questions you have with your health care provider. Document Released: 05/13/2010 Document Revised: 11/07/2019 Document Reviewed: 08/02/2018 [employer] Patient Education 2019 [employer] Follow Up Care 11/12/2021 11:16:52 With:Ernie RICE, KANDIS Maldonado, URO Address: [address] [place] [address] [phone] Business (1) When: Unknown [facility] 04-15-2022 Hospital Discharge instructions Patient Education 11/12/2021 11:18:37 Benign Prostatic Hyperplasia Benign Prostatic Hyperplasia Benign prostatic hyperplasia (BPH) is an enlarged prostate gland that is caused by the normal agingprocess and not by cancer. The prostate is a walnut-sized gland that is involved in the production of semen. It is located in front of the rectum and below the bladder. The bladder stores urine and the urethra is the tube that carries the urine out of the body. The prostate may get bigger as a man gets older. An enlarged prostate can press on the urethra. This can make it harder to pass urine. The build-up of urine in the bladder can cause infection. Back pressure and infection may progress to bladder damage and kidney (renal) failure. What are the causes? This condition is part of a normal aging process. However, not all men develop problems from this condition. If the prostate enlarges away from the urethra, urine flow will not be blocked. If it enlarges toward the urethra and compresses it, there will be problems passing urine. What increases the risk? This condition is more likely to develop in men over the age of 50 years. What are the signs or symptoms? Symptoms of this condition include: Getting up often during the night to urinate. Needing to urinate frequently during the day. Difficulty starting urine flow. Decrease in size and strength of your urine stream. Leaking (dribbling) after urinating. Inability to pass urine. This needs immediate treatment. Inability to completely empty your bladder. Pain when you pass urine. This is more common if there is also an infection. Urinary tract infection (UTI). How is this diagnosed? This condition is diagnosed based on your medical history, a physical exam, and your symptoms. Tests will also be done, such as: A post-void bladder scan. This measures any amount of urine that may remain in your bladder after you finish urinating. A digital rectal exam. In a rectal exam, your health care provider checks your prostate by putting a lubricated, gloved finger into your rectum to feel the back of your prostate gland. This exam detects the size of your gland and any abnormal lumps or growths. An exam of your urine (urinalysis). A prostate specific antigen (PSA) screening. This is a blood test used to screen for prostate cancer. An ultrasound. This test uses sound waves to electronically produce a picture of your prostate gland. Your health care provider may refer you to a specialist in kidney and prostate diseases (urologist). How is this treated? Once symptoms begin, your health care provider will monitor your condition (active surveillance or watchful waiting). Treatment for this condition will depend on the severity of your condition. Treatment may include: Observation and yearly exams. This may be the only treatment needed if your condition and symptoms are mild. Medicines to relieve your symptoms, including: ?Medicines to shrink the prostate. ?Medicines to relax the muscle of the prostate. Surgery in severe cases. Surgery may include: ?Prostatectomy. In this procedure, the prostate tissue is removed completely through an open incision or with a laparoscope or robotics. ?Transurethral resection of the prostate (TURP). In this procedure, a tool is inserted through the opening at the tip of the penis (urethra). It is used to cut away tissue of the inner core of the prostate. The pieces are removed through the same opening of the penis. This removes the blockage. ?Transurethral incision (TUIP). In this procedure, small cuts are made in the prostate. This lessens the prostate's pressure on the urethra. ?Transurethral microwave thermotherapy (TUMT). This procedure uses microwaves to create heat. The heat destroys and removes a small amount of prostate tissue. ?Transurethral needle ablation (TUNA). This procedure uses radio frequencies to destroy and remove a small amount of prostate tissue. ?Interstitial laser coagulation (ILC). This procedure uses a laser to destroy and remove a small amount of prostate tissue. ?Transurethral electrovaporization (TUVP). This procedure uses electrodes to destroy and remove a small amount of prostate tissue. ?Prostatic urethral lift. This procedure inserts an implant to push the lobes of the prostate away from the urethra. Follow these instructions at home: Take [id number] and prescription medicines only as told by your health care provider. Monitor your symptoms for any changes. Contact your health care provider with any changes. Avoid drinking large amounts of liquid before going to bed or out in public. Avoid or reduce how much caffeine or alcohol you drink. Give yourself time when you urinate. Keep all follow-up visits as told by your health care provider. This is important. Contact a health care provider if: You have unexplained back pain. Your symptoms do not get better with treatment. You develop side effects from the medicine you are taking. Your urine becomes very dark or has a bad smell. Your lower abdomen becomes distended and you have trouble passing your urine. Get help right away if: You have a fever or chills. You suddenly cannot urinate. You feel lightheaded, or very dizzy, or you faint. There are large amounts of blood or clots in the urine. Your urinary problems become hard to manage. You develop moderate to severe low back or flank pain. The flank is the side of your body between the ribs and the hip. These symptoms may represent a serious problem that is an emergency. Do not wait to see if the symptoms will go away. Get medical help right away. Call your local emergency services (911 in the [place] Do not drive yourself to the hospital. Summary Benign prostatic hyperplasia (BPH) is an enlarged prostate that is caused by the normal aging process and not by cancer. An enlarged prostate can press on the urethra. This can make it hard to pass urine. This condition is part of a normal aging process and is more likely to develop in men over the age of 50 years. Get help right away if you suddenly cannot urinate. This information is not intended to replace advice given to you by your health care provider. Make sure you discuss any questions you have with your health care provider. Document Released: 07/17/2006 Document Revised: 06/11/2019 Document Reviewed: 08/21/2017 [employer] Patient Education 2020 [employer]. Follow Up Care 08/06/2021 11:28:56 With:Ernie RICE, Marita Albarran, URL, URO Address: When: Unknown [facility] evaluTouchmedia + Plan note Future Appointments Appointment Date:12/24/2021 10:00:00 AM Scheduled Provider:Marita Klein MD Location:[facility] Appointment Type:URO Office Visit [facility] Evaluation + Plan note Future Appointments Appointment Date:07/01/2022 10:00:00 AM Scheduled Provider:Marita Klein MD Location:[facility] Appointment Type:URO Office Visit [facility] Telcarealuation + Plan note Future Appointments Appointment Date:08/15/2022 08:00:00 AM Scheduled Provider: Location:[facility] Appointment Type:Urology CALL PAT FT Appointment Date:08/22/2022 08:00:00 AM Scheduled Provider: Location:[facility] Appointment Type:Urology FT [facility] evaluation + Plan note Future Appointments Appointment Date:09/05/2022 08:00:00 AM Scheduled Provider: Location:[facility] Appointment Type:URO Nurse Visit Appointment Date:10/07/2022 08:15:00 AM Scheduled Provider:Marita Klein MD Location:[facility] Appointment Type:URO Office Visit [facility] Evaluation + Plan note Future Appointments Appointment Date:09/05/2022 08:00:00 AM Scheduled Provider: Location:[facility] Appointment Type:URO Nurse Visit Appointment Date:10/07/2022 08:15:00 AM Scheduled Provider:Marita Klein MD Location:[facility] Appointment Type:URO Office Visit Diagnostic Tests Pending * [facility] Future App[facility]ments Appointment Date:10/07/2022 08:15:00 AM Scheduled Provider:Marita Klein MD Location:[facility] Appointment Type:URO Office Visit [facility] Evaluation + Plan note Future Appointments Appointment Date:04/13/2023 10:00:00 AM Scheduled Provider:Marita Klein MD Location:[facility] Appointment Type:URO Office Visit [facility] Evaluation + Plan note Future Appointments Appointment Date:04/24/2023 01:30:00 PM Scheduled Provider: Location:[facility] Appointment Type:Urology CALL PAT FT Appointment Date:05/01/2023 09:00:00 AM Scheduled Provider: Location:[facility] Appointment Type:Urology FT [facility] Evaluation + Plan note Future Appointments Appointment Date:05/24/2024 01:30:00 PM Scheduled Provider: Location:[facility] Appointment Type:Surgical PAT FT Appointment Date:06/06/2024 12:00:00 PM Scheduled Provider: Location:[facility] Appointment Type:Surgery FT Appointment Date:06/06/2024 12:00:00 PM Scheduled Provider: Location:.[facility] Appointment Type:US Prostate/Scrotum (FT) Future Scheduled Tests Radiology* US Prostate Biopsy 06/06/24 [facility] evaluation + Plan note Future Appointments Appointment Date:06/24/2024 01:00:00 PM Scheduled Provider: Location:.[facility] Appointment Type:CV Holter/Event (FT) Appointment Date:07/17/2024 02:30:00 PM Scheduled Provider:Jose Laurent PA-C Location[facility] Appointment Type:Cardiology Follow Up (FT) Appointment Date:06/25/2025 10:00:00 AM Scheduled Provider:Marita Klein MD Location:[facility] Appointment Type:URO Office Visit Future Scheduled Tests Laboratory* PSA Total 06/19/25 [facility] evaluation + Plan note Future Appointments Appointment Date:07/17/2024 02:30:00 PM Scheduled Provider:Jose Laurent PA-C Location[facility] Appointment Type:Cardiology Follow Up (FT) Appointment Date:06/25/2025 10:00:00 AM Scheduled Provider:Marita Klein MD Location:[facility] Appointment Type:URO Office Visit Future Scheduled Tests Laboratory* PSA Total 06/19/25 [facility] evaluation + Plan note Future Appointments Appointment Date:09/03/2024 02:15:00 PM Scheduled Provider:Jose Laurent PA-C Location[facility] Appointment Type:Cardiology Follow Up (FT) Appointment Date:06/25/2025 10:00:00 AM Scheduled Provider:Marita Klein MD Location:[facility] Appointment Type:URO Office Visit Future Scheduled Tests Laboratory* PSA Total 06/19/25 [facility] evaluation + Plan note Future Appointments Appointment Date:10/21/2024 09:15:00 AM Scheduled Provider:Jose Laurent PA-C Location:[facility] Appointment Type:Cardiology Follow Up (FT) Appointment Date:06/25/2025 10:00:00 AM Scheduled Provider:Marita Klein MD Location:[facility] Appointment Type:URO Office Visit Future Scheduled Tests Laboratory* PSA Total 06/19/25 [facility] Evaluation + Plan note Future Appointments Appointment Date:01/21/2025 09:45:00 AM Scheduled Provider:Jose Laurent PA-C [facility] Type:Cardiology Follow Up (FT) Appointment Date:06/25/2025 10:00:00 AM Scheduled Provider:Marita Klein MD Location:[facility] Appointment Type:URO Office Visit Future Scheduled Tests Laboratory* PSA Total 06/19/25 [facility] Evaluation noteNo assessment information available [facility] Work Phone: Evaluation note* Diagnosis Atrial fibrillation, unspecified type (CMS/HCC)- Primary Prediabetes Other abnormal glucose BPH with obstruction/lower urinary tract symptoms [facility] Diagnosis Prediabetes- Primary Other abnormal glucose BPH with obstruction/lower urinary tract symptoms Mixed hyperlipidemia ([facility]/HCC) Mixed hyperlipidemia [facility]* Diagnosis Prediabetes- Primary Other abnormal glucose Unspecified atrial fibrillation (CMS/HCC) Ringworm Dermatophytosis of unspecified site [facility] this encounter [facility] Author Matthew Mendez [facility] October 12, 2022 9:38am Note Date/Time October 12, 2022 9:3 8am [facility] [address] [place] [address] Gastroenterology H&P Signed Patient: Marlo Goncalves MR#: [id number] : 1960 Acct:[id number] Age/Sex: 61 / M Adm Date: 3 Loc: Room: Type: [facility] Attending Dr: Matthew Mendez MD Copies to: MD Jose Elias Burton Jr, DO~ Date of Service: 10/12/2022 HISTORY & PHYSICAL: Patient's history with special attention to the cardiovascular, pulmonary systems and the current problem was reviewed with the patient immediately prior to the procedure. Present medications and doses reviewed in the EMR. Allergies and pertinent laboratory tests were also reviewedat this time in the EMR. The physical examination, as below, was then performed. Indication, assessment and HPI: 61-year-old male presents for surveillance colonoscopy Family history of GI malignancy? Yes, mother diagnosed in her 40s with CRC PHYSICAL EXAMINATION Mouth and Pharynx : Moist mucus membranes, normal dentition Cardiac: Regular rate, regular rhythm Pulmonary: Clear to auscultation bilaterally, no wheezing Neurological: Alert and oriented x3, no focal deficits noted Abdomen: Abdomen soft, non-tender REVIEW OF SYSTEMS Constitutional: Denies malaise, fevers Cardiovascular: Denies chest pain, palpitations Respiratory: Denies shortness of breath, wheezing Gastrointestinal: Per HPI Genitourinary: Denies dysuria, polyuria Musculoskeletal: Denies joint swelling, joint stiffness Neurological: Denies numbness, tingling Integumentary: Denies rashes, skin lesions Endocrine: Denies fatigue, weight loss Written informed consent obtained from the patient. Risks (including but not limited to perforation, infection, bloating, bleeding, need for emergent surgeryand loss of life), benefits and alternatives explained and questions answered. The patient verbalized understanding. Based on history patient is an appropriate candidate for the procedure. Matthew Mendez MD Documented By: Matthew Mendez MD 10/12/22936 Signed By: <Electronically signed by Matthew Mendez MD> 10/12/[address] [facility] Work Phone: Hospital course Narrative No data available for this section [facility] [place] [facility] Discharge instructions No data available for this section [facility] Discharge instructions Additional Instructions DISCHARGE INSTRUCTIONS FOR COLONOSCOPY WHAT TO EXPECT: - You may feel full, gassy or cramping after your procedure. In some cases, this may be from a few hours to a day. Walking may help relieve the discomfort. - If you have polyp(s) removed you may note some minor bloody discharge after your first bowel movements. - You should begin to recover from anesthesia within 1 hour of the procedure, however may feel groggy for the next 24 hours. DO's AND DON'Ts: - Call your doctor right away if you have a hard abdomen, severe pain, are passing lots of bright red blood or clots. - Call your doctor if you develop any rashes, hives or difficulty breathing. - Let your doctor know if you have not had a bowel movement by 3 days after your procedure. - If you take 81 mg aspirin for your heart it is safe to resume this medication. - If you take other blood thinner medications your doctor will instruct you when these can safely be resumed. - Do NOT drive for 24 hours. - Do NOT operate machinery such as power tools, lawn mowers, snow blowers, sewing machines, etc. for 24 hours. - Avoid alcoholic beverages and drugs for allergies, nerves, or sleep. - Do NOT stay alone. Do NOT leave your child unattended. - Do NOT make important personal or business decisions or sign any legal documents. - Eat solid foods and drink liquids in smaller amounts than usual until normal appetite returns. If you should experience an upset stomach, liquids high in sugar content (soda, Manuel-Aid, non-acid juices) are recommended. - You can resume normal activities tomorrow. FOLLOW UP & RECOMMENDATIONS: -Follow-up with Dr. Mendez as needed -Notify the doctor if you have any problems. -Repeat colonoscopy in 5 years. -Follow up with PCP. -Office number [phone].[facility] Work Phone: Progress note No data available for this section [facility] Summary Purpose Family History No Family History Records Found Relationship Condition Age at Onset Recorded Date/T lisa father Diabetes mellitus Unknown Not Specified Diabetes mellitus Unknown Malignant neoplasm of colon Unknown Relationship Condition Age at Onset Recorded Date/T lisa father Diabetes mellitus Unknown mother Diabetes mellitus Unknown Malignant neoplasm of colon Unknown father Chronic obstructive pulmonary disease Unk nown Unknown mother Chronic obstructive pulmonary disease Unk nown Advance Directives No Advanced Directives Records Found Advance Directive Response Recorded Date/ Time Advance Directives No June 5:35pm Chief Complaint and Reason for Visit Chief Complaint Hx of Colon Polyps Chief Complaint R97.20 Additional Source Comments (unrecognized sect ion and content) No Status Records FoundNo Status Records FoundNo Status Records FoundNo Status Records FoundNo Status Records FoundNo Status Records FoundNo Status Records FoundNo Status Records FoundNo Status Records FoundNo Status Records FoundNo Status Records FoundNo Status Records FoundNo Status Records FoundNo Status Records FoundNo Status Records FoundNo Status Records FoundNo Status Records FoundNo Status Records FoundNo Status Records FoundNo Status Records FoundNo Status Records Found INFORMATION SOURCE (unrecogn ized section and content) DATE CREATED AUTHOR 08/07/2021 [facility] DATE CREATED AUTHOR AUTHOR'S ORGANIZ ATION 05/13/2024 [facility] DATE CREATED AUTHOR AUTHOR'S ORGANIZ ATION 05/26/2024 [facility] DATE CREATED AUTHOR AUTHOR'S ORGANIZ ATION 06/08/2024 [facility] DATE CREATED AUTHOR AUTHOR'S ORGANIZ ATION 06/09/2024 [facility] DATE CREATED AUTHOR AUTHOR'S ORGANIZ ATION 06/11/2024 [facility] DATE CREATED AUTHOR AUTHOR'S ORGANIZ ATION 06/16/2024 [facility] DATE CREATED AUTHOR AUTHOR'S ORGANIZ ATION 06/27/2024 [facility] DATE CREATED AUTHOR AUTHOR'S ORGANIZ ATION 09/06/2024 [facility] DATE CREATED AUTHOR AUTHOR'S ORGANIZ ATION 10/24/2024 [facility] EPIC DATE CREATED AUTHOR AUTHOR'S ORGANIZ ATION 10/29/2024 [facility] Patient Care team informatio n (unrecognized section and content) Team Status: Inactive Member Role Status Dates Luiza Mendosa DO Primary Care Provider Active Skyler Rosenberg DO Attending Provider Active Team Status: Active Member Role Status Dates Luiza Mendosa DO Primary Care Provider Active Team Status: Inactive Member Role Status Dates Luiza Mendosa DO Primary Care Provider Active Matthew Mendez MD Attending Provider Active Team Status: Inactive Member Role Status Dates Luiza Mendosa DO Primary Care Provider Active Start: May 08, 2024 End: May 08, 2024 ROBIN Lainez Attending Provider Active Start: May 08, 2024 End: May 08, 2024 Fence Machine Operator Relationship Specialty Start Date End Date Sharla Mendosa DO [address] [facility] [address] [place] [address] PCP - General Family Medicine 01/17/23 Arben Mcclain, PA [address] [place] [address] Physician Master Certified Rv Technician Family Medicine 01/17/23 Fence Machine Operator Relationship Specialty Start Date End Date Sharla Mendosa DO [address] [place] [address] PCP - General Family Medicine 01/17/23 Arben Mcclain, PA [address] [place] [address] Physician Master Certified Rv Technician Family Medicine 01/17/23 Fence Machine Operator Relationship Specialty Start Date End Date Sharla Mendosa DO [address] [place] [address] PCP - General Family Medicine 01/17/23 Arben Mcclain, PA [address] [place] [address] Physician Master Certified Rv Technician Family Medicine 01/17/23 Fence Machine Operator Relationship Specialty Start Date End Date Sharla Mendosa DO [address] [place] [address] PCP - General Family Medicine 01/17/23 Arben Mcclain PA [address] [place] [address] Physician Master Certified Rv Technician Family Medicine 01/17/23 Fence Machine Operator Relationship Specialty Start Date End Date Sharla Mendosa DO [address] [place] [address] PCP - General Family Medicine 01/17/23 Arben Mcclain PA [address] [place] [address] Physician Master Certified Rv Technician Family Medicine 01/17/23 Fence Machine Operator Relationship Specialty Start Date End Date Sharla Mendosa DO [address] [place] [address] PCP - General Family Medicine 01/17/23 Sharla Mendosa DO [address] [place] [address] PCP - Medical [employer] 07/31/21 07/30/99 Arben Mcclain PA [address] [place] [address] Physician Master Certified Rv Technician Family Medicine 01/17/23 Fence Machine Operator Relationship Specialty Start Date End Date Sharla Mendosa DO [address] [place] [address] PCP - General Family Medicine 01/17/23 Sharla Mendosa DO [address] [place] [address] PCP - Medical [employer] 07/31/21 07/30/99 Arben Mcclain PA [address] [place] [address] Physician Master Certified Rv Technician Family Medicine 01/17/23 Goals (unrecognized section and content) Goals may be documented in a n alternate section Reason for Visit (unrecogniz ed section and content) Reason Comments Hospital Follow-up FOR RECORDS PERTAINING TO PATIENTS WHO ARE OR HAVE BEEN ENROLLED IN A CHEMICAL DEPENDENCY/SUBSTANCEABUSE PROGRAM, SOME INFORMATION MAY BE OMITTED. This clinical summary was aggregated from multiple sources. Caution should be exercised in using it in the provision of clinical care. This summary normalizes information from multiple sources, and as a consequence, information in this document may materially change the coding, format and clinical context of patient data. In addition, data may be omitted in some cases. CLINICAL DECISIONS SHOULD BE BASED ON THE PRIMARY CLINICAL RECORDS. [facility] [employer] [facility]. provides no warranty or guarantee of the accuracy or completeness of information in this document.
[2024-11-18 09:08] LABS: Basophils Percent Auto 0.4 % (0.2-2.0); Eosinophils Absolute Auto 0.3 10^3/uL (0.0-0.7); Eosinophils Percent Auto 3.7 % (0.9-7.0); Hematocrit 42.6 % (42.0-54.0); Hemoglobin 14.2 g/dL (14.0-18.0); Immature Granulocytes Abs Auto 0.03 10^3/uL (0.00-0.03); Immature Granulocytes Pct Auto 0.3 % (0.0-0.5); Lymphocytes Absolute Auto 2.5 10^3/uL (1.2-3.8); Lymphocytes Percent Auto 27.7 % (20.5-60.0); Mean Corpuscular HGB Conc 33.3 g/dL (29.9-35.2); Mean Corpuscular Hemoglobin 30.1 pg (25.9-34.0); Mean Corpuscular Volume 90.3 fL (80.0-94.0); Mean Platelet Volume 8.8 fL (9.5-13.5); Monocytes Absolute Auto 0.8 10^3/uL (0.3-0.8); Monocytes Percent Auto 9.2 % (1.7-12.0); Neutrophils Absolute Auto 5.3 10^3/uL (1.4-6.5); Neutrophils Percent Auto 58.7 % (43.0-75.0); Platelet Count 234 10^3/uL (150-450); Red Blood Count 4.72 10^6/uL (4.70-6.10); Red Cell Distribution Width 12.9 % (11.0-15.0)
[2024-11-18 09:29] LABS: Estimated Average Glucose 117 mg/dL; Glycohemoglobin A1C 5.7 % (4.5-6.2)
[2024-11-18 09:39] LABS: Alanine Aminotransferase 33 U/L (16-63); Albumin Globulin Ratio 1.1; Albumin Level 3.7 g/dL (3.4-5.0); Alkaline Phosphatase 48 U/L (46-116); Anion Gap 12.1; Aspartate Amino Transferase 22 U/L (15-37); BUN Creatinine Ratio 18.5; Bilirubin Total 0.6 mg/dL (0.2-1.0); Calcium 8.8 mg/dL (8.5-10.1); Carbon Dioxide 28.1 mmol/L (21.0-32.0); Chloride 106 mmol/L (98-107); Estimated GFR (African America >60 (>=60 mL/min/1.73m^2); Estimated GFR (Non-African Ame >60 (>=60 mL/min/1.73m^2); Globulin 3.3 g/dL; Glucose 98 mg/dL (74-106); Potassium 4.2 mmol/L (3.5-5.1); Sodium 142 mmol/L (136-145)
== END 2024-11-18 08:37 | disposition home or self-care (01) ==
PROVIDERS: PCP Family Medicine; Visit Provider Family Medicine
DX: R73.03 Prediabetes (principal); N40.1 Benign prostatic hyperplasia with lower urinary tract symptoms; N13.8 Other obstructive and reflux uropathy; E78.2 Mixed hyperlipidemia
CPT/HCPCS: 36415; 80053; 83036; 85025

== ENCOUNTER 2025-06-09 10:13 | Outpatient (OUT) | payer OTHER, SELFPAY ==
--- OUTSIDE RECORDS SUMMARY | 2025-06-09 10:17 | XMS_ITS | Clinical Summary ---
Author Organization [facility] Address [id number] [address] [place] [address] Care Team Providers Care Horticultural Specialty Grower Field Name Role Phone Navya Mak DO, George R Primary Care Provider + Immunizations ImmunizationAdministration DatesNext DueCOVID-19, mRNA, LNP-S, PF, 100mcg/0.5mL Dose09/02/2020,08/05/2020 Social History Tobacco UseTypesPacks/DayYears UsedDateSmoking Tobacco: Never AssessedChildcare AnswerDate IpnduhtwDmziktmxuHqdmzeu03/13/2019EmploymentAnswerDate Recorded KxrdrimmhzOrzlywg11/13/2019Purpose - LifeAnswerDate RecordedPurpose and direction in covtQvrlioi12/13/2021ex and Gender InformationValueDate Recorded Sex Assigned at GsjgrCffb06/31/2020 1:35 PM ESTLegal MsdJvkt4512/23/2017 8:47 AM EDTGender KytdfbiwDgbr27/31/2020 1:33 PM ESTSexual XouumtrksthFjv52/31/2020 1:33 PM EST Plan of Treatment Health MaintenanceDue DateLast DoneCommentsDepression Xjzcyjvqs53/25/1973Tobacco Oqfrilcew11/25/1973Adult BMI Vdzxxnelo83/25/1979DTaP,Tdap and Td Vaccines (1 - Tdap)12/23/1979Zoster (Shingles) Vaccine (1 of 2)2010COVID-19 Vaccine (3 - 2024- season)502/09/2020, 08/05/2020Influenza Wyqkgdj5703/31/2025 05/11/2018, 07/16/2009RSV ( or age 60+ yrs) (1 - 1-dose 75+ series) 12/23/2035 [employer] Not on file Insurance Care Teams Team MemberRelationshipSpecialtyStart DateEnd Date Luis Mendosa Jr., [address] [place] [address], [address] [place] [address] PCP - GeneralFamily Medicine12/23/17
--- OUTSIDE RECORDS SUMMARY | 2025-06-09 10:17 | XMS_ITS | Clinical Summary ---
Author Organization [facility] Address [address] [place] [address] Care Team Providers Care Corrections Cadet Name Role Phone Luis Mendosa DO Primary Care Provider Arben Mcclain Unavailable Luis Mendosa DO Unavailable [phone] Allergies Active AllergyReactionsCriticalityNoted HhgqPcwzhahyTgvihsgcurwYqqzafh19/20/2023 Medications MedicationSigDispense QuantityRefillsLast FilledStart DateEnd DateStatus Multiple Vitamin (Multi Vitamin) tablet 1 (one) time each day at the same time.Active omega-3 (Fish Oil) 1000 MG capsule 1 capsule 1 (one) time each day at the same time.Active trospium (Sanctura XR) 60 MG 24 hour capsule TAKE 1 CAPSULE BY MOUTH IN THE MORNINGActive niacin 500 MG tablet Take 500 mg by mouth in the morning. Take with meals.Active omeprazole (PriLOSEC) [address] capsule Take 20 mg by mouth in the morning. Take before meals. Do not crush or chew.. Active amiodarone (Pacerone) 200 MG tablet Take 200 mg by mouth in the morning and 200 mg before bedtime.06/07/2024ctive apixaban (Eliquis) 5 MG tablet Take 5 mg by mouth in the morning and 5 mg before bedtime.06/07/2024ctive rosuvastatin (Crestor) 40 MG tablet Take 40 mg by mouth Daily06/07/2024ctive tamsulosin (Flomax) 0.4 MG 24 hr capsule Take 0.4 mg by mouth Daily05/03/2024ctive Glucose Blood (Blood Glucose Test Strips 333) strip Indications:Prediabetes1 Units by In Vitro route in the morning and 1 Units before bedtime. 100 strip ctive Lancets misc Indications:Prediabetes1 Units in the morning and 1 Units before bedtime. 100 each ctive pantoprazole (ProtoNix) 20 MG EC tablet Take 20 mg by mouth in the morning. Take before meals.5Active semaglutide (Ozempic, 1 MG/DOSE,) 4 MG/3ML solution pen-injector Indications:PrediabetesInject 1 mg under the skin 1 (one) time per week 1 each 5Active clotrimazole-betamethasone (Lotrisone) cream Indications:RingwormApply topically 2 (two) times a day 45 g 5Active propranolol LA (Inderal LA) 60 MG 24 hr capsule Indications:TremorTake 1 capsule (60 mg) by mouth Daily Do not crush, chew, or split. 30 capsule /6Active Active Problems ProblemNoted DateDiagnosed DateElevated PSA06/12/20248270Wmelri90/08/2024PH with obstruction/lower urinary tract ruztulpr19/31/2024 Assessment & Plan (03/04/2025 11:41 AM EDT): Problem is stable, will continue with current treatment plan. Call or return to clinic if any changes occur Orders: Comprehensive metabolic panel; Future CBC and differential; Future ED (erectile dysfunction)02/28/2024OAB (overactive bladder)02/28/2024rediabetes 02/28/2024 Assessment & Plan (03/04/2025 11:41 AM EDT): Reviewed labs and/or imaging at today. Will continue current treatment regimen and follow up at next scheduled visit unless problems arise. Orders: Microalbumin / creatinine urine ratio; Future Hemoglobin A1c; Future Urge qyfcsbplymdb74/31/8898Sfbyino07/20/2023hronic cough01/17/2023astro- esophageal reflux disease without ylfzhxjimns52/20/2023 Assessment & Plan (03/04/2025 11:41 AM EDT): Patient advised to return if symptoms worsen and/or persist despite treatment. Orders: Comprehensive metabolic panel; Future CBC and differential; Future Rkhjkjhhgsgsrb27/20/2023 Assessment & Plan (03/04/2025 11:41 AM EDT): Labs ordered today, will follow up when results available Orders: Lipid panel; Future Comprehensive metabolic panel; Future CBC and differential; Future Laryngopharyngeal pzsunn9601/17/20234529Ydkctvkh89/20/2023-fib Assessment & Plan (03/04/2025 11:41 AM EDT): Problem is stable, will continue with current treatment plan. Call or return to clinic if any changes occur, cont fu with cardiology Orders: Comprehensive metabolic panel; Future CBC and differential; Future Encounters DateTypeDepartmentCare IlbgFlpnrdeijiw56/18/2025Refill [facility] [address] [place] [address] Freedom Whitehead LPN Tremorfrom Last 3 Months Immunizations ImmunizationAdministration DatesNext DueInfluenza, Jiwhoxglaqg46/14/2024, 05/26/2023,04/21/2021Influenza, injectable, MDCK, preservative free, nchbnrunafuv60/12/2018Influenza, injectable, MDCK, cthjdvlwlhuq80/18/2022, 04/26/2019Influenza, injectable, quadrivalent, preservative free05/26/2021 Moderna Bivalent Booster Xaeggktxjur45/07/2022Novel zebuqppxm-E2K6-15, preservative-free07/16/2009Tdap01/16/2025Zoster, Unjabdrqvqz44/14/2019, 04/26/2019 Family History Medical HistoryRelationNameCommentsDiabetesFatherHeart diseaseMaternal GrandfatherStrokeMaternal GrandmotherColon cancerMotherDiabetesMother HyperlipidemiaMotherCancerMother's SisterRelationNameStatusCommentsFather Maternal GrandfatherMaternal GrandmotherMotherMother's SisterAlive Social History Tobacco UseTypesPacks/DayYears UsedDateSmoking Tobacco: NeverSmokeless Tobacco: Never Tobacco Cessation:Counseling Given: Not Answered Alcohol UseStandard Drinks/WeekCommentsYes2 (1 standard drink = 0.6 oz pure alcohol)caffeine intake : 1-2 cups per day ; [id number] Health LiteracyAnswer Date RecordedHow often do you need to have someone help you when you read instructions, pamphlets, or other written material from your doctor or pharmacy? Ipgjhtddz49/03/2024Humiliation, Afraid, Rape, and Kick questionnaireAnswerDate RecordedWithin the last year, have you been afraid of your partner or ex-partner?No01/12/2023Within the last year, have you been humiliated or emotionally abused in other ways by your partner or ex-partner?No01/12/2023 Within the last year, have you been kicked, hit, slapped, or otherwise physically hurt by your partner or ex-partner?No01/12/2023Within the last year, have you been raped or forced to have any kind of sexual activity by your part ner or ex-partner?No01/12/2023Social Connection and Isolation PanelAnswerDate RecordedIn a typical week, how many times do you talk on the phone with family, friends, or neighbors?More than three times a week03/02/2024How often do you get together with friends or relatives?More than three times a week03/02/2024How often do you attend gnosticist or yazidi services?Never03/02/2024o you belong to any clubs or organizations such as gnosticist groups, unions, fraternal or athletic groups, or school groups?Yes03/02/2024How often do you attend meetings of the clubs or organizations you belong to?Never03/02/2024re you , , , , never , or living with a partner?Vvidfmo6803/02/2024 AUDIT-CAnswerDate RecordedQ1: How often do you have a drink containing alcohol? 2-3 times a week03/02/2024Q2: How many drinks containing alcohol do you have on a typical day when you are drinking?1 or Q3: How often do you have six or more drinks on one occasion?Never03/02/2024Overall Financial Resource Strain (CARDIA)AnswerDate RecordedHow hard is it for you to pay for the very basics like food, housing, medical care, and heating?Not hard at all03/02/2024 PHQ-2AnswerDate RecordedPatient Health Questionnaire-2 Uhvib504[facility] [place] of Occupational Health - Occupational Stress QuestionnaireAnswerDate RecordedDo you feel stress - tense, restless, nervous, or anxious, or unable to sleep at night because yourmind is troubled all the time - these days?Only a jyhyfw2803/02/2024Exercise Vital SignAnswerDate RecordedOn average, how many days per week do you engage in moderate to strenuous exercise (like a brisk walk)?0 days03/02/2024On average, how many minutes do you engage in exercise at this level?0 min03/02/2024Hunger Vital SignAnswerDate RecordedWithin the past 12 months, you worried that your food would run out before you got the money to buy more.Never true03/02/2024Within the past 12 months, the food you bought just didn't last and you didn't have money to get more.Never true03/02/2024RAPARE - TransportationAnswerDate RecordedIn the past 12 months, has lack of transportation kept you from medical appointments or from getting medications?No 03/02/2024In the past 12 months, has lack of transportation kept you from meetings, work, or from getting things needed for daily living?No03/02/2024 Housing Stability Vital SignAnswerDate RecordedIn the last 12 months, was there a time when you were not able to pay the mortgage or rent on time?No01/12/2023In the last 12 months, how many places have you lived?In the last 12 months, was there a time when you did not have a steady place to sleep or slept in ashelter (including now)?No01/12/2023Housing Stability Vital SignAnswerDate RecordedIn the last 12 months, was there a time when you were not able to pay the mortgage or rent on time?No03/02/2024In the past 12 months, how many times have you moved where you were living?t any time in the past 12 months, were you homeless or living in a care home (including now)?No03/02/2024Sex and Gender InformationValueDate RecordedSex Assigned at VlwmzIxwe00/15/2023 3:35 PM EDTLegal IdmNkoh7010/12/2022 6:47 PM EDTGender TczzenvuQdun35/15/2023 3:35 PM EDTSexual PblgyozupmjUfa87/15/2023 3:35 PM EDT Last Filed Vital Signs Vital SignReadingTime TakenCommentsBlood Miqclxvy347/8403/04/2025 11:12 AM EDT Ekwat8166 11:12 AM BUEAedejrggbsj20.1 ??C (96.9 ??F)03/04/2025 11:12 AM EDTRespiratory Rate--Oxygen Pzrcpnqhto47%03/04/2025 11:12 AM EDTInhaled Oxygen Concentration--Nqiump29.3 kg (183 lb 9.6 oz)03/04/2025 11:12 AM UQELhaioi661.7 cm (5' 8 )03/04/2025 11:12 AM EDTBody Mass Index27.9203/04/2025 11:12 AM EDT Plan of Treatment DateTypeDepartmentCare Team (Latest Contact Info)Aehnrkspajq71/15/2026 11:20 AM ESTOffice Visit [facility] [address] [facility] [address] [place] [address] Luis Mendosa, DO [address] [place] [address] Health MaintenanceDue DateLast DoneCommentsCT Ttzhtybexjbz50/25/1961FIT-DNA 1960FIT1960FOBT12/22/19606601Ddlkvuctmiuzs61/25/1961OVID-19 Vaccine ( season), 11/16/2021, 03/16/2021, Additional history existsInfluenza Vaccine (#1)510/, 05/26/2023, 05/17/2022, Additional history aexocxSgioiqlimsd93/15/203303/, 07/13/2017 Colorectal Cancer Mpgfacltm40/15/2033neumococcal Vaccine: Pediatrics (0 to 5 Years) and At-Risk Patients (6 to 64 Years)Aged OutNo longer eligible based on patient's age to complete this topic Procedures Procedure NamePriorityDate/TimeAssociated DiagnosisCommentsCOLONOSCOPYRoutine 10/12/2022 12:00 PM EDT from Last 3 Months or Most Recently Relevant to Health Maintenance Results * Colonoscopy (10/12/2022 12:00 PM EDT)Anatomical RegionLateralityModality EndoscopySpecimen (Source)Anatomical Location / LateralityCollection Method / VolumeCollection TimeReceived Time10/12/2022 12:00 PM EDT Narrative 10/12/2022 12:00 PM EDT PERFORMED AT [facility] LOCATION:[id number] [facility] Procedure Note CONVERSION, GENERIC - 12/15/2022 PERFORMED AT [facility] LOCATION:[id number] [facility] Authorizing ProviderResult TypeResult StatusGeoralena Mendosa DOENDOSCOPY PROCEDURE ORDERABLESFinal Result from Last 3 Months or Most Recently Relevant to Health Maintenance [place] [address] Care Teams Team MemberRelationshipSpecialtyStart DateEnd Date Luis Mendosa DO [address] [place] [address] PCP - GeneralFamily Medicine01/17/23 Luis Mendosa DO [address] [place] [address] PCP - Medical [employer]07/31/2211 Arben Mcclain PA [address] [place] [address] Physician AssistantFamily Medicine01/17/23
--- OUTSIDE RECORDS SUMMARY | 2025-06-09 10:17 | XMS_ITS | Clinical Summary ---
Author Organization [facility] Address [address] [place] [address] Phone Care Team Providers Care Rod Drawer Name Role Phone Unavailable Primary Care Provider Unavailabl e Social History Tobacco UseTypesPacks/DayYears UsedDateSmoking Tobacco: Never AssessedSex and Gender InformationValueDate RecordedSex Assigned at BirthNot on fileLegal Sex Male10/19/2022 6:01 PM EDTGender IdentityNot on fileSexual OrientationNot on file Plan of Treatment Health MaintenanceDue DateLast DoneCommentsCT Mwopetccsdmd89/25/1961olonoscopy 1960olorectal Cancer Uhmzgpgom43/25/1961FIT-DNA (Cologuard)1960FIT 1960HIV Obebfbnhy53/25/1961Lipid Panel12/22/19602875Zhmwbqbfetkxa12/25/1961 Yearly Adult Shcgqwnq58/25/1961MMR Vaccines (1 of 1 - Standard series)1961 Hepatitis C Tlmmysbei80/25/1979Pneumococcal Vaccine (1 of 2 - PCV)12/23/1979 DTaP/Tdap/Td Vaccines (1 - Tdap)1982PSA Prostate Cancer Screening 2010RSV High Risk: (Elderly (60+) or Population) (1 - Risk 50-74 years 1-dose series)2010Zoster Vaccines (1 of 2)2010Influenza Vaccine (#1)5COVID-19 Vaccine (1 - 2024- season)2025HIB VaccinesAged OutNo longer eligible based on patient's age to complete this topic HPV VaccinesAged OutNo longer eligible based on patient's age to complete this topicHepatitis A VaccinesAged OutNo longer eligible based on patient's age to complete this topicHepatitis B VaccinesAged OutNo longer eligible based on patient's age to complete this topicIPV VaccinesAged OutNo longer eligible based on patient's age to complete this topicMeningococcal VaccineAged OutNo longer eligible based on patient's age to complete this topicRotavirus VaccinesAged Out No longer eligible based on patient's age to complete this topic Insurance
--- OUTSIDE RECORDS SUMMARY | 2025-06-09 10:19 | XMS_ITS | CCD ---
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 Admitting Unavailable Lue, Marita M. Admitting Unavailable Lue, Marita M. Referring Unavailable Lue Marita MCammie Attending Unavailable OJUKWU, Mbanefo Attending Unavailable OJUKWU, Mbanefo Admitting Unavailable [facility] Cardio, XXXX Consulting Unavailable Lue, Marita M. Referring Unavailable [facility] Cardio, XXXX Consulting Unavailable OJUKWU, Mbanefo Admitting Unavailable OJUKWU, Mbanefo Attending Unavailable MD Estuardo Bunch Consulting Unavailable Betancor, Estuardo Consulting Unavailable Betancor, Estuardo Consulting Unavailable Lue, Marita M. Admitting Unavailable Betancor, Estuardo Consulting Unavailable Sharla Mendosa DO Primary Care Provider Arben Quintanilla Unavailable Marita Klein Attending Unavailable Jose Laurent Attending Unavailable Betancor, Estuardo Admitting Unavailable NONE, XXXX Referring Unavailable Sharla Mendosa DO Unavailable Janet Dexter Attending Unavailable Janet Dexter Attending Unavailable Marita Klein Admitting Unavailable Marita Klein Attending Unavailable Marita Klein Referring Unavailable Marita Klein Attending Unavailable NONE, XXXX Referring Unavailable Jose Laurent Admitting Unavailable Mehran, Jose Welch Attending Unavailable NONE, XXXX Referring Unavailable Jose Laurent A Admitting Unavailable Jose Laurent Attending Unavailable NONE, XXXX Referring Unavailable Laurent, Jose A Admitting Unavailable Laurent, Jose A Attending Unavailable Mehran, Jose A Admitting Unavailable NONE, XXXX Referring Unavailable Mehran, Jose A Attending Unavailable OJUKWU, Mbanefo Admitting Unavailable OJUKWU, Mbanefo Attending Unavailable OJUKWU, Mbanefo Referring Unavailable SHARLA MENDOSA R Attending Unavailable SHARLA MENDOSA Attending Unavailable KASHARLA PAZ Attending Unavailable KASHARLA PAZ Attending Unavailable KASHARLA PAZ Attending Unavailable Allergies Allergy ClassificationReported Allergen(s)Allergy TypeDate of OnsetReaction(s) Facility (20 sources)Penicillins; Translations: [penicillins]Drug [id number] Unknown (qualifier value), UnknownExecutive Urology of [facility] Medications Current Medications MedicationDrug Class(es)DatesSig (Normalized)Sig (Original)0.25 MG, 0.5 MG Dose 3 ML semaglutide 0.68 MG/ML Pen Injector [Ozempic] (7 sources)Start: 71-02-3977Euefsrl 2 mg/3 mL (0.25 mg or 0.5 mg dose) subcutaneous solution 3 mL, 0 Refill(s), INJECT 0.25 MG SUBCUTANEOUSLY WEEKLY, Refills(s) 0 Start Date: 06/19/24 Status: Ordered Repeat number: 1Start: 77-84-1883Hemzrck 2 mg/3 mL (0.25 mg or 0.5 mg dose) subcutaneous solution 3 mL, 0 Refill(s), INJECT 0.25 MG SUBCUTANEOUSLY WEEKLY, Refills(s) 0 Start Date: 06/19/24 Status: Orderedacetaminophen 325 mg / HYDROcodone bitartrate 5 mg oral tablet (1 source)Opioid AgonistStart: 08-12-2022 End: 26-29-2180Gafbk 325 mg-5 mg oral tablet 1 tab(s), Oral, q6hr for 3 day(s), 10 tab(s), Refill(s) 0, Take 1 tabby mouth every 6 hrs PRN moderate to severe pain. Don't drive or operate machinery while taking., [id number], 172.7, cm, 08/11/22 14:33:00 EST, Height/Length Dosing, 96,... Start Date: Stop Date: 08/15/22 Status: Orderedamiodarone hydrochloride 200 mg oral tablet (19 sources)AntiarrhythmicStart: 06-07-2024 End: 52-96-1625kvnv 1 tablet by mouth in the morningamiodarone (Pacerone) 200 MG tablet Take 200 mg by mouth in the morning and 200 mg before bedtime. 1 08/07/2023 ActiveStart: 48-55-6784cimq 1 tablet by mouth twice dailyamiodarone 200 mg Tab 200 mg = 1 tab(s), Oral, BID, # 60 tab(s), Refills(s) 0, Pharmacy: [facility]/pharmacy #[id number], 172, cm, 06/06/24 17:31:00 EST, Height/Length Dosing, 92.7, kg, 06/06/24 17:31:00 EST, Weight Dosing Start Date: 06/07/24 Status: Ordered apixaban 5 mg oral tablet (20 sources)Factor Xa InhibitorStart: 92-25-1262oyvd 1 tablet by mouth in the morningapixaban (Eliquis) 5 MG tablet Take 5 mg by mouth in the morning and 5 mg before bedtime. 06/07/2024 Activeaspirin 81 mg oral capsule (20 sources)Platelet Aggregation Inhibitor, Nonsteroidal Anti-inflammatory Drug Start: 99-05-7763vdtp 1 capsule by mouth once dailyaspirin 81 mg oral capsule 81 mg = 1 cap(s), Oral, Daily, Prophylaxis Start Date: 08/06/21 Status: Ordered Repeat number: 1Start: 96-28-6675xsoo 1 tablet by mouth once dailyAspirin (Aspir-Low) 81 mg Tablet,Delayed Release (Dr/Ec) Active 81 MG PO Daily July 13, 2017 1:00am End: 70-52-2979ufbvbba 81 MG chewable tablet 1 (one) time each day at the same time. 10/23/2024 Discontinued (Therapy completed)betamethasone 0.5 mg/ml / clotrimazole 10 mg/ml topical cream (6 sources)Azole Antifungal, CorticosteroidStart: 56-06-5308yikpevlakndw- betamethasone (Lotrisone) cream Indications: Ringworm Apply topically 2 (two) times a day 45 g 10/23/2024 ActivediazePAM 10 mg oral tablet (2 sources)BenzodiazepineStart: 35-61-8374Myxvjl 10 mg Tab 10 mg = 1 tab(s), Oral, Once, PRN for anxiety, Take 1 hour prior the procedure. Don't drive or operate machinery while taking., # 1 tab(s), Refills(s) 0, Pharmacy: [id number], 172.7, cm, 08/11/22 14:33:00 EST, Height/Length Dosing, 96, kg,... Start Date: 08/12/22 Status: Ordereddiclofenac sodium 50 mg delayed release oral tablet (3 sources)Nonsteroidal Anti-inflammatory DrugStart: 08-31-2022 End: 24-08-9514aoaa 1 tablet by mouth every twelve hours at mealtimediclofenac sodium 50 mg Oral EC Tab 50 mg = 1 tab(s), Oral, q12hr, take with food, X 14 day(s), # 28 tab(s), Refills(s) 0, Pharmacy: [id number], 173, cm, 08/31/22 8:51:00 EST, Height/LengthDosing, 96, kg, 08/31/22 8:51:00 EST, Weight Dosing Start Date: 08/31/22 Stop Date: 09/14/22 Status: Ordereddocosahexaenoic acid 120 mg / eicosapentaenoic acid 180 mg oral capsule (14 sources)omega-3 (Fish Oil) 1000 MG capsule 1 capsule 1 (one) time each day at the same time. ActiveFish Oils (20 sources)Start: 29-41-7357rkxv 500 mg by mouth once dailyFish Oil 500 mg, Oral, Daily, Prophylaxis Start Date: 08/06/21 Status: Ordered Repeat number: 1 Start: 63-85-2153impm 500 mg by mouth once dailyFish Oil 500 mg, Oral, Daily, Prophylaxis Start Date: 08/06/21 Status: OrderedStart: 33-28-4293Wvnk Oil Oral Start Date: 08/06/21 Status: OrderedlevoFLOXacin 500 mg oral tablet (5 sources)Quinolone AntimicrobialStart: 08-31-2022 End: 94-37-6173ityv 1 tablet by mouth every twenty-four hoursLevaquin 500 mg Tab 500 mg = 1 tab(s), Oral, q24hr, X 7 day(s), # 7 tab(s), Refills(s) 0, Pharmacy: [id number], 173, cm, 08/31/22 8:51:00 EST, Height/Length Dosing, 96, kg, 08/31/22 8:51:00EST, Weight Dosing Start Date: 08/31/22 Stop Date: 09/07/22 Status: OrderedStart: 25-79-4236duhn 1 tablet by mouth every twenty-four hours Levaquin 500 mg Tab 500 mg = 1 tab(s), Oral, q24hr, Take 1 tab on the morning of the procedure before the procedure., # 1 tab(s), Refills(s) 0, Pharmacy: [id number], 172.7, cm, 08/11/22 14:33:00 EST, Height/Length Dosing, 96, kg, 07/19/22 8:46:00 EST, Weight Do... Start Date: 08/12/22 Status: Yqwfsjy72 hr metFORMIN hydrochloride 500 mg extended release oral tablet (15 sources)BiguanideStart: 07-01-2024 End: 39-46-5045txrh 1 tablet by mouth every twenty-four hours at mealtime metFORMIN XR (Glucophage-XR) 500 MG 24 hr tablet Indications: Prediabetes TAKE 1 TABLET BY MOUTH INTHE EVENING WITH MEALS *DO NOT CRUSH/CHEW/SPLIT* 30 tablet 3 07/01/2024 07/16/2024 Discontinued (Therapy completed)Start: 44-00-0248bozf 1 tablet by mouth once dailymetformin 500 mg Tab 500 mg = 1 tab(s), Oral, Daily, Refills(s) 0, Blood glucose Start Date: 05/24/24 Status: Ordered Repeat number: 1Start: 87-26-8336mdvm 1 tablet by mouth every twenty-four hours at mealtime metFORMIN XR (Glucophage-XR) 500 MG 24 hr tablet Indications: Prediabetes Take 1 tablet (500 mg) bymouth in the evening. Take with meals Do not crush, chew, or split. 30 tablet 3 03/11/2024 ActiveMulti Vitamins oral tablet (20 sources)Start: 39-44-1337gdkp 1 tablet by mouth once dailyMulti Vitamins oral tablet 1 tab(s), Oral, Daily, Prophylaxis Start Date: 08/06/21 Status: Ordered Repeat number: 1Start: 50-28-8067hkkz 1 tablet by mouth once dailyMulti Vitamins oral tablet 1 tab(s), Oral, Daily, Prophylaxis Start Date: 08/06/21 Status: OrderedStart: 18-44-5672Jdtzw Vitamins oral tablet Oral, Daily Start Date: 08/06/21 Status: OrderedMultiple Vitamin (Multi Vitamin) tablet (14 sources)Multiple Vitamin (Multi Vitamin) tablet 1 (one) time each day at the same time. ActiveMultivitamin preparation (3 sources)Start: 09-58-7952ndqx 1 tablet by mouth once dailyMultivitamin Active 1 TAB PO Daily July 13, 2017 1:00amniacin 500 mg oral tablet (20 sources)Nicotinic AcidStart: 08-06-2021 End: 40-77-4635qysh 1 tablet by mouth once daily at bedtimeniacin 500 mg ER Tab 500 mg = 1 tab(s), Oral, Once a day (at bedtime), # 30 tab(s), Refills(s) 0 Sta rt Date: 06/06/24 Status: Ordered Quantity: 30.0 Unit: tab(s) Repeat number: 1 Start: 15-96-1806vzpb 500 mg by mouth once dailyNiacin Active 500 MG PO Daily July 13, 2017 1:00am End: 03-87-2830iejo 1 tablet by mouth at bedtimeniacin (Niaspan) 500 MG ER tablet Take 500 mg by mouth at bedtime Do not crush, chew, or split. 03/04/2025 DiscontinuedOmega 8-Oud-Yje-Fish Oil (Fish Oil) 1,000 mg (120 mg-180 mg) Capsule (3 sources)Start: 16-11-7559lhbk 1 capsule by mouth once dailyOmega 9-Fdw-Ors-Fish Oil (Fish Oil) 1,000 mg (120 mg-180 mg) Capsule Active 1 CAP PO Daily 2016 1:00amomeprazole 20 mg delayed release oral capsule (20 sources)Proton Pump InhibitorStart: 60-20-1331nsiw 20 mg by mouth once daily omeprazole 20 mg, Oral, Daily Start Date: 04/13/23 Status: OrderedStart: 81-83-1798woig 1 capsule by mouth once dailyomeprazole 20 mg Cap-DR 20 mg = 1 cap(s), Oral, Daily, Refills(s) 0, Indigestion Start Date: 05/24/24 Status: Ordered Repeat number: 124 hr oxybutynin chloride 10 mg extended release oral tablet (4 sources)Cholinergic Muscarinic AntagonistStart: 51-25-6927hurl 1 tablet by mouth once dailyoxybutynin 10 mg ER Tab 10 mg = 1 tab(s), Oral, Daily, # 30 tab(s), Refills(s) 1, Pharmacy: [id number], 173, cm, 05/03/22 8:52:00 EDT, Height/Length Dosing, 96, kg, 05/03/22 8:52:00 EDT, Weight Dosing Start Date: 05/03/22 Status: OrderedStart: 03-25-0496awtg 1 tablet by mouth once daily oxybutynin 5 mg ER Tab 5 mg = 1 tab(s), Oral, Daily, # 30 tab(s), Refills(s) 6, Pharmacy: [id number], 173, cm, 11/12/21 10:22:00 EDT, Height/Length Dosing, 96.4, kg, 11/12/21 10:22:00 EDT, Weight Dosing Start Date: 11/12/21 Status: Orderedpantoprazole 20 mg delayed release oral tablet (20 sources)Proton Pump InhibitorStart: 68-32-2027oxnb 1 tablet by mouth before mealtimepantoprazole (ProtoNix) 20 MG EC tablet Take 20 mg by mouth in the morning. Take before meals. 09/03/2024 ActiveStart: 05-24-2024 End: 57-63-3527lszw 1 tablet by mouth before mealtimepantoprazole (ProtoNix) 20 MG EC tablet Take 20 mg by mouth in the morning. Take before meals. 05/24/2024 06/13/2024 DiscontinuedStart: 04-15-0932wdanyaruopzz 40 mg, Daily Start Date: 08/06/21 Status: OrderedStart: 35-36-9074udkd 40 mg by mouth once daily Pantoprazole Active 40 MG PO Daily July 13, 2017 1:00am24 hr propranolol hydrochloride 60 mg extended release oral capsule (20 sources)beta-Adrenergic BlockerStart: 03-07-2024 End: 38-95-7417smra 1 capsule by mouth once dailypropranolol LA (Inderal LA) 60 MG 24 hr capsule Indications: Tremor Take 1 capsule (60 mg) by mouthDaily Do not crush, chew, or split. 30 capsule 11 03/07/2024 03/07/2025 Activerosuvastatin calcium 40 mg oral tablet (20 sources)HMG-CoA Reductase InhibitorStart: 00-69-8924yxhx 1 tablet by mouth once dailyrosuvastatin (Crestor) 40 MG tablet Take 40 mg by mouth Daily 06/07/2024 Active0.25 mg, 0.5 mg dose 1.5 ml semaglutide 1.34 mg/ml pen injector (12 sources)Start: 07-10-2024 End: 06-84-6650jdsggh 0.5 mg by subcutaneous injection every weeksemaglutide (Ozempic, 0.25 or 0.5 MG/DOSE,) 2 MG/1.5ML solution pen-injector Indications: Prediabetes Inject 0.5 mg under the skin 1 (one) time per week 1 each 3 07/16/2024 10/23/2024 Discontinued (Ineffective)Start: 61-50-7812xvsmdn 0.25 mg by subcutaneous injection every weeksemaglutide (Ozempic, 0.25 or 0.5 MG/DOSE,) 2 MG/1.5ML solution pen-injector Indications: Prediabetes Inject 0.25 mg under the skin 1 (one) time per week 1 each 06/13/2024 Activesemaglutide (Ozempic, 1 MG/DOSE,) 4 MG/3ML solution pen-injector (6 sources)Start: 65-76-3772lekhvl 1 mg by subcutaneous injection every week semaglutide (Ozempic, 1 MG/DOSE,) 4 MG/3ML solution pen-injector Indications: Prediabetes Inject 1 mg under the skin 1 (one) time per week 1 each 11 10/23/2024 Activesulfamethoxazole 800 mg / trimethoprim 160 mg oral tablet (1 source)Dihydrofolate Reductase Inhibitor Antibacterial, Sulfonamide AntimicrobialStart: 09-02-2022 End: 98-78-6845Afbldgg D.S. 800 mg-160 mg Tab 1 tab(s), Oral, BID for 7 day(s), 14 tab(s), Refill(s) 0, [id number], 173, cm, 08/31/22 8:51:00 EST, Height/Length Dosing, 96, kg, 08/31/22 8:51:00 EST, Weight Dosing Start Date: 09/02/22 Stop Date: 09/09/22 Status: Dynlifp23 hr trospium chloride 60 mg extended release oral capsule (20 sources)Cholinergic Muscarinic AntagonistStart: 53-85-1656odzc 1 capsule by mouth once daily in the morningtrospium 60 mg oral capsule, extended release 60 mg = 1 cap(s), Oral, qAM, # 30 cap(s), Refills(s) 11, Pharmacy: [facility]/pharmacy #[id number], 173, cm, 09/03/24 14:22:00 EST, Height/Length Dosing, 87, kg, 09/03/24 14:22:00 EST, Weight Dosing Start Date: 10/10/24 Status: Ordered Quantity: 30.0 Unit: cap(s) Repeat number: 12Start: 59-22-7300vtpv 1 capsule by mouth once daily in the morningtrospium 60 mg oral capsule, extended release 60 mg = 1 cap(s), Oral, qAM, # 30 cap(s), Refills(s) 11, Pharmacy: [facility]/pharmacy #[id number], 173, cm, 04/13/23 9:46:00 EDT, Height/Length Dosing, 87.3, kg, 04/13/23 9:46:00 EDT, Weight Dosing Start Date: 11/07/23 Status: OrderedStart: 70-50-0438dmkz 1 capsule by mouth once daily in the morningtrospium 60 mg oral capsule, extended release 60 mg = 1 cap(s), Oral, qAM, # 30 cap(s), Refills(s) 1, Pharmacy: [id number], 173, cm, 08/31/22 8:51:00 EST, Height/Length Dosing, 96, kg, 08/31/22 8:51:00 EST, Weight Dosing Start Date: 09/05/22 Status: OrderedStart: 92-45-7963iaiq 1 capsule by mouth once daily in the morningtrospium 60 mg oral capsule, extended release 60 mg = 1 cap(s), Oral, qAM, # 30 cap(s), Refills(s) 1 , Pharmacy: [id number], 173, cm, 07/01/22 10:17:00 EST, Height/Length Dosing, 96, kg, 07/01/22 10:17:00 EST, Weight Dosing Start Date: 07/06/22 Status: Orderedtake 1 capsule by mouth every twenty-four hours in the morningtrospium (Sanctura XR) 60 MG 24 hour capsule TAKE 1 CAPSULE BY MOUTH IN THE MORNING Active Completed/Discontinued Medications MedicationDrug Class(es)DatesSig (Normalized)Sig (Original)tadalafil 10 mg oral tablet (11 sources)Phosphodiesterase 5 InhibitorStart: 88-16-7615otvldthok 10 mg Tab 10 mg = 1 tab(s), Oral, As Directed, PRN for erectile dysfunction, take 1 tab pr ior to sexual activity. Do not exceen 2 tabs (20 mg) in 24 hr, # 30 tab(s), Refills(s) 5, Pharmacy:[id number], 173, cm, 11/14/23 15:46:00 EDT, Height/Length Dosing, 88.5, kg, 11/14/23 15:46:00 EDT, Weight Dosing Start Date: 11/14/23 Status: Ordered Quantity: 30.0 Unit: tab(s) Repeatnumber: 6 tamsulosin hydrochloride 0.4 mg oral capsule (20 sources)alpha-Adrenergic BlockerStart: 06-07-2024 End: 76-81-8237poqgvfqwfv 0.4 mg Cap 0.4 mg = 1 cap(s), Cap, Oral, Start date 06/07/24 9:00:00 AM EST, 06/06/24 21:08:00 EST Start Date: 06/07/24 Stop Date: 06/07/24 Status: CompletedStart: 02-06-2024 End: 09-00-1188ueaz 1 capsule by mouth once dailytamsulosin (Flomax) 0.4 MG 24 hr capsule Take 0.4 mg by mouth Daily 05/03/2024 ActiveStart: 81-33-8080lfco 1 capsule by mouth once dailytamsulosin 0.4 mg Cap 0.4 mg = 1 cap(s), Oral, Daily, # 30 cap(s), Refills(s) 2, Pharmacy: [facility]/pharmacy #[id number], 173, cm, 11/14/23 15:46:00 EDT, Height/Length Dosing, 88.5, kg, 11/14/23 15:46:00 EDT, Weight Dosing Start Date: 11/14/23 Status: OrderedStart: 70-39-9930dvks 1 capsule by mouth once dailytamsulosin 0.4 mg Cap 0.4 mg = 1 cap(s), Oral, Daily, # 90 cap(s), Refills(s) 3, Pharmacy: [id number], 173, cm, 05/03/22 8:52:00 EDT, Height/Length Dosing, 96, kg, 05/03/22 8:52:00 EDT, Weight Dosing Start Date: 05/03/22 Status: Ordered Problems Active Problems Problem ClassificationProblemDateDocumented DateEpisodic/ChronicAlcohol-related disorders (1 source)Alcohol dependence; Translations: [Alcohol dependence, uncomplicated] Onset: 37-42-3120OzjudjoYmkuvva disorders (14 sources)Anxiety; Translations: [Anxiety disorder, unspecified]Onset: 688621-47-0523OvwgkexOhjrqez dysrhythmias (20 sources)Unspecified atrial fibrillation; Translations: [Atrial fibrillation] Onset: 79-43-8273GguvodeTkerekxr mellitus without complication (20 sources)Prediabetes; Translations: [Prediabetes]Onset: [id number] EpisodicDisorders of lipid metabolism (20 sources)Hyperlipidemia; Translations: [Hyperlipidemia, unspecified]Onset: 551342-24-7881JfgesrtBoqfcohnqo disorders (20 sources)Gastroesophageal reflux disease; Translations: [Gastroesophageal reflux disease without esophagitis]Onset: 572263-01-8886Jjxgpuc Genitourinary symptoms and ill-defined conditions (16 sources)Urge incontinence; Translations: [Urge incontinence of urine]Onset: 57-13-2785XgynpinCagkdsvimnssk symptoms and ill-defined conditions (20 sources)Microscopic hematuria; Translations: [Asymptomatic microscopic hematuria]Onset: 51-60-5682OnmxuojrWmahtczolpf of prostate (20 sources)Benign prostatic hypertrophy without outflow obstruction; Translations: [Benign prostatic hyperplasia without lower urinary tract symptoms]Onset: 94-24-8781QvnjldmBcbnzbu (2 sources)Dermatophytosis; Translations: [Dermatophytosis, unspecified] 25-22-8591DezdvhcbMpmbc diseases of bladder and urethra (9 sources)Detrusor overactivity; Translations: [Overactive bladder]Onset: 29-34-3758NmfqapyDqgmf diseases of bladder and urethra (20 sources)Overactive bladder; Translations: [Overactive bladder]Onset: 570624-32-0206MqebfgsNnuqy diseases of kidney and ureters (5 sources)Urinary tract obstruction; Translations: [Other obstructive and reflux uropathy]Onset: 18-71-4021OtjajdspUzelc male genital disorders (20 sources)Male erectile dysfunction, unspecified; Translations: [Erectile dysfunction]Onset: 87-68-1336WxgztygWnrep screening for suspected conditions (not mental disorders or infectious disease) (20 sources)Patient encounter status; Translations: [Encounter for screening for malignant neoplasm of colon]Onset: 403181-60-1352KyqynpmmBxyxu upper respiratory disease (14 sources)Rhinitis; Translations: [Chronic rhinitis]Onset: 01-17-2023 18-27-4639KlmymrsRmeltafzmcll (20 sources)Asymptomatic microscopic yyivdeast77-83-6864Lzcapdtlnrvg (11 sources)Patient encounter amxaej70-91-9280 Past or Other Problems Problem ClassificationProblemDateDocumented DateEpisodic/ChronicOther lower respiratory disease (14 sources)Chronic cough; Translations: [Chronic cough]Onset: 01-17-2023 76-27-6405VjyiabqpQawqh nervous system disorders (14 sources)Tremor; Translations: [Tremor, unspecified]Onset: 03-07-2024 79-25-6766Iiimtnhe Results Test NameValueInterpretationReference RangeFacilityHeart and Vascular Office/Clinic Noteon 07-44-3278Mpcbw and Vascular Office/Clinic NoteHeart and Vascular Office/Clinic Note Chief Complaint 3 month F/U History of Present Illness Patient is a 64-year-old male with history of BPH, hypertension, bpd-udqntbr-zgqgimspm diabetes mellitus type 2/prediabetes, elevated PSA with abnormal MRI of the prostate. Patient comes in for 3-month follow-up today. Reviewed prior event monitor, echo. At last visit, I saw patient at which time he was continued on current medications of Eliquis and propranolol and continued without amiodarone. Patient has been doing well since last visit. He did wear a monitor for 2 weeks in 06/2024 and it came back grossly normal. There [...] Patient denies chest pain, shortness of breath, dizziness/lightheadedness, and swelling in lower legs. REVIEWED PRIOR NOTE FROM 10/21/2024: Patient comes in for 6-week follow-up today. [...] Eliquis 5 mg twice daily, and propranolol 60mg ER daily. Patient reports that he was initially prescribed propranolol due to a tremor and it has been helpful to reduce or stop this tremor. Patient reports that he does not have any heart palpitations at all since last visit and has been feeling very good from a heart standpoint overall. Patient denies chest pain, shortness of breath, dizziness/lightheadedness, and swelling in lower legs. Review of Systems PHQ Score Initial Depression Screen Score: 0 SCORE ROS - Provider Constitutional: no fever, no chills, no sweats, no weakness Respiratory: no shortness of breath, no cough Cardiovascular: no chest pain Neuro: no dizziness. no loss of consciousness Physical Exam Vitals & Measurements HR: 85(Peripheral) RR: 18 BP: 125/85 SpO2: 95% HT: 173 cm HT: 68 in WT: 182.102 lb WT: 82.6 kg BMI: 27.6 General: alert, no acute distress Cardiovascular: regular [...] 0.01%. Total burden of premature ventricular ectopy wasless than 0.01%. CONCLUSIONS: Underlying sinus rhythm, no evidence of atrial fibrillation, other events, as above. [1] (06/07/2024 08:52 EST Echo Transthoracic Complete) Interpretation Summary The left ventricle is normal in size. There is normal left ventricular wall thickness. The left ventricular ejection fraction is normal. Normal diastolic function. Assessment/Plan 1. Atrial fibrillation (I48.91: Unspecified atrial fibrillation) Patient had new onset A-fib with RVR when he was in the hospital in 05/2024. Patient has been compliant with Eliquis 5 mg twice daily and propranolol 60 mg ER daily since being discharged. Patient did discontinue amiodarone previously and has not noticed any difference symptoms at all. Patient doesnot believe he has been back in A-fib since last visit. Event monitor from 06/2024 did not show anyepisodes of A-fib and only infrequent ectopic beats. Will have patient continue with current medications of Eliquis 5 mg twice daily and propranolol 60 mg ER daily. 2. HLD (hyperlipidemia) (E78.5: Hyperlipidemia, unspecified) Patient has history of HLD. Currently taking her simvastatin 40 mg daily. Lipids managed by his PCP. Continue current medications. Orders: ECG 12 Lead Adult Follow-up with me in 6 months or sooner if needed Portions of this record may have been created with voice recognition artificial intellige (more content not included)...[facility] CenterComment on above:Result Comment: Electronically Signed By: Mehran BRIGGS, Jose Welch\.belen\Date and Time Signed: 01/21/25 10:07 EDTReminderson 21-41-9879OynogsgszKazntdpdc From: Effie Tamayo To: EU - Administrative; Sent: 02/06/2024 09:23:02 EDT Show up: 11/06/2024 09:22:00 EDT Subject: Appointment Call Back Due Date/Time: 02/05/2025 09:22:00 EDT Reminder/Recall 1 year follow up with PSA. Patient would prefer morning appointment. Pt is scheduled for MonJun 25, 2025 w/ Dr. Klein. But it has been sent to the rs queue so I will call and get him rs. Pt is rs for May w/ Dr. Klein in [place].[facility] CenterALL CBC WITH AUTO DIFFon [id number] ABSOLUTE [id number] Healthcare Basophils/100 WBC (Bld)0.4 %0.2 - 2.0 %NOMS HealthcareEosinophils/100 WBC (Bld) 3.7 %0.9 - 7.0 %NOMS HealthcareErythrocyte distribution width (RBC) [Ratio]12.9 %11.0 - 15.0 %NOMS HealthcareHematocrit (Bld) [Volume fraction]42.6 %42.0 - 54.0 %NOMS HealthcareHemoglobin (Bld) [Mass/Vol]14.2 g/dL14.0 - 18.0 g/dLFulton State HospitalIMMATURE GRANULOCYTES ABS AUTO0.03NOSaint Joseph Health CenterImmature granulocytes/100 WBC (Bld)0.3 %0.0 - 0.5 %[facility] HospitalInterpretation and review of laboratory resultsAbnormalNOSaint Joseph Health CenterLYMPHOCYTES ABSOLUTE AUTO2.5 [facility] HospitalLymphocytes/100 WBC (Bld)27.7 %20.5 - 60.0 %[facility] JosephH (RBC) [Entitic mass]30.1 pg25.9 - 34.[address] JosephHC (RBC) [Mass/Vol] 33.3 g/dL29.9 - 35.2 g/dLMosaic Life Care at St. JosephV (RBC) [Entitic vol]90.3 fL80.0 - 94.0 fLFulton State HospitalMONOCYTES ABSOLUTE AUTO0.8NOSaint Joseph Health CenterMonocytes/100 WBC (Bld)9.2 %1.7 - 12.0 %[facility] HospitalNEUTROPHILS ABSOLUTE AUTO5.3NOSaint Joseph Health Center Neutrophils/100 WBC (Bld)58.7 %43.0 - 75.0 %[facility] State HospitalPlatelet mean volume (Bld) [Entitic vol]8.8 fLLow9.5 - 13.5 fLFulton State HospitalTBH EO #0.3NOMS HealthcareTB [id number] [facility] RBC4.72NOMS [facility]tering Health HamiltonTB [id number] Joseph Health CenterCLINISYNCNOMS HealthcareHeart and Vascular Office/Clinic Noteon [id number] and Vascular Office/Clinic NoteHeart and Vascular Office/Clinic Note Chief Complaint 6 week F/U History of Present Illness Patient is a 63-year-old male with history of BPH, hypertension, aty-zwhvnxd-lntrgozov diabetes mellitus type 2/prediabetes, elevated PSA with [...] Eliquis 5 mg twice daily, and propranolol 60mg ER daily. Patient reports that he was initially prescribed propranolol due to a tremor and it has been helpful to reduce or stop this tremor. Patient reports that he does not have any heart palpitations at all since last visit and has been feeling very good from a heart standpoint overall. Patient denies chest pain, shortness of breath, dizziness/lightheadedness, and swelling in lower legs. REVIEWED PRIOR NOTE FROM 09/03/2024: Patient comes in for a 6 week follow-up today. At last visit, I saw patient at which time he was continued on propranolol, amiodarone and Eliquis. Patient has been doing well since last visit. He didwear a monitor for 2 weeks and it came back Good. There were no evidence of A-fib during the monitoring period of time patient had very infrequent ectopic beats, but otherwise was grossly normal. Patient reports that he is still been feeling well since last visit and has been compliant with Eliquis5 mg twice daily, amiodarone 200 mg twice daily propranolol 60 mg ER daily. Patient reports that hewas initially prescribed propranolol due to a tremor [...] Patient denies chest pain, shortness of breath, dizziness/lightheadedness, and swelling in lower legs. Review of [...] 0.01%. Total burden of premature ventricular ectopy wasless than 0.01%. CONCLUSIONS: Underlying sinus rhythm, no [...] with voice recognition artificial intelligence software, specifically [employer] and or [employer]. Substitutions may have occurred due to the inherent limitations of voice recognition and artificial intelligence software. Follow-up No qualifying data (more content not included)...[facility] Medical CenterComment on above:Result Comment: Electronically Signed By: Jose Laurent PA-C\justin\Date and Time Signed: 10/21/24 10:09 EDTReminderson 09-04-2024 RemindersReminders From: Vi Soliman To: EU - Administrative; [...] ) Other: PROVIDER RELATED REMINDER:_ ( ) Sand Temperer ( ) Call Pharmacy ( ) Call Lab ( ) Other: Special Instructions:_ Comments:_ pt has an appt on Monday @10:00am [facility] 09-03-2024 Heart and Vascular Office/Clinic NoteHeart and Vascular Office/Clinic Note Chief Complaint 6 wk f/u History of Present Illness Patient is a 63-year-old male with history of BPH, hypertension, iky-exyezbn-oarmbvzep diabetes mellitus type 2/prediabetes, elevated PSA with abnormal MRI of the prostate. Patient comes in for a 6 week follow-up today. At last visit, I saw patient at which time he was continued on propranolol, amiodarone and Eliquis. Patient has been doing well since last visit. He didwear a monitor for 2 weeks and it came back Good. There were no evidence of A-fib during the monitoring period of time patient had very infrequent ectopic beats, but otherwise was grossly normal. Patient reports that he is still been feeling well since last visit and has been compliant with Eliquis5 mg twice daily, amiodarone 200 mg twice daily propranolol 60 mg ER daily. Patient reports that hewas initially prescribed propranolol due to a tremor [...] Patient denies chest pain, shortness of breath, dizziness/lightheadedness, and swelling in lower legs. NOTE FROM 07/17/2024: Patient comes in for a 1 month follow-up today. At last visit, I saw patient at which time he was to fruit or nut picker an event monitor shortly after last appointment [...] chest pain, shortness of breath, heart palpitations, dizziness/lightheadedness, and swelling in lower legs. Review of [...] 0.01%. Total burden of premature ventricular ectopy wasless than 0.01%. CONCLUSIONS: Underlying sinus rhythm, no [...] Daily, # 90 tab(s), Refills(s) 3, Pharmacy: [facility]/pharmacy #[id number], 173, cm, 09/03/24 14:22:00 EST, Height/Length Dosing, 87, kg, 09/03/24 14:22:00 EST, Weight Dosing Follow-up with me in 6 weeks or sooner if needed portions of this record may have been created with voice recognition artificial intelligence software, specifically [employer] and or [employer]. Substitutions may have occurred due to the inh (more content not included)...[facility] Medical CenterComment on above:Result Comment: Electronically Signed By: Mehran BRIGGS, Jose Welch\.br\Date and Time Signed: 09/03/24 14:35 ESTEvent Monitoron [id number] MonitorEvent Monitor EVENT MONITOR ENROLLMENT PERIOD: 06/24/2024 through [...] 0.01%. Total burden of premature ventricular ectopy wasless than 0.01%. CONCLUSIONS: Underlying sinus rhythm, no evidence of atrial fibrillation, other events, as above. READ BY: Sushil Camejo MD ca Dictated: 07/13/2024 [id number] Transcribed: 07/18/2024 cc:Sharla Mendosa D.O.[facility] Medical CenterComment on above: Result Comment: Electronically Signed By: Bashir IRCE, Sushil Johnson\.br\Date and Time Signed: 07/19/24 12:59 ESTHeart and Vascular Office/Clinic Noteon 07-17-2024 Heart and Vascular Office/Clinic NoteHeart and Vascular Office/Clinic Note Chief Complaint 1 month F/U History of Present Illness Patient is a 63-year-old male with history of BPH, hypertension, dsd-shyqsug-zozysyhsw diabetes mellitus type 2/prediabetes, elevated PSA with abnormal MRI of the prostate. Patient comes in for a 1 month follow-up today. At last visit, I saw patient at which time he was to fruit or nut picker an event monitor shortly after last appointment [...] chest pain, shortness of breath, heart palpitations, dizziness/lightheadedness, and swelling in lower legs. NOTE FROM [...] with all medications since discharge including Eliquis 5mg twice daily, amiodarone 200 mg twice daily [...] he has his event monitor scheduled to fruit or nut picker on 06/24/2024. Patient has well-controlled blood pressure in the office today. He is not taking anything in addition to propranolol for blood pressure. Patient denies chest pain, shortness of breath, heart palpitations, dizziness/lightheadedness, and swelling in lower legs. Review of [...] and want to stop amiodarone in the afo-leg-inbcshe future. Would like him ignacio on it for 3 months and then we will try to discontinue to see if patient states that NSR at thattime. continue with current medications at this time Follow-up with me in 6-8 weeks Portions of this record may have been created with voice recognition artificial intelligence software, specifically [employer] and or [employer]. Substitutions may have occurred due to the inherent limitations of voice recognition and artificial intelligence software. Follow-up No qualifying data available Problem List/Past Medical History Ongoing BPH with obstruction/lower urinary tract symptoms BPH without urinary obstruction Dysuria ED (erectile dysfunction) Elevated PSA GERD (gastroesophageal reflux disease) Hematuria Hyperlipidemia Nocturia OAB (overactive bladder) Prediabetes Prostate cancer screenin (more content not included)...[facility] Medical CenterComment on above:Result Comment: Electronically Signed By: Mehran BRIGGS, Jose Welch\.belen\Date and Time Signed: 07/17/24 15:06 ESTALL CBC WITH AUTO DIFFon [id number] ABSOLUTE AUTO0.1NOMS HealthcareBasophils/100 WBC (Bld)0.6 %0.2 - 2.0 %NOMS HealthcareEosinophils/100 WBC (Bld)3.7 %0.9 - 7.0 % NOMS HealthcareErythrocyte distribution width (RBC) [Ratio]12.8 %11.0 - 15.0 % NOMS HealthcareHematocrit (Bld) [Volume fraction]45 %42.0 - 54.0 %NOMS HealthcareHemoglobin (Bld) [Mass/Vol]15.3 g/dL14.0 - 18.0 g/dLNOHI Healthcare IMMATURE GRANULOCYTES ABS AUTO0.03NOMS HealthcareImmature granulocytes/100 WBC (Bld)0.3 %0.0 - 0.5 %NOMS HealthcareInterpretation and review of laboratory resultsAbnormalNOHI HealthcareLYMPHOCYTES ABSOLUTE AUTO2.1NOM[facility] Healthcare Lymphocytes/100 WBC (Bld)21.8 %20.5 - 60.0 %NOMS [facility] HamiltonMCH (RBC) [Entitic mass]30.5 pg25.9 - 34.0 pgNOMS [facility] HamiltonMCHC (RBC) [Mass/Vol]34 g/dL29.9 - 35.2 g/dLNOSaint Joseph Health CenterMCV (RBC) [Entitic vol]89.8 fL80.0 - 94.0 fLNOSaint Joseph Health Center MONOCYTES ABSOLUTE AUTO0.9HighNOHI HealthcareMonocytes/100 WBC (Bld)9.7 %1.7 - 12.0 %[facility] HealthcareNEUTROPHILS ABSOLUTE AUTO6.1NOMS HealthcareNeutrophils/100 WBC (Bld)63.9 %43.0 - 75.0 %[facility] HealthcarePlatelet mean volume (Bld) [Entitic vol]8.6 fLLow9.5 - 13.5 fLNOSaint Joseph Health CenterTBH EO #0.4NOHI HealthcareTBH NJI993 [facility] HealthcareTB RBC5.01NOHI HealthcareTBH WBC9.6NOHI HealthcareCLINISYNCNOMS HealthcareHeart and Vascular Office/Clinic Noteon [id number] and Vascular Office/Clinic NoteHeart and Vascular Office/Clinic Note Chief Complaint Inpatient F/U New Onset of A-fib History of Present Illness Patient is a 63-year-old male with history of BPH, hypertension, xox-itknpam-dujuimwmo diabetes mellitus type 2/prediabetes, elevated PSA with [...] with all medications since discharge including Eliquis 5mg twice daily, amiodarone 200 mg twice daily [...] he has his event monitor scheduled to fruit or nut picker on 06/24/2024. Patient has well-controlled blood pressure in the office today. He is not taking anything in addition to propranolol for blood pressure. Patient denies chest pain, shortness of breath, heart palpitations, dizziness/lightheadedness, and swelling in lower legs. Review of [...] has a 2-week event monitor scheduled to fruit or nut picker on 06/24/2024 and we will have him follow-up to go over those results. Continue with current medicines until that time, although we will decrease amiodarone to 200 mg daily from twice daily. Ordered: amiodarone, 200 mg = 1 tab(s), Oral, Daily, X 30 day(s), # 30 tab(s), Refills(s) 2, Pharmacy: [facility]/pharmacy #[id number], 173, cm, 06/19/24 14:33:00 EST, Height/Length Dosing, 91.8, kg, 06/19/24 14:33:00 EST, Weight Dosing apixaban, 5 mg = 1 tab(s), Oral, BID, # 60 tab(s), Refills(s) 2, Pharmacy: [facility]/pharmacy #[id number], 173,cm, 06/19/24 14:33:00 EST, Height/Length Dosing, 91.8, kg, 06/19/24 14:33:00 EST, Weight Dosing Orders: ECG 12 Lead Adult Follow-up with me in 1 month Portions of this record may have been created with voice recognition artificial intelligence software, specifically [employer] and or [employer]. Substitutions may have occurred due to the [...] Eliquis 5 mg or (more content not included)...[facility] Comment on above:Result Comment: Electronically Signed By: Mehran BRIGGS, Jose Welch\.belen\Date and Time Signed: 06/19/24 16:14 ESTUrology Office/Clinic Noteon [id number] Office/Clinic NoteUrology Office/Clinic Note Chief Complaint Patient in office [...] Pt acknowledges understanding. -Will order PSA at [facility]. 2. BPH with obstruction/lower urinary tract symptoms [...] states that this got him to about 50%erection. He does note that he had a [...] different med. Advised pt that he has triedthe highest dose of the Cialis, could try [...] In 1 year Additional Instructions: w/PSA @ [facility] Patient Education Benign Prostatic Hyperplasia I, Kelly Quiroz, personally scribed for Dr. Klein on 06/19/2024 12:02:38. . Documentation recorded by the scribe, Kelly Quiroz, accurately reflects the services(s) I performed and decisions made by me. (more content not included)... [facility] CenterComment on above:Result Comment: Electronically Signed By: Ernie RICE, Marita Albarran\.br\Date and Time Signed: 06/19/24 12:43 EST\.br\Electronically Co-Signed By: Kelly Quiroz\.br\Date and Time Co- Signed: 06/19/24 12:02 QDVYpE5c (Bld) [Mass fraction]Ordered By: Karissa Jacques on [id number] HealthcareALL CBC WITH AUTO DIFFon [id number] ABSOLUTE HKNN9GZHB HealthcareBasophils/100 WBC (Bld)0.4 %0.2 - 2.0 %NOMS HealthcareEosinophils/100 WBC (Bld)4.2 %0.9 - 7.0 %NOMS HealthcareErythrocyte distribution width (RBC) [Ratio]13 %11.0 - 15.0 %NOMS HealthcareHematocrit (Bld) [Volume fraction]45.2 %42.0 - 54.0 %NOM HealthcareHemoglobin (Bld) [Mass/Vol] 15.3 g/dL14.0 - 18.0 g/dLNOHI HealthcareIMMATURE GRANULOCYTES ABS AUTO0.04High NOMS HealthcareImmature granulocytes/100 WBC (Bld)0.4 %0.0 - 0.5 %NOMS HealthcareInterpretation and review of laboratory resultsAbnormalNOHI Healthcare LYMPHOCYTES ABSOLUTE AUTO2.4NOMS HealthcareLymphocytes/100 WBC (Bld)24.7 %20.5 - 60.0 %NOMCox SouthH (RBC) [Entitic mass]30.1 pg25.9 - 34.0 pgNOScotland County Memorial HospitalHC (RBC) [Mass/Vol]33.8 g/dL29.9 - 35.2 g/dLNOHI HealthcareMCV (RBC) [Entitic vol]89 fL80.0 - 94.0 fLNOHI HealthcareMONOCYTES ABSOLUTE [id number] HealthcareMonocytes/100 WBC (Bld)10.6 %1.7 - 12.0 %NOMS HealthcareNEUTROPHILS ABSOLUTE AUTO5.8NOMS HealthcareNeutrophils/100 WBC (Bld)59.7 %43.0 - 75.0 %NOMS HealthcarePlatelet mean volume (Bld) [Entitic vol]8.6 fLLow9.5 - 13.5 fLNOHI HealthcareTBH EO #0.4NOMS HealthcareTBH [id number] HealthcareTBH RBC5.08NOMS HealthcareTBH WBC9.8NOHI HealthcareCLINISYNCNNEWMAN MEMORIAL [facility] HealthcareALL LIPID PROFILE (FASTING)on 67-28-6773VQAG HDL RATIO2.3NOHI HealthcareComment on above:3.3 - 4.4 LOW RISK 4.4 - 7.1 AVERAGE RISK 7.1 - 11.0 MODERATE RISK >11.0 HIGH RISK Cholesterol [Mass/Vol]119 mg/dLNINF - 200 mg/dLFulton State HospitalCholesterol in HDL [Mass/Vol]52 mg/dL40 - 60 mg/dLNOHI HealthcareComment on above:> or =60 mg/dl - LOW CARDIOVASCULAR RISK <40 mg/dl - HIGH CARDIOVASCULAR RISK Magnesium [Mass/Vol]55.2 mg/dLST. MARK'S HOSPITAL HealthcareComment on above:<100 mg/dl OPTIMAL 100-129 mg/dl NEAR OR ABOVE OPTIMAL 130-159 mg/dl BORDERLINE HIGH 160-189 mg/dl HIGH >190 mg/dl VERY HIGH Magnesium [Mass/Vol]11.8 mg/dLFulton State HospitalTriglyceride [Mass/Vol]59 mg/dLNINF - 150 mg/dLST. MARK'S [facility]OS[facility] HealthcareCCF CMP (CMP) (FOR REMOTE [facility] USE)on 06-15-2024 Albumin [Mass/Vol]3.8 g/dL3.4 - 5.0 g/dLST. MARK'S HOSPITAL HealthcareALBUMIN GLOBULIN RATIO1 [facility] HealthcareALP [Catalytic activity/Vol]51 U/L46 - 116 U/LNOMS HealthcareALT [Catalytic activity/Vol]29 U/L16 - 63 U/LNOMS HealthcareAnion gap [Moles/Vol] 12.5 mmol/LNOMS HealthcareAST [Catalytic activity/Vol]23 U/L15 - 37 U/LNOMS HealthcareBilirubin [Mass/Vol]0.5 mg/dL0.2 - 1.0 mg/dLNOHI HealthcareCalcium [Mass/Vol]9 mg/dL8.5 - 10.1 mg/dLNOHI HealthcareChloride [Moles/Vol]105 mmol/L98 - 107 mmol/LNOMS HealthcareCO2 [Moles/Vol]28.7 mmol/L21.0 - 32.0 mmol/LNOMS HealthcareCreatinine [Mass/Vol]0.97 mg/dL0.70 - 1.30 mg/dLNOHI Healthcare GFR/1.73 sq M.predicted CKD-EPI (S/P/Bld) [Vol rate/Area]>60>=60 mL/min/1.73m 2 NOMS HealthcareGlobulin (S) [Mass/Vol]3.9 g/dLNOHI HealthcareGlucose [Mass/Vol] 113 mg/hKDxvw90 - 106 mg/dLNOHI HealthcareInterpretation and review of laboratory resultsAbnormalNOHI HealthcarePotassium [Moles/Vol]4.2 mmol/L3.5 - 5.1 mmol/LNOMS HealthcareProtein [Mass/Vol]7.7 g/dL6.4 - 8.2 g/dLNOHI Healthcare Sodium [Moles/Vol]142 mmol/L136 - 145 mmol/LNOMS HealthcareTBH EGFR-NON AF SOUTH [place]OREAN>60>=60 mL/min/1.73m 2NOMS HealthcareUrea nitrogen [Mass/Vol]18 mg/dL7.0 - 18.0 mg/dLNOHI HealthcareUrea nitrogen/Creatinine [Mass ratio]18.6 mg/mgNOMS HealthcareMLR HEMOGLOBIN A1Con 86-62-6724Wshzuhk [Mass/Vol]120 mg/dLNOHI WmdtkyeuqnFbQ6m (Bld) [Mass fraction]5.8 %4.5 - 6.2 %NOM HealthcareComment on above:ADA RECOMMENDED LIMIT 4.0 - 6.0 ADA THERAPEUTIC TARGET < 7.0 ACTION SUGGESTED > 7.0 No Panel Informationon [id number] HealthcareTB MICROALB CREAT RATIO RANDOMon [id number] URINE QHYMYZ240.52 mg/dL20.00 - 300.00 mg/dL NOMS HealthcareMICROALBUM CREATININE RATIO UR22.9 mg/g0.0 - 29.9 mg/gNOMS HealthcareComment on above:NO MICROALBUMINURIA 0-29 MG/G CLINICAL MICROALBUMINURIA 30-300 MG/G MACROALBUMINURIA >300 MG/G MICROALBUMIN URINE RANDOM2.6 mg/dLNINF - 30.0 mg/dLNOMS HealthcareCLINISYNCNOMS HealthcareSurgical Pathology Reporton [id number] Pathology ReportWright-Patterson Medical Center [address] [place] [address]- Surgical Pathology Report Collected Date/Time: 06/06/2024 12:34 [...] #1 and #2 of (more content not included)...[facility] Medical CenterComment on above: Performed By: #### [id number] #### [facility]ick [facility] [address], [place] [address]Ktwe OR Intraoperative Recordon [id number] OR Intraoperative RecordMain OR Intraoperative Record IntraOp Document Type FT Summary Primary Physician: Marita Klein MD Finalized Date/Time: 06/10/24 08:20:17 Pt. Name: THOMAS GONCALVES D.O.B./Sex: 1960 Male Med Rec #: [id number] Physician: Facundo PEACE MD Financial #: [id number] Pt. Type: O Room/Bed: N317/01 Admit/Disch: 06/06/24 09:30:30 - 06/07/24 13:20:00 Institution: Case Times FT Entry 1 Patient Times In Room 06/06/24 12:41:00 Out Room 06/06/24 13:14:00 Procedure Times Start 06/06/24 12:51:00 Stop 06/06/24 13:06:00 Anesthesia Times Start 06/06/24 12:41:00 Stop 06/06/24 13:14:00 Last Modified By: Alicia DELGADO, Curt Turner 06/06/24 13:15:14 General Comments: 06/10/24 Chart opened to review and send charges LRoth CSFA Case Attendance FT Entry 1 Entry 2 Entry 3 Case Attendee Adelaida GREEN, Julio C Klein MD, Marita Vargas RN, Curt Turner Role Performed Anesthesiologist Surgeon - Primary Border Measurer - Primary Doffer Time In 06/06/24 12:41:00 06/06/24 12:48:00 06/06/24 12:41:00 Time Out 06/06/24 13:14:00 06/06/24 13:08:00 06/06/24 13:14:00 Procedure PROSTATE TRANSPERINEAL PROSTATE TRANSPERINEAL PROSTATE TRANSPERINEAL BIOPSY WITH ULTRA(.) BIOPSY WITH ULTRA(.) BIOPSY WITH ULTRA(.) Comments , ANESTHESIA SIGN HANGER Last Modified By: Alicia RN, Curt Vargas RN, Curt Vargas RNCurt 06/06/24 13:15:16 06/06/24 13:15:16 06/06/24 13:15:16 Entry [...] Comments: VALERIA KASPER-OBSERVING SURGICAL CASE. AZUL CLEMENT, [facility] PRESENT IN OR FOR SURGICAL [...] C Craven Given Participants Ernie Holland MD, Marita Albarran, [...] PROSTATE BIOPSY Primary Procedure Yes Primary Surgeon Ernie RICE, Marita Albarran Start 06/06/24 12:51:00 Stop 06/06/24 13:06:00 Anesthesia [...] and tissue Entry 1 Skin Integrity Intact, [place], Warm, & Skin Abnormality No Dry Outcomes Met? Yes Last Modified By: Curt Vargas RN 06/06/24 12:57:48 Post-Care Text: The patient is free from signs and symptoms of injury caused by extraneous objects Patient Positioning FT Pre-Car (more content not included)...NormalAultman HospitalCHEMISTRY Ordered By: Lab Pete on [id number] [Mass/Vol]114 mg/lBNgjc00 - 99 mg/dLB[facility] AND [facility] POC SubsectionComment on above:Result Comment: Notified RN/MDPOC Device [id number] 1Invalid Interpretation CodeFT POC SubsectionPOC User ID [id number] 1Invalid Interpretation CodeFT POC SubsectionPOC UsernameDJORGE BYRONNNAInvalid Interpretation CodeFT POC SubsectionGlucose [Mass/Vol]106 mg/dL High55 - 99 mg/dLBONE AND [facility] [place] [facility] POC SubsectionComment on above:Result Comment: Notified RN/MDPOC Device [id number] 1Invalid Interpretation CodeFTMC POC Subsection POC User [id number] 1Invalid Interpretation CodeFT POC SubsectionPOC Username SHANTERALPH, MAKENNAInvalid Interpretation CodeBONE AND [facility]INT [facility] POC SubsectionCapillary Glucose POCon [id number] [Mass/Vol]114 mg/iWMlox86-69PjbzgbAultman HospitalComment on above:Result Comment: Notified RN/MDPerformed By: #### [id number] #### [facility] [address], [place] [address]Aigvzno [Mass/Vol]106 mg/kJIkhb39-78SabybcAultman Hospital Comment on above:Result Comment: Notified RN/MDPerformed By: #### [id number] #### [facility] [address], [place] [address]Mxeyxaxeo Clinical Summaryon [id number] Clinical SummaryInpatient Clinical Summary [address] [address] Clinical Summary Person Information: Name: THOMAS GONCALVES Age: 63 Years : 1960 Sex: Male PCP: Jose Elias MENDOSA DO Marital Status: Race: White Ethnicity: Non- or Language: Luxembourgish Visit Id: Visit Reason: ELEVATED PSA, BPH WITH OBSTRUCTION/ LUTS Speciality: Acuity: Enc Type: Observation Med Service: Medical Arrival: 06/06/2024 09:30:30 Discharge: Dispo Type: Address: [address] [place] [phone] Provider Notes: Diagnosis: 2:Prediabetes; 3:BPH with obstruction/lower [...] Attending Physician: LYNETTE RICE, Glo Consulting Physician: [facility] Cardio, XXXX; Estuardo Bunch MD Referring Physician: Ernie RICE, Marita Albarran Follow up: With: Address: When: Jose Elias MENDOSA [address] [place], [place] [id number] Business (1) 06/13/2024 2:20 PM With: Address: When: Ernie RICE, Marita Albarran, URL, URO [address] [place] [address] 06/19/2024 11:00 AM With: Address: When: Sushil Camejo [address] [place], [place] [phone] Business (1) 06/18/2024 11:30 AM Comments: Call for followup appointment Type Location Start [facility] Cardiology Follow Up (FT) FT.Cardiology Clinic 06/18/2024 11:30 AM 06/18/2024 11:45 AM Confirmed URO Office Visit [facility] TURNER Siobhan 06/19/2024 11:00 AM 06/19/2024 11:15 AM Confirmed Patient Education Information: Post Op Patient Instructions - FT (CUSTOM); [place]- Post-Op Instructions for Prostate Biopsy(CUSTOM)[facility] Medical CenterInpatient Patient Summaryon [id number] Patient SummaryInpatient Patient Summary [place] [id number] Patient Discharge Instructions PERSON INFORMATION Name: THOMAS GONCALVES Date of : 1960 Current Date: 06/07/2024 11:37:59 PHYSICIANS Admitting Physician: LYNETTE RICE, Glo Primary Care Physician: Jose Elias MENDOSA DO [...] Ernie RICE, KANDIS Maldonado, [facility] [address] [place] [address] 06/19/2024 11:00 AM With: Address: When: Sushil Camejo [address] [place] [phone] Business (1) 06/18/2024 11:30 AM Comments: Call for followup appointment With: Address: When: Jose Elias MENDOSA [address] [address] Business (1) Within 5 to 7 days In the event that this physician does not participate in your insurance network, please consult with your insurance company to find a nearby participating provider. Type Location Start [facility] Cardiology Follow Up (FT) FT.Cardiology Clinic 06/18/2024 11:30 AM 06/18/2024 11:45 AM Confirmed URO Office Visit [facility] 06/19/2024 11:00 AM 06/19/2024 11:15 AM Confirmed Comment: IIVANNA RON L, have received the attached patient education materials/instructions and have verbalized understanding: Patient Signature Date Clinican/Nurse Signature Date HERE ARE THE MEDICATION CHANGES THAT OCCURRED DURING YOUR HOSPITAL STAY New Medications [id number], [address], [place] [id number], [phone] amiodarone (amiodarone 200 mg Tab) 1 Tablets By Mouth 2 times a day. Refills: 0. Last Dose: Next Dose: apixaban (Eliquis 5 mg oral tablet) 1 Tablets By Mouth 2 times a day. Refills: 0. Last Dose: Next Dose: rosuvastatin (Crestor 40 mg Tab) 1 Tablets By Mouth every day. Refills: 0. Last Dose: Next Dose: Medications to Continue with No Changes Other Medications aspirin (aspirin 81 mg oral capsule) 1 Capsules By Mouth every day. Last Dose: Next Dose: metformin (metformin 500 mg Tab) 1 Tablets By Mouth every day. Last Dose: Next Dose: multivitamin (Multi Vitamins oral tablet) 1 Tablets By Mouth every day. Last Dose: Next Dose: niacin 500 Milligram By Mouth. Last Dose: Next Dose: niacin (niacin 500 mg ER Tab) 1 Tablets By Mouth once a day (at bedtime). Last Dose: Next Dose: omega-3 polyunsaturated fatty acids (Fish Oil) 500 Milligram By Mouth every day. Last Dose: Next Dose: omeprazole (omeprazole 20 mg Cap-DR) 1 Capsules By Mouth every day. Last Dose: Next Dose: propranolol (propranolol 60 mg Cap-ER) 1 Capsules By Mouth every day. Last Dose: Next Dose: tadalafil (tadalafil 10 mg Tab) 1 Tablets By Mouth As Directed as needed for erectile dysfunction. take 1 tab prior to sexual activity. Do not exceen 2 tabs (20 mg) in 24 hr. Refills: 5. Last Dose: Next Dose: tamsulosin (tamsulosin 0.4 mg Cap) 1 Capsules By Mouth every day for 90 Days. Refills: 3. Last Dose: Next Dose: trospium (trospium 60 mg oral capsule, extended release) 1 Capsules By Mouth once a day (in the morning). Refills: 11. Last Dose: Next Dose: No Longer Take the Following Medications pantoprazole (Pantoprazole [address] Tab) 1 Tablets By Mouth every day. Comment: MEDICATION LIST PROVIDED FOR YOU IS A LIST OF YOUR CURRENT MEDICATIONS. PLEASE CARRY THIS WITH YOU AT ALL TIMES. amiodarone (amioda (more content not included)...[facility] CenterIn[facility] Patient SummaryInpatient Patient Summary THOMAS GONCALVES :1960 Visit Date:06/06/2024 Inpatient Discharge Instructions Your Care Team Admitting Physician - LYNETTE RICE, Glo Consulting Physician - Estuardo Bunch MD [facility] Cardio, XXXX Referring Physician - Ernie RICE, [...] weeks Comments: Call for followup appointment Where: [address] [place] [phone] [phone] Business (1) Follow Up with Jose Elias MENDOSA When: Within 5 to 7 days Where: [address] [facility], [facility] [address] [place] [address]- Business (1) Follow Up with Ernie RICE, KANDIS Maldonado, URO When: Within 1 week Where: Medications What How Much When Why Instructions Next Dose New amiodarone (amiodarone 200 mg Tab) 1 Tablets By Mouth 2 times a day Atrial fibrillation with RVR Pickup at [id number] 06/07 0900pm New apixaban (Eliquis 5 mg oral tablet) 1 Tablets By Mouth 2 times a day Atrial fibrillation with RVR Pickup at [facility]/pharmacy [facility][id number] 06/07 0900pm New rosuvastatin (Crestor 40 mg Tab) 1 Tablets By Mouth Every day Pickup at [facility]/pharmacy #[id number] 06/08 900am Unchanged aspirin (aspirin [...] Capsules By Mouth Every day 06/08 Unchanged propranolol (propranolol 60 mg Cap-ER) 1 Capsules By Mouth Every day 06/08 Unchanged tadalafil (tadalafil 10 mg Tab) 1 Tablets By Mouth As Directed as needed for for erectiledysfunction take 1 tab prior to sexual activity. Do not exceen 2 tabs (20 mg) in 24 hr As Directed as needed for erectile dysfunction Unchanged tamsulosin (tamsulosin 0.4 mg Cap) 1 Capsules By Mouth Every day Duration: 90 Days 06/08 Unchanged trospium (trospium 60 mg oral capsule, extended release) 1 Capsules By Mouth Once a day (in the morning) 06/08 Pharmacy Information [facility]/pharmacy #[id number]: [address], [place] [id number] [phone] What How Much When Comments Stop Taking [...] Nocturia OAB (overactive b (more content not included)...[facility] CenterInterdisciplinary Note - Case Manageron [phone] Note - Case ManagerInterdisciplinary Note - Circular Shear Operator CRM spoke with patient in room. Patient is alert and oriented and participates in discharge planning. No family in room. Patient white board updated, and CRM contact information provided. Discussed CRM spoke with Dr Peace who saw patient earlier today and patient is discharging home today. Patientverified PCP, insurance and DME. patient is form home with his spouse Sonal and he will transport at dc. Patient denies any needs any dc and denies need for any H/H services.[facility] Medical CenterComment on above:Result Comment: Electronically Signed By: Collin DELGADO, Joy\.br\Date and Time Signed: 06/07/24 12:17 ESTBMPon 69-31-3709Viksg gap [Moles/Vol]10 mmol/LNormal6-16Aultman HospitalComment on above:Performed By: #### [id number] #### [facility] [address], [place] [address]Gjdweux [Mass/Vol]8.5 mg/dLLow8.9-11.1FThe University of Toledo Medical CenterComment on above:Performed By: #### [id number] #### [facility] [address], [place] [address]Xorzmlto [Moles/Vol]106 mmol/FSdwvaw570-875LnfzuuAultman HospitalComment on above:Performed By: #### [id number] #### [facility] [address], [place] [address]FN0 [Moles/Vol]24 mmol/YCepcyk46-67FwebnwAultman Hospital Comment on above:Performed By: #### [id number] #### [facility] [address], [place] [address]Nxknpcokzu [Mass/Vol]0.7 mg/dLNormal0.5-1.3FThe University of Toledo Medical CenterComment on above:Performed By: #### [id number] #### [facility] [address], [place] [address]Lsddghr [Mass/Vol]116 mg/bZLpolox32-785FuoemrAultman HospitalComment on above:Performed By: #### [id number] #### [facility] [address], [place] [address]Qdqjjbhfw [Moles/Vol]4.0 mmol/LNormal3.5-5.3FThe University of Toledo Medical CenterComment on above:Performed By: #### [id number] #### [facility] [address], [place] [address]Boyvgb [Moles/Vol]136 mmol/OVfxcto239-808OxdpfiAultman HospitalComment on above:Performed By: #### [id number] #### [facility] [address], [place] [address]Rmnb nitrogen [Mass/Vol]15 mg/dLNormal5-21Aultman HospitalComment on above:Performed By: #### [id number] #### [facility] [address], [place] [address]Ezdj nitrogen/Creatinine [Mass ratio]21 No QzaseXmhf15-87RcnulzAultman HospitalComment on above:Performed By: #### [id number] #### [facility] [address], [place] [address]YRCCQMUSUBcxhfaf By: Lab Pete on 10-12-3008Jhkftqs [Mass/Vol]158 mg/gFIzwo87 - 99 mg/dLB[facility] AND [facility] [place] POC SubsectionComment on above:Result Comment: Notified RN/MDPOC Device [id number] 1Invalid Interpretation Code [facility] POC SubsectionPOC User [id number] 1Invalid Interpretation CodeB[facility] [place] POC SubsectionPOC UsernameVJERED SYOLInvalid Interpretation CodeB[facility] AND [facility] [place] POC SubsectionCHEMISTRYOrdered By: SYSTEM SYSTEM on 60-08-5119Zvowv gap [Moles/Vol] 10 mmol/LNormal6 - 16 mEq/LRemisol ChemCalcium [Mass/Vol]8.5 mg/dLLow8.9 - 11.1 mg/dLRemisol ChemChloride [Moles/Vol]106 mmol/WQixsov109 - 111 mmol/LRemisol ChemCO2 [Moles/Vol]24 mmol/JSwnjbe88 - 31 mmol/LRemisol ChemCreatinine [Mass/Vol]0.7 mg/dLNormal0.5 - 1.3 mg/dLRemisol KodmnJRB844 mL/min/1.73 m6Jljwgb >=59mL/min/1.73 f1Jusffrh ChemGlucose [Mass/Vol]116 mg/kSRdpexv08 - 199 mg/dL Remisol ChemMagnesium [Mass/Vol]1.9 mg/dLNormal1.3 - 2.4 mg/dLRemisol Chem Potassium [Moles/Vol]4.0 mmol/LNormal3.5 - 5.3 mmol/LRemisol ChemSodium [Moles/Vol]136 mmol/LYcfwbg137 - 145 mmol/LRemisol ChemTroponin HS2.50 pg/mLLow 15.90 - 38.40 pg/mLRemisol ChemComment on above:Interpretive Data: The 95% CI (Confidence Interval) PPV (Positive Predictive Value) for myocardial infarction in females is 38 pg/mL, in males 51 pg/mL. The results should be used in conjunction withclinical conditions of myocardial infarction. (Access High Sensitivity Troponin I Instructions For Use, Ghanshyam Theodosia, February 2018)TSH Qn2.61 m[IU]/LNormal0.34 - 5.60 mcIU/mLRemisol ChemUrea nitrogen [Mass/Vol]15 mg/dLNormal5 - 21 mg/dLRemisol ChemUrea nitrogen/Creatinine [Mass ratio]21 mg/igDppe45 - 20Remisol ChemCapillary Glucose POCon 74-71-9249Msqkymm [Mass/Vol]158 mg/dAZnqe16-15BinepqAultman HospitalComment on above:Result Comment: Notified RN/MDPerformed By: #### [id number] #### [facility] [address], [place] [address]Cmcwyus [Mass/Vol]136 mg/oYFvhh10-10HufupyAultman Hospital Comment on above:Result Comment: Notified RN/MDPerformed By: #### [id number] #### [facility] [address], [place] [address]Mlyurkr [Mass/Vol]111 mg/mTYoek25-47YyozjsAultman Hospital Comment on above:Result Comment: Notified RN/MDPerformed By: #### [id number] #### [facility] [address], [place] [address]Abyswbymmbb 99-54-2305Mmnvaybrq [Mass/Vol]1.9 mg/dLNormal 1.3-2.4Fisher [facility] Mid[facility] CampusComment on above:Performed By: #### [id number] #### [facility] [address], [place] [address]Rrws OR Intraoperative Recordon 60-33-4878Wzaq OR Intraoperative RecordMain OR Intraoperative Record IntraOp Document Type FT Summary Primary Physician: Marita Klein MD Finalized Date/Time: 06/06/24 13:52:01 Pt. Name: THOMAS GONCALVES Yue /Sex: 1960 Male Med Rec #: [id number] Physician: Marita Klein MD Financial #: [id number] Pt. Type: A Room/Bed: [place] [address] Admit/Disch: 06/06/24 09:30:30 - Institution: Case Times FT Entry 1 Patient Times In Room 06/06/24 12:41:00 Out Room 06/06/24 13:14:00 Procedure Times Start 06/06/24 12:51:00 Stop 06/06/24 13:06:00 Anesthesia Times Start 06/06/24 12:41:00 Stop 06/06/24 13:14:00 Last Modified By: Curt Vargas RN 06/06/24 13:15:14 Case Attendance FT Entry 1 Entry 2 Entry 3 Case Attendee Adelaida GREEN, Julio C Klein MD, Curt Storey RN Role Performed Anesthesiologist Surgeon - Primary Border Measurer - Primary Doffer Time In 06/06/24 12:41:00 06/06/24 12:48:00 06/06/24 12:41:00 Time Out 06/06/24 13:14:00 06/06/24 13:08:00 06/06/24 13:14:00 Procedure PROSTATE TRANSPERINEAL PROSTATE TRANSPERINEAL PROSTATE TRANSPERINEAL BIOPSY WITH ULTRA(.) BIOPSY WITH ULTRA(.) BIOPSY WITH ULTRA(.) Comments , ANESTHESIA SIGN HANGER Last Modified By: Alicia DELGADO, Curt Vargas RN, Curt Vargas RN, Curt Turner 06/06/24 13:15:16 06/06/24 13:15:16 06/06/24 13:15:16 Entry 4 Entry 5 Case Attendee Ricardo HAN, Liz Gonzales A Role Performed Staff - Other Scrub - Primary Time In 06/06/24 12:41:00 06/06/24 12:41:00 Time Out 06/06/24 12:51:00 06/06/24 13:14:00 Procedure PROSTATE TRANSPERINEAL PROSTATE TRANSPERINEAL BIOPSY WITH ULTRA(.) BIOPSY WITH ULTRA(.) Comments positioning help Last Modified By: Alicia DELGADO, Curt Vargas RN, Curt Turner 06/06/24 13:15:16 06/06/24 13:15:16 General Comments: VALERIA KASPER-OBSERVING SURGICAL CASE. AZUL CLEMENT, [facility] PRESENT IN OR FOR SURGICAL [...] C Craven Given Participants Ernie Holland MD, Alicia Maldonado RN, Ricardo Kc CST, Noemi Mccrary Sydney A [...] and tissue Entry 1 Skin Integrity Intact, [place], Warm, & Skin Abnormality No Dry Outcomes Met? Yes Last Modified By: Curt Vargas RN 06/06/24 12:57:48 Post-Care Text: The patient is free from signs and symptoms of injury caused by extraneous objects Patient Positioning FT Pre-Care Text: Identifies physical alterations that require additional precautions for procedure-specific positi (more content not included)...[facility] CenterMain OR PACU I Recordon 72-29-4855Zgen OR PACU I RecordMain OR PACU I Record PACU Phase I Document Type FT Summary Primary Physician: Marita Klein MD Finalized Date/Time: 06/06/24 16:32:42 Pt. Name: THOMAS GONCALVES D.O.B./Sex: 1960 Male Med Rec #: [id number] Physician: Glo PEACE MD Financial #: [id number] Pt. Type: O Room/Bed: N3/ Admit/Disch: 06/06/24 09:30:30 - Institution: Case Times [...] individualized perioperative plan of care The patient's rightto privacy is maintained The patient's value system, [...] with or improved from baseline levels established preoperativelyThe patient's cardiovascular status is consistent with or improved from baseline levels established preoperatively The patient's cardiovascular status is consistent with or improved from baseline levels established preoperatively The patient demonstrates and/or reports adequate pain control throughout the perioperative period The patient received appropriate medication(s), safely administered during the perioperativeperiod Acuity Level PACU I FT Entry 1 Start Time 06/06/24 13:17:00 Stop Time 06/06/24 16:17:00 Acuity Level Acuity Level I Last Modified By: Julita Self RN 06/06/24 16:32:31 Finalized By: Julita Self RN Document Signatures Signed By: Julita Self RN 06/06/24 16:32 Julita Self RN 06/06/24 16:32[facility] CenterMain OR Preoperative Recordon [id number] OR Preoperative RecordMain OR Preoperative Record PreOp Document Type FT Summary Primary Physician: Marita Klein MD Finalized Date/Time: 06/06/24 12:41:49 Pt. Name: THOMAS GONCALVES /Sex: 1960 Male Med Rec #: [id number] Physician: Marita Klein MD Financial #: [id number] Pt. Type: Room/Bed: [place] [address] Admit/Disch: 06/06/24 09:30:30 - Institution: Case Times [...] Signatures Signed By: Curt Vargas RN 06/06/24 12:41[facility] Medical CenterOperative Reporton [id number] ReportOperative Report Patient: THOMAS GONCALVES Age: 63 years Sex: Male : 1960 Associated Diagnoses: None Author: Marita Klein MD Procedure Procedure Date: 06/06/2024. Confirmed: patient, procedure, site, safety procedures followed. Performed by: Marita Klein MD, anesthesiologist (Julio C Son [facility]). Type of procedure: Procedure: 1. Transrectal ultrasound [...] way using tape/towel to expose the perineum. Excessivehair was shaved off the perineum. The perineum is prepped with Betadine solution. The [employer] UroNavfusion biopsy system was set up over the patient's pelvis for transperineal approach of prostate biopsy. Lidocaine gel was inserted per rectum. A well-lubricated ultrasound probe was inserted into the rectum and the prostate was aligned. The gland was visualized fully in axial and sagittal views toallow for the identification of anatomy and location [...] MRI prostate, the UroNav fusion biopsy system wasused to target the region of interest. 3 [...] bleeding or any other concerns. Follow-up in 1-2weeks for pathology review. . Impression and Plan Diagnosis Elevated PSA (XSR14-HR R97.20, Working, Medical). Abnormal MRI (TKA39-IJ R93.89, Working, Medical). Diagnosis Elevated PSA (OML65-KB R97.20, Working, Medical). Abnormal MRI (AUJ45-YS R93.89, Working, Medical).NormalAultman HospitalComment on above:Result Comment: Electronically Signed By: Ernie RICE, Marita Lemos.br\Date and Time Signed: 06/06/24 13:26ESTTSH With T4fr Reflexon 06-06-2024 TSH Qn2.61 m[IU]/LNormal0.34-5.60Aultman HospitalComment on above: Performed By: #### [id number] #### [facility] [address], [place] [address]Eqocsguuoo 52-48-9242Vshqxgie HS2.50 pg/mLLow15.90-38.40Aultman HospitalComment on above:Result Comment: The 95% CI (Confidence Interval) PPV (Positive Predictive Value) for myocardial infarction in females is 38 pg/mL, in males 51 pg/mL. The results should be used in conjunction with clinical conditions of myocardial infarction. (Access High Sensitivity Troponin I Instructions For Use, Ghanshyam Theodosia, February 2018)Performed By: #### [id number] #### [facility] [address], [place] [address]hZMVtl 07-38-9367eEJI837 mL/min/1.73 u8Pzjyes>=59Aultman HospitalComment on above:Performed By: #### [id number] #### [facility] [address], [place] [address]OM Chest 2 Viewson 04-45-0765YM Chest 2 ViewsExam Date/Time: 05/24/2024 13:47 EDT Reason for Exam: [...] Ka,r in mGy = na DAP = naNormalAultman HospitalBMPon 77-18-0789Mwjow gap [Moles/Vol]10 mmol/LNormal6-16[facility] HospitalComment on above:Performed By: #### [id number] #### [facility] [address], [place] [address]Wpsgncp [Mass/Vol]9.4 mg/dLNormal8.9-11.1FThe University of Toledo Medical CenterComment on above:Performed By: #### [id number] #### [facility] [address], [place] [address]Grfpaqda [Moles/Vol]104 mmol/SWqqtsd155-080ZqucgiAultman HospitalComment on above:Performed By: #### [id number] #### [facility] [address], [place] [address]CG7 [Moles/Vol]27 mmol/SJymnsp68-73YtgabmAultman Hospital Comment on above:Performed By: #### [id number] #### [facility] [address], [place] [address]Feshreqluy [Mass/Vol]0.7 mg/dLNormal0.5-1.3FThe University of Toledo Medical CenterComment on above:Performed By: #### [id number] #### [facility] [address], [place] [address]Rhozenh [Mass/Vol]97 mg/fZFeetts57-672HnexoqAultman HospitalComment on above:Performed By: #### [id number] #### [facility] [address], [place] [address]Xrynomcxy [Moles/Vol]4.0 mmol/LNormal3.5-5.3FThe University of Toledo Medical CenterComment on above:Performed By: #### [id number] #### [facility] [address] [place] [address]Gjrwiz [Moles/Vol]137 mmol/ZKcwgvj325-042ZhaihzAultman HospitalComment on above:Performed By: #### [id number] #### [facility] [address] [place] [address]Dnob nitrogen [Mass/Vol]17 mg/dLNormal5-21Aultman HospitalComment on above:Performed By: #### [id number] #### [facility] [address] [place] [address]Qiwv nitrogen/Creatinine [Mass ratio]24 No WykuqGojo33-48MqcfwhAultman HospitalComment on above:Performed By: #### [id number] #### [facility] [address] [place] [address]JCD w/ Auto Diffon 11-11-1076Yivzyhuwa/100 WBC (Bld)0.3 %Normal 0.0-2.0Aultman HospitalComment on above:Performed By: #### [id number] #### [facility] [address] [place] [address]Bhxwewgvq/Leukocytes Auto (Bld) [Pure # fraction]0.0 E9/LNormal 0.0-0.2FThe University of Toledo Medical CenterComment on above:Performed By: #### [id number] #### [facility] [address] [place] [address]Yrcifxekeit (Bld) [#/Vol]0.2 E9/LNormal0.0-0.5FThe University of Toledo Medical CenterComment on above:Performed By: #### [id number] #### [facility] [address] [place] [address]Zjguqoftptl/100 WBC (Bld)3.1 %Normal0.0-8.0Aultman HospitalComment on above:Performed By: #### [id number] #### [facility] [address] [place] [address]Fdwssfanspu distribution width (RBC) [Ratio]13.7 %Normal 10.9-14.2FThe University of Toledo Medical CenterComment on above:Performed By: #### [id number] #### [facility] [address] [place] [address]Lwqpxwlusu (Bld) [Volume fraction]43.2 %Rlqbnt42.7-49.0Aultman HospitalComment on above:Performed By: #### [id number] #### [facility] [address] [place] [address]Astfzfdrzd (Bld) [Mass/Vol]14.8 g/gLKljrvb07.5-17.5FThe University of Toledo Medical CenterComment on above:Performed By: #### [id number] #### [facility] [address] [place] [address]Qcuyeibfatc (Bld) [#/Vol]1.8 E9/LNormal1.0-4.0Aultman HospitalComment on above:Performed By: #### [id number] #### [facility] [address] [place] [address]Uiyhtoaivxf/100 WBC (Bld)25.4 %Tljxum80.0-50.0Aultman HospitalComment on above:Performed By: #### [id number] #### [facility] [address] [place] [address]WLE (RBC) [Entitic mass]30.9 kuBzzlca42.0-34.0Aultman HospitalComment on above:Performed By: #### [id number] #### [facility] [address] [place] [address]YFVN (RBC) [Mass/Vol]34.3 g/bFSfqmzw01.4-36.0Aultman HospitalComment on above:Performed By: #### [id number] #### [facility] [address] [place] [address]SOB (RBC) [Entitic vol]90.1 xNMyurwf76.0-100.0Aultman HospitalComment on above:Performed By: #### [id number] #### [facility] [address] [place] [address]Djejxpdrf (Bld) [#/Vol]0.6 E9/LNormal0.2-1.0[facility]man HospitalComment on above:Performed By: #### [id number] #### [facility] [address] [place] [address]Ogxxngomafk (Bld) [#/Vol]4.5 E9/LNormal2.0-7.5FThe University of Toledo Medical CenterComment on above:Performed By: #### [id number] #### [facility] [address] [place] [address]Rcaaohwprhc/100 WBC (Bld)62.7 %Btckhp70.0-75.0Aultman HospitalComment on above:Performed By: #### [id number] #### [facility] [address] [place] [address]Usmiheuo mean volume (Bld) [Entitic vol]7.0 fLNormal6.4-10.8 [facility]ultman HospitalComment on above:Performed By: #### [id number] #### [facility] [address] [place] [address]Jxahuzeys (Bld) [#/Vol]265.0 E9/XBixioj825.0-500.0Aultman HospitalComment on above:Performed By: #### [id number] #### [facility] [address], [place] [address]QBI (Bld) [#/Vol]4.8 E12/LNormal4.3-5.9Aultman HospitalComment on above:Performed By: #### [id number] #### [facility] [address], [place] [address]LMP corrected for nucl RBC Auto (Bld) [#/Vol]7.1 E9/LNormal 4.0-11.0Aultman HospitalComment on above:Performed By: #### [id number] #### [facility] [address], [place] [address]MU & PTTon 51-47-6779tHPX Coag (PPP) [Time]29.8 second(s)Normal 25.1-36.5FThe University of Toledo Medical CenterComment on above:Result Comment: Parameter 15 days - 4 weeks 1 - [...] the same coagulation reagent and instrumentation as [facility]. Currently there are no coagulation studies available worldwide for children to 14 days, andno normal ranges. Heparin therapeutic range (represented by Anti-Factor Xa activity of 0.2 - 0.4 U/mL) corresponds to PTT of 56.6 - 109.0 sec.Performed By: #### [id number] #### [facility] [address], [place] [address]FOB Coag (PPP) [Relative time]0.96 {INR}Invalid Interpretation CodeAultman HospitalComment on above:Result Comment: INR results are specifically intended to assess patients stabilized on long-term Anticoagulation therapy suggested INR???s ???Less Intensive Anticoagulation??? 2.0 ??? 3.0 Conventional Range 3.0 ??? 4.5Performed By: #### [id number] #### [facility] [address], [place] [address]AE Coag (PPP) [Time]10.7 second(s)Normal9.4-12.5FThe University of Toledo Medical CenterComment on above:Result Comment: 15 days - 4 weeks 1 - [...] the same coagulation reagent and instrumentation as [facility]. Currently there are no coagulation studies available worldwide for children to 14 days, andno normal ranges.Performed By: #### [id number] #### [facility] [address], [place] [address]VF with Cult Rflxon 97-11-6668Bbsfrqwve Ql (U)NegativeNormal NegativeAultman HospitalComment on above:Performed By: #### [id number] #### [facility] [address], [place] [address]Mclplow (U)ClearNormalClearAultman HospitalComment on above:Performed By: #### [id number] #### [facility] [address], [place] [address]Rujdc (U)YellowNormalYellowAultman HospitalComment on above:Result Comment: Microscopic readings are only performed on those samples that meet specific criteria set forth by [facility].Performed By: #### [id number] #### [facility] [address] [place] [address] 12751Hwblxry Ql (U)[facility]MCNeg[facility] Comment on above:Performed By: #### [id number] #### [facility] [address] [place] [address] 15389Vtkjockapo Auto test strip (U) [Mass/Vol]NegativeNormalNegative [facility]ultman HospitalComment on above:Performed By: #### [id number] #### [facility] [address] [place] [address] 99870Gkjtxun Auto test strip Ql (U)[facility] CenterNormalNegMetroHealth Parma Medical CenterComment on above:Performed By: #### [id number] #### [facility] [address] [place] [address] 45069Diwlfkmev esterase Auto test strip Ql (U)[facility] CenterNormalNegative [facility] HospitalComment on above:Performed By: #### [id number] #### [facility] [address] [place] [address] 12362Yofihln Auto test strip Ql (U)NegativeNormalNegMetroHealth Parma Medical CenterComment on above:Performed By: #### [id number] #### [facility] [address] [place] [address] 27666cZ (U)5.5 [pH]Invalid Interpretation Code5.0-9.0Aultman HospitalComment on above:Performed By: #### [id number] #### [facility] [address], [place] [address]Uhrxbih Ql (U)NegativeNormalNegMetroHealth Parma Medical Center Comment on above:Performed By: #### [id number] #### [facility] [address] [place] [address] 89506Zzkfwpak gravity (U) [Rel density]1.021Invalid Interpretation Code1.005-1.030Aultman HospitalComment on above:Performed By: #### [id number] #### [facility] [address], [place] [address]Oxqdilqsbqdl (U) [Mass/Vol]NegativeNormalNegativeAultman HospitalComment on above:Performed By: #### [id number] #### [facility] [address], [place] [address]Cuew of Urine collection methodClean CatchNormalAultman HospitalComment on above:Performed By: #### [id number] #### [facility] [address], [place] [address]xQJDxo 55-27-5022wFKM116 mL/min/1.73 d5Heabpl>=59Aultman HospitalComment on above:Performed By: #### [id number] #### [facility] [address], [place] [address]Zvzelfjvkg Visit Summaryon 21-93-1983Swppebntid Visit Summary Ambulatory Visit Summary IVANNA THOMAS Yue :1960 Visit Date:05/14/2024 Ambulatory Visit Instructions Your [...] Appointments Follow Up with Ernie RICE, Marita M., URL, URO When: Comments: fusion biopsy Where: Medications [...] Mouth As Directed as needed for for erectiledysfunction take 1 tab prior to sexual activity. [...] common in older (more content not included)... [facility] CenterUrology Office/Clinic Noteon 71-43-6132Mzgaqra Office/Clinic NoteUrology Office/Clinic Note Chief Complaint f/u MRI HPI [...] with voice recognition artificial intelligence software, specifically [employer] and or [employer]. Substitutions may have occurred due to the [...] states that this got him to about 50%erection. He does note that he had a mild headache for a few hours after use. He did not try to increase dose to 20 mg. We did discuss trial of increasing dose to 20 mg in 48-hour period. I did advise patient that he may have worsening headache or other side effects with increased dose. He would lik e to trial, knows to stop medication if [...] Procedure/Surgical History Transurethral water (more content not included)...[facility] CenterComment on above:Result Comment: Electronically Signed By: ORLY Dexter APRN, [place] X\.br\Date and Time Signed: 05/14/24 13:22 EDTMR prostate wo/w con on 63-34-2631RC prostate wo/w [facility] [address] [place], [place] [id number] MRI Report Signed Patient: Marlo Goncalves MR#: [id number] 626 : 1960 Acct:[id number] Age/Sex: 63 / M ADM Date: 05/08/24 Loc: MR Room: Type: [facility] Attending Dr: Janet KELLY Copies to: ROBIN Lainez Ordering Provider: RBOIN Lainez Date of Service: 05/08/24 MR/MR prostate [...] recommended. Impression dictated by: Bentley Dias Jr., D.OCammie05/09/2024 9:10 AM Dictation Location: [place] [address] Transcribed By: [facility] 05/09/24909 Dictated By: Bentley Dias Jr, DO 05/09/24900 Signed By: 05/09/24 09NoThe [facility] Hospital Physician GroupISTAT XRay CREon 90-82-6290FNRFP GFR> 60.0NoThe [facility]er Banks Hospital Physician GroupComment on above:Result Comment: PERFORMED BY: [address] [place] [address] PATHOLOGIST AERIAL SPRAYER TITI ZEPEDA M.D.Performed By: #### ISCRE #### [facility] [address] [place] [id number] USANo Panel InformationOrdered By: Janet Dexter on 31-23-6321Lvxshwc Estimated GFR (eGFR)> 60.0[facility] Whole blood creatinine measurementOrdered By: Janet Dexter on 05-08-2024 Creatinine [Mass/Vol]0.8 mg/dLNormal0.6-1.3FRegency Hospital Toledo Comment on above:ER/ESD physician is notified/shown all ISTAT results.Critical values may be confirmed by laboratorytesting ifdeemed necessary by ER attending doctor.Result Comment: ER/ESD physician is notified/shown all ISTAT results. Critical values may be confirmed by laboratory testing if deemed necessary by ER attending doctor.Performed By: #### ISCRE #### [facility] [address] [place] [id number] USAUrology Office/Clinic Noteon 82-96-0544Xfkdbyi Office/Clinic NoteUrology Office/Clinic Note Chief Complaint 2m to starting [...] with voice recognition artificial intelligence software, specifically [employer] and or [employer] System. Substitutions may have occurred due to the [...] visit, as patient felt that he urinated betteron this. Patient is tolerating this well without side effects. States that this is overall improvedhis urinary pattern. Continue current dose, 90-day refill sent to pharmacy. UA today with trace intact blood, no signs of infection. Patient denies any recent urinary infection or episode of gross hematuria. -Continue tamsulosin -Follow-up 1 year, sooner if needed Ordered: Urnls Dip Stick Auto w/o Microscopy POC 23390 2. Prostate cancer screening (Z12.5: Encounter for [...] states that this got him to about 50%erection. He does note that he had a mild headache for a few hours after use. He did not try to increase dose to 20 mg. We did discuss trial of increasing dose to 20 mg in 48-hour period. I did advise patient that he may have worsening headache or other side effects with increased dose. He would lik e to trial, knows to stop medication if [...] the patient, he canceled his appointment for cystoscopy/urethraldilation April 2023. Does not feel that this is bothersome to him at this time. Orders: tamsulosin, 0.4 mg = 1 cap(s), Oral, Daily, # 30 cap(s), Refills(s) 2, Pharmacy: [facility]/pharmacy #[id number], 173, cm, 11/14/23 15:46:00 EDT, Height/Length Dosing, 88.5, kg, 11/14/23 15:46:00 EDT, Weight Dosing tamsulosin, 0.4 mg = 1 cap(s), Oral, Daily, X 90 day(s), # 90 cap(s), Refills(s) 3, Pharmacy: [facility]/pharmacy #[id number], 173, cm, 02/06/24 9:01:00 EDT, Height/Length Dosing, 91, kg, 02/06/24 9:01:00 EDT, Weight Dosing Follow-up With When Contact Information Orphanich PAULINE, ANTONC, Janet X, FAM, URL Additional Instructions: 1 year with PSA Patient Education Overactive Bladder, Adult Erectile Dysfunction Cancer Screening for Men Benign Prostatic Hyperplasia Problem List/Past Medical History (more content not included)...[facility] CenterComment on above:Result Comment: Electronically Signed By: ORLY Dexter APRN, [place] X\.belen\Date and Time Signed: 02/06/24 09:35 EDT Complete Blood Count with Auto Diffon 87-72-9453Ttfwaqnml (Bld) [#/Vol]0.04 10*3/uLNormal0.00-0.20[facility] SpecialistComment on above:Performed By: #### CBCAD, CMP #### [facility] [address], [place] [id number]/100 WBC (Bld)0.3 %[facility] Private HospitalComment on above:Performed By: #### CBCAD, CMP #### [facility] [address], [place] [id number] (Bld) [#/Vol]0.22 10*3/uLNormal0.02-0.50[facility] CampusComment on above:Performed By: #### CBCAD, CMP #### [facility] [address], [place] [id number]/100 WBC (Bld)1.9 %[facility] HospitalComment on above:Performed By: #### CBCAD, CMP #### [facility] [address], [place] [id number] distribution width (RBC) [Ratio]13.5 %Normal 11.0-15.0[facility] SpecialistComment on above:Performed By: #### CBCAD, CMP #### [facility] [address], [place] [id number] (Bld) [Volume fraction]47.6 %Hdtgze63.5-50.0 [facility] CampusComment on above:Performed By: #### CBCAD, CMP #### [facility] [address], [place] [id number] (Bld) [Mass/Vol]15.6 g/jQLligao18.0-17.1NMercy Health St. Charles HospitalComment on above:Performed By: #### CBCAD, CMP #### [facility] [address], [place] [id number] (Bld) [#/Vol]3.0 10*3/uLNormal0.9-3.9NoGood Samaritan Hospital SpecialistComment on above:Performed By: #### CBCAD, CMP #### [facility] [address], [place] [id number]/100 WBC (Bld)25.3 %NormalThe [facility]woods SpecialistComment on above:Performed By: #### CBCAD, CMP #### [facility] [address], [place] [id number] (RBC) [Entitic mass]29.7 etOusmgq56.0-33.0NoGood Samaritan Hospital SpecialistComment on above:Performed By: #### CBCAD, CMP #### [facility] [address], [place] [id number] (RBC) [Mass/Vol]32.8 g/aJQfrwwf51.0-36.0NoGood Samaritan Hospital SpecialistComment on above:Performed By: #### CBCAD, CMP #### [facility] [address], [place] [id number] (RBC) [Entitic vol]91 yWWzgjpt73-482Kkdivbis [place] [facility] SpecialistComment on above:Performed By: #### CBCAD, CMP #### [facility] [address], [place] [id number] (Bld) [#/Vol]1.1 10*3/uLHigh0.2-0.9NoGood Samaritan Hospital SpecialistComment on above:Performed By: #### CBCAD, CMP #### [facility] [address], [place] [id number]/100 WBC (Bld)9.6 %NormalNoGood Samaritan Hospital SpecialistComment on above:Performed By: #### CBCAD, CMP #### [facility] [address], [place] [id number] (Bld) [#/Vol]7.4 10*3/uLNormal1.5-7.8NortKindred Hospital Lima SpecialistComment on above:Performed By: #### CBCAD, CMP #### [facility] [address], [place] [id number]/100 WBC (Bld)62.6 %NormalNortKindred Hospital Lima SpecialistComment on above:Performed By: #### CBCAD, CMP #### [facility] [address], [place] [id number] mean volume (Bld) [Entitic vol]9.40 fLNormal 7.50-12.50NortKindred Hospital Lima SpecialistComment on above:Performed By: #### CBCAD, CMP #### [facility] [address], [place] [id number] (Bld) [#/Vol]271 10*3/eKCphaaq362-414Agoqnofg [place] [facility] SpecialistComment on above:Performed By: #### CBCAD, CMP #### [facility] [address], [place] [id number] (Bld) [#/Vol]5.26 10*6/uLNormal4.20-5.80NoGood Samaritan Hospital SpecialistComment on above:Performed By: #### CBCAD, CMP #### [facility] [address], [place] [id number]-LS55.4 zJUlkjlj76.0-50.0NoGood Samaritan Hospital Specialist Comment on above:Performed By: #### CBCAD, CMP #### [facility] [address], [place] [id number] (Bld) [#/Vol]11.8 10*3/uLHigh3.8-11.0NoGood Samaritan Hospital SpecialistComment on above:Performed By: #### CBCAD, CMP #### [facility] [address], [place] [id number] Metabolic Panelon 21-33-7250Cqcggxm [Mass/Vol] 4.6 g/dLNormal3.6-5.1[facility] [place] [facility] SpecialistComment on above:Performed By: #### ALEXEY, CMP #### [facility] [address], [place] [id number]/Globulin [Mass ratio]1.8 {ratio}Normal1.0-2.5Nortabrazo [facility] campusn [place] [facility] SpecialistComment on above:Performed By: #### ALEXEY, CMP #### [facility] [address], [place] [id number] [Catalytic activity/Vol]61 U/JSbgpee66-457Wxoynncj [place] [facility] SpecialistComment on above:Performed By: #### ALEXEY, CMP #### [facility] [address], [place] [id number] [Catalytic activity/Vol]25 U/LNormal9-46N[facility]abraz[facility] campusn [facility] SpecialistComment on above:Result Comment: 06/30/2021 Female reference range changed.Performed By: #### ALEXEY, CMP #### [facility] [address], [place] [id number] gap [Moles/Vol]20 mmol/TJjrkzc53-78Iggiqspp [place] [facility] SpecialistComment on above:Result Comment: Effective 08/05/2019 reference range changed.Performed By: #### ALEXEY, CMP #### [facility] [address], [place] [id number] [Catalytic activity/Vol]24 U/ORsymnt78-41Knxfkytx [place] [facility] SpecialistComment on above:Performed By: #### ALEXEY, CMP #### [facility] [address], [place] [id number] [Mass/Vol]0.45 mg/dLNormal0.30-1.20[facility]n [place] [facility] SpecialistComment on above:Performed By: #### ALEXEY, CMP #### [facility] [address], [place] [id number]/CREA30 RatioHigh6-22NortVeterans [facility]science Specialist Comment on above:Performed By: #### ALEXEY, CMP #### [facility] [address], [place] [id number] [Mass/Vol]9.2 mg/dLNormal8.6-10.2[facility] [place] [facility] SpecialistComment on above:Performed By: #### CBCAILEEN, CMP #### [facility] [address], [place] [id number] [Moles/Vol]104 mmol/XGiakbf67-021Dbrlvziu [place] [facility] SpecialistComment on above:Performed By: #### CBCAILEEN, CMP #### [facility] [address], [place] [id number] [Moles/Vol]22 mmol/IHamepo51-74Kjikjmzy [place] [facility] SpecialistComment on above:Performed By: #### CBCAILEEN, CMP #### [facility] [address], [place] [id number] [Mass/Vol]0.7 mg/dLNormal0.7-1.4[facility] [place] [facility] SpecialistComment on above:Performed By: #### CBCAILEEN, CMP #### [facility] [address], [place] [id number] mL/min/1.46f9Emsles>60[facility] [place] [facility] SpecialistComment on above:Performed By: #### CBCAILEEN, CMP #### [facility] [address], [place] [id number] mL/min/1.06j3Cyzuhl>60[facility]ab[facility] campusn [place] [facility] SpecialistComment on above:Performed By: #### CBCAILEEN, CMP #### [facility] [address], [place] [id number] (S) [Mass/Vol]2.5 g/dLNormal1.9-3.7[facility] [place] [facility] SpecialistComment on above:Performed By: #### CBCAD, CMP #### [facility] [address], [place] [id number] [Mass/Vol]96 mg/xQVzztca98-23Qlamwknl [place] [facility] SpecialistComment on above:Result Comment: For FASTING Glucose --- ADA reference ranges: Normal 65-99 mg/dl Prediabetes 100-125 Diabetes >/= 126Performed By: #### CBCAD, CMP #### [facility] [address], [place] [id number] [Moles/Vol]3.8 mmol/LNormal3.5-5.5NoSelect Medical TriHealth Rehabilitation HospitalComment on above:Result Comment: Specimen is hemolyzed. Results may be affected.Performed By: #### CBCAD, CMP #### [facility] [address], [place] [id number] [Mass/Vol]7.1 g/dLNormal6.1-8.1NorthOhioHealth Doctors [facility] SpecialistComment on above:Performed By: #### CBCAD, CMP #### [facility] [address], [place] [id number] [Moles/Vol]142 mmol/SOibyfo472-823Jiihxnjr [place] [facility] SpecialistComment on above:Performed By: #### CBCAD, CMP #### [facility] [address], [place] [id number] nitrogen [Mass/Vol]20 mg/dLNormal7-25NoGood [facility]aritan [facility] SpecialistComment on above:Performed By: #### CBCAD, CMP #### [facility] [address], [place] [id number] A1Con 95-48-6759CPK754.37NormalNoGood Samaritan Hospital SpecialistComment on above:Performed By: #### A1C #### [facility] [address], [place] [id number] (Bld) [Mass fraction]6.1 %High4.0-6.0NoGood Samaritan Hospital SpecialistComment on above:Performed By: #### A1C #### [facility] [address], [place] [id number] Vital Signs Date TimeVital SignValuePerforming RimmiakkqHzqljxkj01-49-0448 11:12-0400Body skcymp902.7 cmGeoralena Mendosa DO Work Phone: [facility] HospitalLyfrszxcjv32-29-2179 11:12-0400Body mass index (BMI) [Ratio]27.92 kg/g7Jgtobykorin Mendosa DO Work Phone: noSaint [facility] CenterDttaksrsqg53-50-4599 11:12-0400Body temperature 96.91 [degF]Sharla Mendosa DO Work Phone: NOSaint [facility] CenterVspvgkxbch85-01-2518 11:12-0400Body eozufo29.28 kgGeoralena Mendosa DO Work Phone: NOSaint [facility] CenterKsbwwvsemn82-15-9989 11:12-0400Diastolic blood uvivmfcq80 mm[Hg]Sharla Mendosa DO Work Phone: NOSaint [facility] Health CenterLnufgodlbn37-01-9707 11:12-0400Heart rate80 /min Sharla Mendosa DO Work Phone: [facility] HospitalEdnyfljtgw44-79-1982 11:12-8252QtX1% (BldA) [Mass fraction]96 %Sharla Mendosa DO Work Phone: noSaint [facility] Health CenterRpjirbrafs69-22-5705 11:12-0400Systolic blood mm[Hg]Sharla Mendosa DO Work Phone: noSaint [facility] Health CenterRbzhmpegyz76-48-9669 11:06-0400Body vpojpb831.7 cmGekorin Mendosa DO Work Phone: noSaint [facility] CenterQasijnrmgg92-48-5158 11:06-0400Body mass index (BMI) [Ratio]28.68 kg/e0Lgaqrzkorin Mendosa DO Work Phone: NOSaint [facility] CenterGhzcyssjub75-41-3584 11:06-0400Body temperature 97.11 [degF]Sharla Mendosa DO Work Phone: NOSaint [facility] CenterEbbnwrqpwu72-70-9924 11:06-0400Body .55 kgGekorin Mendosa DO Work Phone: NOSaint [facility] CenterPyhnvippms61-99-8419 11:06-0400Diastolic blood imfmdult12 mm[Hg]Sharla Mendosa DO Work Phone: [place] [address]Rwhcopvtwt25-47-2041 11:06-0400Heart rate76 /min Sharla Mendosa DO Work Phone: noSaint [facility] CenterUrbsqfacsg33-70-9122 11:06-2848VuA5% (BldA) [Mass fraction]96 %Sharla Mendosa DO Work Phone: noSaint [facility] CenterKjosanukgg58-26-2580 11:06-0400Systolic blood qyxdjhxh875 mm[Hg]Sharla Mendosa DO Work Phone: noSaint [facility] Health CenterXgqslcfeib88-89-9159 09:00-0400Blood Pressure LocationThomas Mehran [facility]03-24-2025 09:00-0400 Diastolic blood zpieojfs37 mm[Hg]Jose Laurent [facility]03-24-2025 09:00-0400Heart rate93 /minThomas Laurent [facility]03-24-2025 09:00-0400 Respiratory rate18 /minThomas Laurent [facility]03-24-2025 09:00-2669GcN4% (BldA) [Mass fraction]92 %Jose Laurent [facility]03-24-2025 09:00-0400 Systolic blood djoswjcr544 mm[Hg]Jose Laurent [facility]02-04-2025 14:17-0500Blood Pressure LocationThsenthil Laurent [facility]02-04-2025 14:17-0500 Diastolic blood hezmkqdk98 mm[Hg]Jose Laurent [facility]02-04-2025 14:17-0500Heart rate80 /minThomas Laurent [facility]02-04-2025 14:17-0500 Respiratory rate16 /minThomas Mehran [facility]02-04-2025 14:17-4343IgY4% (BldA) [Mass fraction]95 %Jose Laurent [facility]02-04-2025 14:17-0500 Systolic blood cxyuuvoe263 mm[Hg]Jose Laurent [facility]12-18-2024 14:32-0500Blood Pressure LocationThomas Mehran [facility]12-18-2024 14:32-0500 Diastolic blood cppywrdv36 mm[Hg]Jose Laurent [facility]12-18-2024 14:32-0500Heart rate88 /minThomas Laurent [facility]12-18-2024 14:32-0500 Respiratory rate18 /minThomas Mehran [facility]12-18-2024 14:32-4503UmR2% (BldA) [Mass fraction]94 %Jose Laurent [facility]12-18-2024 14:32-0500 Systolic blood czyualpn134 mm[Hg]Jose Laurent [facility]12-17-2024 12:44-0500Body rruxcc327.7 cmGeoralena Mendosa [employer] Work Phone: noSaint [facility] Health CenterNjizuhthdx42-35-3980 12:44-0500Body mass index (BMI) [Ratio]29.86 kg/h2Zfmtetaelna Mendosa [employer] Work Phone: [employer] PharmaSaint Joseph Health CenterLewdnurptk38-43-6905 12:44-0500Body temperature 97.3 [degF]Sharla Mendosa [employer] Work Phone: noSaint [facility] Health CenterUfkfyaewsg12-66-2943 12:44-0500Body .09 kgGeorge Navya [employer] Work Phone: noSaint [facility] CenterWllzfzwujm63-87-0737 12:44-0500Diastolic blood uhejqzpl44 mm[Hg]Sharla Navya [employer] Work Phone: noSaint Joseph Health CenterUdegeefkxj18-11-7083 12:44-0500Heart rate90 /min Sharla Mendosa DO Work Phone: [facility] HospitalCirssjnosw54-61-2758 12:44-2298NbP0% (BldA) [Mass fraction]96 %Sharla Mendosa DO Work Phone: [facility] HospitalRbxosohswt72-76-1207 12:44-0500Systolic blood sznhjozm470 mm[Hg]Sharla Mendosa DO Work Phone: 1(751)[address]11-20-2024 14:29-0500Blood Pressure LocationJorge Betancor [address]11-20-2024 14:29-0500 Diastolic blood uxcbdbag18 mm[Hg]Estuardo Betancor [address] [place], [place] 24[address]111-20-2024 14:29-0500Heart rate82 /minJorge Betancor [address] [place], [place] 2415111-20-2024 14:29-0500 Respiratory rate18 /minJorge Betancor [address] [place], [place] 2415111-20-2024 14:29-5731QzA3% (BldA) [Mass fraction]94 %Estuardo Betancor [address] [place], [place] [address]80611-20-2024 14:29-0500 Systolic blood surhbmed991 mm[Hg]Estuardo Betancor [address] [place], [place] 2415111-14-2024 13:59-0500Body .7 cmGekorin Mendosa DO Work Phone: [facility] HospitalQmwcxmckch51-63-4190 13:59-0500Body mass index (BMI) [Ratio]30.26 kg/b5Drvrcakorin Mendosa DO Work Phone: 1(432)639-[address] [place], [place] [address]Infycrfwdi90-51-7565 13:59-0500Body temperature 97.3 [degF]Sharla Mendosa DO Work Phone: 1(444)627-[address] [place], [place] [address]Dllyilxosu56-88-3413 13:59-0500Body ezczpy60.27 kgGeorge Navya DO Work Phone: [facility] HospitalHdppbsmezi07-50-5946 13:59-0500Diastolic blood gdevbxuk28 mm[Hg]Sharla Mendosa DO Work Phone: [facility] HospitalMqwcmtjlbp33-88-1543 13:59-0500Heart xiqr369 /min Sharla Mendosa DO Work Phone: [facility] HospitalQnxmsifjga25-87-4461 13:59-1516PrR6% (BldA) [Mass fraction]97 %Sharla Mendosa DO Work Phone: [facility] HospitalIcbcylxcig14-70-1259 13:59-0500Systolic blood tlixajgx222 mm[Hg]Sharla Mendosa DO Work Phone: [facility] HospitalIstmglhfhe14-66-7815 12:05-0500Hourly Rounding Carlosanefo OJUKWU [address]11-08-2024 12:05-0500 Promise to ReturnCarlosanefo OJUKWU [address]11-08-2024 11:17-0500Blood Pressure LocationMbanefo OJUKWU [address] [place], [place] 3562011-08-2024 11:17-0500Body snkbuiuabju79.06 [degF]Mbanefo OJUKWU [address] [place], [place] 3562011-08-2024 11:17-0500 Diastolic blood lethabft31 mm[Hg]Mbanefo OJUKWU [address] [place], [place] 3562011-08-2024 11:17-0500Heart rate83 /minMbanefo OJUKWU [address] [place], [place] [address]2011-08-2024 11:17-0500 Hourly RoundingCarlosanefo OJUKWU [address] [place], [place] [address]2011-08-2024 11:17-0500Mean blood mgsublcj19 mm[Hg]Mbanefo OJUKWU [address] [place], [place] [address]455811-08-2024 11:17-0500 Respiratory rate17 /minMbanefo OJUKWU [address] [place], [place] 0455811-08-2024 11:17-7725XlP5% (BldA) [Mass fraction]99 %Mbanefo OJUKWU [address] [place], [place] 0455811-08-2024 11:17-0500 Systolic blood mm[Hg]Mbanefo OJUKWU [address] [place], [place] 0455811-08-2024 11:00-0500 Promise to ReturnMbanefo OJUKWU [address] [place], [place] 0455811-08-2024 10:00-0500 Hourly RoundingMbanefo OJUKWU [address] [place], [place] 0455811-08-2024 10:00-0500 Promise to ReturnMbanefo OJUKWU [address] [place], [place] 0455811-08-2024 09:00-0500Body pfvdaoviobr51.24 [degF]Mbanefo OJUKWU [address] [place], [place] 0455811-08-2024 09:00-0500 Diastolic blood unrmtqhl47 mm[Hg]Mbanefo OJUKWU [address] [place], [place] 3562011-08-2024 09:00-0500 Respiratory rate16 /minMbanefo OJUKWU [address] [place], [place] 0455811-08-2024 09:00-0471GjO5% (BldA) [Mass fraction]94 %Mbanefo OJUKWU [address] [place], [place] 0455811-08-2024 09:00-0500 Systolic blood vbtepuzt388 mm[Hg]Mbanefo OJUKWU [address] [place], [place] 0455811-08-2024 08:02-0500 Diastolic blood mm[Hg]Mbanefo OJUKWU [address] [place], [place] 0455811-08-2024 08:02-0500 Systolic blood eupszqgu107 mm[Hg]Mbanefo OJUKWU [address] [place], [place] [id number] 07:40-7430VgU6% (BldA) [Mass fraction]97 %Mbanefo OJUKWU [address] [place], [place] [id number] 07:31-0500Heart rate89 /minMbanefo OJUKWU [address] [place], [place] [id number] 07:27-0500Body tmzydljwnqo54.7 [degF]Mbanefo OJUKWU [address] [place], [place] [id number] 07:27-0500Blood Pressure LocationMbanefo OJUKWU [address] [place], [place] [id number] 07:27-0500Mean blood mvztomou32 mm[Hg]Mbanefo OJUKWU [address] [place], [place] 0455811-08-2024 06:00-0500Body armtfliqgft85.42 [degF]Mbanefo OJUKWU [address] [place], [place] [id number] 06:00-0500Mean blood idoowqqr49 mm[Hg]Mbanefo OJUKWU [address] [place], [place] [id number] 04:00-0500Mean blood iqerqokd51 mm[Hg]Mbanefo OJUKWU [address] [place], [place] [id number] 00:00-0500Body jpjyucoerah79.42 [degF]Mbanefo OJUKWU [address] [place], [place] [id number] 20:35-0500 Respiratory rate16 /minMbanefo OJUKWU [address] [place], [place] [id number] 20:34-0500Mean blood znirmdmu01 mm[Hg]Mbanefo OJUKWU [address] [place], [place] [id number] 20:34-0500Body fmgfqgzfphu03.7 [degF]Mbanefo OJUKWU [address] [place], [place] [id number] 17:27-0500Body stzjsavgkxw88.52 [degF]Mbanefo OJUKWU [address] [place], [place] [id number] 17:27-0500Heart vftf490 /minMbanefo OJUKWU [address] [place], [place] [id number] 17:27-0500 Respiratory rate18 /minMbanefo OJUKWU [address] [place], [place] [id number] 16:20-0500Mean blood mm[Hg]Mbanefo OJUKWU [address] [place], [place] [id number] 13:10-0500 Respiratory rate12 /minMbanefo OJUKWU [address] [place], [place] 0455810-15-2024 12:18-0400Blood Pressure LocationAurora Orzech [facility]10-15-2024 12:18-0400Diastolic blood gkxgvujf34 mm[Hg]Janet Orzech [facility]10-15-2024 12:18-0400Heart rate88 /minAurora Orzech [facility]10-15-2024 12:18-0400Systolic blood bitkupxj801 mm[Hg]Janet Orzech [facility]07-09-2024 08:58-0400Blood Pressure LocationAurora Orzech [facility]07-09-2024 08:58-0400Diastolic blood dndjmixo42 mm[Hg]Janet Orzech [facility]07-09-2024 08:58-0400Heart rate90 /minAurora Orzech [facility]07-09-2024 08:58-0400Respiratory rate16 /minAurora Orzech [facility]07-09-2024 08:58-0400Systolic blood ojyudbrg746 mm[Hg]Janet Orzech [facility]04-16-2024 15:42-0400Blood Pressure LocationAurora Orzech [facility]04-16-2024 15:42-0400Body cqyplmmvjix13.88 [degF]Janet Orzech [facility]04-16-2024 15:42-0400Diastolic blood yeucyqrn31 mm[Hg]Janet Orzech [facility] [place] [address]-16-2024 15:42-0400Heart rate89 /minAurora Orzech [facility]04-16-2024 15:42-0400Respiratory rate16 /minAurora Orzech [facility]04-16-2024 15:42-0400Systolic blood gvrucobp976 mm[Hg]Janet Orzech [facility]09-14-2023 09:42-0400Blood Pressure LocationKathy Lue [facility]09-14-2023 09:42-0400Body kasrwqmiggi87.42 [degF]Marita Lue [facility]09-14-2023 09:42-0400Diastolic blood krbhubkh99 mm[Hg]Marita Lue [facility]09-14-2023 09:42-0400Heart rate88 /minKathy Lue [facility]09-14-2023 09:42-0400Systolic blood xtoimtqn609 mm[Hg]Marita Lue [facility]03-15-2023 10:23-0400Diastolic blood xabaoeuj86 mm[Hg]DO Luiza Mendosa Work Phone: [facility]03-15-2023 10:23-0400 Heart rate92 /Tricia Mendosa Work Phone: [facility]03-15-2023 10:23-0400 Respiratory rate16 /Tricia Mendosa Work Phone: 1(558)[address]03-15-2023 10:23-0400 SaO2% (BldA) [Mass fraction]96 %DO Luiza Mendosa Work Phone: 1(450)[facility] [address] [place], [place] 0110303-15-2023 10:23-0400 Systolic blood pufiqbvz540 mm[Hg]DO Luiza Mendosa Work Phone: 1(619)[address] [place], [place] 4823403-15-2023 08:47-0400 Body xoyvkj588.72 cmDO Luiza Mendosa Work Phone: 1(479)[address]03-15-2023 08:47-0400 Body oevttdbvwpu54.1 [degF]DO Luiza Mendosa Work Phone: 1(879)[address] [place], [place] 4823403-15-2023 08:47-0400 Body tjyviy51.71 kgDO Luiza Mendosa Work Phone: 1(748)[facility] [address] [place], [place] 0110312-20-2022 08:43-0500 Blood Pressure LocationKathy Lue [facility] [place] 639502-20-2022 08:43-0500Diastolic blood djetllhp129 mm[Hg]Marita Lue [facility] [place] 639502-20-2022 08:43-0500Heart rate99 /minKathy Lue [facility] [place] 639502-20-2022 08:43-0500Systolic blood qcfkeyrm927 mm[Hg]Marita Lue [facility] [place] 639500-04-2022 08:49-0400Blood Pressure LocationJENNIFER OXANA [facility] [place] 639500-04-2022 08:49-0400Diastolic blood tuvndsxf09 mm[Hg]HADLEY [facility]NA [facility]-04-2022 08:49-0400Heart rate95 /minJENNIFER OXANA [facility] [place] 639500-04-2022 08:49-0400Systolic blood mcjbjatc141 mm[Hg]HADLEY OXANA [facility]05-27-2022 10:05-0400Blood Pressure LocationKathy Lue [facility] [place] 209022-20-9958 10:05-0400Diastolic blood xkjmbawd67 mm[Hg] Marita Lue [facility] Mike 05-27-2022 10:05-0400Heart rate86 /minKathy Lue [facility] [place] 05-27-2022 10:05-0400Systolic blood thtvaxob236 mm[Hg] Marita Lue [facility] Mike Encounters Encounter DateEncounter TypeCare ProviderFacilityStart: 03-04-2025 End: 64-54-8481Krdfks flowsheetSharla Mendosa DO Work Phone: noms [facility] 230Start: 03-04-2025 End: 83-10-6471Ushluv flowsheetSharla Carneyan DO Work Phone: noms [facility] 230Start: 03-04-2025 End: 05-95-2041Boyrih outpatient visit 25 minutesGeoralena Mendosa DO Work Phone: noXF [facility] 230Comment on above:BPH with obstruction/lower urinary tract symptoms (Primary Dx); Gastro-esophageal reflux disease without esophagitis; Mixed hyperlipidemia ; Prediabetes; Atrial fibrillation, unspecified type (HCC); Prostate cancer screeningStart: 03-04-2025 End: 96-68-8627saizrwfwiiKQOGVQ R KAFTANNot AvailableStart: 01-21-2025 End: 70-48-3348lxrejisgueGckcly A SteinFacility:FTMCStart: 01-21-2025 End: 72-31-2114Wqjzzdk encounter procedureJose Laurent [facility] Start: 11-18-2024 End: 19-67-5864Uzymncoti Result EncounterGeorge R Kaftan DO Work Phone: NOMS External Department UnsolicitedStart: 11-18-2024 End: 97-28-8471Vgudumtvj Result EncounterGeorge R Kaftan DO Work Phone: [facility]OMS External Department UnsolicitedStart: 10-23-2024 End: 15-32-7697Vhpctr flowsheetGeorge R Kaftan DO Work Phone: NOM[facility] FM 230Start: 10-23-2024 End: 19-00-8060Utkyqz flowsheetGeorge R Kaftan DO Work Phone: [facility] 230Start: 10-23-2024 End: 18-07-9937Bfrmhz outpatient visit 15 minutesGeorge R Kaftan DO Work Phone: [facility] FM 230Comment on above:Prediabetes (Primary Dx); Unspecified atrial fibrillation (CMS/HCC); RingwormStart: 10-23-2024 End: 42-37-0311jjhoezlpsgJFHLJD R KAFTANNot AvailableStart: 10-21-2024 End: 14-05-6628icaehcsgtjRASR NONEFacility:FTMCStart: 10-21-2024 End: 47-96-3120Bcosihl encounter procedureJose Laurent [facility] Start: 09-03-2024 End: 47-95-7959woxulzhuvwKOAS NONEFacility:FTMCStart: 09-03-2024 End: 06-48-4007Xjvdcds encounter procedureJose Laurent [facility] Start: 07-17-2024 End: 44-08-9848rzuxnsdtgjIVRO NONEFacility:FTMCStart: 07-17-2024 End: 41-00-4628Krdrmyd encounter procedureJose Laurent [facility] Start: 07-16-2024 End: 97-94-5631Ltlyig flowsheetGeorge R Kaftan DO Work Phone: [facility] 230Start: 07-16-2024 End: 24-30-5681Thkhet flowsheetGeorge R Kaftan DO Work Phone: [facility] 230Start: 07-16-2024 End: 59-22-4076Ftfyoz outpatient visit 15 minutesGeorge R Kaftan DO Work Phone: [facility] 230Comment on above:Prediabetes (Primary Dx); BPH with obstruction/lower urinary tract symptoms; Mixed hyperlipidemia (CMS/HCC)Start: 07-16-2024 End: 26-09-6221bpxgsisrswSKMSDB R KAFTANNot AvailableStart: 07-10-2024 End: 36-70-0265Zmmgtjndv Result EncounterGeorge R Kaftan DO Work Phone: NOMS External Department UnsolicitedStart: 07-10-2024 End: 90-87-7261Pxzruyapu Result EncounterGeorge R Kaftan DO Work Phone: NOMS External Department UnsolicitedStart: 06-24-2024 End: 60-30-3803wouhciddagIfibxfa OJUKWUFacility:FTMCStart: 06-24-2024 End: 61-13-2859Ghuxjdx encounter procedureMbivelisse SOUTHU [facility] Start: 06-19-2024 End: 06-17-0015qlyaqshppvVyyqof A SteinFacility:FTMCStart: 06-19-2024 End: 29-30-9634Hcrhdcf encounter procedureMarita Klein [facility] start: 06-15-2024 End: 43-70-4692Hilxysdms Result EncounterGekorin Mendosa DO Work Phone: NOEF External Department UnsolicitedStart: 06-15-2024 End: 39-87-9721Iqeklhpud Result EncounterGeoralena Mendosa DO Work Phone: noms External Department UnsolicitedStart: 06-13-2024 End: 06-68-6905Svcasbutejnu care manage srvc 7 day dischargeGeoralena Mendosa DO Work Phone: NOPZ [facility] FM 230Comment on above:Atrial fibrillation, unspecified type (CMS/HCC) (Primary Dx); Prediabetes; BPH with obstruction/lower urinary tract symptomsStart: 06-13-2024 End: 22-66-5087zaikfwgyxeEPXDGM R KAFTANNot AvailableStart: 06-06-2024 End: 53-40-5760ndhydxzaxsEpfxy M. LueFacility:FTMCStart: 06-06-2024 End: 37-80-5975IbdkadmtdfcCdaaqzi OHONORIOWU [facility] Start: 05-24-2024 End: 64-83-8161kktabnprhuNjavp M. LueFacility:FTMCStart: 05-14-2024 End: 60-12-8532wnzshrsjenKglyvu X OrzechFacility:EU BellevueStart: 05-14-2024 End: 15-73-6729Gslcdup encounter procedureAurora X Orzech [facility] start: 05-08-2024 End: 04-36-6853Dvsqqol encounter procedureDO Luiza Mendosa Work Phone: [facility] [place] Work Phone: Start: 05-08-2024 End: 81-76-3280fmkrbbwmmqEH G. Robert Kaftan Work Phone: [facility] Work Phone: Start: 03-07-2024 End: 26-77-5071nxzrmqtfnzUYBSVV R KAFTANNot AvailableStart: 02-06-2024 End: 37-52-6803wfnrtbpojyUjxyca X OrzechFacility:EU ueStart: 02-06-2024 End: 04-11-1093Mgudvnz encounter procedureAurora X Orzech [facility] start: 11-14-2023 End: 35-44-4551Sfzdtdi encounter procedureAurora X Orzech [facility] start: 04-13-2023 End: 87-14-4178Rka-admission assessmentMarita Klein [facility] Start: 04-13-2023 End: 43-92-9664Qbqucla encounter procedureMarita Klein [facility] Start: 10-12-2022 End: 68-37-7983Qogkasxes to same day surgery Davion Mendosa Work Phone: [facility] Work Phone: Start: 10-12-2022 End: 90-21-0696ancuynvlpiZN Luiza Mendosa Work Phone: [facility] Work Phone: Start: 10-07-2022 End: 63-35-3785Nwwiayp encounter procedureMarita Klein [facility] Start: 09-05-2022 End: 96-81-0003Xsdzyka encounter procedureMarita Klein [facility] Start: 08-31-2022 End: 33-17-4521Tji Drop offMarita Klein [facility] Start: 08-31-2022 End: 48-68-4866Ncabjuf encounter procedureMarita Klein [facility] Start: 08-22-2022 End: 30-47-0533Xppqkbi encounter procedureMarita Garvine [facility] Start: 08-12-2022 End: 39-52-7498Uidanhf encounter procedureMarita Garvine [facility] Start: 07-19-2022 End: 61-32-4037Lldzier encounter procedureMarita Garvine [facility] Start: 05-26-2022 End: 42-34-1658Ldm Drop offDavid A Pocos [facility] Start: 05-13-2022 End: 01-13-4694elqwdbhpkhJI G. Robert Kaftan Work Phone: [facility] Work Phone: Start: 05-13-2022 End: 72-92-3648Jaokbus encounter procedureDO Luiza Mendosa Work Phone: [facility]-XRay Strub RdStart: 05-03-2022 End: 75-60-1512Doxlogp encounter procedureJEVIDYA DAIGLE [facility] Start: 12-24-2021 End: 69-62-6575Ibhuzrw encounter procedureMarita RupinderCammie Ernie [facility] Start: 11-12-2021 End: 25-50-2586Prvpvga encounter procedureMarita RupinderCammie Ernie [facility] Procedures DateProcedureProcedure DetailPerforming ClinicianStart: 04-67-1020CSK CBC WITH AUTO DIFFGeorge R Kaftan DO Work Phone: Start: 72-55-9662RCZ CBC WITH AUTO DIFFGeorge R Kaftan DO Work Phone: Start: 79-34-0269Rrjyhduhfe glycosylated f2eBezqsr R Kaftan DO Work Phone: Start: 57-15-9377HRN CBC WITH AUTO DIFFGeoralena Mendosa DO Work Phone: Start: 50-48-1776ZEX LIPID PROFILE (FASTING)Sharla Mendosa DO Work Phone: Start: 94-96-7290QVN CMP (CMP) (FOR REMOTE [facility] USE) Sharla Mendosa DO Work Phone: Start: 60-45-4230UKW HEMOGLOBIN O3YLczicxalena Mendosa DO Work Phone: Start: 41-98-8311XIM MICROALB CREAT RATIO RANDOMGeoralena Mendosa DO Work Phone: Start: 10-12-2022 End: 35-42-0500GdcbhmjywveEZ Luiza Mendosa Work Phone: Start: 53-93-6680Jlajljirhkqgk water vapor ablation of prostateKathy Lue Start: 72-78-6235GfjiaryzgbRqsnt Lue Start: 23-58-8961Dhkpb chest X-rayDO Luiza Mendosa Work Phone: ColonoscopyKathy Lue TonsillectomyKathy Lue Ultrasonography by transrectal approachMbanefo OJUKWU Plan of Treatment DateCare ActivityDetailAuthorStart: 03-76-7472Roxmimxbe for malignant neoplasm of colonNOMS HealthcareStart: 08-11-2025 End: 49-18-3060XUS W Auto Differential panel - BloodCBC and differential Lab Routine BPH with obstruction/lower urinary tract symptoms Gastro-esophageal reflux disease without esophagitis Mixed hyperlipidemia Atrial fibrillation, unspecified type (HCC) Expected: 08/11/2025 (Approximate), Expires: 11/29/2025 NOMS HealthcareComment on above:Expected: 08/11/2025 (Approximate), Expires: 11/29/2025Start: 08-11-2025 End: 03-68-3234Wzmppvqzfcdio metabolic 2000 panel - Serum or PlasmaComprehensive metabolic panel Lab Routine BPH with obstruction/lower urinary tract symptoms Gastro-esophageal reflux disease without esophagitis Mixed hyperlipidemia Atrial fibrillation, unspecified type (HCC) Expected: 08/11/2025 (Approximate), Expires: 11/29/2025[facility] HealthcareComment on above:Expected: 08/11/2025 (Approximate), Expires: 11/29/2025Start: 08-11-2025 End: 82-73-5035Ghrttthqhg A1c/Hemoglobin.total in BloodHemoglobin A1c Lab Routine Prediabetes Expected: 08/11/2025 (Approximate), Expires: 11/29/2025[facility] HealthcareComment on above:Expected: 08/11/2025 (Approximate), Expires: 11/29/2025Start: 08-11-2025 End: 77-28-2400Thufy 1996 panel - Serum or PlasmaLipid panel Lab Routine Mixed hyperlipidemia Expected: 08/11/2025 (Approximate), Expires: 11/29/2025[facility] HealthcareComment on above:Expected: 08/11/2025 (Approximate), Expires: 11/29/2025Start: 08-11-2025 End: 15-34-3926Fbzvglhoysda/Creatinine panel in random UrineMicroalbumin / creatinine urine ratio Lab Routine Prediabetes Expected: 08/11/2025 (Approximate), Expires: 11/29/2025[facility] HealthcareComment on above:Expected: 08/11/2025 (Approximate), Expires: 11/29/2025Start: 08-11-2025 End: 67-58-1577Yhckmill specific Ag [Mass/volume] in Serum or PlasmaPSA Lab Routine Prostate cancer screening Expected: 08/11/2025 (Approximate), Expires: 11/29/2025[facility] Work Phone: Comment on above:Expected: 08/11/2025 (Approximate), Expires: 11/29/2025Start: 31-07-5692svnlkreaekFbxixfksvcAtzhpbrr:[place] Start: 45-41-9824Plhprbfhb vaccinationInfluenza Vaccine (#1)[facility] Start: 03-04-2025 End: 48-83-7965Kgmblfv encounter procedureNOMS S[facility] FM 230Comment on above: ArrivedStart: 11-14-2024 End: 88-32-4909ZDR W Auto Differential panel - BloodCBC and differential Lab Routine Prediabetes BPH with obstruction/lower urinary tract symptoms Mixed hyperlipidemia (CMS/HCC) Expected: 11/14/2024 (Approximate), Expires: 07/16/2025 N[facility] HealthcareComment on above:Expected: 11/14/2024 (Approximate), Expires: 07/16/2025Start: 11-14-2024 End: 43-86-3899Zdpsmuhrndvfv metabolic 2000 panel - Serum or PlasmaComprehensive metabolic panel Lab Routine Prediabetes BPH with obstruction/lower urinary tract symptoms Mixed hyperlipidemia (CMS/HCC) Expected: 11/14/2024 (Approximate), Expires: 07/16/2025[facility] Work Phone: Comment on above:Expected: 11/14/2024 (Approximate), Expires: 07/16/2025Start: 11-14-2024 End: 73-42-7513Vbnewlryud A1c/Hemoglobin.total in BloodHemoglobin A1c Lab Routine Prediabetes Expected: 11/14/2024 (Approximate), Expires: 07/16/2025NOMS HealthcareComment on above:Expected: 11/14/2024 (Approximate), Expires: 07/16/2025Start: 10-23-2024 End: 95-94-3985Tcndngp encounter vwlyfilbq88/26/2025 11:20 AM EDT Office Visit [facility] [address] [place] [address] Sharla Mendosa DO [address] [place] [address] Unspecified atrial fibrillation (CMS/HCC)[facility] 230Comment on above:Unspecified atrial fibrillation (CMS/HCC)Start: 07-16-2024 End: 47-72-2002Rppvqbl encounter procedureNOMS S[facility] FM 230Comment on above: ArrivedStart: 06-13-2024 End: 82-12-2005LMC W Auto Differential panel - BloodCBC and differential Lab Routine Prediabetes Atrial fibrillation, unspecified type (CMS/HCC) BPH with obstruction/lower urinary tract symptoms Expected: 06/13/2024 (Approximate), Expires: 06/13/2025[facility] HealthcareComment on above:Expected: 06/13/2024 (Approximate), Expires: 06/13/2025Start: 06-13-2024 End: 26-62-8761Emgxlsqkghmtg metabolic 2000 panel - Serum or PlasmaComprehensive metabolic panel Lab Routine Prediabetes Atrial fibrillation, unspecified type (CMS/HCC) BPH with obstruction/lower urinary tract symptoms Expected: 06/13/2024 (Approximate), Expires: 06/13/2025[facility] HealthcareComment on above:Expected: 06/13/2024 (Approximate), Expires: 06/13/2025Start: 06-13-2024 End: 08-86-3163Yjyat 1996 panel - Serum or PlasmaLipid panel Lab Routine Prediabetes Atrial fibrillation, unspecified type (CMS/HCC) BPH with obstruc tion/lower urinary tract symptoms Expected: 06/13/2024 (Approximate), Expires: 06/13/2025[facility] HealthcareComment on above:Expected: 06/13/2024 (Approximate), Expires: 06/13/2025Start: 06-13-2024 End: 76-98-8275Bypwnyvjnqqh/Creatinine panel in random UrineMicroalbumin / creatinine urine ratio Lab Routine Prediabetes Expected: 06/13/2024 (Approximate), Expires: 06/13/2025[facility] Work Phone: Comment on above:Expected: 06/13/2024 (Approximate), Expires: 06/13/2025Start: 34-55-0042DB Prostate WO and W contrast IVFGuernsey Memorial Hospitaltart: 31-96-6772OC prostate wo/w conMR prostate wo/w con [facility] Centertart: 44-73-3358GwwzgncvfUniversity Hospitals Ahuja Medical Centertart: 30-25-0533Qhndlmoot for malignant neoplasm of colonST. [facility]'S [facility] Healthcare Patient EducationColon Polypectomy (DC)[facility] Work Phone: Immunizations Immunization DateImmunizationNotesCare SsjuvehaJwdalcza60-22-3251ysbviuy toxoid, reduced diphtheria toxoid, and acellular pertussis vaccine, adsorbedGeorge Kaftan DO Work Phone: NOSaint Joseph Health CenterExnzhaertv16-03-0177htlbbkfdu virus vaccine, unspecified formulationJorge Betancor [facility]10-27-2023influenza virus vaccine, unspecified formulationAurora Orzech [facility]10-18-2022influenza virus vaccine, unspecified formulationKathy Lue [facility] [place] 639500-18-2022Influenza, injectable, Madin Krystyna Canine Kidney, quadrivalent with preservativeGeorge Kaftan DO Work Phone: noSaint Joseph Health CenterIgczmxkuvn29-03-5430SYMF-OyT-7 (COVID-19) mRNAMUL.ORD![id number] Lue [facility]04-19-2022SARS-CoV-2 (COVID-19) mRNA-1273 vaccineJENNIFER OXANA [facility] [place] 639500-27-2021influenza virus vaccine, unspecified formulationJENNIFER OXANA [facility] [place] 639500-27-2021influenza, injectable, quadrivalent, preservative freeGeorge Kaftan DO Work Phone: noSaint Joseph Health CenterMbijviwiap20-03-5525lnzshevtz virus vaccine, unspecified formulationKathy Lue [facility] [id number]-KeL-8 (COVID-19) mRNA BNT-162b2 vax HADLEY DAIGLE [facility] Hospitalment on above:Result Comment: 2022-05-03: [id number]-MaD-5 (COVID-19) mRNA-1273 vaccineKathy Lue [facility] [id number]-GyI-9 (COVID-19) mRNA-1273 vaccineKathy Lue [facility] 12495694-33-2797ebkels vaccine recombinantHADLEY DAIGLE [facility]09-27-2019Influenza, injectable, Madin Wolcott Canine Kidney, quadrivalent with preservativeGeorge Kaftan DO Work Phone: noms Gqzqviytlx73-85-8580jrqblw vaccine recombinant HADLEY DAIGLE [facility]10-12-2018influenza virus vaccine, unspecified formulationJENNIFER OXANA [facility]y10-12-2018Influenza, injectable, Madin Krystyna Canine Kidney, preservative free, quadrivalentGeorge Kaftan DO Work Phone: noms Xjbsjdfszi09-42-2364ulhyz sgyrgbalk-Q6W1-63, preservative-free, injectableGeorge Kaftan DO Work Phone: noms [facility] Payers DatePayer CategoryPayerPolicy [id number] [id number]-soq [id number] Health Insurance [id number] 2.16.840.1.631384.3.57[id number] 2.16.840.1.322581.3.57[id number] 2..840.1.073093.3.57[id number] 2.16.840.1.989292.3.57[id number] 2.16.840.1.798409.3.57[id number] 2.16.840.1.401837.3.57[id number] 2.16.840.1.787224.3.57[id number] 2.16.840.1.302611.3.57[id number] 2.16.840.1.792507.3.579.[id number] 2.16.840.1.462062.3.57[id number] 2.16.840.1.385358.3.579.[id number] 2.16.840.1.433086.3.57[id number] 2.16.840.1.789352.3.57[id number] 2.16.840.1.903383.3.57[id number] 2.16.840.1.388112.3.57[id number] 2.16.840.1.780152.3.579.2.93715-72-8263Xntnwdu99047897 2.16.840.1.729314.3.579.2.[id number] 2.16.840.1.456664.3.579.[id number] 2.16.840.1.233281.3.579.2.717494-77-7788Bjuxmhx7102679 2.16.840.1.194922.3.579.2.099586-59-9779Pzostaq9159932 2.16.840.1.837177.3.57[id number] 2.16.840.1.405075.3.57[id number] 2.16.840.1.31[id number] 2.16.840.1.398434.3.579.2.531 Social History DateTypeDetailFacilityStart: 08-06-2021 End: 28-74-6042Hchmijt smoking statusNever smoked tobacco (finding)[facility] Start: 01-12-2023 End: 45-24-2389Wlx [facility] Start: 24-13-0384Eydvrez smoking statusNeverExec[facility] Start: 29-93-3606Rsl Assigned At [facility] Campustart: 36-63-5121Uxcekcp use and exposureSmokeless tobacco non-userNOMS HealthcareStart: 06-13-2024 End: 12-11-5497Juiqnoywh beverage intakeCurrent drinker of alcohol (finding)NOMS HealthcareStart: 03-02-2024 End: 61-87-1360Tkadlxnyv beverage intakeNOMS HealthcareWithin the last year, have you been afraid of your partner or ex-partner?NoNOMS HealthcareDo you belong to any clubs or organizations such as denominational groups, [employer], [employer] or athletic groups, or school groups?YesNOMS HealthcareAre you now , , , , never or living with a partner?MarriedNOMS HealthcareHow often to you have a drink containing alcohol?2-3 time sa weekNOMS HealthcareHow many standard drinks containing alcohol do you have on a typical day?1 or 2NOMS HealthcareHow often do you have 6 or more drinks on 1 occasion? NeverNOMS HealthcareDo you feel stress - tense, restless, nervous, or anxious, or unable to sleep at night because yourmind is troubled all the time - these days [OSQ]Only a littleNOMS Healthcare(I/We) worried whether (my/our) food would run out before (I/we) got money to buy more.Never trueNOMS HealthcareStart: 75-32-5112Maeifpu Commentcaffeine intake : 1-2 cups per day ; coffeeNOMS HealthcareStart: 01-63-6847Hxcwpq identityIdentifies as male gender (finding) [facility] HealthcareStart: 82-87-1017Imehlv orientationHomosexual (finding)[facility] HealthcareSexual OrientationWright-Patterson Medical Center Start: 00-21-7228QujTihd (finding)[facility] Medical CenterHow often do you need to have someone help you when you read instructions, pamphlets, or other written material from your doctor or pharmacy [SILS]SometimesNOSaint Joseph Health Center Medical Equipment Procedure CodeEquipment CodeEquipment Original TextEquipment IdentifierDates1 Units by In Vitro route in the morning and 1 Units before bedtime.[id number]: Units in the morning and 1 Units before bedtime.[id number]: 06-13-2024 Goals DatePatient GoalDesired Activity/State Functional Status IdpaMrhrmiroquGfdqrkCexfniwd13-98-7879Rliiyey Health Questionnaire 2 item (PHQ- 2) [Reported][facility] HospitalMebxpeihve20-76-7774Gbuwaksjhn StatusN/[facility]02-04-2025Functional StatusN/[facility]12-18-2024 Functional StatusN/[facility]11-20-2024Functional StatusN/A [facility]11-20-2024Functional StatusN/[facility]07-2024Functional StatusN/[facility]10-15-2024Functional StatusN/A[facility]07-09-2024Functional StatusN/A[facility]04-16-2024Functional StatusN/A[facility]09-14-2023Functional StatusN/A [facility]03-10-2023Functional StatusN/A[facility]01-12-2023 Functional StatusN/[facility]12-20-2022Functional StatusN/A [facility] [place] 639500-04-2022Functional StatusN/[facility] Clinical Notes 11-12-2021 to 03-04-2025 Note Date & NkbeWdojSpmlfkqv50-22-9014 History of Present illness Narrative* Sharla Mendosa DO - 03/04/2025 11:20 AM EDTAssociated Problem(s): BPH with obstruction/lower urinary tract symptoms Problem is stable, will continue with current treatment plan. Call or return to clinic if any changes occur Orders: Comprehensive metabolic panel; Future CBC and differential; Future * Sharla Mendosa DO - 03/04/2025 11:20 AM EDTAssociated Problem(s): Gastro- esophageal reflux disease without esophagitis Patient advised to return if symptoms worsen and/or persist despite treatment. Orders: Comprehensive metabolic panel; Future CBC and differential; Future * Sharla Mendosa DO - 03/04/2025 11:20 AM EDTAssociated Problem(s): Hyperlipidemia Labs ordered today, will follow up when results available Orders: Lipid panel; Future Comprehensive metabolic panel; Future CBC and differential; Future * Sharla Mendosa DO - 03/04/2025 11:20 AM EDTAssociated Problem(s): Prediabetes Reviewed labs and/or imaging at today. Will continue current treatment regimen and follow up at next scheduled visit unless problems arise. Orders: Microalbumin / creatinine urine ratio; Future Hemoglobin A1c; Future * Sharla Mendosa DO - 03/04/2025 11:20 AM EDTAssociated Problem(s): A-fib (HCC) Problem is stable, will continue with current treatment plan. Call or return to clinic if any changes occur, cont fu with cardiology Orders: Comprehensive metabolic panel; Future CBC and differential; Future * Sharla Mendosa - 03/04/2025 11:20 AM EDT Images from the original note were not included. Subjective Patient ID: Thomas Goncalves is a 64 y.o. male who presents for Prediabetes, Hyperlipidemia, GERD. Pt presents to the office for routine OV. Denies any concerns. Prediabetes: On ozempic regarding prediabetes. Hyperlipidemia This is a chronic problem. The current episode started more than 1 year ago. GERD This is a chronic problem. Review of Systems Objective There were no vitals taken for this visit. Physical Exam Constitutional: Appearance: Normal appearance. HENT: Head: Normocephalic and atraumatic. Eyes: Extraocular Movements: Extraocular movements intact. Pupils: Pupils are equal, round, and reactive to light. Neck: Vascular: No carotid bruit. Cardiovascular: Rate and Rhythm: Normal rate and regular rhythm. Heart sounds: No murmur heard. Pulmonary: Effort: Pulmonary effort is normal. Breath sounds: Normal breath sounds. No wheezing, rhonchi or rales. Abdominal: General: Bowel sounds are normal. Palpations: Abdomen is soft. Tenderness: There is no abdominal tenderness. Musculoskeletal: General: Normal range of motion. Cervical back: No tenderness. Skin: General: Skin is warm. Neurological: General: No focal deficit present. Mental Status: He is alert and oriented to person, place, and time. Psychiatric: Mood and Affect: Mood normal. Behavior: Behavior normal. Assessment & Plan BPH with obstruction/lower urinary tract symptoms Problem is stable, will continue with current treatment plan. Call or return to clinic if any changes occur Orders: Comprehensive metabolic panel; Future CBC and differential; Future Gastro-esophageal reflux disease without esophagitis Patient advised to return if symptoms worsen and/or persist despite treatment. Orders: Comprehensive metabolic panel; Future CBC and differential; Future Mixed hyperlipidemia Labs ordered today, will follow up when results available Orders: Lipid panel; Future Comprehensive metabolic panel; Future CBC and differential; Future Prediabetes Reviewed labs and/or imaging at ov today. Will continue current treatment regimen and follow up at next scheduled visit unless problems arise. Orders: Microalbumin / creatinine urine ratio; Future Hemoglobin A1c; Future Atrial fibrillation, unspecified type (HCC) Problem is stable, will continue with current treatment plan. Call or return to clinic if any changes occur, cont fu with cardiology Orders: Comprehensive metabolic panel; Future CBC and differential; Future Prostate cancer screening Orders: PSA; Future documented in this encounterFulton State HospitalWlsjlydyig21-22-4310 History of Present illness Narrative* Sharla Mendosa DO - 10/23/2024 11:20 AM EDT Images from the original note were not [...] min Stress: No Stress Concern Present (03/02/2024) [employer] - Occupational Stress Questionnaire Feeling of Stress : Only a little Social Connections: Moderately Integrated (03/02/2024) Social Connection and Isolation Panel [NHANES] Frequency of Communication with Friends and Family: More than three times a week Frequency of Social Gatherings with Friends and Family: More than three times a week Attends Church Services: Never Active Member of Clubs or [...] morning and 5 mg before bedtime., Disp: ,Rfl: aspirin 81 MG chewable tablet, 1 (one) time each day at the same time., Disp: , Rfl: Glucose Blood (Blood Glucose Test Strips 333) strip, 1 Units by In Vitro route in the morning and 1Units before bedtime., Disp: 100 strip, Rfl: 11 [...] MORNING, Disp: , Rfl: documented in this encounterFulton State HospitalUhaqwanmbd52-23-8246 History of Present illness Narrative* Sharla Mendosa DO - 07/16/2024 1:00 PM EST Images from the original note were not [...] min Stress: No Stress Concern Present (03/02/2024) [employer] - Occupational Stress Questionnaire Feeling of Stress : Only a little Social Connections: Moderately Integrated (03/02/2024) Social Connection and Isolation Panel [NHANES] Frequency of Communication with Friends and Family: More than three times a week Frequency of Social Gatherings with Friends and Family: More than three times a week Attends Church Services: Never Active Member of Clubs or [...] 3/uL [facility] CMP (CMP) (FOR REMOTE [facility] USE) Collection Time: 07/10/24 9:58 AM Result Value Ref Range SODIUM 141 136 - 145 mmol/L POTASSIUM 4.0 3.5 - 5.1 mmol/L CHLORIDE 104 98 - 107 mmol/L CARBON DIOXIDE 28.2 21.0 - 32.0 mmol/L ANION GAP 12.8 GLUCOSE 103 74 - 106 mg/dL BLOOD UREA NITROGEN 16.0 7.0 - 18.0 mg/dL CREATININE 0.90 0.70 - 1.30 mg/dL TB EGFR-AF [place]OU[place]ORE[place] >60 >=60 mL/min/1.73m 2 TB EGFR-NON AF [place] >60 >=60 mL/min/1.73m 2 BUN CREATININE RATIO [...] visit: Prediabetes Reviewed labs and/or imaging at ov today. Will continue current treatment regimen and follow up at next scheduled visit unless problems arise. improved significantly, continue current treatment - semaglutide (Ozempic, 0.25 or 0.5 MG/DOSE,) 2 MG/1.5ML solution pen-injector; Inject 0.5 mg underthe skin 1 (one) time per week - [...] morning and 5 mg before bedtime., Disp: ,Rfl: aspirin 81 MG chewable tablet, 1 (one) time each day at the same time., Disp: , Rfl: Glucose Blood (Blood Glucose Test Strips 333) strip, 1 Units by In Vitro route in the morning and 1Units before bedtime., Disp: 100 strip, Rfl: 11 [...] MORNING, Disp: , Rfl: documented in this encounterFulton State HospitalBfqzuektgl32-64-7574 NoteHistory and Physical History of Present Illness 63-year-old male with history of BPH, hypertension, yrx-yuwhlok-jydhfdcxv diabetes mellitus type 2,elevated PSA with abnormal [...] mg/dL High (06/06/24 09:58:00) POC Device SN: [id number] (06/06/24 09:58:00) POC User ID: [id number] (06/06/24 09:58:00) POC Username: CHIQUITA GRISSOM (06/06/24 09:58:00) Diagnostic Results (05/24/2024 13:47 EDT XR Chest 2 Views) * Final Report * Reason For Exam P.A.T. POWERSCRIBE REPORT IMPRESSION: NO RADIOGRAPHIC EVIDENCE OF ACUTE INTRATHORACIC PROCESS. EXAMINATION: XR Chest 2 Views [1] EKG analyzed by me: Atrial fibrillation with rapid ventricular response. Rate of 112 bpm. Assessment/Plan 63-year-old male with history of BPH, hypertension, obw-vrrtats-dxpbdemmx diabetes mellitus type 2,elevated PSA with abnormal [...] Complete Initial Hospital Care/Day Moderate 55 Minutes 78733 2. Prediabetes (R73.03: Prediabetes) Continue on metformin. Ordered: Initial Hospital Care/Day M (more content not included)...[facility] HospitalComment on above:Result Comment: Electronically Signed By: LYNETTE RICE, Glo\.br\Date and Time Signed: 07/05/24 10:43 [id number] Hospital Discharge instructions Patient Education 06/19/2024 12:02:12 [...] urethra. Follow these instructions at home: Take yhco-pjv-uxzuhnx and prescription medicines only as told by [...] provider. Document Revised: 02/02/2022 Document Reviewed: 02/02/2022 [place] Patient Education 2023 [employer]. Follow Up Care 06/07/2024 11:36:05 With:Ernie RICE, Marita Albarran, MAYL, URO Address: When:Within 1 Year(s) Comments:w/PSA @ [facility] 11-20-2024 NotePatient Education Urology Benign Prostatic Hyperplasia Benign prostatic [...] this procedure, a tool is inserted through theopening at the tip of the penis (urethra). [...] procedure uses radio frequencies to destroy and removea small amount of prostate tissue. ? Interstitial laser coagulation (ILC). This procedure uses a laser to destroy and remove a small amount of prostate tissue. ? Transurethral electrovaporization (TUVP). This procedure uses electrodes to destroy and remove a small amount of prostate tissue. ? Prostatic urethral lift. This procedure inserts an implant to push the lobes of the prostate awayfrom the urethra. Follow these instructions at home: ??? Take abyc-ssh-mtsdflj and prescription medicines only as told by [...] symptoms do not get (more content not included)...[facility]11-14-20[facility] History of Present illness Narrative* Sharla Mendosa DO - 06/13/2024 2:20 PM EST Images from the original note were not [...] Would like a Glucometer and supplies to [facility] siobhan Would like to start Ozempic. Has been checking sugars 104-124. In the hospital was in 158. Flowsheet Row Office Visit from 06/13/2024 in [facility] with Sharla Mendosa DO Hospital Information ED, Hospital or Fci Facility Discharge? Hospital Patient has been contacted within two business days of discharge Yes Diagnosis obstructive and reflux uropathy, Prediabetes,BPH with obstruction/lower urinary tract symptoms, transrectal prostate biopsy Discharge Date 06/07/24 Discharged To: Home Setting Discharge Hospital [facility] Engagement Call Start Time 1400 Admission [...] cough Gastro-esophageal reflux disease without esophagitis Hyperlipidemia ([facility]/HCC) Laryngopharyngeal reflux Rhinitis BPH with obstruction/lower [...] RIF STM + DAP TONSILLECTOMY Social History: [place] [employer] [place] Tobacco Use: Low Risk (06/13/2024) Patient History [...] min Stress: No Stress Concern Present (03/02/2024) [employer] - Occupational Stress Questionnaire Feeling of Stress : Only a little Social Connections: Moderately Integrated (03/02/2024) Social Connection and Isolation Panel [NHANES] Frequency of Communication with Friends and Family: More than three times a week Frequency of Social Gatherings with Friends and Family: More than three times a week Attends Church Services: Never Active Member of Clubs or [...] by In Vitro route in the morning and1 Units before bedtime. - Lancets misc; 1 [...] time per week Atrial fibrillation, unspecified type ([facility]) Reviewed hospital records including labs, imaging, procedure [...] morning and 5 mg before bedtime., Disp: ,Rfl: aspirin 81 MG chewable tablet, 1 (one) [...] MORNING, Disp: , Rfl: documented in this encounterFulton State HospitalNbgddxiuio28-52-1395 Evaluation + Plan note Extracted from:Title:Discharge NoteAuthor:LYNETTE RICE, Page HospitalfoDate:06/07/24 Stable Discharged to - Home with family residential Discharge Diet(s): Calorie Controlled- 1800 Calorie Diet [...] Sushil Camejo Within 1 to 2 weeks [address] [place] [address]- [phone] Business (1) Additional Instructions: Call for followup appointment Jose Elias MENDOSA Within 5 to [address] [place] [address]- Business (1) Additional Instructions: Ernie RICE, Marita Albarran, URL, URO Within 1 week Additional Instructions: Post Op Patient Instructions - FT (CUSTOM) Cook- Post-Op Instructions for Prostate Biopsy(CUSTOM) Extracted from:Title:Consult NoteAuthor:Alivia RICE, EvettergeDate:06/07/24 63-year-old man admitted with persistent atrial fibrillation [...] (N13.8: Other obstructive and reflux uropathy) Extracted from:Title:Admission H & PAuthor:LYNETTE RICE, FacundofoDate:06/06/24 63-year-old male with histor y of BPH, hypertension, swj-pwejcog-eictzkenw diabetes mellitus type 2, elevated PSA with [...] Complete Initial Hospital Care/Day Moderate 55 Minutes 47063 2. Prediabetes (R73.03: Prediabetes) Continue on metformin. Ordered: Initial Hospital Care/Day Moderate 55 Minutes 05445 3. BPH with obstruction/lower urinary tract symptoms (N40.1: Benign prostatic hyperplasia with lower urinary tract symptoms) Continue on tamsulosin. Ordered: Initial Hospital Care/Day Moderate 55 Minutes 19936 4. Abnormal MRI (R93.89: Abnormal findings on [...] made to ensure accuracy. However inadvertent computerized automobile mechanic assistant errors may be present. Glo Peace. Hospitalist. Orders: acetaminophen, 650 mg = 2 tab(s), Tab, Oral, q6hr PRN Pain, Routine, Start date 06/06/24 15:08:00 EST, 06/06/24 15:08:00 EST Al hydroxide/Mg hydroxide/simethicone, 30 mL, Susp-Oral, Oral, q6hr PRN Indigestion, Routine, Startdate 06/06/24 15:08:00 EST diltiazem 100 mg [10 [...] PRN Sleep, Routine, Start date 06/06/24 15:08:00 EST,06/06/24 15:08:00 EST Activity As Tolerated Add on Test Add on Test Basic Metabolic Panel Below the Knee Intermittent Pneumatic Compression Device Cardiac Monitoring Diabetic/Calorie Control Diet eGFR Magnesium Level Oxygen Protocol Pulse Oximetry Resuscitation Status - Full Vital Signs Weight Addendum by LYNETTE RICE, [facility] on June 06, 2024 16:18:32 EST I spoke with spray gun sizer advised to start patient on IV amiodarone drip with the hopes of converting in AM. If patient does not convert chemically then patient will undergo DC conversion in a.m. andbe started on oral anticoagulation. Extracted from:Title:ANES Post-operative Note---GeneralAuthor:Mac RICE, Christian Wing Date:06/06/24 Plan Transfer/Discharge: Transfer/Discharge Discharge when meets criteria ( From PACU to floor ). Extracted from:Title:EU - MRI fusion TP prostate bxAuthor:Marita Klein MDDate: 06/06/24 Impression and Plan Diagnosis Elevated PSA (TOW10-HP R97.20, Working, Medical). Abnormal MRI (HYU50-JF R93.89, Working, Medical). Diagnosis Elevated PSA (NKT03-CE R97.20, Working, Medical). Abnormal MRI (XYC11-IR R93.89, Working, Medical). Extracted from:Title:ANES Pre-operative Note uthor:Christian Watts MDDate: 06/06/24 Plan [place] [employer] Anesthesiologists (ASA) physical status classification: Class II. Anesthetic Preoperative Plan: Anesthesia General. Future Appointments Appointment Date:06/18/2024 11:30:00 AM Scheduled Provider:Estuardo Bunch [facility] Type:Cardiology Follow Up (FT) Appointment Date:06/19/2024 11:00:00 AM Scheduled Provider:Marita Klein MD Location:[facility] Appointment Type:URO Office Visit [facility] [id number] NoteGetWell Learning Participants Patient GetWell Understands Education Yes GetWell Education Video What Is Atrial Fibrillation?[facility]11-08-2024 NoteGetWell Learning Participants Patient GetWell Understands Education Yes GetWell Education Video Atrial Fibrillation: Managing Your SymptomsAultman Hospital11-08-2024 NoteGetWell Education Video Atrial Fibrillation: Feeling More in Control GetWell Learning Participants Patient GetWell Understands Education [facility]11-08-2024 NoteGetWell Learning Participants Patient GetWell Understands Education Yes GetWell Education Video Avoiding Infections in the HospitalAultman Hospital11-08-2024 Note Discharge Summary Admission and Discharge Information Admitting Physician - LYNETTE RICE, Glo Consulting Physician - Estuardo Bunch MD [facility] Cardio, XXXX Referring Physician - Marita Klein [...] 63-year-old male with history of BPH, hypertension, qww-fugzizs-rqqeekleu diabetes mellitus type 2/prediabetes, elevated PSA with abnormal MRI of the prostate who underwent transrectal prostate biopsy the day of admission was found to be in atrial fibrillation after the procedure. [facility] with [facility] fibrillation with rapid ventricular response???new onset. He was treated with IV Lopressor, IV Cardizem drip, IV amiodarone drip. He was seen in consultation by the spray gun sizer who recommended IV amiodarone drip and echocardiogram. Patient chemically cardioverted overnight. Echocardiogram was performed and was essentially normal with normal EF. Corrosion Prevention Metal Sprayer recommended that patient could be discharged home [...] Atrial fibrillation with RVR;Other (please specify) Report [facility] [address] [place] [address] Adult Echocardiogram Report Name: THOMAS GONCALVES Study Date: 06/07/2024 08:19 AM BP: 100/69 mmHg Patient Location: [address]N [id number] [facility] Bed(s) [facility] HR: 85 : 1960 Gender: Male Height: 67.5 in Age: 63 yrs Ethnicity: [facility] Weight: 203 lb Reason For Study: Atrial fibrillation BSA: 2.0 m2 History: High Cholesterol,HTN,Diabetes,Alcohol abuse Ordering Physician: LYNETTE^Mbanefo Referring Physician: Marita Klein Performed By: Delaney Clinton, HERACLIO Interpretation Summary The left ventricle is normal [...] Disposition Discharged to - Home with family residential Discharge Diet Discharge Diet(s): Calorie Controlled- 1800 [...] Daily, 3 refills trospi (more content not included)...[facility] HospitalComment on above:Result Comment: Electronically Signed By: LYNETTE RICE, Glo\.br\Date and Time Signed: 06/07/24 11:11 [id number] NotePatient Education - Text [facility] [place], [place] Post-Operative Instructions for Prostate Biopsy *Even [...] for your post-operative appointment in 1-2 weeks ([phone] or [phone])[facility]11-08-2024 Note Consultation Note Chief Complaint a-fib [...] Push, q6hr, PRN Home (more content not included)...[facility] HospitalComment on above: Result Comment: Electronically Signed By: Alivia RICE, Estuardo\.br\Date and Time Signed: 06/07/24 10:01 [id number] NoteEchocardiology Procedure Exam Date/Time Accession # Ordering Echo Transthoracic 06/07/2024 08:52 EST [id number] Glo PEACE MD Complete CPT code 63245 Reason for Exam (Echo Transthoracic Complete) Atrial fibrillation with RVR;Other (please specify) Report [facility] [address] [place] [address] Adult Echocardiogram Report Name: THOMAS GONCALVES Study Date: 06/07/2024 08:19 AM BP: 100/69 mmHg Patient Location: [address] [place] [address] Bed(s) [facility] HR: 85 : 1960 Gender: Male Height: 67.5 in Age: 63 yrs Ethnicity: [facility] Weight: 203 lb Reason For Study: Atrial fibrillation BSA: 2.0 m2 History: High Cholesterol,HTN,Diabetes,Alcohol abuse Ordering Physician: Ketty Referring Physician: Marita Klein Performed By: Delaney Clinton, [facility] Interpretation Summary The left ventricle is normal [...] Signed by: Kvng Chappell MD Transcribed by: GA Technologist: [facility]11-07-2024 Note Progress Note-Nurse 1317 Pt received via cart from O.R 5. Pt arrived with oral airway in and simple mask at 10L. Dr. Watts here in PACU. Orders received. 1321 Cardizem Gtt started on pump at 10mg/HR. Pt alert. Skin pink warm and dry. 1325 [facility] RN Dr. Watts aware of preliminary copy. Hospitalist notified per Dr. Watts. 1422 [facility]. Pt alert and coherent. Denies needs at this time. VSS. 1511 Blood draw completed. Pt alert and coherent. VSS. Waiting for Observation room assignment. Ethylbenzene Converter Operator aware of need. Pt attempted to void [...] placement. andvital signs in progress by POCT. Verena,[facility]11-07-2024 NoteHistory and Physical History of Present Illness 63-year-old male with history of BPH, hypertension, hgz-qwdjlak-eipokikgj diabetes mellitus type 2,elevated PSA with abnormal [...] mg/dL High (06/06/24 09:58:00) POC Device SN: [id number] (06/06/24 09:58:00) POC User ID: [id number] (06/06/24 09:58:00) POC Username: CHIQUITA GRISSOM (06/06/24 09:58:00) Diagnostic Results (05/24/2024 13:47 EDT XR Chest 2 Views) * Final Report * Reason For Exam P.A.T. POWERSCRIBE REPORT IMPRESSION: NO RADIOGRAPHIC EVIDENCE OF ACUTE INTRATHORACIC PROCESS. EXAMINATION: XR Chest 2 Views [1] EKG analyzed by me: Atrial fibrillation with rapid ventricular response. Rate of 112 bpm. Assessment/Plan 63-year-old male with history of BPH, hypertension, tkt-sndulga-yjvfussyg diabetes mellitus type 2,elevated PSA with abnormal [...] Complete Initial Hospital Care/Day Moderate 55 Minutes [id number] 2. Prediabetes (R73.03: Prediabetes) Continue on metformin. Ordered: Initial Hospital Care/Day M (more content not included)...[facility]:Result Comment: Electronically Signed By: LYNETTE RICE, Glo\.br\Date and Time Signed: 06/06/24 16:19 [id number] Hospital Discharge instructions Patient Education 06/06/2024 13:46:18 Post Op Patient Instructions - FT (CUSTOM) 06/06/2024 13:46:14 Cook- Post-Op Instructions for Prostate Biopsy(CUSTOM) [facility] [place], [place] Post-Operative Instructions for Prostate Biopsy *Even [...] for your post-operative appointment in 1-2 weeks ([phone] or [phone]) Follow Up Care 05/14/2024 14:40:58 With:Jose Elias MENDOSA Address: [address] [facility], [address] [address]- Business (1) When:06/13/2024 14:20:00 With:Ernie RICE, KANDIS Maldonado, URO Address: [address] [place] [address]- When:06/19/2024 11:00:00 With:Sushil Camejo Address: [address] [place] [phone] Business (1) When:06/18/2024 11:30:00 Comments:Call for followup appointment [facility] 11-07-2024 NoteHistory and Physical History of Present Illness 63-year-old male with history of BPH, hypertension, hge-gjepcve-adhenguyv diabetes mellitus type 2,elevated PSA with abnormal [...] mg/dL High (06/06/24 09:58:00) POC Device SN: [id number] (06/06/24 09:58:00) POC User ID: [id number] (06/06/24 09:58:00) POC Username: CHIQUITA GRISSOM (06/06/24 09:58:00) Diagnostic Results (05/24/2024 13:47 EDT XR Chest 2 Views) * Final Report * Reason For Exam P.A.T. POWERSCRIBE REPORT IMPRESSION: NO RADIOGRAPHIC EVIDENCE OF ACUTE INTRATHORACIC PROCESS. EXAMINATION: XR Chest 2 Views [1] EKG analyzed by me: Atrial fibrillation with rapid ventricular response. Rate of 112 bpm. Assessment/Plan 63-year-old male with history of BPH, hypertension, afz-zbikkfj-coykhqkmb diabetes mellitus type 2,elevated PSA with abnormal [...] Complete Initial Hospital Care/Day Moderate 55 Minutes [address]6947 2. Prediabetes (R73.03: Prediabetes) Continue on metformin. Ordered: Initial Hospital Care/Day M (more content not included)...[facility]Comment on [facility]:Result Comment: Electronically Signed By: LYNETTE RICE, Glo\.br\Date and Time Signed: 06/06/24 15:12 [id number] NoteProgress Note-Physician Patient: THOMAS GONCALVES Age: 63 years Sex: Male : 1960 Associated Diagnoses: None Author: Christian Watts MD Postoperative Information Postoperative disposition: Postoperative disposition: To PACU. Optimetrix number: Optimetrix number [id number]. Anesthetic utilized: Monitored anesthesia care. Health Status [...] meets criteria ( From PACU to floor ).[facility]:Result Comment: Electronically Signed By: Christian Watts MD\.br\Date and Time Signed: 06/06/24 14:37 [id number] NotePatient Education - Text [facility] [place], [place] Post-Operative Instructions for Prostate Biopsy *Even [...] for your post-operative appointment in 1-2 weeks ([phone] or [phone])[facility]11-07-[facility] NoteProgress Note-Physician Patient: THOMAS GONCALVES Age: [...] hr, # 30 tab(s), Refills(s) 5, Pharmacy: [id number], 173, cm, 11/14/23 15:46:00 EDT, Height/Chelsea... tamsulosin 0.4 mg Cap: 0.4 mg = 1 cap(s), Oral, Daily, X 90 day(s), # 90 cap(s), Refills(s) 3, Pharmacy: [facility]/pharmacy #[id number], 173, cm, 02/06/24 9:01:00 EDT, Height/Length Dosing, 91, kg, 07/09/24 9:01:00 EDT, Weight Dosing trospium 60 mg oral capsule, extended release: 60 mg = 1 cap(s), Oral, qAM, # 30 cap(s), Refills(s)11, Pharmacy: [facility]/pharmacy #[id number], 173, cm, 04/13/23 9:46:00 EDT, [...] obstruction/lower urinary tract symptoms / SNOMED CT 1147286878 / Confirmed BPH without urinary obstruction / SNOMED CT 7661320977 / Confirmed Dysuria / SNOMED CT 85900754 / Confirmed ED (erectile dysfunction) / SNOMED CT 3069842882 / Confirmed Elevated PSA / SNOMED CT 8440804797 / Confirmed GERD (gastroesophageal reflux disease) / SNOMED CT 882747695 / Confirmed Hematuria / SNOMED CT 9394344969 / Confirmed Hyperlipidemia / SNOMED CT 12372813 / Confirmed Nocturia / SNOMED CT 810149898 / Confirmed OAB (overactive bladder) / SNOMED CT 9016240089 / Confirmed Prediabetes / SNOMED CT 7191386949 / Confirmed Prostate cancer screening / SNOMED CT 245429053 / Confirme (more content not included)...[facility] HospitalComment on above:Result Comment: Electronically Signed By: Mac RICE, Christian Wing\.br\Date and Time Signed: 06/06/24 11:37 [id number] Hospital Discharge instructions Patient Education 05/14/2024 13:21:45 [...] treatment? Where to find more information The [employer]: www.cancer.org [employer]: www.auanet.org Contact a health care [...] provider. Document Revised: 01/10/2022 Document Reviewed: 01/10/2022 [employer] Patient Education 2023 [employer] 05/14/2024 13:21:43 Prostate Cancer Prostate Cancer [...] under a microscope. This is called the Orick score and the total score can range from 6 10, indicating how likely it is that the cancer will spread (metastasize) to other parts of the body. The higher the score, the greater thelikelihood that the cancer will spread. Orick 6 or lower: This indicates that the cancer cells look similar to normal prostate cells (well differentiated). Orick 7: This indicates that the cancer cells look somewhat similar to normal prostate cells (moderately differentiated). Orick 8, 9, or 10: This indicates that [...] stress of having cancer. General instructions Take xnhi-sin-niowtpy and prescription medicines only as told by your health care provider. If you have to go to the hospital, notify your cancer specialist (oncologist). Keep all follow-up visits. This is important. Where to find more information [employer] Society: www.cancer.org [place] Society of Clinical Oncology: www.cancer.net National Cancer [place]: www.cancer.gov Contact a health care provider if: [...] provider. Document Revised: 10/13/2021 Document Reviewed: 10/13/2021 [employer] Patient Education 2023 [employer]. Follow Up Care 05/10/2024 10:44:38 With:Ernie RICE, KANDIS Maldonado, URO Address: When: Unknown Comments:fusion biopsy [facility] [place] 10-15-2024 NotePatient Education Oncology Prostate [...] under a microscope. This is called the Orick score and the total score can range from 6?10, indicating how likely it is that the cancer will spread (metastasize) to other parts of the body. The higher the score, the greater thelikelihood that the cancer will spread. ? Orick 6 or lower: This indicates that the cancer cells look similar to normal prostate cells (well differentiated). ? Renée 7: This indicates that the cancer cells look somewhat similar to normal prostate cells (moderately differentiated). ? Orick 8, 9, or 10: This indicates that [...] implanted intothe prostate gla (more content not included)...[facility] Evaluation + Plan note Diagnostic Tests Pending * PSA Screen, Total 02/06/24 [facility] [place] 07-09-2024 Hospital Discharge instructions Patient Education 02/06/2024 [...] your health care provider. General instructions Take wjzv-zqs-zwesdtk and prescription medicines only as told by [...] provider. Document Revised: 04/05/2021 Document Reviewed: 04/05/2021 [employer] Patient Education 2022 [employer]. 02/06/2024 09:33:22 Erectile Dysfunction Erectile Dysfunction Erectile [...] Follow these instructions at home: Medicines Take apam-mvm-zsabnnv and prescription medicines only as told by [...] provider. Document Revised: 10/13/2021 Document Reviewed: 10/13/2021 [employer] Patient Education 2022 [employer]. 02/06/2024 09:33:20 Cancer Screening for Men Cancer [...] if anything looks unusual. Men with a cotifc-swpm-txlqiy risk for skin cancer may want to see a discharge specialist (sales store checker) for an annual body check. What are the benefits of screening? Cancer screening is done to look for cancer in the very early stages, before it spreads and becomesharder to treat and before you would start to notice symptoms. Finding cancer early improves the chances of successful treatment. It may save your life. Where to find more information [place] Cancer Society: www.cancer.org Centers for Disease Control and Prevention: www.cdc.gov National Cancer [place]: www.cancer.gov Contact a health care provider if: [...] provider. Document Revised: 12/13/2021 Document Reviewed: 06/12/2020 [employer] Patient Education 2022 [employer]. 02/06/2024 09:33:19 Benign Prostatic Hyperplasia Benign Prostatic [...] urethra. Follow these instructions at home: Take xxoz-khs-idgnvrg and prescription medicines only as told by [...] provider. Document Revised: 02/02/2022 Document Reviewed: 02/02/2022 [employer] Patient Education 2022 [employer]. Follow Up Care 11/21/2023 09:38:16 With:ORLY Dexter APRN, HERBERTH Barbour, URL Address: When: Unknown Comments:1 year with PSA [facility] 07-09-2024 NotePatient Education Obstetrics and Gynecology Overactive [...] health care provider. General instructions ? Take ewyd-hlk-pthupgj and prescription medicines only as told by [...] help your health care (more content not included)...[facility] Hospital Discharge instructions Patient Education 11/14/2023 [...] urethra. Follow these instructions at home: Take qpgr-fwq-kkiybtx and prescription medicines only as told by [...] provider. Document Revised: 02/02/2022 Document Reviewed: 02/02/2022 [employer] Patient Education 2022 [employer]. 11/14/2023 16:42:28 Overactive Bladder, Adult Overactive Bladder, [...] your health care provider. General instructions Take pesn-fbs-xbznvmp and prescription medicines only as told by [...] provider. Document Revised: 04/05/2021 Document Reviewed: 04/05/2021 [employer] Patient Education 2022 [employer]. 11/14/2023 16:42:27 Erectile Dysfunction Erectile Dysfunction Erectile [...] Follow these instructions at home: Medicines Take rugk-zvn-mvcmohv and prescription medicines only as told by [...] provider. Document Revised: 10/13/2021 Document Reviewed: 10/13/2021 [employer] Patient Education 2022 [employer]. Follow Up Care 11/07/2023 10:06:32 With:ORLY Dexter APRN, HERBERTH Barbour, URL Address: When: Unknown Comments:8Weeks [facility] 09-14-2023 Hospital Discharge instructions Patient Education 04/13/2023 [...] including vitamins, herbs, eye drops, creams, and qdnf-zjr-sfhpjmy medicines. Any problems you or family members [...] provider tells you to take them. Taking vvqr-njh-fmewypg medicines, vitamins, herbs, and supplements. General instructions [...] Follow these instructions at home: Medicines Take obqt-jfc-lsdbbnq and prescription medicines only as told by [...] provider. Document Revised: 01/21/2022 Document Reviewed: 01/21/2022 [employer] Patient Education 2022 [employer]. Follow Up Care 10/07/2022 08:46:15 With:Ernie RICE, KANDIS Maldonado, URO Address:Unknown When: Unknown [facility] [place] 03-15-2023 Procedure [facility]03-10-2023 Hospital Discharge instructions Patient Education 10/07/2022 08:44:37 [...] urethra. Follow these instructions at home: Take gqmn-fgh-qbmtwik and prescription medicines only as told by [...] 07/17/2006 Document Revised: 06/11/2019 Document Reviewed: 08/21/2017 [employer] Patient Education 2020 [employer]. Follow Up Care 08/25/2022 15:18:01 With:Ernie RICE, KANDIS Maldonado, URO Address: When: Unknown [facility] [place] 01-23-2023 Hospital Discharge instructions Patient [...] every 6 hours as needed for pain. 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 6. Keep the drainage bag below [...] any concerns. 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 6. Keep the drainage bag below [...] Up Care 07/19/2022 10:11:47 With:Marita Klein Address: [address] [place] [phone] Business (1) [address] [address] [phone] Business (1) When: Unknown Comments:Office to schedule follow up in 1 month with PVR. Ontiveros removal in 3-5 days once urine is clear [facility]12-20-2022 Hospital Discharge instructions Patient Education 07/19/2022 08:02:45 [...] urethra. Follow these instructions at home: Take vdrp-zjj-vyhtvqb and prescription medicines only as told by [...] 07/17/2006 Document Revised: 06/11/2019 Document Reviewed: 08/21/2017 [employer] Patient Education 2020 [employer]. Follow Up Care 07/01/2022 11:16:31 With:Ernie RICE, KANDIS Maldonado, URO Address: When: Unknown [facility] Mike 10-04-2022 Hospital Discharge instructions Patient [...] fried and sweet foods. General instructions Take niic-avu-gykmjnn and prescription medicines only as told by [...] Document Reviewed: 08/02/2018 Else[employer] Patient Education 2019 [employer]. [facility] [place] 05-27-2022 Hospital Discharge instructions Patient Education 12/24/2021 [...] fried and sweet foods. General instructions Take vjwr-bep-pnuskps and prescription medicines only as told by [...] 05/13/2010 Document Revised: 11/07/2019 Document Reviewed: 08/02/2018 [employer] Patient Education 2019 [employer] Follow Up Care 11/12/2021 11:16:52 With:Ernie RICE, KANDIS Maldonado, URO Address: [address] [place] [phone] Business (1) When: Unknown [facility] [place] 04-15-2022 Hospital Discharge instructions Patient Education 11/12/2021 [...] urethra. Follow these instructions at home: Take tkmk-wwa-eeubvll and prescription medicines only as told by [...] 07/17/2006 Document Revised: 06/11/2019 Document Reviewed: 08/21/2017 [employer] Patient Education 2020 [employer]. Follow Up Care 08/06/2021 11:28:56 With:Marita Klein MD, URL, URO Address: When: Unknown [facility] evO-RIDation + Plan note Future Appointments Appointment Date:12/24/2021 10:00:00 AM Scheduled Provider:Marita Klein MD Location:[facility] Appointment Type:URO Office Visit [facility] Evaluation + Plan note Future Appointments Appointment Date:07/01/2022 10:00:00 AM Scheduled Provider:Marita Klein MD Location:[facility] Appointment Type:URO Office Visit [facility] Evaluation + Plan note Future Appointments Appointment Date:08/15/2022 08:00:00 AM Scheduled Provider: Location:[facility] Appointment Type:Urology CALL PAT FT Appointment Date:08/22/2022 08:00:00 AM Scheduled Provider: Location:[facility] Appointment Type:Urology FT [facility] SignStoreyaluation + Plan note Future Appointments Appointment Date:09/05/2022 08:00:00 AM Scheduled Provider: Location:[facility] Appointment Type:URO Nurse Visit Appointment Date:10/07/2022 08:15:00 AM Scheduled Provider:Marita Klein MD Location:[facility] Appointment Type:URO Office Visit [facility] Evaluation + Plan note Future Appointments Appointment Date:09/05/2022 08:00:00 AM Scheduled Provider: Location:[facility] Appointment Type:URO Nurse Visit Appointment Date:10/07/2022 08:15:00 AM Scheduled Provider:Marita Klein MD Location:[facility] Appointment Type:URO Office Visit Diagnostic Tests Pending * [facility]rine [facility] App[facility]ments Appointment Date:10/07/2022 08:15:00 AM Scheduled Provider:Marita Klein MD Location:[facility] Appointment Type:URO Office Visit [facility] Evaluation + Plan note Future Appointments Appointment Date:04/13/2023 10:00:00 AM Scheduled Provider:Marita Klein MD Location:[facility] Appointment Type:URO Office Visit [facility] Evaluation + Plan note Future Appointments Appointment Date:04/24/2023 01:30:00 PM Scheduled Provider: Location:[facility] Appointment Type:Urology CALL PAT FT Appointment Date:05/01/2023 09:00:00 AM Scheduled Provider: [facility] Appointment Type:Urology FT [facility] Evaluation + Plan note Future Appointments Appointment Date:05/24/2024 01:30:00 PM Scheduled Provider: Location:[facility] Appointment Type:Surgical PAT FT Appointment Date:06/06/2024 12:00:00 PM Scheduled Provider: Location:[facility] Appointment Type:Surgery FT Appointment Date:06/06/2024 12:00:00 PM Scheduled Provider: Location:.[facility] Appointment Type:US Prostate/Scrotum (FT) Future Scheduled Tests Radiology* US Prostate Biopsy 06/06/24 [facility] evaluation + Plan note Future Appointments Appointment Date:06/24/2024 01:00:00 PM Scheduled Provider: [facility] Type:CV Holter/Event (FT) Appointment Date:07/17/2024 02:30:00 PM Scheduled Provider:Jose Laurent PA-C Location:FT[facility]iology Clinic Appointment Type:Cardiology Follow Up (FT) Appointment Date:06/25/2025 10:00:00 AM Scheduled Provider:Marita Klein MD Location:[facility] Appointment Type:URO Office Visit Future Scheduled Tests Laboratory* PSA Total 06/19/25 [facility] evaluation + Plan note Future Appointments Appointment Date:07/17/2024 02:30:00 PM Scheduled Provider:Jose Laurent PA-C Location:FT[facility]iology Clinic Appointment Type:Cardiology Follow Up (FT) Appointment Date:06/25/2025 10:00:00 AM Scheduled Provider:Marita Klein MD Location:[facility] Appointment Type:URO Office Visit Future Scheduled Tests Laboratory* PSA Total 06/19/25 [facility] evaluation + Plan note Future Appointments Appointment Date:09/03/2024 02:15:00 PM Scheduled Provider:Jose Laurent PA-C Location:FT[facility]iology Clinic Appointment Type:Cardiology Follow Up (FT) Appointment Date:06/25/2025 10:00:00 AM Scheduled Provider:Marita Klein MD Location:[facility] Appointment Type:URO Office Visit Future Scheduled Tests Laboratory* PSA Total 06/19/25 [facility] evaluation + Plan note Future Appointments Appointment Date:10/21/2024 09:15:00 AM Scheduled Provider:Jose Laurent PA-C Location:[facility] Clinic Appointment Type:Cardiology Follow Up (FT) Appointment Date:06/25/2025 10:00:00 AM Scheduled Provider:Marita Klein MD Location:[facility] Appointment Type:URO Office Visit Future Scheduled Tests Laboratory* PSA Total 06/19/25 [facility] evaluation + Plan note Future Appointments Appointment Date:01/21/2025 09:45:00 AM Scheduled Provider:Jose Laurent PA-C Location:FT[facility] Clinic Appointment Type:Cardiology Follow Up (FT) Appointment Date:06/25/2025 10:00:00 AM Scheduled Provider:Marita Klein MD [facility] Type:URO Office Visit Future Scheduled Tests Laboratory* PSA Total 06/19/25 [facility] evaluation + Plan note Future Appointments Appointment Date:06/18/2025 10:45:00 AM Scheduled Provider:Marita Klein MD [facility] App[facility] Type:URO Office Visit Appointment Date:07/17/2025 11:15:00 AM Scheduled Provider:Jose Laurent PA-C Location:[facility] Clinic Appointment Type:Cardiology Follow Up (FT) Future Scheduled Tests Laboratory* PSA Total 06/19/25 [facility] evaluation noteNo assessment information available [facility] Work Phone: evaluation note* Diagnosis Atrial fibrillation, unspecified type (CMS/HCC)- Primary Prediabetes Other abnormal glucose BPH with obstruction/lower urinary tract symptoms documented in [facility] encounter [facility]* Diagnosis Prediabetes- Primary Other abnormal glucose BPH with obstruction/lower urinary tract symptoms Mixed hyperlipidemia (CMS/HCC) Mixed hyperlipidemia documented in this encounter [facility]* Diagnosis Prediabetes- Primary Other abnormal glucose Unspecified atrial fibrillation (CMS/HCC) Ringworm Dermatophytosis of unspecified site [facility]* Diagnosis BPH with obstruction/lower urinary tract symptoms- Primary Gastro-esophageal reflux disease without esophagitis Mixed hyperlipidemia Mixed hyperlipidemia Prediabetes Other abnormal glucose Atrial fibrillation, unspecified type (HCC) Prostate cancer screening Special screening for malignant neoplasm of prostate documented [facility] this encounter [facility] Author Matthew Mendez [facility] October 12, 2022 9:38amNote Date/TimeMar2022 9:38am[address] [address] Gastroenterology H&P Signed Patient: Marlo Goncalves MR#: [id number] : 1960 Acct:[id number] Age/Sex: 61 / M Adm Date: 3 Loc: Room: Type: [facility] Attending Dr: Matthew Mendez MD Copies to: Matthew Mendez MD G Julio C Mendosa Jr, DO~ Date of Service: 10/12/2022 HISTORY & PHYSICAL: Patient's history with special attention to the cardiovascular, pulmonary systems and the current problem was reviewed with the patient immediately prior to the procedure. Present medications and doses reviewed in the EMR. Allergies and pertinent laboratory tests were also re viewedat this time in the EMR. 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 for [...] years. -Follow up with PCP. -Office number [phone].[facility] Work Phone: Progress note No data available for this section [facility] Summary Purpose Family History No Family History Records Found Relationship Condition Age at Onset Recorded Date/T lisa father Diabetes mellitus Unknown Not SpecifiedDiabetes mellitusUnknownMalignant neoplasm of colonUnknown Relationship Condition Age at Onset Recorded Date/T lisa father Diabetes mellitus Unknown motherDiabetes mellitusUnknownMalignant neoplasm of colonUnknownfatherChronic obstructive pulmonary diseaseUnknownDeceasedUnknownmotherChronic obstructive pulmonary diseaseUnknown Advance Directives No Advanced Directives Records Found [...] section and content) DATE CREATED AUTHOR 08/07/2021 [facility] DATE CREATED AUTHOR AUTHOR'S ORGANIZ ATION 05/13/2024 [facility] DATE CREATED AUTHOR AUTHOR'S ORGANIZ ATION 05/26/2024 [facility] DATE CREATED AUTHOR AUTHOR'S ORGANIZ ATION 06/08/2024 [facility] DATE CREATED AUTHOR AUTHOR'S ORGANIZ ATION 06/09/2024 [facility] DATE CREATED AUTHOR AUTHOR'S ORGANIZ ATION 06/11/2024 [facility] DATE CREATED AUTHOR AUTHOR'S ORGANIZ ATION 06/16/2024 [facility] DATE CREATED AUTHOR AUTHOR'S ORGANIZ ATION 06/27/2024 [facility] DATE CREATED AUTHOR AUTHOR'S ORGANIZ ATION 12/06/2024 [facility] DATE CREATED AUTHOR AUTHOR'S ORGANIZ ATION 01/28/2025 [facility] DATE CREATED AUTHOR AUTHOR'S ORGANIZ ATION 03/07/2025 [facility] EPIC Patient Care team informatio n (unrecognized section and content) Team Status: Inactive Member Role Status Dates Luiza Mendosa DO Primary Care Provider Active Skyler Rosenberg DOAttdevi ProviderActive Team Status: Active Member Role Status Dates Luiza Mendosa DO Primary Care Provider Active Team Status: Inactive Member Role Status Dates Luiza Mendosa DO Primary Care Provider Active Matthew Mendez MDAttdevi ProviderActive Team Status: Inactive Member Role Status Dates Luiza Mendosa DO Primary Care Provider Active Start: May 08, 2024 End: May 08uroSARITHA GaitanP-BCAttending ProviderActiveStart: May 08, 2024 End: May 08, 2024Team MemberRelationshipSpecialtyStart DateEnd Date Sharla Mendosa DO [address] [place] [address] PCP - GeneralFami Medicine01/17/23 Arben Mcclain, PA [address] [place] [address] Physician Assistantmily Medicine01/17/23Team MemberRelationshipSpecialtyStart DateEnd Date Sharla Mendosa DO [address] [place] [address] PCP - Generalmi Medicine01/17/23 Arben Mcclain, PA [address] [place] [address] Physician Assistantmily Medicine01/17/23Team MemberRelationshipSpecialtyStart DateEnd Date Sharla Mendosa DO [address] [place] [address] PCP - GeneralFami Medicine01/17/23 Arben Mcclain PA [address] [place] [address] [facility]01/17/23Te MemberRelationshipSpecialtyStart DateEnd Date Sharla Mendosa, DO [address] [place] [address] PCP - [facility]01/17/23 Arben Mcclain, PA [address] [place] [address] Physician AssistantBoston [facility] Medicine01/17/23Te MemberRelationshipSpecialtyStart DateEnd Date Sharla Mendosa, DO [address] [place] [address] PCP - [facility]01/17/23 Arben Mcclain, PA [address] [place] [address] [facility]01/17/23Te MemberRelationshipSpecialtyStart DateEnd Date Sharla Mendosa, DO [address] [place] [address] PCP - [facility]01/17/23 Sharla Mendosa, DO [address] [place] [address] PCP - Medical [facility]07/31/2211 Arben Mcclain, PA [address] [place] [address] Physician [facility] Medicine01/17/23Te MemberRelationshipSpecialtyStart DateEnd Date Sharla Mendosa DO [address] [place] [address] PCP - [facility]01/17/23 Sharla Mendosa DO [address] [place] [address] PCP - [facility]07/31/2211 Arben Mcclain, PA [address] [place] [address] [facility]01/17/23Te MemberRelationshipSpecialtyStart DateEnd Date Sharla Mendosa DO [address] [place] [address] [facility] - [facility]01/17/23 Sharla Mendosa DO [address] [place] [address] [facility]07/31/2211 Arben Mcclain, PA [address] [place] [address] Physician [facility]01/17/23Te MemberRelationshipSpecialtyStart DateEnd Date Sharla Mendosa DO [address] [place] [address] [facility]01/17/23 Sharla Mendosa DO [address] [place] [address] PCP - [facility]07/31/2211 Arben Mcclain PA [address] [place] [address] Physician AssistantFamily Medicine01/17/23 Goals (unrecognized section and content) Goals may be documented in a n alternate section Reason for Visit (unrecogniz ed section and content) ReasonCommentsHospital Follow-up FOR RECORDS PERTAINING TO PATIENTS WHO [...] BE BASED ON THE PRIMARY CLINICAL RECORDS. [facility] [employer] [facility]. provides no warranty or guarantee of the accuracy or completeness of information in this document.
[2025-06-09 14:11] LABS: Prostate Specific Antigen Dx 2.11 ng/mL (<=4.00)
== END 2025-06-09 10:14 | disposition home or self-care (01) ==
LOC: LAB 10:14
PROVIDERS: PCP Family Medicine; Visit Provider Urology
DX: R97.20 Elevated prostate specific antigen [PSA] (principal)
CPT/HCPCS: 36415; 84153